=== PATIENT | male | born 1950 | race Caucasian/White ===

== ENCOUNTER → 2017-10-22 11:00 | Outpatient (CLI) | payer MEDICARE, SELFPAY | PROVIDERS: PCP Emergency Medicine; Visit Provider Internal Medicine Cardiovascular Disease | DX: I48.0 Paroxysmal atrial fibrillation (principal); I25.10 Atherosclerotic heart disease of native coronary artery without angina pectoris; E78.5 Hyperlipidemia, unspecified | CPT/HCPCS: 99213 ==

== ENCOUNTER 2017-11-09 02:14 | Outpatient (CLI) | payer MEDICARE, SELFPAY ==
--- NOTE | 2017-11-12 08:24 | HOLTER_ITS ---
HOLTER MONITOR DATE OF ANALYSIS/DICTATION November 11, 2017 DATE OF RECORDING November 09, 2017 REFERRING PHYSICIAN Carlos Enrique Hobbs M.D. INDICATIONS Palpitations. FINDINGS 1. Sinus rhythm, heart rate spectrum 35-122 beats per minute, average 58 beats per minute. 2. Rare PAC, 177/2 days, 0.1%, no SVT, no AF. 3. Frequent PVC, mostly single PVCs, 4520/2 days, 2.7%, 11 couplets, no triplets, no ventricular tachycardia. 4. No significant pauses. 5. Symptoms: flutter x20 minutes with sinus rhythm at 85 beats per minute, flutter x5 hours with sinus rhythm 56 beats per minute, flutter x2 hours with sinus bradycardia 45 beats per minute and single PVC, flutter x3.5 hours with sinus rhythm 60 beats per minute, flutter x1.5 hours with sinus bradycardia 43 beats per minute. Terra Cabrera M.D. JUANITO/ondina T - 11/12/2017
== END 2017-11-09 02:34 ==
PROVIDERS: PCP Emergency Medicine; Visit Provider Internal Medicine Cardiovascular Disease
DX: R00.2 Palpitations (principal); I49.1 Atrial premature depolarization; I49.3 Ventricular premature depolarization
CPT/HCPCS: 93225

== ENCOUNTER 2017-11-11 11:13 | Outpatient (CLI) | payer MEDICARE, SELFPAY | END 2017-11-11 11:33 | PROVIDERS: PCP Emergency Medicine; Visit Provider Internal Medicine Cardiovascular Disease | DX: R00.2 Palpitations (principal); I49.1 Atrial premature depolarization; I49.3 Ventricular premature depolarization | CPT/HCPCS: 93227; 93226 ==

== ENCOUNTER 2017-12-16 17:33 | Emergency (ER) | payer MEDICARE, SELFPAY ==
[2017-12-16 17:38] VITALS: BP 169/98; PULSE 60; RESP 18; TEMP 36.6; O2SAT 92
[2017-12-16] MEDS: Bupivacaine 0.5% Pres-Free 30 ML VIAL IJ (18:20)
--- NOTE | 2017-12-16 18:23 | ED.GENADUL_ITS ---
Discharge Plan Disposition Patient Disposition: HOME Discharge Details Chief Complaint: Laceration Clinical Impression: Laceration of thumb, left Primary Care Provider: Adam Felix ED Provider: Howard Rodriguez Home Meds and New Rx's Prescriptions: New cephalexin [Keflex] 500 mg capsule 500 mg PO TID Qty: 9 RF: 0 Continue multivitamin [One Daily] 1 EACH tablet 1 ea PO DAILY RF: 0 ascorbic acid (vitamin C) [Vitamin C] 500 MG tablet 500 mg PO DAILY RF: 0 aspirin 81 MG tablet,chewable 81 mg PO DAILY RF: 0 pravastatin 40 MG tablet 40 mg PO DAILY Qty: 90 RF: 3 ranitidine HCl [Zantac Maximum Strength] 150 MG tablet 150 mg PO BID Qty: 180 RF: 8 clotrimazole [Lotrimin AF] 24 GM cream 24 gm Topical PRN Qty: 1 RF: 3 clonazepam [Klonopin] 1 MG tablet 1 mg PO HS Qty: 90 RF: 0 Discharge Instructions Instructions: Laceration (ED) Additional Instructions: Keep dressing clean, dry and intact for the next 2 days. You can remove your dressing on the third day and examine wound for any signs of infection ( increasing redness, warmth, discharge ). Apply Neosporin and reapply sterile dressing. Change dressing daily thereafter. Return to the emergency department in 8 days for suture removal. Return sooner for any worsening or new concerning symptoms. Medical Decision Making 18:20 --66-year-old male here with laceration to his dorsal left 1st digit. Neuro intact distally. Digital block performed for pain. xray to assess for fracture. Tetanus utd. 20:20 -- Wound irrigated and explored. Wound does extend deep down to extensor tendon. Tendons appear intact and with full strength on extension at IP. Primary closure performed. #6 Prolene?5-0 sutures placed. Sterile dressing applied. Patient was advised to follow-up in 8 days for suture removal. I explained that he should return sooner if he notices any weakness in his digit or for any other new or concerning symptoms. Will prescribe 3 days of prophylactic keflex. HPI General Mode of arrival: ambulatory . Date/Time Provider Initiated Documentation: 12/16/17 18:04 . Limitations to Documentation: no limitations . Information obtained by: patient . HPI Narrative: 62-year-old male presents with laceration to his left thumb just prior to arrival. Patient notes he was pulling his boat cord back and it slipped and mechanism cut his thumb. Laceration is deep. Laceration was bleeding. Bleeding improved with pressure and elevation. No associated numbness or weakness. Related Data Home Medications Medication Instructions Recorded Confirmed ascorbic acid (vitamin C) [Vitamin 500 mg PO DAILY 06/07/12 12/16/17 C] multivitamin [One Daily] 1 ea PO DAILY 06/07/12 12/16/17 aspirin 81 mg PO DAILY tab-cap 03/13/16 12/16/17 pravastatin 40 mg PO DAILY #90 tab-cap 03/02/17 12/16/17 ranitidine HCl [Zantac Maximum 150 mg PO BID #180 tab-cap 04/12/17 12/16/17 Strength] clotrimazole [Lotrimin AF] 24 gm TOPICAL PRN #1 script 05/05/17 12/16/17 clonazepam [Klonopin] 1 mg PO HS #90 tab 10/12/17 12/16/17 cephalexin [Keflex] 500 mg PO TID #9 cap 12/16/17 Previous Rx's Medication Instructions Recorded pravastatin 40 mg PO DAILY #90 tab-cap 03/02/17 ranitidine HCl [Zantac Maximum 150 mg PO BID #180 tab-cap 04/12/17 Strength] clotrimazole [Lotrimin AF] 24 gm TOPICAL PRN #1 script 05/05/17 clonazepam [Klonopin] 1 mg PO HS #90 tab 10/12/17 cephalexin [Keflex] 500 mg PO TID #9 cap 12/16/17 Allergies Allergy/AdvReac Type Severity Reaction Status Date / Time atenolol AdvReac Unknown hypotension Unverified 12/16/17 17:42 General Stated Complaint: Laceration RYAN: 4 Review of Systems Integumentary/Breasts Reports as per HPI Neurologic Denies paresthesias PFSH Family History Mother Dementia Father Neoplasm Sister Diabetes Brother Rheumatoid arthritis Sister No problems noted. Sister No problems noted. Maternal Aunt Dementia Medical History Actinic keratosis Adenomatous colon polyp Anxiety and depression Colitis Constipation GERD (gastroesophageal reflux disease) Gastritis History of melanoma Hyperlipidemia Kidney stones Low back pain Paroxysmal atrial fibrillation Prostatitis Right hydrocele Rosacea Social History Smoking/Tobacco Use Status: Former Tobacco Use Surgical History Angioplasty Colonoscopy - IV Sedation Colonoscopy - MAC (06/21/17) EGD - IV Sedation Repair, Tendon or Muscle cardiac ablation Exam Extrem Left upper extremity: hand (1.5cm dorsal left thumb with laceration over distal phalanx, curved, extending deep to extensor tendon; extensor tendon intact with full strength) Details: neurosensory exam normal and tendon exam normal Course Vital Signs Temperature 36.6 C 12/16/17 17:38 Pulse 60 12/16/17 17:38 Respiratory Rate 18 12/16/17 17:38 Blood Pressure 169/98 H 12/16/17 17:38 Pulse Oximetry 92 L 12/16/17 17:38 Temperature 36.6 C 12/16/17 17:38 Temperature Source Skin 12/16/17 17:38 Pulse 60 12/16/17 17:38 Respiratory Rate 18 12/16/17 17:38 Respiratory Effort 12/16/17 17:39 Blood Pressure 169/98 H 12/16/17 17:38 Blood Pressure Position Sitting 12/16/17 17:38 Pulse Oximetry 92 L 12/16/17 17:38 Oxygen Delivery Method Room Air 12/16/17 17:38 Oxygen Flow Rate 0 12/16/17 17:38 Pain Level 3 12/16/17 17:41 Procedures Laceration Laceration 1: Site: upper extremity Side (If applicable): left Size (cm): 1.5 Description: irregular Depth: simple, single layer Skin layer closed with: vicryl Size (cm): 5-0 Number of sutures: 6 Technique: simple, interrupted Nerve Block Nerve Block 1: Time out performed: Yes Local Anesthetic: Bupivicaine 0.5% Amount of anesthesia used (mL): 4 Side: left Nerve Blocks: digital (dorsal thumb) Procedure Successful: Yes Patient Tolerated Procedure: well Complications: none
--- NOTE | 2017-12-16 18:44 | DI.RAD_ITS ---
SYMPTOM/DIAGNOSIS: LACERATION, BLUNT TRAUMA LEFT THUMB: Three views were obtained. There is reportedly a dorsal laceration at the level of the IP joint. The bones appear intact except for some degenerative changes. There are three or four small flecks of high density material seen on the dorsal aspect of the thumb at the level of the IP joint. These could represent tiny chip fractures or foreign material. Please correlate clinically.
--- NOTE | 2017-12-16 19:10 | DI.VRAD_ITS ---
EXAM: XR Left Finger(s), 2 or More Views EXAM DATE/TIME: 12/16/2017 6:06 PM CLINICAL HISTORY: 66 years old, male; Injury or trauma; Injury history: Hunting, bow wrapped around left thumb. ; Initial encounter; Blunt trauma (contusions or hematomas and laceration; Finger; Injury date: 12/16; Injury details: Left thumb pain and laceration, no previous FX to left thumb, no surgery. TECHNIQUE: XR Left finger minimum 2 views. COMPARISON: No relevant prior studies available. FINDINGS: Bones/joints: Normal. Soft tissues: Small coarse calcifications dorsal to the first interphalangeal joint with overlying soft tissue swelling. IMPRESSION: 1. No acute bony pathology. 2. Small coarse calcifications dorsal to the first interphalangeal joint with overlying soft tissue swelling most suggestive of acute on chronic soft tissue trauma. Dictated and Authenticated by: Aniya Floyd MD. Ordering:BLAISE MARTÍNEZ MD
[2017-12-16 23:59] VITALS: BP 169/98; PULSE 60; RESP 18; TEMP 36.6; O2SAT 92
== END 2017-12-16 20:46 | disposition home or self-care (01) ==
PROVIDERS: Emergency Provider Student in an Organized Health Care Education/Training Program; PCP Emergency Medicine
DX: S61.012A Laceration without foreign body of left thumb without damage to nail, initial encounter (principal); W26.8XXA Contact with other sharp object(s), not elsewhere classified, initial encounter
CPT/HCPCS: 12001; 73140

== ENCOUNTER 2017-12-24 09:03 | Emergency (ER) | payer MEDICARE, SELFPAY ==
[2017-12-24 09:09] VITALS: BP 158/82; PULSE 60; TEMP 36.3; O2SAT 98
--- NOTE | 2017-12-24 09:28 | ED.GENADUL_ITS ---
Discharge Plan Disposition Patient Disposition: HOME Condition: Good Discharge Details Chief Complaint: SutureRem Clinical Impression: Encounter for removal of sutures Primary Care Provider: Adam Felix ED Provider: Alfreda Cordoba Home Meds and New Rx's Prescriptions: Continue multivitamin [One Daily] 1 EACH tablet 1 ea PO DAILY RF: 0 ascorbic acid (vitamin C) [Vitamin C] 500 MG tablet 500 mg PO DAILY RF: 0 aspirin 81 MG tablet,chewable 81 mg PO DAILY RF: 0 pravastatin 40 MG tablet 40 mg PO DAILY Qty: 90 RF: 3 ranitidine HCl [Zantac Maximum Strength] 150 MG tablet 150 mg PO BID Qty: 180 RF: 8 clotrimazole [Lotrimin AF] 24 GM cream 24 gm Topical PRN Qty: 1 RF: 3 clonazepam [Klonopin] 1 MG tablet 1 mg PO HS Qty: 90 RF: 0 cephalexin [Keflex] 500 mg capsule 500 mg PO TID Qty: 9 RF: 0 Discharge Instructions Instructions: Stitches Removal (ED) Additional Instructions: Keep wound clean, dry, covered. Continue to monitor for signs of infection including redness, warmth, drainage, increased pain. If these arise please seek care urgently once again. Follow up with primary care as needed. Referrals: Adam Felix DO [Primary Care Provider] - Medical Decision Making Patient presents today with chief complaint suture removal. Wound appears to be healing well. Is been 8 days since this is his replacement dorsal aspect of his left thumb. No other sensation. Limited range of motion over the interphalangeal joint but this seems to be from hesitancy and stiffness. He denies any altered sensation. #6 sutures were easily removed by myself. A clean, sterile dressing was then placed over this. We discussed the signs symptoms of infection when to seek care urgently once again. Discussed continued wound care. all his questions and concerns were addressed and he is in agreement with this plan HPI General Mode of arrival: ambulatory . Date/Time Provider Initiated Documentation: 12/24/17 09:05 . Limitations to Documentation: no limitations . Information obtained by: patient . History of Present Illness 66 year old M presents to the emergency department with the chief complaint of suture removal left thumb, described as mild (denies any pain at this time), and is localized to the left and upper extremity. Patient started experiencing this day(s) (8) No exacerbating factors reported . Patient notes no other symptoms.; denies cough, fever/chills and rash. Related Data Home Medications Medication Instructions Recorded Confirmed ascorbic acid (vitamin C) [Vitamin 500 mg PO DAILY 06/07/12 12/16/17 C] multivitamin [One Daily] 1 ea PO DAILY 06/07/12 12/16/17 aspirin 81 mg PO DAILY tab-cap 03/13/16 12/16/17 pravastatin 40 mg PO DAILY #90 tab-cap 03/02/17 12/16/17 ranitidine HCl [Zantac Maximum 150 mg PO BID #180 tab-cap 04/12/17 12/16/17 Strength] clotrimazole [Lotrimin AF] 24 gm TOPICAL PRN #1 script 05/05/17 12/16/17 clonazepam [Klonopin] 1 mg PO HS #90 tab 10/12/17 12/16/17 cephalexin [Keflex] 500 mg PO TID #9 cap 12/16/17 Previous Rx's Medication Instructions Recorded pravastatin 40 mg PO DAILY #90 tab-cap 03/02/17 ranitidine HCl [Zantac Maximum 150 mg PO BID #180 tab-cap 04/12/17 Strength] clotrimazole [Lotrimin AF] 24 gm TOPICAL PRN #1 script 05/05/17 clonazepam [Klonopin] 1 mg PO HS #90 tab 10/12/17 cephalexin [Keflex] 500 mg PO TID #9 cap 12/16/17 Allergies Allergy/AdvReac Type Severity Reaction Status Date / Time atenolol AdvReac Unknown hypotension Unverified 12/16/17 17:42 General Stated Complaint: SutureRem RYAN: 5 Review of Systems Constitutional Reports as per HPI, Denies chills, Denies fever(s) and Denies weakness Musculoskeletal Reports as per HPI, Denies numbness and Denies tingling Integumentary/Breasts Reports as per HPI Neurologic Reports as per HPI, Denies numbness, Denies radicular pain, Denies tingling, Denies paresthesias and Denies weakness PFSH Family History Mother Dementia Father Neoplasm Sister Diabetes Brother Rheumatoid arthritis Sister No problems noted. Sister No problems noted. Maternal Aunt Dementia Medical History Actinic keratosis Adenomatous colon polyp Anxiety and depression Colitis Constipation GERD (gastroesophageal reflux disease) Gastritis History of melanoma Hyperlipidemia Kidney stones Low back pain Paroxysmal atrial fibrillation Prostatitis Right hydrocele Rosacea Social History Smoking/Tobacco Use Status: Former Tobacco Use Surgical History Angioplasty Colonoscopy - IV Sedation Colonoscopy - MAC (06/21/17) EGD - IV Sedation Repair, Tendon or Muscle cardiac ablation Exam Const General: cooperative, healthy appearing, comfortable, no acute distress and well developed Nutritional Appearance: average body habitus and well nourished Orientation: alert and awake Resp Effort & Inspection: normal respiratory effort, able to speak in complete sentences and no respiratory distress Cardio Rate: regular rate Rhythm: regular rhythm Skin Trauma: laceration (Patient is a well-healing laceration on the dorsal aspect of the left thumb. No surrounding erythema, warmth, drainage. Appears to be healing well and ready for suture removal #6 sutures remain in) Neuro General: alert and awake Cognition: normal cognition Speech: speech normal Gait: normal gait Sensory Exam: no sensory deficits noted Extrem General: abnormal to inspection (Well-healing laceration as above. Patient does have normal range of motion over the interphalangeal joint. He has multiple old scars over the dorsal aspect of the thumb.) Psych Appearance: grossly normal and well kempt Mental Status: mental status grossly normal Speech and Movement: speech and movement normal Mood: congruent mood Course Respiratory Effort 12/24/17 09:06
== END 2017-12-24 09:30 | disposition home or self-care (01) ==
PROVIDERS: Emergency Provider Physician Assistant; PCP Emergency Medicine
DX: S61.012D Laceration without foreign body of left thumb without damage to nail, subsequent encounter (principal); W26.8XXD Contact with other sharp object(s), not elsewhere classified, subsequent encounter; Z48.02 Encounter for removal of sutures

== ENCOUNTER 2018-04-15 03:07 | Outpatient (CLI) | payer MEDICARE, SELFPAY ==
[2018-04-15 13:16] LABS: Cholesterol 180 mg/dL (50-200); HDL Cholesterol 56 mg/dL (40-60); LDL CHOLESTEROL 107 mg/dL (<100); Triglyceride 116 mg/dL (30-150)
[2018-04-18 09:31] LABS: PSA, Screening 2.6 ng/ml (0-4.5)
== END 2018-04-15 03:27 ==
PROVIDERS: PCP Emergency Medicine; Visit Provider Emergency Medicine
DX: E78.5 Hyperlipidemia, unspecified (principal); Z12.5 Encounter for screening for malignant neoplasm of prostate
CPT/HCPCS: 36415; 80061; 83721; 84153

== ENCOUNTER 2018-05-23 10:12 | Day surgery (SDC) | payer MEDICARE, SELFPAY ==
--- NOTE | 2018-05-22 17:08 | W.PIPPEYE ---
History of Present Illness Chief Complaint: Progressive decreased vision, left eye Narrative: The patient is a 67-year-old male who presented with complaints of progressive decreased vision in both eyes at both distance and near. He has significant difficulty with reading and driving. He has a lot of symptoms of glare. On examination he was noted to have moderate bilateral nuclear and posterior subcapsular cataract with visual acuity of 20/30 OD, 2040 OS. He was significantly symptomatically he desired cataract surgery and attempt to improve and maximize his vision. NOTE: The Chief Complaint, HPI, Past Medical History, Past Surgical History, Family History, Social History, Medications, and complete Ophthalmic Exam with detailed Assessment and Plan have already been documented in the patient's outpatient ophthalmic record and are not covered again in detail here. PFSH Family History Mother Dementia Father Stomach cancer Sister Diabetes Brother Rheumatoid arthritis Sister No problems noted. Sister No problems noted. Maternal Aunt Dementia Brother No problems noted. Social History Smoking/Tobacco Use Status: Former Tobacco Use Second Hand Exposure: Yes Alcohol Intake: former Drug use: Never Substance use type: does not use Caregiver/Support person: No Household members: family Housing: house Pets and animals: No Sexually active: No Do you think of yourself as: straight/heterosexual Current gender identity: male What is your relationship status?: never How often do you talk on the phone with friends or family?: three or more times per week How often do you get together with friends or relatives?: three or more times per week How often do you attend jehovah's witness or rastafari services?: decline to answer Do you belong to any clubs or organized social groups?: no Panel score (0-1 are the most socially isolated patients): 1 What type of physical activity do you participate in: walking Duration: 30-45 minutes/day Frequency: 1-2 times per week Any/Worship: None Do you feel safe in your relationship?: Yes Meds Home Medications Medication Instructions Recorded Confirmed Type ascorbic acid (vitamin C) [Vitamin 500 mg PO DAILY 06/07/12 05/18/18 History C] multivitamin [One Daily] 1 ea PO DAILY 06/07/12 05/18/18 History aspirin 81 mg PO DAILY tab-cap 03/13/16 05/18/18 History clotrimazole [Lotrimin AF] 24 gm TOPICAL PRN #1 script 05/05/17 05/18/18 Rx pravastatin 40 mg tablet 40 mg PO DAILY #90 tab-cap 03/02/18 05/18/18 Rx ranitidine 150 mg tablet 150 mg PO BID #180 tab-cap 04/13/18 05/18/18 Rx clonazepam [Klonopin] 0.5 mg PO HS 05/18/18 05/18/18 History Allergies Allergy/AdvReac Type Severity Reaction Status Date / Time atenolol AdvReac Unknown hypotension Verified 05/18/18 09:12 Exam OCULAR EXAM:: Most recent ocular examination is significant for best corrected vision of 20/30 in each eye. Intraocular pressure is 12 OD, 10 OS. Extraocular motility is normal. Pupils equal, round, and reactive without afferent pupillary defect slit-lamp examination is significant for pupils dilating to 6.5 mm OU. 2+ nuclear with 1+ posterior subcapsular cataract OU. Dilated funduscopic examination reveals disc cupping of 0.6 OD 0.5 OS with normal vessels. There is a mild epiretinal membrane in both maculas. There are macular pigmentary changes evident in both eyes. Peripheral retina and vitreous is normal OU BRIGHTNESS ACUITY TESTING (BAT):: Brightness acuity testing of the left eye off is 20/40. Low is 20/40. Medium is 20/30. High is 20/50. Assessment and Plan (1) Posterior subcapsular age-related cataract of left eye: Current visit: No Status: Acute Assessment: Visually significant cataract, left eye. Plan: Cataract extraction with intraocular lens implantation, left eye (2) Nuclear sclerotic cataract of left eye: Current visit: No Status: Acute Assessment: Visually significant cataract, left eye. Plan: Cataract extraction with intraocular lens implantation, left eye Note: NOTE:: The details of the planned surgery, including the risks, indications,limitations,expectations,outcome and possible complications were explained to the patient. The patient understands the complications including, but not limited to: infection, hemorrhage, posterior dislocation of the lens or nuclear fragments which may require the intervention of a vitreoretinal surgeon, possible loss of the eye, or from anesthetic complications. The patient has been made aware of the option of not having surgery, that vision following surgery may not be equal to that prior to surgery, and that the planned surgery may not achieve the intended results. Following this discussion, which the patient appeared to understand, the patient wishes to proceed with cataract surgery with lens implantation of the affected eye to improve and maximize vision.
--- NOTE | 2018-05-22 19:54 | W.PM.DSUDISC ---
Discharge Plan Disposition Patient Disposition: HOME Condition: Stable Discharge Details Attending Provider: Jayjay Zambrano Primary Care Provider: Adam Felix Home Meds and New Rx's Prescriptions: No Action multivitamin [One Daily] 1 EACH tablet 1 ea PO DAILY RF: 0 ascorbic acid (vitamin C) [Vitamin C] 500 MG tablet 500 mg PO DAILY RF: 0 aspirin 81 MG tablet,chewable 81 mg PO DAILY RF: 0 clotrimazole [Lotrimin AF] 24 GM cream 24 gm Topical PRN Qty: 1 RF: 3 pravastatin 40 mg tablet 40 mg PO DAILY Qty: 90 RF: 3 ranitidine HCl [Zantac Maximum Strength] 150 mg tablet 150 mg PO BID Qty: 180 RF: 8 clonazepam [Klonopin] 1 mg tablet 0.5 mg PO HS RF: 0 Discharge Instructions Stand Alone Forms: Post-op Topical Cataract, Maureen Hernandezey (DSU) Discharge Orders Discharge Orders: Discharge Order (Routine); Ordered 05/23/18 Ordered By: Jayjay Zambrano DS: Diagnosis Discharge Diagnosis (1) Posterior subcapsular age-related cataract of left eye: Status: Resolved (2) Nuclear sclerotic cataract of left eye: Status: Resolved (3) Status post cataract extraction and insertion of intraocular lens of left eye: Status: Chronic
--- NOTE | 2018-05-22 19:56 | W.PM.OP ---
Date of service: 05/23/18 Time of Service: 12:51 Operative Note PRE-OP DIAGNOSIS: Cataract, left eye POST-OP DIAGNOSIS: same PROCEDURE: Cataract extraction using phacoemulsification with intraocular lens implant, left eye SURGEON: Jayjay Zambrano ANESTHESIA: MAC and local (sub-tenon's anesthetic infiltration) PATHOLOGY: none sent COMPLICATIONS: None Patient was transported to: same day Patient's condition: stable Implants: Mahad and Mahad Vision / [employer] Tecnis ZCB00 Indications: Progressive decreased vision due to cataract, left eye Procedure Description: CATARACT SURGERY OPERATIVE REPORT PREOPERATIVE DIAGNOSIS: Nuclear/posterior subcapsular cataract, left eye POSTOPERATIVE DIAGNOSIS: Same OPERATION: Cataract extraction using phacoemulsification with posterior chamber intraocular lens implant, left eye. IOL: IOL Websphere Process Server Developer/Model: J&J Vision / OLIVA Tecnis ZCB00 IOL Power: + 17.0 diopters IOL Serial Number: [id number] Optic Diameter: 6.0mm Haptic/Overall Diameter: 13.0mm PHACO INFO: TaoBioCatchon Vision System with OZil and Active Fluidics Cumulative Dispersed Energy (CDE): 10.68 seconds SURGEON: Jayjay Zambrano MD, EDWIN ANESTHESIA: Monitored Anesthesia Care (MAC), with local sub-tenon's anesthetic infiltration COMPLICATIONS: None SPECIMENS: None INDICATIONS FOR PROCEDURE: The patient is a 67-year-old gentleman with history of diminished visual acuity in both eyes secondary to the development of bilateral nuclear and posterior subcapsular cataract. He was significantly symptomatic that he desired cataract surgery and attempt to improve and maximize his vision. PROCEDURE: The correct surgical eye was identified and marked as the left eye and the pupil was dilated in the preoperative area using mydriatics and cycloplegics. The dilated pupil size was 7.0 mm. Oral sedation was administered in the form of an Imprimis MKO Melt (midazolam 3mg/ketamine 25mg/ondansetron 2mg). The patient was brought to the operating room where cardiopulmonary monitoring was instituted and surgical time-out was performed, confirming the correct operative eye and IOL power. Topical anesthesia was administered and ophthalmic povidone-iodine 5% was instilled into the conjunctival fornices. Lidocaine gel was applied to the cornea and the aixa-ocular area was prepped with Betadine 10% solution and draped in the usual sterile fashion for intraocular surgery, including an aperture drape. A Tegaderm transparent film dressing was cut in half and used to cover the lashes and lid margins. Care was taken to sequester the lashes and lid margins under the Tegaderm dressing. A lid speculum was placed between the lids of the operative eye and the Arabella-Denny operating microscope was maneuvered into position. Ranjan scissors were then used to make a conjunctival buttonhole approximately 6mm posterior to the limbus in the inferonasal quadrant. Blunt dissection was carried out to expose bare sclera, and a blunt-tipped sub-tenon?s anesthesia cannula was introduced and passed posteriorly along the globe where non-preserved plain lidocaine was injected into posterior sub-Tenon?s space. A sideport knife was used to make a paracentesis port superior/superiortemporal, and the anterior chamber was filled with Healon GV. A 2.4mm keratome knife was used to create a half-thickness groove at the limbus and then to construct a three-plane near-clear corneal tunnel extending 2.0mm into clear cornea in the temporal position. . A flap was raised on the anterior capsule and capsulorhexis forceps were used to complete a continuous curvilinear capsulorhexis of 5.5 mm. Balanced salt solution was then used to perform cortical cleaving hydrodissection and nuclear hydrodelineation until the lens could be freely rotated within the capsular bag. The lens nucleus was then disassembled and removed within the capsular bag and iris plane using phacoemulsification. Residual cortical material was removed using the 45-degree angled silicone I/A tip with 0.3mm port. The posterior capsule was carefully polished to remove as much residual lens epithelial cells as safely possible. The capsular bag was then inflated and the anterior chamber deepened with viscoelastic. The lens implant described above was inserted into the capsular bag using the OLIVA [place] Injector. A Kuglen hook was used to dial the IOL into position. Residual viscoelastic was then removed first from posterior to the IOL, then from the anterior chamber using the I/A handpiece. The lens implant was noted to center nicely within the capsular bag. The incisions were stromally hydrated, and the anterior chamber was reformed using BSS. Then 0.4cc of moxifloxacin 1.5mg/ml were injected into the capsular bag and anterior chamber. The incisions were checked with a Weck spear and found to be secure. Several drops of ophthalmic povidone-iodine 5% were then applied to the eye followed by two drops of Imprimis combination moxifloxacin/dexamethasone solution. The drapes were removed and a clear plastic protective eye shield was placed over the eye. The patient was then returned to Same Day Surgery in stable condition.
[2018-05-23 10:51] VITALS: BP 149/81; PULSE 55; RESP 16; TEMP 35.5; O2SAT 98
[2018-05-23] MEDS: Tropicam./Phenyleph. (1/2.5%) 5 ML BTL OS ×3 (10:59→11:09)
[2018-05-23] MEDS: Tetracaine 0.5% 4 ML BTL OS ×4 (10:59→12:16)
[2018-05-23] MEDS: Povidone-Iodine Ophth 30 ML BTL (12:16)
[2018-05-23] MEDS: Lidocaine 2% Jelly 6 ML SYR (12:16)
[2018-05-23] MEDS: Lidocaine 1% Pres-Free 5 ML VIAL (12:24)
[2018-05-23] MEDS: Balanced Salt Soln.-PLUS 500 ML BAG (12:25)
[2018-05-23 13:27] VITALS: BP 154/86; PULSE 56; RESP 14; TEMP 35.2; O2SAT 97
== END 2018-05-23 13:28 | disposition home or self-care (01) ==
PROVIDERS: PCP Emergency Medicine; Visit Provider Ophthalmology
PROC: (CPT 66984; principal; 2018-05-23 15:00)
DX: H25.812 Combined forms of age-related cataract, left eye (principal); K21.9 Gastro-esophageal reflux disease without esophagitis
CPT/HCPCS: 66984; V2632

== ENCOUNTER 2018-06-06 06:54 | Day surgery (SDC) | payer MEDICARE, SELFPAY ==
--- NOTE | 2018-06-05 09:40 | W.PIPPEYE ---
History of Present Illness Chief Complaint: Progressive decreased vision, right eye Narrative: The patient is a 59-year-old male with history of progressive decreased vision in both eyes at both distance and near. He noted particularly difficulty reading and driving due to glare. On examination he was noted to have bilateral nuclear and posterior subcapsular cataracts. He was significantly symptomatic that he desired cataract surgery which was performed OS on 05/23/2018. Postoperatively, he has regained uncorrected vision of 20/20 in the left eye. He now presents for cataract surgery in the right eye. NOTE: The Chief Complaint, HPI, Past Medical History, Past Surgical History, Family History, Social History, Medications, and complete Ophthalmic Exam with detailed Assessment and Plan have already been documented in the patient's outpatient ophthalmic record and are not covered again in detail here. 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) Hydrocele (Chronic) History of tobacco use (Chronic) History of kidney stones (Chronic 12/02/15) Dysphagia, pharyngoesophageal (Chronic 09/03/16) Constipation (Chronic) Anticoagulated on warfarin (Chronic) Acute prostatitis (Chronic) Actinic keratosis (Chronic) Actinic keratosis Adenomatous colon polyp Anxiety and depression Colitis Constipation GERD (gastroesophageal reflux disease) Gastritis History of melanoma Hyperlipidemia Kidney stones Low back pain Paroxysmal atrial fibrillation Prostatitis Right hydrocele Rosacea Surgical History Status post cataract extraction and insertion of intraocular lens of left eye (Chronic 05/23/18) Angioplasty Colonoscopy - IV Sedation Colonoscopy - MAC (06/21/17) EGD - IV Sedation Repair, Tendon or Muscle cardiac ablation Family History Mother Dementia Father Stomach cancer Sister Diabetes Brother Rheumatoid arthritis Sister No problems noted. Sister No problems noted. Maternal Aunt Dementia Brother No problems noted. Social History Smoking/Tobacco Use Status: Former Tobacco Use Second Hand Exposure: Yes Alcohol Intake: former Drug use: Never Substance use type: does not use Caregiver/Support person: No Household members: family Housing: house Pets and animals: No Sexually active: No Do you think of yourself as: straight/heterosexual Current gender identity: male What is your relationship status?: never How often do you talk on the phone with friends or family?: three or more times per week How often do you get together with friends or relatives?: three or more times per week How often do you attend anglican or pentecostalism services?: decline to answer Do you belong to any clubs or organized social groups?: no Panel score (0-1 are the most socially isolated patients): 1 What type of physical activity do you participate in: walking Duration: 30-45 minutes/day Frequency: 1-2 times per week Any/Bahai: None Do you feel safe in your relationship?: Yes Meds Home Medications Medication Instructions Recorded Confirmed Type ascorbic acid (vitamin C) [Vitamin 500 mg PO DAILY 06/07/12 05/23/18 History C] multivitamin [One Daily] 1 ea PO DAILY 06/07/12 05/23/18 History aspirin 81 mg PO DAILY tab-cap 03/13/16 05/23/18 History clotrimazole [Lotrimin AF] 24 gm TOPICAL PRN #1 script 05/05/17 05/23/18 Rx pravastatin 40 mg tablet 40 mg PO DAILY #90 tab-cap 03/02/18 05/23/18 Rx ranitidine 150 mg tablet 150 mg PO BID #180 tab-cap 04/13/18 05/23/18 Rx clonazepam [Klonopin] 0.5 mg PO HS 05/18/18 05/23/18 History Allergies Allergy/AdvReac Type Severity Reaction Status Date / Time atenolol AdvReac Unknown hypotension Verified 05/18/18 09:12 Exam OCULAR EXAM:: Most recent ocular examination is significant for corrected visual acuity of 20/30 OD, uncorrected vision of 20/20 OS. Intraocular pressure is 12 OD, 10 OS. Extraocular motility is normal. Pupils equal, round, and reactive without afferent pupillary defect slit-lamp examination is significant for pupils dilating to 6.5 mm OU. 2+ nuclear with 1+ posterior subcapsular cataract OD. Well-positioned PCIOL OS with clear posterior capsule. Dilated funduscopic examination shows disc cupping of 0.6 OD 0.5 OS with normal vessels. Mild retinal pigmentary changes are present in both maculas with epiretinal membrane. Peripheral retina and vitreous is normal in both eyes. BRIGHTNESS ACUITY TESTING (BAT):: Brightness acuity testing of the right eye off is 20/30. Low and medium is 20/40. High is 20/50. Assessment and Plan (1) Posterior subcapsular age-related cataract, right eye: Current visit: No Status: Acute Assessment: Visually significant cataract, right eye. Plan: Cataract extraction with intraocular lens implantation, right eye (2) Nuclear sclerotic cataract of right eye: Current visit: No Status: Acute Assessment: Visually significant cataract, right eye. Plan: Cataract extraction with intraocular lens implantation, right eye Note: NOTE:: The details of the planned surgery, including the risks, indications,limitations,expectations,outcome and possible complications were explained to the patient. The patient understands the complications including, but not limited to: infection, hemorrhage, posterior dislocation of the lens or nuclear fragments which may require the intervention of a vitreoretinal surgeon, possible loss of the eye, or from anesthetic complications. The patient has been made aware of the option of not having surgery, that vision following surgery may not be equal to that prior to surgery, and that the planned surgery may not achieve the intended results. Following this discussion, which the patient appeared to understand, the patient wishes to proceed with cataract surgery with lens implantation of the affected eye to improve and maximize vision.
--- NOTE | 2018-06-05 09:44 | POEE_ITS ---
History of Present Illness Chief Complaint: Progressive decreased vision, right eye Narrative: The patient is a 59-year-old male with history of progressive decreased vision in both eyes at both distance and near. He noted particularly difficulty reading and driving due to glare. On examination he was noted to h ave bilateral nuclear and posterior subcapsular cataracts. He was significantly symptomatic that he desired cataract surgery which was performed OS on 05/23/2018. Postoperatively, he has regained uncorrected vision of 20/20 in the left eye. He now presents for cataract surgery in the right eye. NOTE: The Chief Complaint, HPI, Past Medical History, Past Surgical History, Family History, Social History, Medications, and complete Ophthalmic Exam with detailed Assessment and Plan have already been documented in the patient's outpatient ophthalmic record and are not covered again in detail here. 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) Hydrocele (Chronic) History of tobacco use (Chronic) History of kidney stones (Chronic 12/02/15) Dysphagia, pharyngoesophageal (Chronic 09/03/16) Constipation (Chronic) Anticoagulated on warfarin (Chronic) Acute prostatitis (Chronic) Actinic keratosis (Chronic) Actinic keratosis Adenomatous colon polyp Anxiety and depression Colitis Constipation GERD (gastroesophageal reflux disease) Gastritis History of melanoma Hyperlipidemia Kidney stones Low back pain Paroxysmal atrial fibrillation Prostatitis Right hydrocele Rosacea Surgical History Status post cataract extraction and insertion of intraocular lens of left eye (Chronic 05/23/18) Angioplasty Colonoscopy - IV Sedation Colonoscopy - MAC (06/21/17) EGD - IV Sedation Repair, Tendon or Muscle cardiac ablation Family History Mother Dementia Father Stomach cancer Sister Diabetes Brother Rheumatoid arthritis Sister No problems noted. Sister No problems noted. Maternal Aunt Dementia Brother No problems noted. Social History Smoking/Tobacco Use Status: Former Tobacco Use Second Hand Exposure: Yes Alcohol Intake: former Drug use: Never Substance use type: does not use Caregiver/Support person: No Household members: family Housing: house Pets and animals: No Sexually active: No Do you think of yourself as: straight/heterosexual Current gender identity: male What is your relationship status?: never How often do you talk on the phone with friends or family?: three or more times per week How often do you get together with friends or relatives?: three or more times per week How often do you attend judaism or caodaism services?: decline to answer Do you belong to any clubs or organized social groups?: no Panel score (0-1 are the most socially isolated patients): 1 What type of physical activity do you participate in: walking Duration: 30-45 minutes/day Frequency: 1-2 times per week Any/Church: None Do you feel safe in your relationship?: Yes Meds Home Medications Medication Instructions Recorded Confirmed Type ascorbic acid (vitamin C) [Vitamin 500 mg PO DAILY 06/07/12 05/23/18 History C] multivitamin [One Daily] 1 ea PO DAILY 06/07/12 05/23/18 History aspirin 81 mg PO DAILY tab-cap 03/13/16 05/23/18 History clotrimazole [Lotrimin AF] 24 gm TOPICAL PRN #1 script 05/05/17 05/23/18 Rx pravastatin 40 mg tablet 40 mg PO DAILY #90 tab-cap 03/02/18 05/23/18 Rx ranitidine 150 mg tablet 150 mg PO BID #180 tab-cap 04/13/18 05/23/18 Rx clonazepam [Klonopin] 0.5 mg PO HS 05/18/18 05/23/18 History Allergies Allergy/AdvReac Type Severity Reaction Status Date / Time atenolol AdvReac Unknown hypotension Verified 05/18/18 09:12 Exam OCULAR EXAM:: Most recent ocular examination is significant for corrected visual acuity of 20/30 OD, uncorrected vision of 20/20 OS. Intraocular pressure is 12 OD, 10 OS. Extraocular motility is normal. Pupils equal, round, and reactive without afferent pupillary defect slit-lamp examination is significant for pupils dilating to 6.5 mm OU. 2+ nuclear with 1+ posterior subcapsular cataract OD. Well-positioned PCIOL OS with clear posterior capsule. Dilated funduscopic examination shows disc cupping of 0.6 OD 0.5 OS with normal vessels. Mild retinal pigmentary changes are present in both maculas with epiretinal membrane. Peripheral retina and vitreous is normal in both eyes. BRIGHTNESS ACUITY TESTING (BAT):: Brightness acuity testing of the right eye off is 20/30. Low and medium is 20/40. High is 20/50. Assessment and Plan (1) Posterior subcapsular age-related cataract, right eye: Current visit: No Status: Acute Assessment: Visually significant cataract, right eye. Plan: Cataract extraction with intraocular lens implantation, right eye (2) Nuclear sclerotic cataract of right eye: Current visit: No Status: Acute Assessment: Visually significant cataract, right eye. Plan: Cataract extraction with intraocular lens implantation, right eye Note: NOTE:: The details of the planned surgery, including the risks, indications,limitations,expectations,outcome and possible complications were explained to the patient. The patient understands the complications including, but not limited to: infection, hemorrhage, posterior dislocation of the lens or nuclear fragments which may require the intervention of a vitreoretinal surgeon, possible loss of the eye, or from anesthetic complications. The patient has been made aware of the option of not having surgery, that vision following surgery may not be equal to that prior to surgery, and that the planned surgery may not achieve the intended results. Following this discussion, which the patient appeared to understand, the patient wishes to proceed with cataract surgery with lens implantation of the affected eye to improve and maximize vision.
[2018-06-06 07:21] VITALS: BP 162/86; PULSE 56; RESP 19; TEMP 35.8; O2SAT 100
[2018-06-06] MEDS: Tetracaine 0.5% 4 ML BTL OD ×4 (07:32→08:22)
[2018-06-06] MEDS: Tropicam./Phenyleph. (1/2.5%) 5 ML BTL OD ×3 (07:32→07:42)
--- NOTE | 2018-06-06 08:14 | W.PM.DSUDISC ---
Discharge Plan Disposition Patient Disposition: HOME Condition: Stable Discharge Details Attending Provider: Jayjay Zambrano Primary Care Provider: Adam Felix Home Meds and New Rx's Prescriptions: No Action multivitamin [One Daily] 1 EACH tablet 1 ea PO DAILY RF: 0 ascorbic acid (vitamin C) [Vitamin C] 500 MG tablet 500 mg PO DAILY RF: 0 aspirin 81 MG tablet,chewable 81 mg PO DAILY RF: 0 clotrimazole [Lotrimin AF] 24 GM cream 24 gm Topical PRN Qty: 1 RF: 3 pravastatin 40 mg tablet 40 mg PO DAILY Qty: 90 RF: 3 ranitidine HCl [Zantac Maximum Strength] 150 mg tablet 150 mg PO BID Qty: 180 RF: 8 clonazepam [Klonopin] 1 mg tablet 0.5 mg PO HS RF: 0 Discharge Instructions Stand Alone Forms: Post-op Topical Cataract, Maureen Hernandezey (DSU) Discharge Orders Discharge Orders: Discharge Order (Routine); Ordered 06/06/18 Ordered By: Jayjay Zambrano DS: Diagnosis Discharge Diagnosis (1) Posterior subcapsular age-related cataract, right eye: Status: Resolved (2) Nuclear sclerotic cataract of right eye: Status: Resolved (3) Status post cataract extraction and insertion of intraocular lens of right eye: Status: Chronic
--- NOTE | 2018-06-06 08:15 | ROE_ITS ---
Date of service: 06/06/18 Time of Service: 08:49 Operative Note PRE-OP DIAGNOSIS: Cataract, right eye PROCEDURE: Cataract extraction using phacoemulsification with intraocular lens implant, right eye SURGEON: Jayjay Zambrano ANESTHESIA: MAC and local (sub-tenon's anesthetic infiltration) ESTIMATED BLOOD LOSS: 0 PATHOLOGY: none sent COMPLICATIONS: None Patient was transported to: same day Patient's condition: stable Implants: Mahad and Mahad Vision / [employer] Tecnis ZCB00 intraocular lens Indications: Progressive decreased vision due to cataract, right eye Procedure Description: CATARACT SURGERY OPERATIVE REPORT PREOPERATIVE DIAGNOSIS: Nuclear/posterior subcapsular cataract, right eye POSTOPERATIVE DIAGNOSIS: Same OPERATION: Cataract extraction using phacoemulsification with posterior chamber intraocular lens implant, right eye. IOL: IOL Farm Operations Manager/Model: J&J Vision / OLIVA Tecnis ZCB00 IOL Power: + 18.0 diopters IOL Serial Number: [id number] Optic Diameter: 6.0mm Haptic/Overall Diameter: 13.0mm PHACO INFO: Tao Quadrant [employer] Vision System with OZil and Active Fluidics Cumulative Dispersed Energy (CDE): 9.37 seconds SURGEON: Jayjay Zambrano MD, EDWNI ANESTHESIA: Monitored Anesthesia Care (MAC), with local sub-tenon's anesthetic infiltration COMPLICATIONS: None SPECIMENS: None INDICATIONS FOR PROCEDURE: The patient is a 67-year-old gentleman with history of progressive decreased vision in both eyes secondary to the development of bilateral nuclear and posterior subcapsular cataracts. He was significantly symptomatic that he desired cataract surgery which was performed OS on 05/23/2018. He is doing well postoperatively in his left eye with uncorrected vision of 20/20. He now p resents for cataract surgery in the right eye. PROCEDURE: The correct surgical eye was identified and marked as the right eye and the pupil was dilated in the preoperative area using mydriatics and cycloplegics. The dilated pupil size was 7.0 mm. Oral sedation was administered in the form of an Imprimis MKO Melt (midazolam 3mg/ketamine 25mg/ondansetron 2mg). The patient was brought to the operating room where cardiopulmonary monitoring was instituted and surgical time-out was performed, confirming the correct operative eye and IOL power. Topical anesthesia was administered and ophthalmic povidone-iodine 5% was instilled into the conjunctival fornices. Lidocaine gel was applied to the cornea and the aixa-ocular area was prepped with Betadine 10% solution and drape d in the usual sterile fashion for intraocular surgery, including an aperture drape. A Tegaderm transparent film dressing was cut in half and used to cover the lashes and lid margins. Care was taken to sequester the lashes and lid margins under the Tegaderm dressing. A lid speculum was placed between the lids of the operative eye and the Arabella-Denny operating microscope was maneuvered into position. Ranjan scissors were then used to make a conjunctival buttonhole approximately 6mm posterior to the limbus in the inferonasal quadrant. Blunt dissection was carried out to expose bare sclera, and a blunt-tipped sub-tenon?s anesthesia cannula was introduced and passed posteriorly along the globe where non- preserved plain lidocaine was injected into posterior sub-Tenon?s space. A sideport knife was used to make a paracentesis port inferiortemporally, and the anterior chamber was filled with Healon GV. A 2.4mm keratome knife was used to create a half-thickness groove at the limbus and then to construct a three-plane near-clear corneal tunnel extending 2.0mm into clear cornea in the superiortemporal position. . A flap was raised on the anterior capsule and capsulorhexis forceps were used to complete a continuous curvilinear capsulorhexis of 5.5 mm. Balanced salt solution was then used to perform cortical cleaving hydrodissection and nuclear hydrodelineation until the lens could be freely rotated within the capsular bag. The lens nucleus was then disassembled and removed within the capsular bag and iris plane using phacoemulsification. Residual cortical material was removed using the I/A handpiece. The posterior capsule was carefully polished to remove as much residual lens epithelial cells as safely possible. The capsular bag was then inflated and the anterior chamber deepened with viscoelastic. The lens implant described above was inserted into the capsular bag using the OLIVA [place] Injector. A Kuglen hook was used to dial the IOL into position. Residual viscoelastic was then removed first from posterior to the IOL, then from the anterior chamber using the I/A handpiece. The lens implant was noted to center nicely within the capsular bag. The incisions were stromally hydrated, and the anterior chamber was reformed using BSS. Then 0.4cc of moxifloxacin 1.5mg/ml were injected into the capsular bag and anterior chamber. The incisions were checked with a Weck spear and found to be secure. Several drops of ophthalmic povidone-iodine 5% were then applied to the eye followed by two drops of Imprimis combination gatifloxacin/dexamethasone solution. The drapes were removed and a clear plastic protective eye shield was placed over the eye. The patient was then returned to Same Day Surgery in stable condition.
[2018-06-06] MEDS: Lidocaine 2% Jelly 6 ML SYR (08:22)
[2018-06-06] MEDS: Lidocaine 1% Pres-Free 5 ML VIAL (08:27)
[2018-06-06] MEDS: Povidone-Iodine Ophth 30 ML BTL (08:27)
[2018-06-06] MEDS: Balanced Salt Soln.-PLUS 500 ML BAG (08:27)
[2018-06-06 09:20] VITALS: BP 163/80; PULSE 55; RESP 16; TEMP 35.9; O2SAT 98
== END 2018-06-06 09:30 | disposition home or self-care (01) ==
PROVIDERS: PCP Emergency Medicine; Visit Provider Ophthalmology
PROC: (CPT 66984; principal; 2018-06-06 08:30)
DX: H25.811 Combined forms of age-related cataract, right eye (principal); Z98.42 Cataract extraction status, left eye; Z96.1 Presence of intraocular lens; K21.9 Gastro-esophageal reflux disease without esophagitis
CPT/HCPCS: 66984; V2632

== ENCOUNTER 2018-10-17 15:24 | Observation (INO) | payer MEDICARE, SELFPAY ==
[2018-10-17] VITALS (26 sets, daily range): BP systolic 128–170; BP diastolic 67–86; PULSE 47–64; RESP 11–25; TEMP 35.6–37.7; O2SAT 94–97
--- NOTE | 2018-10-17 15:38 | DI.RAD_ITS ---
SYMPTOM/DIAGNOSIS: CP/SOB PA AND LATERAL CHEST: 10/17 The heart is not enlarged. The lungs appear generally clear with minimal change to scarring. No pleural effusion seen. CONCLUSION: No evidence of acute process.
--- NOTE | 2018-10-17 15:47 | ED.GENADUL_ITS ---
Discharge Plan Discharge Details Chief Complaint: Dizzy/Sync Primary Care Provider: Adam Felix ED Provider: Hernán Estevez Home Meds and New Rx's Prescriptions: No Action multivitamin [One Daily] 1 EACH tablet 1 ea PO DAILY RF: 0 ascorbic acid (vitamin C) [Vitamin C] 500 MG tablet 500 mg PO DAILY RF: 0 aspirin 81 MG tablet,chewable 81 mg PO DAILY RF: 0 clotrimazole [Lotrimin AF (clotrimazole)] 24 GM cream 24 gm Topical PRN Qty: 1 RF: 3 pravastatin 40 mg tablet 40 mg PO DAILY Qty: 90 RF: 3 ranitidine HCl [Zantac Maximum Strength] 150 mg tablet 150 mg PO BID Qty: 180 RF: 8 clonazepam [Klonopin] 1 mg tablet 0.5 mg PO HS RF: 0 Medical Decision Making 67-year-old male whose past medical history includes atrial fibrillation for the status post ablation, hyperlipidemia, abnormal stress test in July 2016. He presents the ER stating that 2 weeks ago he had a hours of fluttering and palpitations in his chest that persisted through the night and then resolve on their own. He states since that time is had generalized fatigue and some mild increased shortness of breath with exertion. No syncope. He had not had chest pain until last night while at rest he developed a 3 out of 10 anterior chest tightness that persisted through most of the night and then has resolved today. Denies recent illness. No travel. States his been taking his medications but is no longer anticoagulated, only taking aspirin as an antiplatelet. He arrives to the ER slightly hypertensive at 154/74 with an EKG that shows a sinus rhythm with a rate of 55, there is slight upsloping ST segment depressions in the inferior and anterior leads. His stress test from July [address] segment depressions with partially reversible changes to the basal and inferior blackwood on perfusion images. IV placed, labs obtained, patient referred for x-ray. Diagnostic studies are reassuring. He has no ongoing active chest pain. Given his recent symptoms, history of abnormal stress test 2 years ago without follow- up cardiac catheterization, I do feel he is best served by admission overnight for serial cardiac enzymes and then subsequent referral for outpatient versus inpatient cardiac catheterization. Lab Data Lab results reviewed: Yes I reviewed the patient's lab results. Laboratory Results - last 24 hr 10/17/18 10/17/18 10/17/18 15:40 15:40 15:40 WBC 7.46 RBC 5.68 Hgb 17.7 H Hct 52.5 H MCV 92.4 MCH 31.2 MCHC 33.7 RDW 14.6 H Plt Count 202 MPV 10.6 Immature Gran % 0.1 Neutrophils % 65.3 Lymphocytes % 22.5 Monocytes % 9.9 Eosinophils % 1.7 Basophils % 0.5 Absolute Neutrophils 4.86 Absolute Lymphocytes 1.68 Absolute Monocytes 0.74 H Absolute Eosinophils 0.13 Absolute Basophils 0.04 PT 9.5 INR 1.0 APTT 23.2 Sodium 140 Potassium 4.0 Chloride 104 Carbon Dioxide 28.4 Anion Gap 7.6 BUN 16 Creatinine 1.25 Estimated GFR/1.73 m2 57.44 Glucose 111 H Calcium 10.2 H Magnesium 2.2 Total Bilirubin 0.6 AST 18 ALT 34 Alkaline Phosphatase 65 Troponin I < 0.05 NT-Pro-B Natriuret Pep 16 Total Protein 7.7 Albumin 4.0 TSH 10/17/18 15:40 WBC RBC Hgb Hct MCV MCH MCHC RDW Plt Count MPV Immature Gran % Neutrophils % Lymphocytes % Monocytes % Eosinophils % Basophils % Absolute Neutrophils Absolute Lymphocytes Absolute Monocytes Absolute Eosinophils Absolute Basophils PT INR APTT Sodium Potassium Chloride Carbon Dioxide Anion Gap BUN Creatinine Estimated GFR/1.73 m2 Glucose Calcium Magnesium Total Bilirubin AST ALT Alkaline Phosphatase Troponin I NT-Pro-B Natriuret Pep Total Protein Albumin TSH 2.39 HPI General Mode of arrival: ambulatory . Date/Time Provider Initiated Documentation: 10/17/18 15:25 . Limitations to Documentation: no limitations . Information obtained by: patient . History of Present Illness 67 year old M presents to the emergency department with the chief complaint of Chest tightness last night, described as mild, with intensity rated at 3. Quality is described as dull, and is localized to the chest. Patient reports no radiation. Patient started experiencing this hour(s) and it has been constant and now resolved. No relieving factors improve symptom(s), Patient notes malaise, shortness of breath and weakness. Patient did receive the following treatments prior to arrival, none Related Data Home Medications Medication Instructions Recorded Confirmed ascorbic acid (vitamin C) [Vitamin 500 mg PO DAILY 06/07/12 10/17/18 C] multivitamin [One Daily] 1 ea PO DAILY 06/07/12 10/17/18 aspirin 81 mg PO DAILY tab-cap 03/13/16 10/17/18 clotrimazole [Lotrimin AF 24 gm TOPICAL PRN #1 script 05/05/17 10/17/18 (clotrimazole)] pravastatin 40 mg tablet 40 mg PO DAILY #90 tab-cap 03/02/18 10/17/18 ranitidine HCl 150 mg tablet 150 mg PO BID #180 tab-cap 04/13/18 10/17/18 clonazepam [Klonopin] 0.5 mg PO HS 05/18/18 10/17/18 Previous Rx's Medication Instructions Recorded clotrimazole [Lotrimin AF 24 gm TOPICAL PRN #1 script 05/05/17 (clotrimazole)] pravastatin 40 mg tablet 40 mg PO DAILY #90 tab-cap 03/02/18 ranitidine HCl 150 mg tablet 150 mg PO BID #180 tab-cap 04/13/18 Allergies Allergy/AdvReac Type Severity Reaction Status Date / Time atenolol AdvReac Unknown hypotension Verified 10/17/18 15:33 General Stated Complaint: Dizzy/Sync RYAN: 2 Review of Systems Review of Systems States recent fluttering in his chest for hours 2 weeks ago, fatigued since that time, chest tightness last night at rest. 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) Hyperlipidemia Hyperlipidemia (Chronic) Kidney stones Low back pain Low back pain (Chronic) Malignant melanoma of skin of face (Chronic) Paroxysmal atrial fibrillation Paroxysmal atrial fibrillation (Chronic 07/16/15) Peptic reflux disease (Chronic) Prostatitis Right hydrocele Rosacea Rosacea (Chronic) Tubular adenoma (Chronic) Surgical History Angioplasty cardiac ablation Colonoscopy - IV Sedation Colonoscopy - MAC (06/21/17) EGD - IV Sedation Repair, Tendon or Muscle Status post cataract extraction and insertion of intraocular lens of left eye (Chronic 05/23/18) Status post cataract extraction and insertion of intraocular lens of right eye (Chronic 06/06/18) Family History Mother Dementia Father Stomach cancer Sister Diabetes Brother Rheumatoid arthritis Sister No problems noted. Sister No problems noted. Maternal Aunt Dementia Brother No problems noted. Social History Smoking/Tobacco Use Status: Former Tobacco Use Quit Date: 03/01/77 Tobacco: How many years used: 6 Second Hand Exposure: Yes Alcohol Intake: former Drug use: Never Substance use type: does not use Caregiver/Support person: No Household members: family Housing: house Pets and animals: No Sexually active: No Do you think of yourself as: straight/heterosexual Current gender identity: male What is your relationship status?: never How often do you talk on the phone with friends or family?: three or more times per week How often do you get together with friends or relatives?: three or more times per week How often do you attend denominational or mandaen services?: decline to answer Do you belong to any clubs or organized social groups?: no Panel score (0-1 are the most socially isolated patients): 1 What type of physical activity do you participate in: walking Duration: 30-45 minutes/day Frequency: 1-2 times per week Any/Protestant: None Do you feel safe at home: Yes Do you feel safe in your relationship?: Yes Exam Narrative Exam Narrative: GEN: awake, alert, oriented 3. Pleasant, well groomed, interactive. HEAD: Normocephalic, atraumatic ENT: Mucous membranes moist, oropharynx unremarkable, External ear exam unremarkable EYES: PERRL, EOMI NECK: Full ROM, no CHINMAY, no menigismus CHEST/RESP: Nontender, clear to auscultation bilateral, no wheeze/rhonchi/rales CARDIOVASCULAR: borderline bradycardia, regular, no murmur, rub miles. 2+ Rad pulse bilateral ABDOMEN: Soft, nontender, no mass. +Bowel sounds EXT: Full ROM, no edema, no rash Neuro: Grossly normal neurologic exam, conversant, interactive. Psych: Speech fluent, thoughts congruent, affect normal Course Vital Signs Temperature 36.7 C 10/17/18 15:29 Pulse 54 L 10/17/18 15:29 Respiratory Rate 18 10/17/18 15:29 Blood Pressure 154/74 H 10/17/18 15:29 Pulse Oximetry 94 L 10/17/18 15:29 Temperature 36.7 C 10/17/18 15:29 Temperature Source Tympanic 10/17/18 15:29 Pulse 54 L 10/17/18 15:29 Respiratory Rate 18 10/17/18 15:29 Blood Pressure 154/74 H 10/17/18 15:29 Blood Pressure Position Sitting 10/17/18 15:29 Pulse Oximetry 94 L 10/17/18 15:29 Oxygen Delivery Method Room Air 10/17/18 15:29 Oxygen Flow Rate 0 10/17/18 15:29 Pain Level 2 10/17/18 15:29
[2018-10-17 15:55] LABS: Abs Immature Grans 0.01 k/cumm (0.0-0.09); Absolute Basophil Count 0.04 k/cumm (0.0-0.2); Absolute Eosinophil Count 0.13 k/cumm (0.0-0.7); Absolute Lymphocyte Count 1.68 k/cumm (1.2-3.4); Absolute Monocyte Count 0.74 k/cumm (0.11-0.7); Absolute Neutrophil Count 4.86 k/cumm (1.2-6.7); Basophils % 0.5; Eosinophils % 1.7; HCT 52.5 % (40.0-50.0); HGB 17.7 g/dL (13.5-17.5); Immature Grans % 0.1; Lymphocytes % 22.5; Mean Corp. HGB Concentration 33.7 g/dL (32.0-36.0); Mean Corpuscular Hemoglobin 31.2 pg (27.0-33.0); Mean Corpuscular Volume 92.4 fL (80-95); Mean Platelet Volume 10.6 fL (8.0-11.0); Monocytes % 9.9; Neutrophils % 65.3; Platelet Count 202 x1000/uL (130-400); RBC 5.68 m/cumm (4.50-6.00); RBC Distribution Width 14.6 % (11.8-14.1); White Blood Cell Count 7.46 k/cumm (4.4-10.8)
[2018-10-17] MEDS: Aspirin 325 MG TAB PO (15:57)
[2018-10-17 16:08] LABS: PTT Activated 23.2 sec (21.0-31.4); Prothrombin Time 9.5 sec (9.3-11.0)
[2018-10-17 16:16] LABS: ALT 34 U/L (12-78); AST 18 U/L (15-37); Alkaline Phosphatase 65 U/L (46-116); Anion Gap 7.6 mmol/L (3-11); BUN 16 mg/dL (7-18); Bilirubin, Total 0.6 mg/dL (0.2-1.0); CO2 28.4 mmol/L (21.0-32.0); CREATININE 1.25 mg/dL (0.70-1.30); Calcium 10.2 mg/dL (8.5-10.1); Chloride 104 mmol/L (98-107); Estimated GFR 57.44 (mL/min/1.73m2); Glucose 111 mg/dL (70-100); Magnesium 2.2 mg/dL (1.8-2.4); NT-proBNP 16 pg/mL; Sodium 140 mmol/L (136-145); Total Protein 7.7 g/dL (6.4-8.2)
[2018-10-17 16:17] LABS: TSH 2.39 uIU/mL (0.36-3.74)
[2018-10-17 16:18] LABS: Troponin I < 0.05 ng/mL (0.00-0.06)
--- NOTE | 2018-10-17 16:46 | DI.VRAD_ITS ---
EXAM: XR Chest, 2 Views EXAM DATE/TIME: 10/17/2018 3:39 PM CLINICAL HISTORY: 67 years old, male; Shortness of breath; Chest pain; Type not specified; Patient HX: Cp, SOB TECHNIQUE: Imaging protocol: XR of the chest, 2 views. COMPARISON: CR CHEST 2 VIEWS PA,LAT 11/25/2015 3:34 PM FINDINGS: Lungs: Unremarkable. No consolidation. Pleural space: Unremarkable. No pleural effusion. No pneumothorax. Heart/Mediastinum: Unremarkable. No cardiomegaly. Bones/joints: Chronic osseous changes. IMPRESSION: No acute cardiopulmonary findings. Dictated and Authenticated by: Tung Nogueira MD. Ordering:JORDAN Jim MD
--- NOTE | 2018-10-17 18:54 | NUR.NOTE ---
Nursing Note: Pt wheeled up from ED in stretcher by iTffany Ibanez RN. Pt in stable condition. Vitals stable. Call light by pt. Answered questions.
--- NOTE | 2018-10-17 20:02 | HPE_ITS ---
Date of service: 10/17/18 Time of Service: 20:02 Assessment and Plan (1) Palpitations: Current visit: Yes Status: Acute monitor overnight, if no arrhythmias and negative troponins then dc home w/ holter (if he will allow it to be done); also could consider 30 day event recorder as his last holter did not [employer] any afib/aflutter. refer to follow up w/ Dr. Carbajal (2) Atypical chest pain: Current visit: Yes Status: Acute check serial troponin levels and if negative then arrange outpatient stress MPI (3) Paroxysmal atrial fibrillation: Current visit: No Status: Chronic as above. I would not anticoagulate now unless we can show that he is in sustained afib or he is having frequent episodes of PAF. I would keep on ASA for his CAD and get stress MPI and echo as listed above and have him follow up w/ his hydraulic riveter. History of Present Illness Chief Complaint: chest pain and palpitations Narrative: 67-year-old male with a history of paroxysmal atrial flutter and atrial fibrillation. n patient has previously been a patient of Dr. Jim and underwent cardioversion performed at [facility] in 2009. It also s ounds like he may have had some other at ablation procedure performed for atrial flutter and this was done by Dr.Joachim Cabrera at [facility]. Patient is followed by his primary care provider Dr. Felix as well as by his hydraulic riveter Dr. Carbajal. Patient is scheduled to follow-up with Dr. Carbajal on for symptoms of recurrent palpitations and concern for recurrent aflutter. Patient now presents to the emergency department with symptoms of chest pain that began yesterday evening around 7:30 PM. Patient was up [place] his [place] in [place] and had just finished dinner. He had not been performing any heavy physical activities and he had gotten ready to go to bed when he developed chest pressure over his anterior chest and some aching in his left arm and tingling. He thought that this was indigestion. He was able to eventually go to sleep. But when he awoke around 6 a.m. today he had an unusual sensation in his chest, not a pain per se but just an uneasy feeling. He has noticed intermittent jabbing pains today in his left side and some LUQ abdominal discomfort along w/ some shortness of breath. 2 weeks ago he had a spell that felt like his atrial flutter in which he had palpitations that lasted all day long. He called his cardiologists office and the earliest he could get in was . He was told to go to the ER if it recurred. Work up in the ER included EKG, CXR, routine labs (CBC, CMP, coags, BNP and troponin, TSH). His troponin has been normal at <0.05 x 2 sets, TSH was normal at 2.39. CBC demonstrated polycythemia at Hb 17 GM but otherwise normal. CMP was unremarkable. CXR showed no acute findings. EKG demonstrated sinus bradycardia at [address] depression in a coved fashion at 0.5 mm and some J point depression in the precordial leads. Patient has known CAD (per [facility] notes from Dr. Bozena Avila, EPS hydraulic riveter, cath demonstrated non-hemodynamically obstructive diffuse disease of LAD, CX and RCA w/ EF of 60%), however the patient seems to think that he had PTCA w/out stent done in one of his vessels. He is not currently on anticoagulation. His last holter was from 11/11/2017 demonstrating SR @ 35-122 bpm w/ avg 58 bpm with rare PAC, no SVT nor any AFIB. Frequent PVC mostly isolated singles bu t occasional couplets but no VT and no significant pauses. During his reported spells of flutter he remained in SR to SB. The patient has recently seen his PCP, Dr. Felix but has refused to have another holter because he does not want to have to pay for it and he is upset that he was never called with his results last October. The patient is being admitted overnight for observation of his rhythm, serial troponins and echocardiogram in the a.m. (last echo was 09/28/2017 and de monstrated normal systolic LV function w/ LVEF of 60-65%, but with diastolic dysfunction and mild to moderate MR and mild to moderate TR, mod. dilated RV w/ normal RV systolic function. He should also have a stress test, although since we have no hydraulic riveter tomorrow this will not get done while inpatient but can be done as outpatient if his troponins all come back normal. If his troponins rise then he will be transferred to either [facility] or [facility]. Review of Systems Review of Systems All systems reviewed & are unremarkable except as noted in HPI and below [facility] Medical History Actinic keratosis Actinic keratosis (Chronic) Acute prostatitis (Chronic) Adenomatous colon polyp Anticoagulated on warfarin (Chronic) Anxiety and depression Chronic right hip pain (Chronic 07/04/13) Chronic right hip pain (Chronic 07/04/13) Colitis Constipation Constipation (Chronic) Dysphagia, pharyngoesophageal (Chronic 09/03/16) Gastritis GERD (gastroesophageal reflux disease) History of kidney stones (Chronic 12/02/15) History of melanoma History of tobacco use (Chronic) Hydrocele (Chronic) 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) Hyperlipidemia Hyperlipidemia (Chronic) Kidney stones Low back pain Low back pain (Chronic) Malignant melanoma of skin of face (Chronic) Paroxysmal atrial fibrillation Paroxysmal atrial fibrillation (Chronic 07/16/15) Peptic reflux disease (Chronic) Prostatitis Right hydrocele Rosacea Rosacea (Chronic) Tubular adenoma (Chronic) Surgical History Angioplasty cardiac ablation Colonoscopy - IV Sedation Colonoscopy - MAC (06/21/17) EGD - IV Sedation Repair, Tendon or Muscle Status post cataract extraction and insertion of intraocular lens of left eye (Chronic 05/23/18) Status post cataract extraction and insertion of intraocular lens of right eye (Chronic 06/06/18) Family History Mother Dementia Father Stomach cancer Sister Diabetes Brother Rheumatoid arthritis Sister No problems noted. Sister No problems noted. Maternal Aunt Dementia Brother No problems noted. Social History Smoking/Tobacco Use Status: Former Tobacco Use Quit Date: 03/01/77 Tobacco: How many years used: 6 Second Hand Exposure: Yes Alcohol Intake: former Drug use: Never Substance use type: does not use Caregiver/Support person: No Household members: family Housing: house Pets and animals: No Sexually active: No Do you think of yourself as: straight/heterosexual Current gender identity: male What is your relationship status?: never How often do you talk on the phone with friends or family?: three or more times per week How often do you get together with friends or relatives?: three or more times per week How often do you attend baptist or scientology services?: decline to answer Do you belong to any clubs or organized social groups?: no Panel score (0-1 are the most socially isolated patients): 1 What type of physical activity do you participate in: walking Duration: 30-45 minutes/day Frequency: 1-2 times per week Any/Gnosticist: None Do you feel safe at home: Yes Do you feel safe in your relationship?: Yes Meds Home Medications Medication Instructions Recorded Confirmed Type ascorbic acid (vitamin C) [Vitamin 500 mg PO DAILY 06/07/12 10/17/18 History C] multivitamin [One Daily] 1 ea PO DAILY 06/07/12 10/17/18 History aspirin 81 mg PO DAILY tab-cap 03/13/16 10/17/18 History clotrimazole [Lotrimin AF 24 gm TOPICAL PRN #1 script 05/05/17 10/17/18 Rx (clotrimazole)] pravastatin 40 mg tablet 40 mg PO DAILY #90 tab-cap 03/02/18 10/17/18 Rx ranitidine HCl 150 mg tablet 150 mg PO BID #180 tab-cap 04/13/18 10/17/18 Rx clonazepam [Klonopin] 0.5 mg PO HS 05/18/18 10/17/18 History Allergies Allergy/AdvReac Type Severity Reaction Status Date / Time atenolol AdvReac Unknown hypotension Verified 10/17/18 15:33 Exam Const General: cooperative, healthy appearing, comfortable and no acute distress Nutritional Appearance: average body habitus Orientation: alert, awake and oriented x3 [facility] Head: normal to inspection, no palpable skull fracture, normocephalic and atraumatic Ears: hearing grossly normal bilaterally and EAC abnormal excessive cerumen Mouth: oral mucosae normal, lip normal, tongue normal, oropharynx normal and moist mucous membranes Teeth and gingiva: dentures Throat: posterior oropharynx normal and uvula midline Eyes General: appearance normal, both eyes and all related structures Visual Isabel: normal visual isabel by confrontation Alignment and Position: alignment normal Periorbital: periorbital findings normal Eyelids: eyelids normal Conjunctivae: conjunctivae normal Sclera: sclerae normal Cornea: corneas normal Pupils: PERRL and normal by confrontation EOM: EOM intact bilaterally Direct ophthalmoscopy: normal light reflex Resp Effort & Inspection: normal respiratory effort Auscultation: clear to auscultation bilaterally Cardio Jugular venous pressure: no JVD Palpation: normal PMI Rate: regular rate Rhythm: regular rhythm Heart Sounds: S1 normal, S2 normal, normal, physiologic split S2, no gallops, no murmurs and no rubs Pulses: normal peripheral pulses GI Inspection: normal to inspection Palpation: soft, no hepatosplenomegaly and nontender Percussion: normal to percussion Back/Spine/Pelvis Back: no CVA tenderness Cervical Spine: normal cervical lordosis Thoracic/Lumbar Spine: thoracic and lumbar spine normal to inspection Skin General skin exam: no rashes or lesions noted, elasticity normal and turgor normal Neuro General: alert, awake, oriented x3, moves all extremities and no focal motor deficits Cranial Nerves: CN's II-XI intact bilaterally Cognition: normal cognition Speech: speech normal Motor: muscle tone normal throughout, strength 5/5 throughout and no movement abnormalities noted Sensory Exam: no sensory deficits noted Extrem General: normal to inspection, full ROM, normal capillary refill, no joint enlargement, no clubbing, cyanosis or edema, no pedal edema and no calf tenderness Psych Appearance: grossly normal Mental Status: mental status grossly normal Speech and Movement: speech and movement normal Mood: anxious mood Affect: normal affect Attitude: cooperative Thought Process: normal Thought Content: normal Insight: insight good Judgment: judgment good Results Imaging Chest x-ray: report reviewed (No acute cardiopulmonary findings.) Labs : 10/17/18 15:40 10/17/18 15:40 Laboratory Results - last 24 hr 10/17/18 10/17/18 10/17/18 15:40 15:40 15:40 WBC 7.46 RBC 5.68 Hgb 17.7 H Hct 52.5 H MCV 92.4 MCH 31.2 MCHC 33.7 RDW 14.6 H Plt Count 202 MPV 10.6 Immature Gran % 0.1 Neutrophils % 65.3 Lymphocytes % 22.5 Monocytes % 9.9 Eosinophils % 1.7 Basophils % 0.5 Absolute Neutrophils 4.86 Absolute Lymphocytes 1.68 Absolute Monocytes 0.74 H Absolute Eosinophils 0.13 Absolute Basophils 0.04 PT 9.5 INR 1.0 APTT 23.2 Sodium 140 Potassium 4.0 Chloride 104 Carbon Dioxide 28.4 Anion Gap 7.6 BUN 16 Creatinine 1.25 Estimated GFR/1.73 m2 57.44 Glucose 111 H Calcium 10.2 H Magnesium 2.2 Total Bilirubin 0.6 AST 18 ALT 34 Alkaline Phosphatase 65 Troponin I < 0.05 NT-Pro-B Natriuret Pep 16 Total Protein 7.7 Albumin 4.0 TSH 10/17/18 15:40 WBC RBC Hgb Hct MCV MCH MCHC RDW Plt Count MPV Immature Gran % Neutrophils % Lymphocytes % Monocytes % Eosinophils % Basophils % Absolute Neutrophils Absolute Lymphocytes Absolute Monocytes Absolute Eosinophils Absolute Basophils PT INR APTT Sodium Potassium Chloride Carbon Dioxide Anion Gap BUN Creatinine Estimated GFR/1.73 m2 Glucose Calcium Magnesium Total Bilirubin AST ALT Alkaline Phosphatase Troponin I NT-Pro-B Natriuret Pep Total Protein Albumin TSH 2.39 Last Vital Signs Temp 36.4 C L 10/17/18 19:28 Pulse 51 L 10/17/18 19:28 Resp 16 10/17/18 19:28 BP 139/77 10/17/18 19:28 Pulse Ox 97 10/17/18 19:28
[2018-10-17 20:53] LABS: Troponin I < 0.05 ng/mL (0.00-0.06)
[2018-10-17] MEDS: Pravastatin 40 MG TAB PO (21:42)
[2018-10-17] MEDS: clonazePAM 0.5 MG TAB PO (21:42)
[2018-10-17] MEDS: Enoxaparin 40 MG/0.4 ML SYR SC (21:43)
[2018-10-18] VITALS (9 sets, daily range): BP systolic 121–165; BP diastolic 65–79; PULSE 42–65; RESP 17–19; TEMP 35.6–36.3; O2SAT 95–99
[2018-10-18 01:12] LABS: Troponin I < 0.05 ng/mL (0.00-0.06)
[2018-10-18] MEDS: Ascorbic Acid 500 MG TAB PO (07:37)
[2018-10-18] MEDS: Aspirin 81 MG CHEW PO (07:37)
[2018-10-18 07:46] LABS: Calculated LDL 94 mg/dL; Cholesterol 168 mg/dL (50-200); HDL Cholesterol 49 mg/dL (40-60); Triglyceride 127 mg/dL (30-150)
[2018-10-18 07:51] LABS: Hemoglobin A1C 5.4 % (4.5-6.2)
--- NOTE | 2018-10-18 08:42 | INITIAL_ITS ---
Care Management Initial Assess REASON FOR HOSPITALIZATION:: Chest Pain PAST MEDICAL HISTORY/PAST SURGICAL HISTORY:: Actinic keratosis, acute prostatitis, adenomatous colon polyp, anticoaguated on warfarin, anxeity and depression, chronic right hip pain, colitis, constipation, dysphagia, gastritis, GERD, kidney stones, melanoma, tobacco use, hydrocele, hypercalciuria, hyperlipidemia, low back pain, malignant melanoma of skin of face, paroxysmal afib, peptic reflux disease, prostatitis, right hydrocele, rosacea, tubular adenoma, angioplasty, cardiac ablation, colonoscopy, bilat cataract extractions PREVIOUS FUNCTIONAL STATUS/SOCIAL/FAMILY SUPPORTS:: Jermaine resides with his brother, is retired and never . CURRENT FUNCTIONAL STATUS:: Jermaine requested local newspaper which was provided by [employer]. He continues to complain of ongoing chest pain and pressure. Pending ECHO and MPI stress test scheduled for tomorrow. ISAAC continues to follow. Has patient been provided with information about the portal?: Yes Did the patient sign up for the portal?: No CODE STATUS:: Full Code INSURANCE COVERAGE / FINANCIAL ISSUES:: Medicare CURRENT HOME/COMMUNITY SERVICES/EQUIPMENT:: Reports [facility] RN current service. PRIMARY CARE PHYSICIAN:: Adam Felix DO. POTENTIAL DISCHARGE NEEDS:: Review of community based supports, follow up appointments. PATIENT/FAMILY EDUCATION NEEDS:: Review of discharge instructions, discuss Ask Me [employer]. ANTICIPATED BARRIERS TO DISCHARGE:: Jermaine consistently shares concerns around cost for health care and has a history of refusing interventions due to cost. TRANSPORTATION:: Via private vehicle with family. PLAN:: Jermaine will have an ECHO and MPI stress test, and will likely discharge home with an outpatient follow up plan including a possible holter monit [id number]-dependent on results per provider.
[2018-10-18] MEDS: Pantoprazole 40 MG VIAL IVP (10:50)
[2018-10-18] MEDS: Normal Saline Flush 10 ML SYR IVP (10:51)
[2018-10-18 10:53] LABS: Troponin I < 0.05 ng/mL (0.00-0.06)
[2018-10-18] MEDS: Acetaminophen 325 MG TAB PO (11:31)
--- NOTE | 2018-10-18 14:00 | MERGE_ITS ---
*[facility]* *[facility]* [address] [place] [address] Date of study: 10/18/2018 Transthoracic Echocardiography M-mode, complete 2D, complete spectral Doppler, and color Doppler *STUDY CONCLUSIONS* Summary: 1. Left ventricle: The cavity size was normal. Wall thickness was normal. Systolic function was normal. The estimated ejection fraction was 55-60%. Wall motion was normal; there were no regional wall motion abnormalities. 2. Left atrium: The atrium was mildly dilated. 3. Right ventricle: The cavity size was mildly dilated. Wall thickness was normal. Systolic function was normal. 4. Pulmonary arteries: Pulmonary systolic pressure was increased, in the range of 35mm Hg to 40mm Hg. *PATIENT PRESENTATION* Height: 188cm (74in ) S/D Pressure: 154 / 79 Weight: 103kg (226.5lb ) BSA: 2.34m^2 Test start time: 02:00 PM. Test stop time: 03:00 PM. PERFORMING Unknown PERFORMING [facility] CONSULTING Dionicio Calles ORDERING Dionicio Calles REFERRING Dionicio Calles MANAGER CARDIOLOGY RT Taylor (R)(RHIANNON), JOSETTE *PROCEDURE DATA* Procedure information: The patient was identified by two identifiers. This study was interpreted by [facility]. Pertinent images and digital data are archived for permanent storage and are available for subsequent review. Comparison was made to the study of 09/28/2017. Study status: Routine. Transthoracic echocardiography. M-mode, complete 2D, complete spectral Doppler, and color Doppler. A Transthoracic Echocardiogram was performed. Scanning was performed from the parasternal, apical, subcostal, and suprasternal notch acoustic windows. Images were obtained using an [id number] cardiac ultrasound machine. Image quality was adequate. Study completion: The patient tolerated the procedure well. History: PMH: Chest pain, dyspnea. Hx of PAF, valvular heart disease. *CARDIAC ANATOMY* Left ventricle: The cavity size was normal. Wall thickness was normal. Systolic function was normal. The estimated ejection fraction was 55-60%. Wall motion was normal; there were no regional wall motion abnormalities. Some parameters suggest diastolic dysfunction. Aortic valve: Trileaflet; normal thickness leaflets. Mobility was not restricted. Doppler: Transvalvular velocity was within the normal range. There was no stenosis. There was no significant regurgitation. VTI ratio of LVOT to aortic valve: 0.62. Valve area (VTI): 2.2cm^2. Indexed valve area (VTI): 0.9cm^2/m^2. Peak velocity ratio of LVOT to aortic valve: 0.63. Valve area (Vmax): 2.2cm^2. Indexed valve area (Vmax): 0.9cm^2/m^2. Mean velocity ratio of LVOT to aortic valve: 0.69. Valve area (Vmean): 2.4cm^2. Indexed valve area (Vmean): 1cm^2/m^2. Mean gradient (S): 4.1mm Hg. Peak gradient (S): 7.7mm Hg. Aorta: Aortic root: The aortic root was at upper normal limits. Ascending aorta: The ascending aorta was mildly dilated. Mitral valve: Mildly thickened leaflets. Doppler: There was trivial regurgitation. Valve area by pressure half-time: 2.8cm^2. Indexed valve area by pressure half-time: 1.2cm^2/m^2. Left atrium: The atrium was mildly dilated. Right ventricle: The cavity size was mildly dilated. Wall thickness was normal. Systolic function was normal. Pulmonic valve: Structurally normal valve. Doppler: Peak gradient (S): 3.3mm Hg. Tricuspid valve: Structurally normal valve. Doppler: Transvalvular velocity was within the normal range. There was no evidence for stenosis. There was no significant regurgitation. Pulmonary artery: Pulmonary systolic pressure was increased, in the range of 35mm Hg to 40mm Hg. Right atrium: The atrium was normal in size. Systemic veins: Inferior vena cava: Well visualized. The vessel was patent and normal in size. The respirophasic diameter changes were in the normal range (greater than or equal to 50%). Baseline ECG: Bradycardia. Measurements Left ventricle Value 09/28/2017 Reference LV ID, ED, PLAX 5.1 cm 3.5 - 6.0 LV ID, ES, PLAX 3.3 cm 2.1 - 4.0 LV PW thickness, ED, PLAX 0.9 cm LV end-diastolic volume, 87 ml 1-p A2C LV ejection fraction, 1-p 66 % A2C LV end-diastolic volume, 80 ml 1-p A4C LV ejection fraction, 1-p 63 % A4C LV e', lateral 0.054 m/sec LV E/e', lateral 10 LV e', medial 0.055 m/sec LV E/e', medial 9 LV e', average 0.054 m/sec LV E/e', average 9 Ventricular septum Value 09/28/2017 Reference IVS thickness, ED, PLAX 1.0 cm LVOT Value 09/28/2017 Reference LVOT ID, A-P 2.1 cm LVOT area 3.5 cm^2 LVOT peak velocity, S 0.87 m/sec LVOT mean velocity, S 0.66 m/sec LVOT VTI, S 19.3 cm LVOT peak gradient, S 3.1 mm Hg LVOT mean gradient, S 1.9 mm Hg Stroke volume (SV), LVOT 68 ml DP Stroke index (SV/bsa), 29 ml/m^2 LVOT DP Aortic valve Value 09/28/2017 Reference Aortic valve peak 1.4 m/sec velocity, S Aortic valve mean 1 m/sec velocity, S Aortic valve VTI, S 31.0 cm Aortic mean gradient, S 4.1 mm Hg Aortic peak gradient, S 7.7 mm Hg VTI ratio, LVOT/AV 0.62 Aortic valve area, VTI 2.2 cm^2 Velocity ratio, peak, 0.63 LVOT/AV Aortic valve area, peak 2.2 cm^2 velocity Velocity ratio, mean, 0.69 LVOT/AV Aortic valve area, mean 2.4 cm^2 velocity Aortic valve area/bsa, 1 cm^2/m^2 mean velocity Aorta Value 09/28/2017 Reference Aortic root ID, ED 3.7 cm Ascending aorta ID, A-P, S 3.7 cm Left atrium Value 09/28/2017 Reference LA ID, A-P, ES 3.9 cm LA ID/bsa, A-P 1.7 cm/m^2 <=2.2 LA volume/bsa, ES, 1-p A4C 40 ml/m^2 37 LA volume, ES, 2-p 77 ml LA volume/bsa, ES, 2-p 33 ml/m^2 LA/aortic root ratio 1.05 Mitral valve Value 09/28/2017 Reference Mitral E-wave peak 0.51 m/sec velocity Mitral A-wave peak 0.72 m/sec velocity Mitral deceleration time (H) 268 ms 150 - 230 Mitral pressure half-time 78 ms Mitral E/A ratio, peak 0.71 Mitral valve area, PHT, DP 2.8 cm^2 Tricuspid valve Value 09/28/2017 Reference Tricuspid regurg peak 2.8 m/sec velocity Tricuspid peak RV-RA 32.2 mm Hg gradient Right atrium Value 09/28/2017 Reference RA area, ES, A4C (H) 20 cm^2 8.3 - 19.5 Pulmonic valve Value 09/28/2017 Reference Pulmonic peak gradient, S 3.3 mm Hg Legend: (L) and (H) eufemia values outside specified reference range. I have personally reviewed the images and have reviewed and edited the reported findings. Electronically signed by Mayito Lemus 10/18/2018 15:23
--- NOTE | 2018-10-18 14:57 | W.PM.PROGNOT ---
Date of Service Date of service: 10/18/18 Time of Service: 14:57 Assessment and Plan (1) Atypical chest pain: Current visit: Yes Status: Acute He continues to have substernal chest tightness/pressure. His troponins were negative. His vital signs remained stable. He does have a history of an abnormal stress test and a cardiac catheterization which showed nonobstructive coronary artery disease. Echo pending. MPI scheduled for tomorrow. Continue aspirin 81 mg daily and statin. (2) Palpitations: Current visit: Yes Status: Acute Telemetry has shown sinus bradycardia with heart rates in the 50s, no atrial fibrillation/flutter. 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 (3) Paroxysmal atrial fibrillation: Current visit: No Status: Chronic Status post ablation. Telemetry shows sinus bradycardia with heart rates in 50s, no atrial fibrillation/flutter. (4) Peptic reflux disease: Current visit: No Status: Chronic Continue Zantac, IV Protonix. (5) DVT prophylaxis: Current visit: Yes Status: Acute Subcutaneous Lovenox. (6) Discharge planning issues: Current visit: Yes Status: Acute He is a full code. Disposition to be determined after echocardiogram and MPI. This case was discussed with Dr. Jimenez who is in agreement. Subjective Interval history since last seen: Kendrick continues to have constant, substernal chest discomfort that he describes as tightness and pressure. He also reports an occasional jabbing pain in his left chest. He denies any left arm or jaw pain. He was lightheaded yesterday, he denies feeling dizzy or lightheaded today. He endorses brief periods of feeling short of breath, denies current shortness of breath, coughing or wheezing. He reports a slight headache. He is eating and drinking and tolerating his diet, he denies nausea, vomiting or diarrhea. He has been monitored on telemetry, telemetry shows sinus bradycardia with heart rates in the 50s. Exam Narrative Exam Narrative: General: Well-appearing 67-year-old man, lying in bed with head of bed elevated. Pleasant and conversant, in no acute distress. Answers questions appropriately, speech is clear and articulate. HEENT: Normocephalic, atraumatic, pupils equal and round, extraocular movements intact, mucous membranes moist. Neck: Supple, no JVD. Cardiovascular: Heart has regular rate and rhythm, no murmur appreciated. Respiratory: Respirations appear even and unlabored, no cough noted. Lung sounds clear to auscultation bilaterally. GI: Normoactive bowel sounds throughout, abdomen soft, nontender on palpation, nondistended, no masses appreciated. Extremities: Well-perfused, no clubbing, cyanosis or edema. Pedal pulses palpable bilaterally. Neurological: Exam is nonfocal. Objective Objective Clinical Data: Abnormal lab results 10/17/18 10/17/18 Range/Units 15:40 15:40 Hgb 17.7 H (13.5-17.5) g/dL Hct 52.5 H (40.0-50.0) % RDW 14.6 H (11.8-14.1) % Absolute Monocytes 0.74 H (0.11-0.7) k/cumm Glucose 111 H (70-100) mg/dL Calcium 10.2 H (8.5-10.1) mg/dL Vital Signs Temperature 35.9 C L 10/18/18 11:26 Temperature Source Tympanic 10/18/18 11:26 Pulse 50 L 10/18/18 11:26 Pulse Rhythm Regular 10/18/18 07:43 Pulse 50 L 10/17/18 17:40 Respiratory Rate 18 10/18/18 11:26 Respiratory Effort Non-Labored 10/18/18 07:43 Respiratory Depth Normal 10/18/18 07:43 Respiratory Pattern Normal 10/18/18 07:43 Blood Pressure 165/65 H 10/18/18 11:26 Blood Pressure Mean 93 10/17/18 17:47 Blood Pressure Position Sitting 10/17/18 15:29 Pulse Oximetry 99 10/18/18 11:26 Oxygen Delivery Method Room Air 10/18/18 11:26 Oxygen Flow Rate 0 10/18/18 11:26 Pain Level 1 10/18/18 11:31 Intake & Output 10/17/18 10/18/18 10/18/18 23:59 11:59 23:59 Intake Total 490 / 490 640 / 1000 360 / 1000 Output Total 300 / 300 700 / 700 Balance 190 / 190 -60 / 300 360 / 300 Weight 103.419 kg 102.9 kg Intake: Oral 490 / 490 640 / 1000 360 / 1000 Output: Urine 300 / 300 700 / 700 Other: Urine Color Yellow Yellow Urine Appearance Clear Clear Voiding Methods Toilet Toilet Laboratory Results WBC 7.46 k/cumm (4.4-10.8) 10/17/18 15:40 RBC 5.68 m/cumm (4.50-6.00) 10/17/18 15:40 Hgb 17.7 g/dL (13.5-17.5) H 10/17/18 15:40 Hct 52.5 % (40.0-50.0) H 10/17/18 15:40 MCV 92.4 fL (80-95) 10/17/18 15:40 MCH 31.2 pg (27.0-33.0) 10/17/18 15:40 MCHC 33.7 g/dL (32.0-36.0) 10/17/18 15:40 RDW 14.6 % (11.8-14.1) H 10/17/18 15:40 Plt Count 202 x1000/uL (130-400) 10/17/18 15:40 MPV 10.6 fL (8.0-11.0) 10/17/18 15:40 Immature Gran % 0.1 10/17/18 15:40 65.3 10/17/18 15:40 22.5 10/17/18 15:40 9.9 10/17/18 15:40 1.7 10/17/18 15:40 0.5 10/17/18 15:40 Absolute Neutrophils 4.86 k/cumm (1.2-6.7) 10/17/18 15:40 Absolute Lymphocytes 1.68 k/cumm (1.2-3.4) 10/17/18 15:40 Absolute Monocytes 0.74 k/cumm (0.11-0.7) H 10/17/18 15:40 Absolute Eosinophils 0.13 k/cumm (0.0-0.7) 10/17/18 15:40 Absolute Basophils 0.04 k/cumm (0.0-0.2) 10/17/18 15:40 PT 9.5 sec (9.3-11.0) 10/17/18 15:40 INR 1.0 (0.9-1.1) 10/17/18 15:40 APTT 23.2 sec (21.0-31.4) 10/17/18 15:40 Sodium 140 mmol/L (136-145) 10/17/18 15:40 Potassium 4.0 mmol/L (3.5-5.1) 10/17/18 15:40 Chloride 104 mmol/L (98-107) 10/17/18 15:40 Carbon Dioxide 28.4 mmol/L (21.0-32.0) 10/17/18 15:40 7.6 mmol/L (3-11) 10/17/18 15:40 BUN 16 mg/dL (7-18) 10/17/18 15:40 1.25 mg/dL (0.70-1.30) 10/17/18 15:40 57.44 (mL/min/1.73m2) 10/17/18 15:40 Glucose 111 mg/dL (70-100) H 10/17/18 15:40 5.4 % (4.5-6.2) 10/18/18 06:55 Calcium 10.2 mg/dL (8.5-10.1) H 10/17/18 15:40 Magnesium 2.2 mg/dL (1.8-2.4) 10/17/18 15:40 0.6 mg/dL (0.2-1.0) 10/17/18 15:40 AST 18 U/L (15-37) 10/17/18 15:40 ALT 34 U/L (12-78) 10/17/18 15:40 65 U/L (46-116) 10/17/18 15:40 < 0.05 ng/mL (0.00-0.06) 10/18/18 10:27 NT-Pro-B Natriuret Pep 16 pg/mL (-299) 10/17/18 15:40 7.7 g/dL (6.4-8.2) 10/17/18 15:40 4.0 g/dL (3.4-5.0) 10/17/18 15:40 Triglycerides 127 mg/dL (30-150) 10/18/18 06:55 168 mg/dL (50-200) 10/18/18 06:55 LDL Cholesterol, Calc 94 mg/dL 10/18/18 06:55 49 mg/dL (40-60) 10/18/18 06:55 TSH 2.39 uIU/mL (0.36-3.74) 10/17/18 15:40
--- NOTE | 2018-10-18 15:01 | PHARADMIT ---
Admission Pharmacy Clinical Review Code Status Full Code Current Weight 102.9 kg Renally Cleared and Narrow Therapeutic Index Meds CrC ~71.9 using adj BW, med ok QTc Value / Action Taken QTc 403 BP Control, Fever BP 165/65, HR 50, afebrile Electrolytes reviewed all wnl DVT Prophylaxis Lovenox 40mg Opiate Usage / Scheduled Bowel Regimen Ordered None, yes Plt/SCr for Heparin / Enoxaparin INR for Warfarin H/H stable, WBC/Bands Plt 202, H/H 52.5/17.7 Antibiotic appropriateness Cultures and Sensitivities Surgical ABX d/c within 24 hr DM control / Insulin Dosing Heart Failure (Check EF%) (ALYSHA's, B-Block, Diuretics) 60-65% in August of 2017 IV to PO Switch Home Meds Reviewed Yes - meds ok Home Meds Not Ordered Multivitamin Comments Needs stress done, Troponin <0.05
[2018-10-18] MEDS: Pravastatin 40 MG TAB PO (21:39)
[2018-10-18] MEDS: Enoxaparin 40 MG/0.4 ML SYR SC (21:39)
[2018-10-18] MEDS: clonazePAM 0.5 MG TAB PO (21:39)
[2018-10-19 03:17] VITALS: BP 122/72; PULSE 51; RESP 17; TEMP 36.5; O2SAT 99
[2018-10-19 07:01] LABS: HCT 50.8 % (40.0-50.0); HGB 16.9 g/dL (13.5-17.5); Mean Corp. HGB Concentration 33.3 g/dL (32.0-36.0); Mean Corpuscular Hemoglobin 30.6 pg (27.0-33.0); Mean Corpuscular Volume 91.9 fL (80-95); Mean Platelet Volume 10.7 fL (8.0-11.0); Platelet Count 173 x1000/uL (130-400); RBC 5.53 m/cumm (4.50-6.00); RBC Distribution Width 14.4 % (11.8-14.1); White Blood Cell Count 6.44 k/cumm (4.4-10.8)
[2018-10-19 07:18] LABS: Anion Gap 8.5 mmol/L (3-11); BUN 20 mg/dL (7-18); CO2 25.5 mmol/L (21.0-32.0); CREATININE 1.21 mg/dL (0.70-1.30); Calcium 9.6 mg/dL (8.5-10.1); Chloride 106 mmol/L (98-107); Estimated GFR 59.64 (mL/min/1.73m2); Glucose 92 mg/dL (70-100); Potassium 3.9 mmol/L (3.5-5.1); Sodium 140 mmol/L (136-145)
[2018-10-19 07:47] VITALS: BP 161/84; PULSE 48; RESP 16; TEMP 35.7; O2SAT 97
[2018-10-19] MEDS: Ascorbic Acid 500 MG TAB PO (08:00)
[2018-10-19] MEDS: Aspirin 81 MG CHEW PO (08:00)
[2018-10-19 08:02] VITALS: PULSE 58
--- NOTE | 2018-10-19 08:12 | PDOC.CMPRO ---
Care Management Progress Note S/O: Jermaine is sitting up in his chair when CM meets with him, he shares no concerns at this time and reports that he anticipates returning home after his tests are complete. CM will continue to follow. A: 67 year old male admitted to [facility] 10/17/18 for Chest Pain P: Jermaine will have an ECHO and MPI stress test, and will likely discharge home with an outpatient follow up plan including a possible holter [id number]-dependent on results per provider.
--- NOTE | 2018-10-19 08:45 | MERGEMPI_ITS ---
*[facility]* *[facility]* [address] [place] [address] Myocardial Perfusion Imaging - SPECT Regadenoson Date of study: 10/19/2018 *PATIENT PRESENTATION* Height: 188cm (74in) Blood Pressure: Weight: 102.7kg (226lb) BSA: 2.34m^2 Referring physician: Mayito Lemus Ordering physician: Dionicio Calles Impressions: - Normal myocardial perfusion and contraction after pharmacological stress. - Low risk of cardiac events. Summary: 1. Myocardial perfusion imaging: No myocardial perfusion defects noted. 2. Stress ECG conclusions: The stress ECG is negative. Indication: R07.9. History: REASON FOR TESTING: PT PRESENTED TO THE ER FOR CHEST PAIN, SHORTNESS OF BREATH, AND DIZZINESS. HAD A SIMILAR EPISODE 2 WEEKS EARLIER, BUT LESS SYMPTOMATIC. PMH: PALPITATIONS, CORONARY ANGIOPLASTY, CATARACTS, GERD, ATRIAL FIBRILLATION, MELANOMA, HYPERLIPIDEMIA ,HYPERCALCURIA, HYDROCELE, DYSPHAGIA, ANXIETY AND DEPRESSION. FAMILY HX: FATHER- [place] IN 50'S. MOTHER - [place] IN 50'S, CVA. BROTHER- HYPERLIPIDEMIA SMOKING: QUIT 1 PPD FOR SEVERAL YEARS. EXCERCISE: WLKING, GARDENING IN THE SUMMER, NONE IN THE WINTER. Risk factors: Family history of coronary artery disease. Dyslipidemia. Cholesterol: 168mg/dl. HDL: 49mg/dl. LDL: 94mg/dl. Triglycerides: 127mg/dl. ALLERGIES: ATENOLOL. HOME MEDICATIONS: RANITADINE HCL 150 MG BID, PRAVASTATIN 40 MG DAILY, MULTIVITAMIN 1 DAILY, CLOTIMAZOLE TOPICAL PRN, CLONAZEPAM 0.5 MG HS, ASPIRIN 81 MG DAILY.ASCORBID ACID 500 MG DAILY. SEE INPATIENT MED LIST. Imaging Technique: Protocol: Regadenoson. Acquisition: Gated SPECT; 1 day - rest/stress. The patient was imaged in the supine position. Attenuation correction used. Isotope administration: - Rest. Tc[99m]-sestamibi. Dose: 10.6mCi. Injection time: 08:40 AM. Injection to stress time: 00:45. - Stress. Tc[99m]-sestamibi. Dose: 34mCi. Injection time: 10:25 AM. 1-2 min before end of exercise Baseline ECG: LAST EKG 10/18/18- SINUS BRADYCARDIA, HR 50. TODAY'S EKG=SINUS BRADYCARDIA, HR 49. Sinus bradycardia. Stress protocol: +--------+--+ + + !Stage !HR!BP (mmHg) !Comments ! +--------+--+ + + !Baseline!49!154/86 (109)! ! +--------+--+ + + !1 min !55!158/76 (103)!Inject Regadenoson.! +--------+--+ + + !3 min !81!150/70 (97) ! ! +--------+--+ + + !6 min !73!158/74 (102)! ! +--------+--+ + + * Stress results: The rate-pressure product for the peak heart rate and blood pressure was 00698lt Hg/min. Stress ECG: LEXISCAN TESTING ENDED IN 5 MINS, 59 SECS THE MEDICATION EFFECT NO LONGER PRESENT. MAX HR WAS 87, WITH A SLIGHTLY HYPERTENSIVE BLOOD PRESSURE RESPONSE. ECTOPY: NONE NOTED. ANGINA: NO CHEST PAIN OR PRESSURE REPORTED. DID C/O DIZZINESS AT 2 MINS OF TESTING. ISCHEMIA: NO ISCHEMIC CHANGES NOTED. The stress ECG is negative. Myocardial perfusion: Imaging information: gated. The image quality was good. Left ventricular size is normal. No myocardial perfusion defects noted. Ventricular Function (Wall Motion): The calculated left ventricular ejection fraction after stress: 55%. Study data: Mayito Lemus MD supervised and was readily available during the procedure. This study was interpreted by [facility]. Study status: Routine. Consent: The risks, benefits, and alternatives to the procedure were explained to the patient and informed consent was obtained. Procedure: Initial setup. A baseline ECG was recorded. Surface ECG leads and manual cuff blood pressure measurements were monitored. Heart sounds: Normal. Lung sounds: Normal. Regadenoson stress test. Stress testing was performed, with regadenoson by intravenous bolus, for a total dose of 0.4mgover 10.00sec, followed by a 5ml saline flush. The infusion was terminated due to per protocol. Study completion: All catheters inserted during the procedure were removed. The patient tolerated the procedure well and was discharged from the lab. Discharge: The patient left the laboratory in stable condition. Birthdate: Patient birthdate: 1950. Sex: Gender: male. Study date: Study date: 10/19/2018. Study time: 00:01 AM. Signature Documentation: - The imaging portion of this study was interpreted by Nuclear Geomorphologist Mayito Lemus MD. - The Stress ECG portion of this study was interpreted by Mayito Lemus MD. Electronically signed by Mayito Lemus 10/19/2018 13:05
[2018-10-19] MEDS: Potassium Chloride 10 MEQ TABCR PO (11:08)
[2018-10-19] MEDS: Pantoprazole 40 MG VIAL IVP (11:09)
[2018-10-19] MEDS: Normal Saline Flush 10 ML SYR IVP (11:10)
[2018-10-19 12:17] VITALS: BP 150/71; PULSE 55; RESP 16; TEMP 36.1; O2SAT 100
--- NOTE | 2018-10-19 13:27 | CHAPLAIN ---
Jermaine was resting in bed when I visited. He said he is usually hiking, gardening, hunting or otherwise active, so resting in bed is difficult for him. He explained that he is waiting for test results and to learn if he'll need outpatient cardiac follow up care, or to be transferred ot [facility] or [facility]. Jermaine seemed to enjoying talking about his camp in [place], and another on in [place]. He has hunted with his dad and brother since he was very young, and Kendrick said he remains as passionate about hunting and outdoor adventures now as he was when he was younger. He thoroughly enjoys being at either camp and spending time in the [place]. It sounds like his brother is someone he can rely on and Kendrick mentioned his brother would be going with him to [facility] or [facility].
[2018-10-19] MEDS: Acetaminophen 325 MG TAB PO (14:24)
--- NOTE | 2018-10-19 15:14 | DSE_ITS ---
Date of service: 10/19/18 Time of Service: 15:14 DS: Diagnosis Discharge Diagnosis (1) Atypical chest pain: Status: Acute (2) Palpitations: Status: Acute (3) Paroxysmal atrial fibrillation: Status: Chronic (4) Peptic reflux disease: Status: Chronic Discharge Plan Disposition Patient Disposition: HOME Condition: Stable Discharge Details Chief Complaint: Dizzy/Sync Clinical Impression: Chest pain Reason For Visit: CHEST PAIN Admit Date/Time: 10/17/18 17:47 Admit Provider: Marco Calles Attending Provider: Marco Calles Primary Care Provider: Adam Felix ED Provider: Hernán Estevez Hospital Course Hospital Course: Jermaine Fraire is a 67 year old man with a past medical history of paroxysmal atrial flutter and atrial fibrillation, s/p cardiac ablation in 2009, hyperlipidemia, and CAD with previous cardiac catheterization which showed nonobstructive disease. He presented to the [facility] emergency department on 10/17/2018 with reports of substernal chest discomfort with intermittent jabbing pains to the left side of his chest. Work-up in the emergency department included an EKG, chest x-ray, and routine labs. His troponin was noted to be less than 0.05, his TSH was normal, his CBC showed mildly elevated hemoglobin, no leukocytosis. He had a chest x-ray that showed no acute findings. His EKG demonstrated sinus bradycardia with inferior ST depression in a coved fashion at 0.5 mm and some J point depression in the precordial leads. He was admitted to the [facility] floor for further observation, echocardiogram and stress test. He was monitored on telemetry noted to be in sinus bradycardia with heart rates primarily in the 50s. He had an echocardiogram yesterday which showed LVEF of 55 to 60%, no regional wall motion abnormalities, mildly dilated left atrium, mildly dilated right ventricle, pulmonary systolic pressure was increased in the range of 35 to 40 mmHg. He went on to have a cardiac stress test which was normal, low risk of cardiac events. He reports that he has had stable nephric and stress and anxiety lately and is concerned that this may be contributing to his symptoms of chest heaviness. He was offered a surveillance system monitor to further assess for paroxysmal atrial fibrillation/flutter, however, he politely declined. He would like to discuss extended cardiac monitoring with cardiology at his follow-up appointment. Of note, his lipid panel revealed triglycerides of 127, total cholesterol 168, LDL 94, HDL 49. His hemoglobin A1c was 5.4 and his BUN and creatinine were within normal limits. He is scheduled to follow up with Dr. Hobbs on 11/17/2018. He will follow-up with his primary care provider in 1 week, on 10/26/2018. He is advised to return to the emergency department if he has chest pain or pressure. He is discharged with a nitroglycerin prescription. Home Meds and New Rx's Prescriptions: New nitroglycerin [Nitrostat] 0.4 mg Tablet, Sublingual 0.4 mg sublingual Q5 MIN PRN X3 PRNQty: 6 RF: 0 omeprazole 20 mg capsule,delayed release(DR/EC) 20 mg PO DAILY Qty: 30 RF: 0 Continued multivitamin [One Daily] 1 EACH tablet 1 ea PO DAILY RF: 0 ascorbic acid (vitamin C) [Vitamin C] 500 MG tablet 500 mg PO DAILY RF: 0 aspirin 81 MG tablet,chewable 81 mg PO DAILY RF: 0 clotrimazole [Lotrimin AF (clotrimazole)] 24 GM cream 24 gm Topical PRN Qty: 1 RF: 3 pravastatin 40 mg tablet 40 mg PO DAILY Qty: 90 RF: 3 ranitidine HCl [Zantac Maximum Strength] 150 mg tablet 150 mg PO BID Qty: 180 RF: 8 clonazepam [Klonopin] 1 mg tablet 0.5 mg PO HS RF: 0 Discharge Instructions Instructions: Chest Pain (DC) Additional Instructions: Follow-up with cardiology as scheduled. Follow-up with your primary care provider as scheduled. Take nitroglycerin as needed for chest pain/pressure, diaphoresis, shortness of breath, left arm pain, left jaw pain as discussed. You had a normal stress test. Take care! Referrals: Adam Felix DO [Primary Care Provider] - 10/26/18 2:00 pm Carlos Enrique Hobbs MD [ CONSULTING PHYSICIAN] - 11/17/18 11:30 am Activity:: Activity as Tolerated Equipment/Supplies:: No Equipment Needed Diet:: heart healthy diet Discharge Orders Discharge Orders: Discharge Order (Routine); Ordered 10/19/18 Ordered By: Kamala Rios Exam Narrative Exam Narrative: General: Well-appearing 67-year-old man, sitting up in bed. Pleasant and conversant, in no acute distress. Answers questions appropriately, speech is clear and articulate. HEENT: Normocephalic, atraumatic, pupils equal and round, extraocular movements intact, mucous membranes moist. Neck: Supple, no JVD. Cardiovascular: Heart has regular rate and rhythm, no murmur appreciated. Respiratory: Respirations appear even and unlabored, no cough noted. Lung sounds clear to auscultation bilaterally. GI: Normoactive bowel sounds throughout, abdomen soft, nontender on palpation, nondistended, no masses appreciated. Extremities: Well-perfused, no clubbing, cyanosis or edema. Pedal pulses palpable bilaterally. Neurological: Exam is nonfocal. DS: Data Vitals/I&O Vitals and I&O: Vital Signs Temperature 36.1 C L 10/19/18 12:17 Temperature Source Tympanic 10/19/18 12:17 Pulse 55 L 10/19/18 12:17 Pulse Rhythm Regular 10/19/18 14:32 Pulse 50 L 10/17/18 17:40 Respiratory Rate 16 10/19/18 12:17 Respiratory Effort Non-Labored 10/19/18 14:32 Respiratory Depth Normal 10/19/18 14:32 Respiratory Pattern Normal 10/19/18 14:32 Blood Pressure 150/71 H 10/19/18 12:17 Blood Pressure Mean 93 10/17/18 17:47 Blood Pressure Position Sitting 10/17/18 15:29 Pulse Oximetry 100 10/19/18 12:17 Oxygen Delivery Method Room Air 10/19/18 12:17 Oxygen Flow Rate 0 10/19/18 12:17 Pain Level 1 10/19/18 14:24 Intake & Output 10/18/18 10/19/18 10/19/18 23:59 11:59 23:59 Intake Total 660 / 1300 460 / 700 240 / 700 Output Total 1150 / 1850 955 / 955 Balance -490 / -550 -495 / -255 240 / -255 Weight 103 kg Intake: IV Oral 660 / 1300 450 / 690 240 / 690 Output: Urine 1150 / 1850 955 / 955 Other: Urine Color Yellow Light Dipti Urine Appearance Clear Clear Clear Urine Odor Normal Voiding Methods Toilet Urinal Completed studies during hospitalization [Text1]: PA AND LATERAL CHEST: 10/17 The heart is not enlarged. The lungs appear generally clear with minimal change to scarring. No pleural effusion seen. CONCLUSION: No evidence of acute process. Date of study: 10/18/2018 Transthoracic Echocardiography M-mode, complete 2D, complete spectral Doppler, and color Doppler *STUDY CONCLUSIONS* Summary: 1. Left ventricle: The cavity size was normal. Wall thickness was normal. Systolic function was normal. The estimated ejection fraction was 55-60%. Wall motion was normal; there were no regional wall motion abnormalities. 2. Left atrium: The atrium was mildly dilated. 3. Right ventricle: The cavity size was mildly dilated. Wall thickness was normal. Systolic function was normal. 4. Pulmonary arteries: Pulmonary systolic pressure was increased, in the range of 35mm Hg to 40mm Hg. Date of study: 10/19/2018 *PATIENT PRESENTATION* Height: 188cm (74in) Blood Pressure: Weight: 102.7kg (226lb) BSA: 2.34m^2 Referring physician: Mayito Lemus Ordering physician: Dionicio Calles Impressions: - Normal myocardial perfusion and contraction after pharmacological stress. - Low risk of cardiac events. Summary: 1. Myocardial perfusion imaging: No myocardial perfusion defects noted. 2. Stress ECG conclusions: The stress ECG is negative. Labs on day of discharge: Labs from last 24 hours 10/19/18 10/19/18 06:25 06:25 WBC 6.44 RBC 5.53 Hgb 16.9 Hct 50.8 H MCV 91.9 MCH 30.6 MCHC 33.3 RDW 14.4 H Plt Count 173 MPV 10.7 Sodium 140 Potassium 3.9 Chloride 106 Carbon Dioxide 25.5 Anion Gap 8.5 BUN 20 H Creatinine 1.21 Estimated GFR/1.73 m2 59.64 Glucose 92 Calcium 9.6 PFSH Medical History Actinic keratosis Actinic keratosis (Chronic) Acute prostatitis (Resolved) Acute prostatitis (Resolved) Adenomatous colon polyp Anticoagulated on warfarin (Resolved) Anxiety and depression Chronic right hip pain (Chronic 07/04/13) Chronic right hip pain (Chronic 07/04/13) Colitis Constipation Constipation (Chronic) Dysphagia, pharyngoesophageal (Chronic 09/03/16) Gastritis Gastritis (Inactive 01/29/04) GERD (gastroesophageal reflux disease) History of kidney stones (Chronic 12/02/15) History of melanoma History of tobacco use (Chronic) Hydrocele (Chronic) 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) Hyperlipidemia Hyperlipidemia (Chronic) Kidney stones Low back pain Low back pain (Chronic) Malignant melanoma of skin of face (Chronic) Paroxysmal atrial fibrillation Paroxysmal atrial fibrillation (Chronic 07/16/15) Peptic reflux disease (Chronic) Prostatitis Right hydrocele Rosacea Rosacea (Chronic) Tubular adenoma (Resolved) Surgical History Angioplasty cardiac ablation Colonoscopy - IV Sedation Colonoscopy - MAC (06/21/17) EGD - IV Sedation Repair, Tendon or Muscle Status post cataract extraction and insertion of intraocular lens of left eye (Chronic 05/23/18) Status post cataract extraction and insertion of intraocular lens of right eye (Chronic 06/06/18) Family History Mother Dementia Father Stomach cancer Sister Diabetes Brother Rheumatoid arthritis Sister No problems noted. Sister No problems noted. Maternal Aunt Dementia Brother No problems noted. Social History Smoking/Tobacco Use Status: Former Tobacco Use Quit Date: 03/01/77 Tobacco: How many years used: 6 Second Hand Exposure: Yes Alcohol Intake: former Drug use: Never Substance use type: does not use Caregiver/Support person: No Household members: family Housing: house Pets and animals: No Sexually active: No Do you think of yourself as: straight/heterosexual Current gender identity: male What is your relationship status?: never How often do you talk on the phone with friends or family?: three or more times per week How often do you get together with friends or relatives?: three or more times per week How often do you attend evangelical or spiritism services?: decline to answer Do you belong to any clubs or organized social groups?: no Panel score (0-1 are the most socially isolated patients): 1 What type of physical activity do you participate in: walking Duration: 30-45 minutes/day Frequency: 1-2 times per week Any/Anglican: None Do you feel safe at home: Yes Do you feel safe in your relationship?: Yes
[2018-10-19 15:29] VITALS: BP 135/65; PULSE 49; RESP 18; TEMP 36.7; O2SAT 99
[2018-10-19 16:00] VITALS: PULSE 51
== END 2018-10-19 16:15 | disposition home or self-care (01) ==
LOC: ER 18:16 → MS 18:38
PROVIDERS: Nurse Practitioner; Admitting Provider Internal Medicine; Emergency Provider Emergency Medicine; PCP Emergency Medicine; Visit Provider Internal Medicine
DX: R07.89 Other chest pain (principal); R00.2 Palpitations; I48.0 Paroxysmal atrial fibrillation; I48.92 Unspecified atrial flutter; K21.9 Gastro-esophageal reflux disease without esophagitis; Z79.01 Long term (current) use of anticoagulants; E78.5 Hyperlipidemia, unspecified
CPT/HCPCS: 36415; 78452; 80048; 80053; 80061; 83721; 85027; 93005; 93016; 93018; 93306; 99223; 99225; 99239; 99285; J1650; 71046; 83036; 83735; 83880; 84443; 84484; 85025; 85610; 85730; 93010; 93017; 99217; 99220; 99284; G0378; J2785

== ENCOUNTER 2018-11-17 09:39 | Outpatient (CLI) | payer MEDICARE, SELFPAY | END 2018-11-17 09:59 | PROVIDERS: PCP Emergency Medicine; Visit Provider Internal Medicine Cardiovascular Disease | DX: I48.0 Paroxysmal atrial fibrillation (principal); Z79.82 Long term (current) use of aspirin | CPT/HCPCS: 99214; 93005; 93010 ==

== ENCOUNTER 2019-03-10 07:00 | Outpatient (CLI) | payer MEDICARE, SELFPAY ==
[2019-03-10 11:41] LABS: Abs Immature Grans 0.01 k/cumm (0.0-0.09); Absolute Basophil Count 0.03 k/cumm (0.0-0.2); Absolute Eosinophil Count 0.13 k/cumm (0.0-0.7); Absolute Lymphocyte Count 1.29 k/cumm (1.2-3.4); Absolute Monocyte Count 0.58 k/cumm (0.11-0.7); Absolute Neutrophil Count 3.65 k/cumm (1.2-6.7); Basophils % 0.5; Eosinophils % 2.3; HGB 17.2 g/dL (13.5-17.5); Immature Grans % 0.2 %; Lymphocytes % 22.7; Mean Corp. HGB Concentration 32.5 g/dL (32.0-36.0); Mean Corpuscular Hemoglobin 30.1 pg (27.0-33.0); Mean Corpuscular Volume 92.7 fL (80-95); Monocytes % 10.2; Neutrophils % 64.1; Platelet Count 198 x1000/uL (130-400); RBC 5.72 m/cumm (4.50-6.00); RBC Distribution Width 14.4 % (11.8-14.1); White Blood Cell Count 5.69 k/cumm (4.4-10.8)
[2019-03-10 12:13] LABS: ALT 41 U/L (16-63); AST 27 U/L (15-37); Alkaline Phosphatase 76 U/L (46-116); Amylase 88 U/L (25-115); Anion Gap 8.6 mmol/L (3-11); BUN 17 mg/dL (7-18); Bilirubin, Total 0.8 mg/dL (0.2-1.0); CO2 29.4 mmol/L (21.0-32.0); CREATININE 1.12 mg/dL (0.70-1.30); Chloride 107 mmol/L (98-107); Glucose 122 mg/dL (74-106); Lipase 149 U/L (73-393); Potassium 4.4 mmol/L (3.5-5.1); Sodium 145 mmol/L (136-145); Total Protein 7.1 g/dL (6.4-8.2)
[2019-03-10 12:17] LABS: Calcium 10.5 mg/dL (8.5-10.1)
== END 2019-03-10 07:20 ==
PROVIDERS: PCP Emergency Medicine; Visit Provider Emergency Medicine
DX: R10.9 Unspecified abdominal pain (principal); M25.551 Pain in right hip; G89.29 Other chronic pain
CPT/HCPCS: 36415; 80053; 83690; 82150; 85025

== ENCOUNTER 2019-03-13 01:39 | Outpatient (CLI) | payer MEDICARE, SELFPAY ==
--- NOTE | 2019-03-13 06:58 | DI.US_ITS ---
EXAM: US ABDOMEN CLINICAL HISTORY: epigastric abd pain, R10.9, R10.13 TECHNIQUE: Ultrasound abdomen performed using standard protocol. COMPARISON: ABDOMEN PELVIS ULTRASOUND from 06/16/2017 ABD/PELVIS WO W CONTRAST from 06/29/2017 ABD/PELVIS WO W CONTRAST from 06/29/2017 FINDINGS: LIVER: Diffuse increased echogenicity consistent with hepatic steatosis. No hepatic mass is seen. N o hepatomegaly. There is hepatopetal flow through the portal vein. GALLBLADDER: No evidence of cholelithiasis. No evidence of wall thickening. No pericholecystic fluid identified. KIDNEYS: Kidneys are symmetric in size. Echogenic foci seen in the lower poles of the right kidney co nsistent with nonobstructing stones. These can be seen on the CT scan of the abdomen and pelvis from 10/18/2018. There are stable bilateral renal cysts. No evidence of hydronephrosis. BILIARY SYSTEM: Common bile duct measures 5.9 mm. No intrahepatic biliary ductal dilation. KING'S SIGN: Negative. PANCREAS: Normal where visualized. SPLEEN: Not enlarged. ABDOMINAL AORTA AND IVC: Visualized portions normal caliber. ASCITES: None seen. IMPRESSION: 1. Hepatic steatosis. 2. Bilateral renal cysts. 3. Right nephrolithiasis. No hydronephrosis.
== END 2019-03-13 01:59 ==
PROVIDERS: PCP Emergency Medicine; Visit Provider Emergency Medicine
DX: R10.13 Epigastric pain (principal); K76.0 Fatty (change of) liver, not elsewhere classified; N20.0 Calculus of kidney; N28.1 Cyst of kidney, acquired
CPT/HCPCS: 76700

== ENCOUNTER 2019-03-20 10:29 | Outpatient (CLI) | payer MEDICARE, SELFPAY ==
[2019-03-20 12:39] LABS: Calcium 9.6 mg/dL (8.5-10.1)
[2019-03-21 12:06] LABS: Parathyroid Hormone,Intact 87 pg/mL (19-88)
== END 2019-03-20 10:49 ==
PROVIDERS: PCP Emergency Medicine; Visit Provider Emergency Medicine
DX: Z87.442 Personal history of urinary calculi (principal); R10.31 Right lower quadrant pain; M25.551 Pain in right hip; G89.29 Other chronic pain
CPT/HCPCS: 36415; 82310; 83970

== ENCOUNTER 2019-04-04 02:35 | Outpatient (CLI) | payer MEDICARE, SELFPAY ==
--- NOTE | 2019-04-04 13:00 | NS.NUTBLAN_ITS ---
Description: 69 year old male with diagnosis of fatty liver per PCP. PMH: HTN, GERD. 6'2 233 lbs, BMI 30. Diet recall indicates diet l with high intakes of carbohydrates, low amount of fruits/vegetables. Jermaine reports he walks 1 mile per day and has lost a total of 6 lbs in last 2 weeks. Educated Jermaine on benefits of Mediterranean diet on reversing fatty liver and importance of weight loss in overall goal. Goal weight of 199 established, 10% weight loss. Jermaine was receptive to education and was provided written educational material on fatty liver and received diet plan. Plan: 1. walk 2 miles 5-6 times per week, 2. follow Mediterranean diet principles, 3. reduce simple carbohydrates, 4. increase fruits and vegetables. No follow up planned. provided contact information if follow up needed.
== END 2019-04-04 02:55 ==
PROVIDERS: PCP Emergency Medicine; Visit Provider Emergency Medicine
DX: K76.0 Fatty (change of) liver, not elsewhere classified (principal); Z71.3 Dietary counseling and surveillance
CPT/HCPCS: 97802

== ENCOUNTER → 2019-09-06 10:31 | Outpatient (BNVA) | payer MEDICARE, SELFPAY | PROVIDERS: PCP Emergency Medicine; Referring Provider Emergency Medicine; Visit Provider Internal Medicine Cardiovascular Disease | DX: I48.0 Paroxysmal atrial fibrillation (principal) | CPT/HCPCS: 99213 ==

== ENCOUNTER 2019-09-28 11:11 | Emergency (ER) | payer MEDICARE, SELFPAY ==
[2019-09-28 11:18] VITALS: BP 148/85; PULSE 64; RESP 15; TEMP 36.7; O2SAT 96
--- NOTE | 2019-09-28 11:45 | DI.CT_ITS ---
EXAM: CT HEAD WO CLINICAL HISTORY: transient R arm numbness, L headache. TECHNIQUE: Imaging Protocol: Axial computed tomography images with coronal and sagittal reformatted images were created and reviewed COMPARISON: No exams were available for comparison FINDINGS: Ventricles and Extra axial spaces: Normal in size and morphology for the patient's age. Hemorrhage: None. Cerebral parenchyma: Normal. Midline shift: None. Brainstem/Cerebellum: Normal. Calvarium: Normal. Visualized Paranasal sinuses/Mastoids: Clear. Soft Tissues: Unremarkable. IMPRESSION: No acute intracranial process. RADIATION DOSE DELIVERED: 724.53mGy.cm Total DLP DATA REPOSITORY: All CT scans at this facility are submitted to the National Radiology Data Registry (NRDR) Dose Index Registry (DIR) with the [employer] (ACR). RADIATION OPTIMIZATION: All CT scans at this facility use at least one of these dose optimization te chniques: automated exposure control; mA and/or kV adjustment per patient size (includes targeted exa ms where dose is matched to clinical indication); or iterative reconstruction.
--- NOTE | 2019-09-28 11:45 | RT.EKG_ITS ---
APPROVED REPORT Exam: Resting ECG Patient Location: E HR:49 bpm ECG Measurements Heart Rate 49 AXIS AK 147 P 46 QRSd 110 QRS 4 QT 441 T 42 QTc 399 <Conclusion> Sinus bradycardia..49 Probable left atrial enlargement, no stemi
--- NOTE | 2019-09-28 11:50 | W.ED.GENAD ---
Discharge Plan Disposition Patient Disposition: HOME Condition: Improving Discharge Details Chief Complaint: Nk/Back Pain Clinical Impression: Abnormal sensation of upper extremity Primary Care Provider: Adam Felix ED Provider: Hernán Estevez Home Meds and New Rx's Prescriptions: Continued amlodipine 5 mg tablet 5 mg PO DAILY Qty: 90 RF: 3 multivitamin [One Daily] 1 EACH tablet 1 ea PO DAILY RF: 0 ascorbic acid (vitamin C) [Vitamin C] 500 MG tablet 500 mg PO DAILY RF: 0 aspirin 81 MG tablet,chewable 81 mg PO DAILY RF: 0 clotrimazole [Lotrimin AF (clotrimazole)] 24 GM cream 24 gm Topical PRN Qty: 1 RF: 3 pravastatin 40 mg tablet 40 mg PO DAILY Qty: 90 RF: 3 clonazepam [Klonopin] 1 mg tablet 0.5 mg PO HS Qty: 90 RF: 0 omeprazole 20 mg capsule,delayed release(DR/EC) 40 mg PO DAILY Qty: 180 RF: 3 fluticasone propionate [Flonase Allergy Relief] 50 mcg/actuation spray,suspension 1 spray ARIELLA BID Qty: 18.2 RF: 3 nitroglycerin [Nitrostat] 0.4 mg Tablet, Sublingual 0.4 mg sublingual Q5 MIN PRN X3 PRNQty: 6 RF: 0 Discharge Instructions Additional Instructions: Please check daily blood pressures as we discussed and record them. Follow-up with Dr. Felix in clinic as planned. Return if you develop clumsiness, weakness, persistent numbness of the upper extremity that does not change with position. Continue your regular medications as prescribed. Stand Alone Forms: Physical Therapy Referral Referrals: Adam Felix, [Primary Care Provider] - Medical Decision Making 68-year-old male presents from home with a number of complaints. First is that he felt minutes of right arm numbness while sitting in an easy chair that resolved with position and then recurred with repeated seated position. Not have any pale, blue, tingling of the arm. He says he dario and shook it out. He has no persistent numbness. There was no motor weakness or clumsiness. Second: He has had dull, achy low back pain for 6 weeks that is been constant and unchanged. He is not had any loss of bowel or bladder function, he is not had any weakness or numbness of the legs. Denies fall or injury. He states he has been working in [employer] and in his garden frequently. Thirdly, he complains of transient electricity like pulses of left sided head pain that lasts seconds and only occurred this morning and recurred on their own. He will note he recently started amlodipine 5 mg daily and has now a plan to stop through the weekend and then resume at half dose due to some lightheadedness. He has no significant complaints at the time of arrival. Blood pressure 148/85, pulse 64, respirations 15, temperature 36.7. Broad differential gnosis considered. Patient underwent screening laboratories, CT scan of the head, screening chest x-ray, L-spine x-ray. The lumbar spine has degenerative changes but no acute findings. Chest x-ray with no acute pulmonary findings. CT head without acute intracranial findings. Patient's labs reveal a CBC white count 6, hematocrit 51, platelets 204. He does have chronically high hematocrits. Chemistries unremarkable. Total bilirubin and LFTs are within normal limits as is troponin. I feel that the patient has had some mild lumbar go from overuse. We will treat this conservatively at home and I will prescribe him physical therapy. He may have had his first episode of tic douloureux this morning which I discussed with him but will not start carbamazepine. Finally, and he had the transient right upper extremity numbness without weakness or clumsiness. Unclear etiology at this time. He has normal sensation, motor function, vascular exam. I discussed with him close surveillance of this in the home setting. Given the number of issues today, he will check daily blood pressures and follow-up in primary care clinic for recheck (already scheduled for mid September). ECG Data Attestation: I personally reviewed and interpreted this ECG (s) as follows: HPI General Mode of arrival: ambulatory. Date/Time Provider Initiated Documentation: 09/28/19 11:12. Limitations to Documentation: no limitations. Information obtained by: patient. History of Present Illness 68 year old M presents to the emergency department with the chief complaint of Numerous complaints: Right arm transient numbness, left-sided headache, LBP, described as moderate, and is localized to the right and lower extremity. Patient reports no radiation. Patient started experiencing this minute(s) and it has been now resolved. No relieving factors improve symptom(s), No exacerbating factors reported . Patient notes other (Chronic low back pain for months, had seconds of left-sided sharp electric-like headache this morning); denies fever/chills. Patient did receive the following treatments prior to arrival, other (Acetaminophen) Related Data Home Medications Medication Instructions Recorded Confirmed ascorbic acid (vitamin C) [Vitamin 500 mg PO DAILY 06/07/12 09/28/19 C] multivitamin [One Daily] 1 ea PO DAILY 06/07/12 09/28/19 aspirin 81 mg PO DAILY tab-cap 03/13/16 09/28/19 clotrimazole [Lotrimin AF 24 gm TOPICAL PRN #1 script 05/05/17 09/28/19 (clotrimazole)] nitroglycerin [Nitrostat] 0.4 mg SUBLINGUAL Q5 MIN PRN X3 10/19/18 09/28/19 PRN #6 tab pravastatin 40 mg tablet 40 mg PO DAILY #90 tab-cap 02/21/19 09/28/19 clonazepam 1 mg tablet 0.5 mg PO HS #90 tab 04/24/19 09/28/19 omeprazole 20 mg capsule,delayed 40 mg PO DAILY #180 cap 09/19/19 09/28/19 release amlodipine 5 mg tablet 5 mg PO DAILY #90 tab 09/22/19 09/28/19 fluticasone propionate 50 1 spray ARIELLA BID #18.2 ml 09/22/19 09/28/19 mcg/actuation nasal spray,suspension Previous Rx's Medication Instructions Recorded clotrimazole [Lotrimin AF 24 gm TOPICAL PRN #1 script 05/05/17 (clotrimazole)] nitroglycerin [Nitrostat] 0.4 mg SUBLINGUAL Q5 MIN PRN X3 10/19/18 PRN #6 tab pravastatin 40 mg tablet 40 mg PO DAILY #90 tab-cap 02/21/19 clonazepam 1 mg tablet 0.5 mg PO HS #90 tab 04/24/19 omeprazole 20 mg capsule,delayed 40 mg PO DAILY #180 cap 09/19/19 release amlodipine 5 mg tablet 5 mg PO DAILY #90 tab 09/22/19 fluticasone propionate 50 1 spray ARIELLA BID #18.2 ml 09/22/19 mcg/actuation nasal spray,suspension Allergies Allergy/AdvReac Type Severity Reaction Status Date / Time atenolol AdvReac Unknown hypotension Verified 09/28/19 11:23 General Stated Complaint: Nk/Back Pain RYAN: 3 Review of Systems Narrative: 6 systems reviewed and otherwise negative [facility] [place] Medical History Actinic keratosis Actinic keratosis (Chronic) Acute prostatitis (Resolved) Acute prostatitis (Resolved) Adenomatous colon polyp 2012 Anticoagulated on warfarin (Resolved) A-flutter; INR goal 2-3 neg stress echo 04/15 holter 03/15 showing NO AF ablation but recurred stopped 02/13 Chadvasc2= 1 Anxiety and depression Chest pain (Acute) Chronic right hip pain (Chronic 07/04/13) Chronic right hip pain (Chronic 07/04/13) Colitis mild-scope 2003 Constipation Constipation (Chronic) Dysphagia, pharyngoesophageal (Chronic 09/03/16) Fatty liver (Acute) Gastritis Gastritis (Inactive 01/29/04) GERD (gastroesophageal reflux disease) History of kidney stones (Chronic 12/02/15) History of melanoma History of tobacco use (Chronic) Hydrocele (Chronic) 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 WANG 06/21/17 DR. SULTANA Surgical History Angioplasty cardiac ablation unsuccessful 2011 Colonoscopy - IV Sedation 01/20/13 Colonoscopy - MAC (06/21/17) EGD - IV Sedation 1999, 2004 Repair, Tendon or Muscle left elbow Status post cataract extraction and insertion of intraocular lens of left eye (Chronic 05/23/18) Status post cataract extraction and insertion of intraocular lens of right eye (Chronic 06/06/18) Social History Smoking/Tobacco Use Status: Former Tobacco Use Quit Date: 03/01/77 Tobacco: How many years used: 6 Second Hand Exposure: Yes Alcohol Intake: former Drug use: Never Substance use type: does not use Caregiver/Support person: No Household members: family Housing: house Pets and animals: No Sexually active: No Do you think of yourself as: straight/heterosexual Current gender identity: male What is your relationship status?: never How often do you talk on the phone with friends or family?: three or more times per week How often do you get together with friends or relatives?: three or more times per week How often do you attend bahai or sabianist services?: decline to answer Do you belong to any clubs or organized social groups?: no Panel score (0-1 are the most socially isolated patients): 1 What type of physical activity do you participate in: walking Duration: 30-45 minutes/day Frequency: 1-2 times per week Ayn/Baptism: None Do you feel safe at home: Yes Do you feel safe in your relationship?: Yes Exam Narrative Exam Narrative: GEN: awake, alert, oriented 3. Pleasant, well groomed, interactive. HEAD: Normocephalic, atraumatic ENT: Mucous membranes moist, oropharynx unremarkable, External ear exam unremarkable EYES: PERRL, EOMI NECK: Full ROM, no CHINMAY, no menigismus CHEST/RESP: Nontender, clear to auscultation bilateral, no wheeze/rhonchi/rales. Back: No midline tenderness, step-off or deformity. CARDIOVASCULAR: RRR, no murmur, rub miles. 2+ Rad pulse bilateral ABDOMEN: Soft, nontender, no mass. +Bowel sounds EXT: Full ROM, no edema, no rash. 2+ radial pulse, 2+ brachial pulse bilaterally, motor 5 out of 5, sensation intact throughout. Neuro: Grossly normal neurologic exam, conversant, interactive. Psych: Speech fluent, thoughts congruent, affect normal Course Vital Signs Vital signs: Vital Signs Temperature 36.7 C 09/28/19 11:18 Pulse 64 09/28/19 11:18 Respiratory Rate 15 09/28/19 11:18 Blood Pressure 148/85 H 09/28/19 11:18 Pulse Oximetry 96 09/28/19 11:18 Temperature 36.7 C 09/28/19 11:18 Temperature Source Temporal Artery Scan 09/28/19 11:18 Pulse 64 09/28/19 11:18 Respiratory Rate 15 09/28/19 11:18 Respiratory Effort Non-Labored 09/28/19 11:22 Blood Pressure 148/85 H 09/28/19 11:18 Blood Pressure Position Sitting 09/28/19 11:18 Pulse Oximetry 96 09/28/19 11:18 Oxygen Delivery Method Room Air 09/28/19 11:18 Oxygen Flow Rate 0 09/28/19 11:18 Pain Level 4 09/28/19 11:25
[2019-09-28 12:16] LABS: Abs Immature Grans 0.02 10^3/uL (0.0-0.06); Absolute Basophil Count 0.04 10^3/uL (0.0-0.2); Absolute Eosinophil Count 0.07 10^3/uL (0.0-0.7); Absolute Lymphocyte Count 1.23 10^3/uL (1.2-3.4); Absolute Monocyte Count 0.56 10^3/uL (0.1-0.8); Absolute Neutrophil Count 4.83 10^3/uL (1.2-6.7); Basophils % 0.6; HCT 51.7 % (40.0-50.0); HGB 17.6 g/dL (13.5-17.5); Immature Grans % 0.3; Lymphocytes % 18.2; MCH 30.6 pg (27.0-33.0); MCV 89.8 fL (80-95); MPV 10.8 fL (8.0-11.0); Monocytes % 8.3; Neutrophils % 71.6; Platelet Count 204 10^3/uL (130-400); RBC 5.76 10^6/uL (4.36-5.78); RDW 13.8 % (11.8-14.1); RDW-SD 45.1 fL; WBC 6.75 10^3/uL (4.4-10.8)
[2019-09-28 12:27] LABS: ALT 33 U/L (16-63); AST 21 U/L (15-37); Albumin 3.9 g/dL (3.4-5.0); Alkaline Phosphatase 78 U/L (46-116); Anion Gap 8.6 mmol/L (3-11); BUN 15 mg/dL (7-18); Bilirubin, Total 0.6 mg/dL (0.2-1.0); CO2 26.4 mmol/L (21.0-32.0); CREATININE 1.06 mg/dL (0.70-1.30); Calcium 10.3 mg/dL (8.5-10.1); Chloride 104 mmol/L (98-107); Glucose 141 mg/dL (74-106); Sodium 139 mmol/L (136-145); Total Protein 7.3 g/dL (6.4-8.2)
[2019-09-28 12:44] LABS: Troponin I < 0.05 ng/mL (<0.06)
--- NOTE | 2019-09-28 13:26 | DI.RAD_ITS ---
EXAM: XR CHEST 2V PA LATERAL CLINICAL HISTORY: Transient right arm weakness TECHNIQUE: 2D digital imaging was performed. COMPARISON: No exams were available for comparison FINDINGS: MEDIASTINUM: Normal. HEART: Normal. PULMONARY VASCULATURE: Normal. LUNGS: Clear. PLEURAL SPACE: No pleural effusion or pneumothorax. BONE:Upper thoracic scoliosis. IMPRESSION: No acute pulmonary findings. DATA REPOSITORY: RADIATION DOSE DELIVERED:
--- NOTE | 2019-09-28 13:28 | DI.RAD_ITS ---
EXAM: XR LUMBAR SPINE AP, LAT CLINICAL HISTORY: low back pain. TECHNIQUE: 2D digital imaging was performed. COMPARISON: No exams were available for comparison FINDINGS: BONES: No fracture or destructive lesion. Vertebral bodies are unremarkable. Facet degenerative mauricio es are seen at L5-S1. DISKS: Intervertebral disc spaces are maintained. ALIGNMENT: Lumbar spinal alignment is within normal limits. SOFT TISSUE: Unremarkable bowel gas pattern. IMPRESSION: Mild degenerative changes. DATA REPOSITORY: RADIATION DOSE DELIVERED:
--- NOTE | 2019-09-28 14:11 | NUR.NOTE ---
Nursing Note:FAXED REFERRAL TO [facility] FOR FOLLOW UP WITH PCP . 1411 09/28/2019 KW
[2019-09-28 14:30] VITALS: BP 158/60; PULSE 69; RESP 15; TEMP 36.7; O2SAT 96
[2019-09-28 14:35] VITALS: BP 158/60; PULSE 69; RESP 15; TEMP 36.7; O2SAT 96
== END 2019-09-28 14:37 | disposition home or self-care (01) ==
PROVIDERS: Emergency Provider Emergency Medicine; PCP Emergency Medicine
DX: R20.8 Other disturbances of skin sensation (principal); M54.5 Low back pain; X50.3XXA Overexertion from repetitive movements, initial encounter; R51 Headache; I10 Essential (primary) hypertension
CPT/HCPCS: 36415; 80053; 93005; 99285; 70450; 71046; 72100; 84484; 85025; 93010; 99284

== ENCOUNTER 2020-03-09 20:38 | Emergency (ER) | payer MEDICARE, SELFPAY ==
[2020-03-09] VITALS (27 sets, daily range): BP systolic 134–169; BP diastolic 61–73; PULSE 50–64; RESP 14–21; TEMP 36.4; O2SAT 94–99
--- NOTE | 2020-03-09 20:30 | RT.EKG_ITS ---
APPROVED REPORT Exam: Resting ECG Patient Location: E HR:50 bpm ECG Measurements Heart Rate 50 AXIS WV 169 P 49 QRSd 112 QRS -5 QT 451 T 21 QTc 411 Conclusion Sinus bradycardia...rate< 60 Probable left atrial enlargement...P >50mS, <-0.10mV V1 Normal [place] No Acute ST Changes No STEMI
--- NOTE | 2020-03-09 20:59 | W.ED.GENAD ---
Discharge Plan Disposition Patient Disposition: HOME Condition: Good Discharge Details Clinical Impression: Acute thoracic back pain, Chest pain Primary Care Provider: Adam Felix ED Provider: Raimundo Akers [place] Meds and New Rx's Prescriptions: Continued trazodone 50 mg tablet 25 mg PO DAILY Qty: 30 RF: 2 clonazepam [Klonopin] 1 mg tablet 0.5 mg PO HS Qty: 30 RF: 0 multivitamin [One Daily] 1 EACH tablet 1 ea PO DAILY RF: 0 ascorbic acid (vitamin C) [Vitamin C] 500 MG tablet 500 mg PO DAILY RF: 0 aspirin 81 MG tablet,chewable 81 mg PO DAILY RF: 0 clotrimazole [Lotrimin AF (clotrimazole)] 24 GM cream 24 gm Topical PRN Qty: 1 RF: 3 omeprazole 20 mg capsule,delayed release(DR/EC) 40 mg PO DAILY Qty: 180 RF: 3 fluticasone propionate [Flonase Allergy Relief] 50 mcg/actuation spray,suspension 1 spray ARIELLA BID Qty: 18.2 RF: 3 pravastatin 40 mg tablet 40 mg PO DAILY Qty: 90 RF: 3 nitroglycerin [Nitrostat] 0.4 mg Tablet, Sublingual 0.4 mg sublingual Q5 MIN PRN X3 PRNQty: 6 RF: 0 bismuth subsalicylate [Pepto-Bismol] 262 mg/15 mL Suspension RF: 0 Discharge Instructions Instructions: Chest Pain (ED) Additional Instructions: Your evaluation tonight revealed normal laboratory studies, unremarkable EKG, negative cardiac enzymes and no acute pathology on CT scan. May be that discomfort was related to reflux and esophageal spasm. Follow-up with primary care next week. Return to ED for new or worsening pain, vomiting, fever, shortness of breath. Referrals: Adam Felix, [Primary Care Provider] - Medical Decision Making Patient presenting to ED after developing abdominal discomfort which converted to crescendo back and chest pain which has now subsequently resided. Currently looks well. Has history of atrial fibrillation. Normal stress test little over a year and a half ago. Walks couple miles a day without problems. Doubt cardiac. Consider dissection. IV established, laboratory studies obtained, CT chest abdomen ordered. EKG reviewed and unremarkable. 22:35 - Laboratory studies are fine. First troponin negative. CTA of chest abdomen without dissection. No PE. No acute pathology. We will plan repeat EKG and troponin at 3 hours and discharge if unchanged. 01:00 -repeat EKG is unchanged. Repeat troponin stays negative. Patient asymptomatic he is. Will discharge home to have him follow-up with primary care next week. Return to ED if any recurrent/persistent chest pain, shortness of breath, vomiting, abdominal pain. Medical Records Medical records reviewed: Yes I reviewed the patient's medical records. Lab Data Lab results reviewed: Yes I reviewed the patient's lab results. ECG Data Attestation: I personally reviewed and interpreted this ECG (s) as follows: Interpretation: see EKG HPI General Mode of arrival: ambulatory. Date/Time Provider Initiated Documentation: 03/09/20 20:52. Limitations to Documentation: no limitations. Information obtained by: patient, RN notes reviewed and old records reviewed. HPI Narrative: Patient drove himself to ED for evaluation of chest and back pain. Patient reports having supper tonight. Developed some discomfort in the upper abdomen for which she took Pepto-Bismol. Subsequently developed severe back pain that came up to into the chest. At one point the pain between his shoulder blades was a 9/10. Shortly before getting here pain seemed to subside substantially. At this point only has residual right side discomfort. He denies any shortness of breath, nausea or vomiting. He denies fever or cough. He has no leg pain or leg swelling. He ambulates a couple of miles a day for exercise. Stress testing about a year and a half ago was negative. Currently comfortable and in no distress. Related Data Home Medications Medication Instructions Recorded Confirmed ascorbic acid (vitamin C) [Vitamin 500 mg PO DAILY 06/07/12 03/09/20 C] multivitamin [One Daily] 1 ea PO DAILY 06/07/12 03/09/20 aspirin 81 mg PO DAILY tab-cap 03/13/16 03/09/20 clotrimazole [Lotrimin AF 24 gm TOPICAL PRN #1 script 05/05/17 03/09/20 (clotrimazole)] nitroglycerin [Nitrostat] 0.4 mg SUBLINGUAL Q5 MIN PRN X3 10/19/18 03/09/20 PRN #6 tab omeprazole 20 mg capsule,delayed 40 mg PO DAILY #180 cap 09/19/19 03/09/20 release fluticasone propionate 50 1 spray ARIELLA BID #18.2 ml 09/22/19 03/09/20 mcg/actuation nasal spray,suspension clonazepam 1 mg tablet 0.5 mg PO HS #30 tab 11/28/19 03/09/20 pravastatin 40 mg tablet 40 mg PO DAILY #90 tab-cap 02/26/20 03/09/20 trazodone 50 mg tablet 25 mg PO DAILY #30 tab 02/28/20 03/09/20 bismuth subsalicylate mg 03/09/20 [Pepto-Bismol] Previous Rx's Medication Instructions Recorded clotrimazole [Lotrimin AF 24 gm TOPICAL PRN #1 script 05/05/17 (clotrimazole)] nitroglycerin [Nitrostat] 0.4 mg SUBLINGUAL Q5 MIN PRN X3 10/19/18 PRN #6 tab omeprazole 20 mg capsule,delayed 40 mg PO DAILY #180 cap 09/19/19 release fluticasone propionate 50 1 spray ARIELLA BID #18.2 ml 09/22/19 mcg/actuation nasal spray,suspension clonazepam 1 mg tablet 0.5 mg PO HS #30 tab 11/28/19 pravastatin 40 mg tablet 40 mg PO DAILY #90 tab-cap 02/26/20 trazodone 50 mg tablet 25 mg PO DAILY #30 tab 02/28/20 Allergies Allergy/AdvReac Type Severity Reaction Status Date / Time atenolol AdvReac Unknown hypotension Verified 03/09/20 20:52 General Stated Complaint: Chest Pain RYAN: 2 Review of Systems Narrative: As documented in HPI otherwise negative as below. Const: no fever, chills, weakness Resp: no cough, SOB, pleuritic pain CV: no diaphoresis, edema, syncope GI: no nausea, vomiting, diarrhea Neuro: no headache, numbness, focal weakness, confusion [facility] Medical History (Updated 03/10/20 @ 01:11 by Raimundo Akers MD) Actinic keratosis Anxiety and depression Chronic insomnia Chronic right hip pain (07/04/13) Colitis mild-scope 2003 Constipation Dysphagia, pharyngoesophageal (09/03/16) Fatty liver Gastritis (01/29/04) GERD (gastroesophageal reflux disease) History of tobacco use Hypercalciuria (12/02/15) Hyperlipidemia Hypertension Kidney stones 1986, 2002 Low back pain Malignant melanoma of skin of face Paroxysmal atrial fibrillation (07/16/15) Prostatitis Right hydrocele Rosacea Tubular adenoma 01/20/13 DR. WANG 06/21/17 DR. SULTANA Surgical History Angioplasty cardiac ablation unsuccessful 2011 Colonoscopy - IV Sedation 01/20/13 Colonoscopy - MAC (06/21/17) EGD - IV Sedation 1999, 2004 Repair, Tendon or Muscle left elbow Status post cataract extraction and insertion of intraocular lens of left eye (05/23/18) Status post cataract extraction and insertion of intraocular lens of right eye (06/06/18) Family History Mother , 95 Dementia Father , 65 Stomach cancer Sister Diabetes Brother Rheumatoid arthritis Sister No problems noted. Sister No problems noted. Maternal Aunt Dementia Brother No problems noted. Social History Smoking/Tobacco Use Status: Former Tobacco Use Quit Date: 03/01/77 Tobacco: How many years used: 6 Second Hand Exposure: Yes Smoking risk assessment performed?: Yes Alcohol Intake: former Drug use: Never Substance use type: does not use Caregiver/Support person: No Household members: family Housing: house Pets and animals: No Sexually active: No Do you think of yourself as: straight/heterosexual Current gender identity: male What is your relationship status?: never How often do you talk on the phone with friends or family?: three or more times per week How often do you get together with friends or relatives?: three or more times per week How often do you attend sabianist or denominational services?: decline to answer Do you belong to any clubs or organized social groups?: no Panel score (0-1 are the most socially isolated patients): 1 What type of physical activity do you participate in: walking Duration: 30-45 minutes/day Frequency: 1-2 times per week Any/Hoahaoism: None Do you feel safe at home: Yes Do you feel safe in your relationship?: Yes Exam Narrative Exam Narrative: Const: WDWN elderly male in NAD. HEENT: NC/AT. Normal facial exam. Eyes: Normal conjunctiva and sclera. Neck: Supple. Trachea midline. Lungs: Normal respiratory effort. Lungs are clear. Cor: RRR without murmur/gallop. Good radial pulses. GI: Soft. NT/ND. No guarding or rebound. Neuro: A+O x 3. Normal speech, mentation, gait. Cranial nerves II - XII grossly intact. No gross motor or sensory deficit. Ext: No C/C/E. No calf tenderness. Skin: Warm and dry without rash. Course Vital Signs Vital signs: Vital Signs Temperature 97.5 F L 03/09/20 20:45 Pulse 56 L 03/09/20 20:45 Respiratory Rate 16 03/09/20 20:45 Blood Pressure 156/72 H 03/09/20 20:45 Pulse Oximetry 99 03/09/20 20:45 Temperature 97.5 F L 03/09/20 20:45 Temperature Source Temporal Artery Scan 03/09/20 20:45 Pulse 56 L 03/09/20 20:45 Respiratory Rate 16 03/09/20 20:45 Respiratory Effort 03/09/20 20:52 Blood Pressure 156/72 H 03/09/20 20:45 Blood Pressure Position Supine 03/09/20 20:45 Pulse Oximetry 99 03/09/20 20:45 Oxygen Delivery Method Room Air 03/09/20 20:45 Oxygen Flow Rate 0 03/09/20 20:45 Pain Level 4 03/09/20 20:45
--- NOTE | 2020-03-09 21:00 | DI.CT_ITS ---
EXAM: CT THORAX ABDOMEN CTA CLINICAL HISTORY: back/chest pain. TECHNIQUE: Imaging Protocol: Axial computed tomography images with coronal and sagittal reformatted images were created and reviewed CONTRAST MATERIAL: Intravenous: Omnipaque 350 Contrast volume:structured data in ml Oral: yes / no COMPARISON: CT ABD/PELVIS WO W CONTRAST from 06/29/2017 FINDINGS: CHEST: Thyroid: Normal Tracheobronchial tree: Patent where visualized. Mediastinum and Alyssa: No dominant adenopathy or fluid collection. Pulmonary parenchyma: No consolidation or dominant measurable mass. No architectural distortion. Pleura: No effusion or pneumothorax. Lymph nodes: Within normal limits. Aorta: Thoracic portion non-dilated. No evidence of dissection. Heart: Coronary artery calcifications. Pulmonary arteries: No evidence of emboli. Bones: Degenerative changes and scoliosis. No compression fracture. ABDOMEN: Liver: Normal density. No measurable mass. Gallbladder and biliary tract: No radiodense calculus or dilation. Pancreas: Atrophic. Normal density, no abnormal calcifications or inflammatory process. Spleen: Normal. Kidneys: Normal size, contour and axis. No radiodense stones or obstructive uropathy. No masses seen. Bilateral cysts. Adrenal glands: No masses seen. Aorta: Abdominal portion non-dilated. Mild atherosclerotic changes. No evidence branch vessel occlus ion or significant stenosis. No evidence of dissection. Lymph nodes: Within normal limits. IMPRESSION: No evidence of pulmonary emboli, aortic dissection or other acute abnormality. RADIATION DOSE DELIVERED: 797.91mGy.cm Total DLP DATA REPOSITORY: All CT scans at this facility are submitted to the National Radiology Data Registry (NRDR) Dose Index Registry (DIR) with the [employer] (ACR). RADIATION OPTIMIZATION: All CT scans at this facility use at least one of these dose optimization te chniques: automated exposure control; mA and/or kV adjustment per patient size (includes targeted exa ms where dose is matched to clinical indication); or iterative reconstruction.
[2020-03-09 21:23] LABS: Abs Immature Grans 0.01 10^3/uL (0.0-0.06); Absolute Basophil Count 0.05 10^3/uL (0.0-0.2); Absolute Eosinophil Count 0.22 10^3/uL (0.0-0.7); Absolute Lymphocyte Count 1.64 10^3/uL (1.2-3.4); Absolute Monocyte Count 0.67 10^3/uL (0.1-0.8); Absolute Neutrophil Count 4.86 10^3/uL (1.2-6.7); Basophils % 0.7; HCT 51.7 % (40.0-50.0); HGB 17.3 g/dL (13.5-17.5); Immature Grans % 0.1; MCH 30.7 pg (27.0-33.0); MCHC 33.5 % (32.0-36.0); MCV 91.7 fL (80-95); MPV 10.3 fL (8.0-11.0); Neutrophils % 65.2; Nucleated RBC 0 %; Platelet Count 180 10^3/uL (130-400); RBC 5.64 10^6/uL (4.36-5.78); RDW 13.2 % (11.8-14.1); RDW-SD 44.8 fL; WBC 7.45 10^3/uL (4.4-10.8)
[2020-03-09 21:35] LABS: ALT 39 U/L (16-63); AST 29 U/L (15-37); Albumin 3.7 g/dL (3.4-5.0); Alkaline Phosphatase 78 U/L (46-116); Anion Gap 6.2 mmol/L (3-11); BUN 14 mg/dL (7-18); Bilirubin, Total 0.7 mg/dL (0.2-1.0); CO2 28.8 mmol/L (21.0-32.0); CREATININE 1.21 mg/dL (0.70-1.30); Calcium 9.6 mg/dL (8.5-10.1); Chloride 105 mmol/L (98-107); Estimated GFR 59.29 (mL/min/1.73m2); Glucose 94 mg/dL (74-106); Sodium 140 mmol/L (136-145); Total Protein 7.1 g/dL (6.4-8.2); Troponin I < 0.05 ng/mL (<0.06)
[2020-03-09] MEDS: Omnipaque 350 MG/ML 100 ML BTL IJ (21:55)
--- NOTE | 2020-03-09 22:25 | DI.VRAD_ITS ---
PROCEDURE INFORMATION: Exam: CT Angiography Chest With Contrast Exam date and time: 03/09/2020 9:12 PM Age: 69 years old Clinical indication: Other: Pain TECHNIQUE: Imaging protocol: Computed tomographic angiography of the chest with intravenous contrast. 3D rendering (Not supervised by radiologist): MIP and/or 3D reconstructed images were created by the technologist. Contrast material: OMNIPQAQUE 350; Contrast volume: 100 ml; Contrast route: INTRAVENOUS (IV); COMPARISON: CR XR CHEST 2V PA LATERAL 09/28/2019 1:24 PM FINDINGS: Pulmonary arteries: Normal. No pulmonary emboli. Aorta: Unremarkable. No aortic aneurysm. No aortic dissection. Lungs: Unremarkable. No consolidation. No masses. Pleural space: Unremarkable. No pneumothorax. No pleural effusion. Heart: Unremarkable. No cardiomegaly. No pericardial effusion. Lymph nodes: Unremarkable. No enlarged lymph nodes. Bones/joints: Unremarkable. No acute fracture. Soft tissues: Unremarkable. IMPRESSION: No acute findings. PROCEDURE INFORMATION: Exam: CT Angiography Abdomen With Contrast Exam date and time: 03/09/2020 9:12 PM Age: 69 years old Clinical indication: Other: Pain TECHNIQUE: Imaging protocol: Computed tomographic angiography images of the abdomen with intravenous contrast material. 3D rendering (Not supervised by radiologist): MIP and/or 3D reconstructed images were created by the technologist. Contrast material: OMNIPQAQUE 350; Contrast volume: 100 ml; Contrast route: INTRAVENOUS (IV); COMPARISON: CR XR CHEST 2V PA LATERAL 09/28/2019 1:24 PM FINDINGS: Aorta: No aortic aneurysm. No aortic dissection. Celiac trunk and mesenteric arteries: No occlusion or significant stenosis. Renal arteries: No occlusion or significant stenosis. Liver: Hepatic steatosis. Gallbladder and bile ducts: Normal. No calcified stones. No ductal dilation. Pancreas: Normal. No ductal dilation. Spleen: Normal. No splenomegaly. Adrenals: Normal. No mass. Kidneys and ureters: Simple renal cysts up to 6 cm. No hydronephrosis. Stomach and bowel: Unremarkable. No obstruction. No mucosal thickening. Lymph nodes: Unremarkable. No enlarged lymph nodes. Intraperitoneal space: Unremarkable. No free air. No significant fluid collection. Bones/joints: Unremarkable. No acute fracture. No dislocation. Soft tissues: Unremarkable. IMPRESSION: No acute finding. Dictated and Authenticated by: Margarito Kate MD. Ordering:MARNIE Eubanks MD
[2020-03-09] MEDS: Normal Saline 1,000 ML 125 ML IV (22:27)
--- NOTE | 2020-03-09 23:30 | RT.EKG_ITS ---
APPROVED REPORT Exam: Resting ECG Patient Location: E HR:50 bpm ECG Measurements Heart Rate 50 AXIS MA 149 P 49 QRSd 122 QRS 4 QT 461 T 8 QTc 422 Conclusion Sinus bradycardia...rate< 60 Nonspecific intraventricular conduction delay...QRSd >115mS, not LBBB/RBBB Minimal ST depression, diffuse leads...ST <-0.03mV, ant/lat/inf There are no significant changes compared to prior EKG performed on 03/09/2020 at 20:47.
[2020-03-10] VITALS (51 sets, daily range): BP systolic 130–147; BP diastolic 65–79; PULSE 47–57; RESP 9–21; TEMP 36.5; O2SAT 95–97
[2020-03-10 01:03] LABS: Troponin I < 0.05 ng/mL (<0.06)
== END 2020-03-10 02:00 | disposition home or self-care (01) ==
PROVIDERS: Emergency Provider Emergency Medicine; PCP Emergency Medicine
DX: M54.6 Pain in thoracic spine (principal); R07.9 Chest pain, unspecified; I10 Essential (primary) hypertension
CPT/HCPCS: 36415; 71275; 74175; 80053; 93005; 96360; 96361; 99285; 83735; 84484; 85025; 93010; 99284; J3490

== ENCOUNTER 2020-03-11 16:45 | Emergency (ER) | payer MEDICARE, SELFPAY ==
[2020-03-11] VITALS (37 sets, daily range): BP systolic 141–170; BP diastolic 64–78; PULSE 51–65; RESP 12–23; TEMP 36.7; O2SAT 96–99
--- NOTE | 2020-03-11 16:45 | RT.EKG_ITS ---
APPROVED REPORT Exam: Resting ECG Patient Location: E HR:53 bpm ECG Measurements Heart Rate 53 AXIS CO 154 P 54 QRSd 112 QRS 12 QT 432 T 14 QTc 407 Conclusion Sinus bradycardia...rate< 60 Probable left atrial enlargement...P >50mS, <-0.10mV V1 I have reviewed and interpreted ECG and agree with software generated interpretation.
[2020-03-11 17:12] LABS: Abs Immature Grans 0.02 10^3/uL (0.0-0.06); Absolute Basophil Count 0.08 10^3/uL (0.0-0.2); Absolute Eosinophil Count 0.13 10^3/uL (0.0-0.7); Absolute Lymphocyte Count 1.35 10^3/uL (1.2-3.4); Absolute Monocyte Count 0.59 10^3/uL (0.1-0.8); Absolute Neutrophil Count 4.91 10^3/uL (1.2-6.7); Basophils % 1.1; Eosinophils % 1.8; HCT 51.8 % (40.0-50.0); HGB 17.1 g/dL (13.5-17.5); Immature Grans % 0.3; Lymphocytes % 19.1; MCH 30.5 pg (27.0-33.0); MCV 92.5 fL (80-95); MPV 10.5 fL (8.0-11.0); Monocytes % 8.3; Neutrophils % 69.4; Nucleated RBC 0 %; Platelet Count 173 10^3/uL (130-400); RDW 13.2 % (11.8-14.1); RDW-SD 45.1 fL; WBC 7.08 10^3/uL (4.4-10.8)
[2020-03-11] MEDS: Normal Saline Flush 10 ML SYR IVP (17:12)
[2020-03-11 17:28] LABS: ALT 41 U/L (16-63); AST 32 U/L (15-37); Albumin 3.8 g/dL (3.4-5.0); Alkaline Phosphatase 86 U/L (46-116); Anion Gap 3.7 mmol/L (3-11); BUN 18 mg/dL (7-18); Bilirubin, Total 0.7 mg/dL (0.2-1.0); CO2 30.3 mmol/L (21.0-32.0); CREATININE 1.32 mg/dL (0.70-1.30); Calcium 9.8 mg/dL (8.5-10.1); Chloride 104 mmol/L (98-107); Estimated GFR 53.62 (mL/min/1.73m2); Glucose 106 mg/dL (74-106); Lipase 113 U/L (73-393); Magnesium 2.1 mg/dL (1.8-2.4); Potassium 3.9 mmol/L (3.5-5.1); Sodium 138 mmol/L (136-145); Total Protein 7.4 g/dL (6.4-8.2)
[2020-03-11 17:29] LABS: PTT Activated 24.3 sec (21.0-27.5); Prothrombin Time 10.4 sec (9.3-11.0); Troponin I < 0.05 ng/mL (<0.06)
--- NOTE | 2020-03-11 18:00 | DI.CT_ITS ---
EXAM: CT CHEST PE ABD PELVIS W CLINICAL HISTORY: chest pain, upper abd pain, r/o PE, pneumonia. TECHNIQUE: Imaging Protocol: Axial CT angiography was performed with multi-slice acquisition and mu lti-planar and/or 3D reconstructions. CONTRAST MATERIAL: Intravenous: Omnipaque 350 Contrast volume:100 cc COMPARISON: CT CT THORAX ABDOMEN CTA from 03/09/2020 FINDINGS: Chest: Pulmonary Arteries: No evidence of filling defect to suggest pulmonary emboli. Tracheobronchial tree: Patent where visualized. Mediastinum and Alyssa: No dominant adenopathy or fluid collection. Pulmonary parenchyma: No consolidation or dominant measurable mass. Minimal dependent atelectasis Pleura: No effusion or pneumothorax. Heart: The heart is mildly dilated. Coronary artery calcifications are seen. Aorta: Thoracic aorta non-dilated. No dissection Bones: Degenerative changes and scoliosis. Abdomen and pelvis: Liver, spleen, adrenals and pancreas are unremarkable. There are bilateral renal cysts and nonobstructing stones. There is no hydronephrosis or suspicious mass. Prostate is enlarg ed. There are fatty containing inguinal hernias. No bowel dilatation or inflammatory changes are se en. The aorta is normal in diameter and shows mild atherosclerotic change. IMPRESSION: No evidence of pulmonary embolism or pneumonia.. No acute abnormality in the abdomen or pelvis. RADIATION DOSE DELIVERED: 1,515.18mGy.cm Total DLP DATA REPOSITORY: All CT scans at this facility are submitted to the National Radiology Data Registry (NRDR) Dose Index Registry (DIR) with the [employer] (A[employer]). RADIATION OPTIMIZATION: All CT scans at this facility use at least one of these dose optimization te chniques: automated exposure control; mA and/or kV adjustment per patient size (includes targeted exa ms where dose is matched to clinical indication); or iterative reconstruction.
--- NOTE | 2020-03-11 18:18 | W.ED.GENAD ---
Discharge Plan Disposition Patient Disposition: HOME Condition: Improving Discharge Details Clinical Impression: Atypical chest pain, Abdominal pain Primary Care Provider: Adam Felix ED Provider: Makayla Wade Home Meds and New Rx's Prescriptions: New sucralfate [Carafate] 1 gram tablet 1 gm PO QACHS Qty: 14 RF: 0 Continued trazodone 50 mg tablet 25 mg PO DAILY Qty: 30 RF: 2 clonazepam [Klonopin] 1 mg tablet 0.5 mg PO HS Qty: 30 RF: 0 multivitamin [One Daily] 1 EACH tablet 1 ea PO DAILY RF: 0 ascorbic acid (vitamin C) [Vitamin C] 500 MG tablet 500 mg PO DAILY RF: 0 aspirin 81 MG tablet,chewable 81 mg PO DAILY RF: 0 clotrimazole [Lotrimin AF (clotrimazole)] 24 GM cream 24 gm Topical PRN Qty: 1 RF: 3 pravastatin 40 mg tablet 40 mg PO DAILY Qty: 90 RF: 3 bismuth subsalicylate [Pepto-Bismol] 262 mg/15 mL Suspension 262 mg PO DAILY PRNRF: 0 omeprazole 20 mg capsule,delayed release(DR/EC) 40 mg PO BID RF: 0 Discharge Instructions Instructions: Chest Pain (ED), Abdominal Pain (ED) Additional Instructions: Your lab work and CT scan imaging today did not show any concerning findings at this time. Call the general surgery office tomorrow to schedule a follow-up appointment for reevaluation for consideration for upper endoscopy and/or gallbladder ultrasound. Continue to take your Prilosec as directed. Take the Carafate as directed. Return immediately to the emergency department if you develop any worsening or new concerning symptoms. Referrals: Tracie Love DO [OSTEOPATHIC DOCTOR] - Discharge Data Discharge Date/Time-TO BE ENTERED AT DEPARTURE: 03/11/20 21:05 Discharge Physician: Makayla Wade Medical Decision Making 69-year-old male with a history of anxiety, depression, GERD, hypertension, hyperlipidemia, paroxysmal atrial fibrillation presents for lower chest and upper abdominal pain that occurred 30 minutes after eating today. Patient was seen here 2 days ago for the same complaint but episode today not as bad. EKG on arrival notes a rate of 53, sinus with no acute ST-T wave ischemic findings. He appears anxious but otherwise in no acute distress. His chest is nontender. He has right upper quadrant and epigastric tenderness. Patient had 2 negative troponins and EKGs and CTA chest and abdomen 2 days ago which was negative and it was thought at that time that his etiology was likely noncardiac and was discharged home for possible esophageal spasm versus peptic ulcer. As patient's symptoms occurred after eating and he was just ruled out for cardiac etiology 2 days ago, doubt new cardiac etiology, but considering his age and history will obtain labs and CT imaging. Will give Pepcid IV, GI cocktail and fluids and reassess. Labs and imaging reviewed and unremarkable. Repeat troponin and EKG unchanged. Patient reassessed and he admitted to improvement of his symptoms and he feels good to go home. Patient is nervous about return of pain after eating. Will start on Carafate. Patient placed on surgery list for follow-up. He is advised to call surgery tomorrow to schedule follow-up appointment. Usual and customary return precautions given prior to discharge. Medical Records Medical records reviewed: Yes I reviewed the patient's medical records. Imaging Data Radiologic Study: Radiologist's impression: CT Angiography Chest With Contrast Exam date and time: 03/11/2020 6:15 PM Age: 69 years old Clinical indication: Abdominal pain; Patient HX: Chest pain, upper abd pain, R/O pe, pneumonia TECHNIQUE: Imaging protocol: Computed tomographic angiography of the chest with intravenous contrast. 3D rendering (Not supervised by radiologist): MIP and/or 3D reconstructed images were created by the technologist. COMPARISON: CT THORAX ABDOMEN CTA 03/09/2020 10:02 PM FINDINGS: Pulmonary arteries: No pulmonary emboli. Aorta: No aortic aneurysm. No aortic dissection. Lungs: No consolidation. No masses. Dependent atelectasis is seen at the lung bases. Pleural space: Unremarkable. No pneumothorax. No pleural effusion. Heart: Unremarkable. No cardiomegaly. No pericardial effusion. Lymph nodes: Unremarkable. No enlarged lymph nodes. Bones/joints: Unremarkable. No acute fracture. Soft tissues: Unremarkable. IMPRESSION: No acute findings. CT Abdomen And Pelvis With Contrast Exam date and time: 03/11/2020 6:15 PM Age: 69 years old Clinical indication: Abdominal pain; Patient HX: Chest pain, upper abd pain, R/O pe, pneumonia TECHNIQUE: Imaging protocol: Computed tomography of the abdomen and pelvis with intravenous contrast. COMPARISON: CT THORAX ABDOMEN CTA 03/09/2020 10:02 PM FINDINGS: Liver: Normal. No mass. Gallbladder and bile ducts: The gallbladder is slightly distended, however no evidence of significant inflammation. No calcified stones. No ductal dilation. Pancreas: Normal. No ductal dilation. Spleen: Normal. No splenomegaly. Adrenal glands: Normal. No mass. Kidneys and ureters: Multiple bilateral simple appearing renal cysts are noted. Nonobstructing calculi are noted measuring up to 5 mm on the right and 6 mm on the left. No hydronephrosis. Stomach and bowel: Unremarkable. No obstruction. No mucosal thickening. Appendix: No evidence of appendicitis. Intraperitoneal space: No free air. No significant fluid collection. Vasculature: No abdominal aortic aneurysm. Lymph nodes: No enlarged lymph nodes. Urinary bladder: Unremarkable as visualized. Reproductive: There is enlargement of the prostate gland measuring up to 6.5 cm in transverse dimension. Bones/joints: No acute fracture. Soft tissues: There are small bilateral fat-containing inguinal hernias. IMPRESSION: No acute findings. Lab Data Lab results reviewed: Yes I reviewed the patient's lab results. Labs: Laboratory Tests Range/Units 03/11/20 03/11/20 03/11/20 17:05 17:05 17:05 WBC (4.4-10.8) 10^3/uL 7.08 RBC (4.36-5.78) 10^6/uL 5.60 Hgb (13.5-17.5) g/dL 17.1 Hct (40.0-50.0) % 51.8 H MCV (80-95) fL 92.5 MCH (27.0-33.0) pg 30.5 MCHC (32.0-36.0) % 33.0 RDW (11.8-14.1) % 13.2 Plt Count (130-400) 10^3/uL 173 MPV (8.0-11.0) fL 10.5 Immature Gran % 0.3 Neutrophils % 69.4 Lymphocytes % 19.1 Monocytes % 8.3 Eosinophils % 1.8 Basophils % 1.1 Nucleated RBC % % 0 Absolute Neutrophils (1.2-6.7) 10^3/uL 4.91 Absolute Lymphocytes (1.2-3.4) 10^3/uL 1.35 Absolute Monocytes (0.1-0.8) 10^3/uL 0.59 Absolute Eosinophils (0.0-0.7) 10^3/uL 0.13 Absolute Basophils (0.0-0.2) 10^3/uL 0.08 PT (9.3-11.0) sec 10.4 INR (0.9-1.1) 1.0 APTT (21.0-27.5) sec 24.3 Sodium (136-145) mmol/L 138 Potassium (3.5-5.1) mmol/L 3.9 Chloride (98-107) mmol/L 104 Carbon Dioxide (21.0-32.0) mmol/L 30.3 Anion Gap (3-11) mmol/L 3.7 BUN (7-18) mg/dL 18 Creatinine (0.70-1.30) mg/dL 1.32 H Estimated GFR/1.73 m2 (mL/min/1.73m2) 53.62 Glucose (74-106) mg/dL 106 Calcium (8.5-10.1) mg/dL 9.8 Magnesium (1.8-2.4) mg/dL 2.1 Total Bilirubin (0.2-1.0) mg/dL 0.7 AST (15-37) U/L 32 ALT (16-63) U/L 41 Alkaline Phosphatase (46-116) U/L 86 Troponin I (<0.06) ng/mL < 0.05 Total Protein (6.4-8.2) g/dL 7.4 Albumin (3.4-5.0) g/dL 3.8 Lipase (73-393) U/L 113 Range/Units 03/11/20 20:20 WBC (4.4-10.8) 10^3/uL RBC (4.36-5.78) 10^6/uL Hgb (13.5-17.5) g/dL Hct (40.0-50.0) % MCV (80-95) fL MCH (27.0-33.0) pg MCHC (32.0-36.0) % RDW (11.8-14.1) % Plt Count (130-400) 10^3/uL MPV (8.0-11.0) fL Immature Gran % Neutrophils % Lymphocytes % Monocytes % Eosinophils % Basophils % Nucleated RBC % % Absolute Neutrophils (1.2-6.7) 10^3/uL Absolute Lymphocytes (1.2-3.4) 10^3/uL Absolute Monocytes (0.1-0.8) 10^3/uL Absolute Eosinophils (0.0-0.7) 10^3/uL Absolute Basophils (0.0-0.2) 10^3/uL PT (9.3-11.0) sec INR (0.9-1.1) APTT (21.0-27.5) sec Sodium (136-145) mmol/L Potassium (3.5-5.1) mmol/L Chloride (98-107) mmol/L Carbon Dioxide (21.0-32.0) mmol/L Anion Gap (3-11) mmol/L BUN (7-18) mg/dL Creatinine (0.70-1.30) mg/dL Estimated GFR/1.73 m2 (mL/min/1.73m2) Glucose (74-106) mg/dL Calcium (8.5-10.1) mg/dL Magnesium (1.8-2.4) mg/dL Total Bilirubin (0.2-1.0) mg/dL AST (15-37) U/L ALT (16-63) U/L Alkaline Phosphatase (46-116) U/L Troponin I (<0.06) ng/mL < 0.05 Total Protein (6.4-8.2) g/dL Albumin (3.4-5.0) g/dL Lipase (73-393) U/L ECG Data Attestation: I personally reviewed and interpreted this ECG (s) as follows: Interpretation: #1 -Rate of 53, sinus, no acute ST elevation or depression. MD 154. QRS 112. QTc 407. #2 -Rate of 53, sinus no acute ST elevation or depression. MD 165. QRS 120. QTc 432. HPI General Mode of arrival: ambulatory. Date/Time Provider Initiated Documentation: 03/11/20 17:02. Limitations to Documentation: no limitations. Information obtained by: patient. HPI Narrative: Pt is a 69-year-old male with a history of anxiety, depression, GERD, hypertension, hyperlipidemia, paroxysmal atrial fibrillation presents for aching lower chest and upper abdominal pain that occurred 30 minutes after eating today. He states the pain does radiate from his lower chest into his upper chest. Patient states he ate toast and peanut butter and then developed pain in his upper abdomen and under both sides of his ribs. He states he took Rolaids and Pepto-Bismol without relief. He states the pain is similar but not as intense to what he experienced when he was seen here 2 days ago for the same complaint. Patient had a full work-up at that time including labs and CTA chest abdomen pelvis which was negative for any acute findings and he was diagnosed with likely esophageal spasm or ulcer and advised to follow-up outpatient. Patient denies fever, cough, shortness of breath, vomiting, diarrhea, dizziness. Related Data Home Medications Medication Instructions Recorded Confirmed ascorbic acid (vitamin C) [Vitamin 500 mg PO DAILY 06/07/12 03/14/20 C] multivitamin [One Daily] 1 ea PO DAILY 06/07/12 03/14/20 aspirin 81 mg PO DAILY tab-cap 03/13/16 03/14/20 clotrimazole [Lotrimin AF 24 gm TOPICAL PRN #1 script 05/05/17 03/14/20 (clotrimazole)] clonazepam 1 mg tablet 0.5 mg PO HS #30 tab 11/28/19 03/14/20 pravastatin 40 mg tablet 40 mg PO DAILY #90 tab-cap 02/26/20 03/14/20 trazodone 50 mg tablet 25 mg PO DAILY #30 tab 02/28/20 03/14/20 bismuth subsalicylate 262 mg PO DAILY PRN 03/09/20 03/14/20 [Pepto-Bismol] omeprazole 40 mg PO BID 03/11/20 03/14/20 sucralfate [Carafate] 1 gm PO QACHS #14 tab 03/11/20 03/14/20 Previous Rx's Medication Instructions Recorded clotrimazole [Lotrimin AF 24 gm TOPICAL PRN #1 script 05/05/17 (clotrimazole)] clonazepam 1 mg tablet 0.5 mg PO HS #30 tab 11/28/19 pravastatin 40 mg tablet 40 mg PO DAILY #90 tab-cap 02/26/20 trazodone 50 mg tablet 25 mg PO DAILY #30 tab 02/28/20 sucralfate [Carafate] 1 gm PO QACHS #14 tab 03/11/20 Allergies Allergy/AdvReac Type Severity Reaction Status Date / Time atenolol AdvReac Unknown hypotension Verified 03/14/20 14:18 General Stated Complaint: Abd Prob RYAN: 3 Review of Systems All systems reviewed & are unremarkable except as noted in HPI and below Constitutional Constitutional: Reports as per HPI, Denies chills and Denies fever(s) Eyes Eyes: Denies blurry vision ENT Ears, Nose, Mouth, and Throat: Denies dizziness, Denies sore throat and Denies throat swelling Cardiovascular Cardiovascular: Reports chest pain and Denies dyspnea Respiratory Respiratory: Denies cough and Denies dyspnea Gastrointestinal Gastrointestinal: Reports abdominal pain, Denies diarrhea, Reports nausea and Denies vomiting Genitourinary Genitourinary: Denies hematuria and Denies dysuria Musculoskeletal Musculoskeletal: Denies back pain and Denies numbness Integumentary/Breasts Skin/Breast: Denies lesions and Denies rash Neurologic Neurologic: Denies dizziness, Denies localized weakness and Denies numbness Allergic/Immunologic Allergic/Immunologic: Denies throat swelling [facility] Medical History Actinic keratosis Anxiety and depression Atrial flutter Pt. 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 WANG 06/21/17 DR. SULTANA Surgical History Angioplasty cardiac ablation unsuccessful 2011 Colonoscopy - IV Sedation 01/20/13 Colonoscopy - MAC (06/21/17) EGD - IV Sedation 1999, 2004 Repair, Tendon or Muscle left elbow Status post cataract extraction and insertion of intraocular lens of left eye (05/23/18) Status post cataract extraction and insertion of intraocular lens of right eye (06/06/18) Family History Mother , 95 Dementia Father , 65 Stomach cancer Sister Diabetes Brother Rheumatoid arthritis Sister No problems noted. Sister No problems noted. Maternal Aunt Dementia Brother No problems noted. Social History Smoking/Tobacco Use Status: Former Tobacco Use Quit Date: 03/01/77 Tobacco: How many years used: 6 Second Hand Exposure: Yes Smoking risk assessment performed?: Yes Alcohol Intake: former Drug use: Never Substance use type: does not use Caregiver/Support person: No Household members: family Housing: house Pets and animals: No Sexually active: No Do you think of yourself as: straight/heterosexual Current gender identity: male What is your relationship status?: never How often do you talk on the phone with friends or family?: three or more times per week How often do you get together with friends or relatives?: three or more times per week How often do you attend moravian or druze services?: decline to answer Do you belong to any clubs or organized social groups?: no Panel score (0-1 are the most socially isolated patients): 1 What type of physical activity do you participate in: walking Duration: 30-45 minutes/day Frequency: 1-2 times per week Any/Gnosticist: None Do you feel safe at home: Yes Do you feel safe in your relationship?: Yes Exam Const General: cooperative and no acute distress Nutritional Appearance: obese centrally obese Orientation: alert, awake and oriented x3 HENMT Head: normal to inspection Face and sinus: normal facial exam Eyes General: appearance normal, both eyes and all related structures EOM: EOM intact bilaterally Neck Neck: normal visual inspection and No submandibular swelling Lymphatic: no lymphadenopathy noted Chest Chest: normal inspection of the chest and no tenderness Resp Effort & Inspection: normal respiratory effort and able to speak in complete sentences Auscultation: clear to auscultation bilaterally Cardio Rate: regular rate Rhythm: regular rhythm GI Inspection: normal to inspection and obesity Palpation: soft, not firm, not rigid and tender in the epigastrum, in the LUQ and in the RUQ Auscultation: normal bowel sounds Skin General skin exam: no rashes or lesions noted Neuro General: patient alert, patient awake and patient oriented x3 Cognition: normal cognition Speech: speech normal Motor: muscle tone normal throughout Sensory Exam: no sensory deficits noted Extrem General: normal to inspection, full ROM, capillary refill normal, no calf tenderness bilaterally and no edema Psych Appearance: grossly normal Mental Status: mental status grossly normal Speech and Movement: speech and movement normal Affect: normal affect Course Vital Signs Vital signs: Vital Signs Temperature 98.1 F 03/11/20 16:51 Pulse 55 L 03/11/20 16:51 Respiratory Rate 20 03/11/20 16:51 Blood Pressure 165/73 H 03/11/20 16:51 Pulse Oximetry 98 03/11/20 16:51 Temperature 98.1 F 03/11/20 16:51 Temperature Source Skin 03/11/20 16:51 Pulse 55 L 03/11/20 16:51 Respiratory Rate 20 03/11/20 16:51 Respiratory Effort Non-Labored 03/11/20 16:56 Blood Pressure 165/73 H 03/11/20 16:51 Blood Pressure Position Sitting 03/11/20 16:51 Pulse Oximetry 98 03/11/20 16:51 Oxygen Delivery Method Room Air 03/11/20 16:51 Oxygen Flow Rate 0 03/11/20 16:51 Pain Level 6 03/11/20 16:51 Lab/Test Results Lab/Test Results: Laboratory Tests Range/Units 03/11/20 03/11/20 03/11/20 17:05 17:05 17:05 WBC (4.4-10.8) 10^3/uL 7.08 RBC (4.36-5.78) 10^6/uL 5.60 Hgb (13.5-17.5) g/dL 17.1 Hct (40.0-50.0) % 51.8 H MCV (80-95) fL 92.5 MCH (27.0-33.0) pg 30.5 MCHC (32.0-36.0) % 33.0 RDW (11.8-14.1) % 13.2 Plt Count (130-400) 10^3/uL 173 MPV (8.0-11.0) fL 10.5 Immature Gran % 0.3 Neutrophils % 69.4 Lymphocytes % 19.1 Monocytes % 8.3 Eosinophils % 1.8 Basophils % 1.1 Nucleated RBC % % 0 Absolute Neutrophils (1.2-6.7) 10^3/uL 4.91 Absolute Lymphocytes (1.2-3.4) 10^3/uL 1.35 Absolute Monocytes (0.1-0.8) 10^3/uL 0.59 Absolute Eosinophils (0.0-0.7) 10^3/uL 0.13 Absolute Basophils (0.0-0.2) 10^3/uL 0.08 PT (9.3-11.0) sec 10.4 INR (0.9-1.1) 1.0 APTT (21.0-27.5) sec 24.3 Sodium (136-145) mmol/L 138 Potassium (3.5-5.1) mmol/L 3.9 Chloride (98-107) mmol/L 104 Carbon Dioxide (21.0-32.0) mmol/L 30.3 Anion Gap (3-11) mmol/L 3.7 BUN (7-18) mg/dL 18 Creatinine (0.70-1.30) mg/dL 1.32 H Estimated GFR/1.73 m2 (mL/min/1.73m2) 53.62 Glucose (74-106) mg/dL 106 Calcium (8.5-10.1) mg/dL 9.8 Magnesium (1.8-2.4) mg/dL 2.1 Total Bilirubin (0.2-1.0) mg/dL 0.7 AST (15-37) U/L 32 ALT (16-63) U/L 41 Alkaline Phosphatase (46-116) U/L 86 Troponin I (<0.06) ng/mL < 0.05 Total Protein (6.4-8.2) g/dL 7.4 Albumin (3.4-5.0) g/dL 3.8 Lipase (73-393) U/L 113
[2020-03-11] MEDS: Normal Saline 250 ML 500 ML IV (18:21)
[2020-03-11] MEDS: FAMOTIDINE 20 MG/50 ML BAG 200 MG IVPB (18:21)
--- NOTE | 2020-03-11 18:30 | RT.EKG_ITS ---
APPROVED REPORT Exam: Resting ECG Patient Location: E HR:53 bpm ECG Measurements Heart Rate 53 AXIS IA 165 P 55 QRSd 120 QRS 5 QT 461 T -11 QTc 432 Conclusion Sinus bradycardia...rate< 60 Left atrial enlargement...P, P'>60mS, <-0.15mV V1 Nonspecific intraventricular conduction delay...QRSd >115mS, not LBBB/RBBB I have reviewed and interpreted ECG and agree with software generated interpretation.
[2020-03-11] MEDS: Omnipaque 350 MG/ML 100 ML BTL IJ (18:47)
[2020-03-11] MEDS: Normal Saline - Diluent 50 ML VIAL IV (18:47)
--- NOTE | 2020-03-11 20:05 | DI.VRAD_ITS ---
PROCEDURE INFORMATION: Exam: CT Angiography Chest With Contrast Exam date and time: 03/11/2020 6:15 PM Age: 69 years old Clinical indication: Abdominal pain; Patient HX: Chest pain, upper abd pain, R/O pe, pneumonia TECHNIQUE: Imaging protocol: Computed tomographic angiography of the chest with intravenous contrast. 3D rendering (Not supervised by radiologist): MIP and/or 3D reconstructed images were created by the technologist. COMPARISON: CT THORAX ABDOMEN CTA 03/09/2020 10:02 PM FINDINGS: Pulmonary arteries: No pulmonary emboli. Aorta: No aortic aneurysm. No aortic dissection. Lungs: No consolidation. No masses. Dependent atelectasis is seen at the lung bases. Pleural space: Unremarkable. No pneumothorax. No pleural effusion. Heart: Unremarkable. No cardiomegaly. No pericardial effusion. Lymph nodes: Unremarkable. No enlarged lymph nodes. Bones/joints: Unremarkable. No acute fracture. Soft tissues: Unremarkable. IMPRESSION: No acute findings. PROCEDURE INFORMATION: Exam: CT Abdomen And Pelvis With Contrast Exam date and time: 03/11/2020 6:15 PM Age: 69 years old Clinical indication: Abdominal pain; Patient HX: Chest pain, upper abd pain, R/O pe, pneumonia TECHNIQUE: Imaging protocol: Computed tomography of the abdomen and pelvis with intravenous contrast. COMPARISON: CT THORAX ABDOMEN CTA 03/09/2020 10:02 PM FINDINGS: Liver: Normal. No mass. Gallbladder and bile ducts: The gallbladder is slightly distended, however no evidence of significant inflammation. No calcified stones. No ductal dilation. Pancreas: Normal. No ductal dilation. Spleen: Normal. No splenomegaly. Adrenal glands: Normal. No mass. Kidneys and ureters: Multiple bilateral simple appearing renal cysts are noted. Nonobstructing calculi are noted measuring up to 5 mm on the right and 6 mm on the left. No hydronephrosis. Stomach and bowel: Unremarkable. No obstruction. No mucosal thickening. Appendix: No evidence of appendicitis. Intraperitoneal space: No free air. No significant fluid collection. Vasculature: No abdominal aortic aneurysm. Lymph nodes: No enlarged lymph nodes. Urinary bladder: Unremarkable as visualized. Reproductive: There is enlargement of the prostate gland measuring up to 6.5 cm in transverse dimension. Bones/joints: No acute fracture. Soft tissues: There are small bilateral fat-containing inguinal hernias. IMPRESSION: No acute findings. Dictated and Authenticated by: Fatuma Shah MD. Ordering:MILI Benavides MD
[2020-03-11 20:45] LABS: Troponin I < 0.05 ng/mL (<0.06)
[2020-03-11] MEDS: Sucralfate 1 GM TAB PO (20:55)
--- NOTE | 2020-03-12 04:37 | NUR.NOTE ---
Nursing Note: referral faxed to surgery for rule out ulcer @ [phone] 03/12/2020 libl
== END 2020-03-11 21:05 | disposition home or self-care (01) ==
PROVIDERS: Emergency Provider Physician Assistant; PCP Emergency Medicine
DX: R07.89 Other chest pain (principal); R10.10 Upper abdominal pain, unspecified; I10 Essential (primary) hypertension
CPT/HCPCS: 36415; 71275; 74177; 80053; 83690; 93005; 96361; 96365; 99285; 83735; 84484; 85025; 85610; 85730; 93010; J3490

== ENCOUNTER 2020-03-14 10:41 | Outpatient (CLI) | payer MEDICARE, SELFPAY ==
[2020-03-15 15:26] LABS: COVID-19 RT-PCR Result NEGATIVE (Negative)
== END 2020-03-14 11:01 ==
PROVIDERS: Surgery; PCP Emergency Medicine; Visit Provider Physical Therapy Assistant
DX: Z11.52 Encounter for screening for COVID-19 (principal); Z01.818 Encounter for other preprocedural examination; R10.9 Unspecified abdominal pain; R07.89 Other chest pain; I10 Essential (primary) hypertension; Z86.010 Personal history of colon polyps
CPT/HCPCS: 99214; U0003

== ENCOUNTER 2020-03-15 12:50 | Day surgery (SDC) | payer MEDICARE, SELFPAY ==
[2020-03-15 13:07] VITALS: BP 136/77; PULSE 53; RESP 16; TEMP 36.1; O2SAT 95
[2020-03-15] MEDS: Lactated Ringers 1,000 ML 80 ML IV (13:35)
[2020-03-15 14:43] LABS: Source Nasopharynx
--- NOTE | 2020-03-15 14:48 | W.PM.PROGNOT ---
Date of Service Date of service: 03/15/20 Time of Service: 14:49 Assessment and Plan Assessment and plan (1) Atypical chest pain: Status: Acute Assessment and plan: Patient here today for EGD. His Covid test from is still pending at this time. Informed consent is obtained explaining risks and benefits of the procedure including not limited to: Bleeding, infection, perforation, aspiration, complications of the anesthesia, other unforetold complications. (2) Fever: Status: Acute Assessment and plan: X1 on Wednesday self reported by the patient. He had no fevers while he is in the ER. He no fevers while he is in the clinic. He has no fevers today. Decision today was made to proceed with rapid Covid test prior to the EGD. Subjective Subjective Interval history since last seen: Pt seen and examined today. Notes reviewed from ED and clnic. and labs and xrays. Patient has since 2017. He was originally seen in the ER in 2018 complaining of heartburn and indigestion across his chest. He underwent a cardiac evaluation which was negative at that time and started on 20 mg of Prilosec twice daily. Last he had his usual dinner and then had pudding. And shortly after that he started developing diffuse abdominal pain. He took some Pepto-Bismol and that did not help. Pain was in the upper abdomen on both sides. It radiated around to the back both sides. Went into the emergency room. CT done 03/10. labs and CT were essentially neg. He went home for 12 hrs and ate only bread/milk/pudding. And he was fine. Had bread w/ butter and started developing pain again. This pain was not as bad but lasted longer. he went back to ED. Xiaoe did CT/labd/EKG adn all neg. They him on carafate. HE thinks he feels better but he has not eaten in past 24 hrs. He was having pain on night. Wednesday-he said he was having fever and chills. He had a temp of 100 that he has self reported. He has no fever and chills when he was in the ER 10.11. Today his temp is 97.6. He has not traveled outside of the [facility] 14 days. He did have contact with his father in the past 14 days. To the best of his knowledge his brother has no symptoms. When he is he says he always wears a mask. He has mostly been self isolating and rarely goes out. He is not been contacting anyone else has Covid. He has not had cough. He has not noted. He has had no fasting vomiting. He has had no congestion. He said no cough. He has had no loss of sense of taste or smell. He has had no diarrhea. He said he had no black tarry stools. He said no bright red blood per rectum. His symptoms are mostly just abdominal pain and inability to eat. He takes baby aspirin a day for his A. fib. He is on no other blood thinners. His labs are stable. His Covid test is still pending CT: 03/11 Patient Name: ABIGAIL MADRID #: [id number]: ER Ordering Provider: : [facility] ER Primary Care Provider: Adam Felixate of Exam: 03/11/20Sex: M FINDINGS: Pulmonary arteries: No pulmonary emboli. Aorta: No aortic aneurysm. No aortic dissection. Lungs: No consolidation. No masses. Dependent atelectasis is seen at the lung bases. Pleural space: Unremarkable. No pneumothorax. No pleural effusion. Heart: Unremarkable. No cardiomegaly. No pericardial effusion. Lymph nodes: Unremarkable. No enlarged lymph nodes. Bones/joints: Unremarkable. No acute fracture. Soft tissues: Unremarkable. IMPRESSION: No acute findings. PROCEDURE INFORMATION: Exam: CT Abdomen And Pelvis With Contrast Exam date and time: 03/11/2020 6:15 PM Age: 69 years old Clinical indication: Abdominal pain; Patient HX: Chest pain, upper abd pain, R/O pe, pneumonia TECHNIQUE: Imaging protocol: Computed tomography of the abdomen and pelvis with intravenous contrast. COMPARISON: CT THORAX ABDOMEN CTA 03/09/2020 10:02 PM FINDINGS: Liver: Normal. No mass. Gallbladder and bile ducts: The gallbladder is slightly distended, however no evidence of significant inflammation. No calcified stones. No ductal dilation. Pancreas: Normal. No ductal dilation. Spleen: Normal. No splenomegaly. Adrenal glands: Normal. No mass. Kidneys and ureters: Multiple bilateral simple appearing renal cysts are noted. Nonobstructing calculi are noted measuring up to 5 mm on the right and 6 mm on the left. No hydronephrosis. Stomach and bowel: Unremarkable. No obstruction. No mucosal thickening. Appendix: No evidence of appendicitis. Intraperitoneal space: No free air. No significant fluid collection. Vasculature: No abdominal aortic aneurysm. Lymph nodes: No enlarged lymph nodes. Urinary bladder: Unremarkable as visualized. Reproductive: There is enlargement of the prostate gland measuring up to 6.5 cm in transverse dimension. Bones/joints: No acute fracture. Soft tissues: There are small bilateral fat-containing inguinal hernias. IMPRESSION: No acute findings. Dictated and Authenticated by: Fatuma Shah MD. CT 03/10: FINDINGS: Aorta: No aortic aneurysm. No aortic dissection. Celiac trunk and mesenteric arteries: No occlusion or significant stenosis. Renal arteries: No occlusion or significant stenosis. Liver: Hepatic steatosis. Gallbladder and bile ducts: Normal. No calcified stones. No ductal dilation. Pancreas: Normal. No ductal dilation. Spleen: Normal. No splenomegaly. Adrenals: Normal. No mass. Kidneys and ureters: Simple renal cysts up to 6 cm. No hydronephrosis. Stomach and bowel: Unremarkable. No obstruction. No mucosal thickening. Lymph nodes: Unremarkable. No enlarged lymph nodes. Intraperitoneal space: Unremarkable. No free air. No significant fluid collection. Bones/joints: Unremarkable. No acute fracture. No dislocation. Soft tissues: Unremarkable. IMPRESSION: No acute finding. Objective Last Vital Signs Temp 36.1 C L 03/15/20 13:07 Pulse 53 L 03/15/20 13:07 Resp 16 03/15/20 13:07 BP 136/77 03/15/20 13:07 Pulse Ox 95 03/15/20 13:07
[2020-03-15 15:24] LABS: COVID-19 PCR Negative (Negative); Influenza A PCR Negative (Negative); Influenza B PCR Negative (Negative); RSV PCR Negative (Negative)
--- NOTE | 2020-03-15 15:38 | W.PM.DSUDISC ---
Discharge Plan Disposition Patient Disposition: HOME Condition: Good Discharge Details Reason For Visit: stomach scope Attending Provider: Tracie Love Primary Care Provider: Adam Felix Home Meds and New Rx's Prescriptions: New pantoprazole [Protonix] 40 mg tablet,delayed release (DR/EC) 40 mg PO BID Qty: 60 RF: 12 Continued trazodone 50 mg tablet 25 mg PO DAILY Qty: 30 RF: 2 clonazepam [Klonopin] 1 mg tablet 0.5 mg PO HS Qty: 30 RF: 0 multivitamin [One Daily] 1 EACH tablet 1 ea PO DAILY RF: 0 ascorbic acid (vitamin C) [Vitamin C] 500 MG tablet 500 mg PO DAILY RF: 0 aspirin 81 MG tablet,chewable 81 mg PO DAILY RF: 0 clotrimazole [Lotrimin AF (clotrimazole)] 24 GM cream 24 gm Topical PRN Qty: 1 RF: 3 pravastatin 40 mg tablet 40 mg PO DAILY Qty: 90 RF: 3 bismuth subsalicylate [Pepto-Bismol] 262 mg/15 mL Suspension 262 mg PO DAILY PRNRF: 0 sucralfate [Carafate] 1 gram tablet 1 gm PO QACHS Qty: 14 RF: 0 Discontinued omeprazole 20 mg capsule,delayed release(DR/EC) 40 mg PO BID RF: 0 Discharge Instructions Additional Instructions: Findings:gastritis -Follow up: Dr. Love on -US of gallbladder next week. On 03/21 at 3:15. Hosp will call on Wednesday to schedule the US. -Stop omeprazole. Start Protonix BID. Cont. Carafate AC/HS -hold ASA for two weeks -No: Nsiads's (ibuprofen/mobic/naproxen)/alcohol/tobacco/caffeine. -Avoid soda/tea -Continue with lifestyle modifications: no alcohol, tobacco products, Aspirin or NSAID's (ibuprofen, Motrin, Naprosyn, aleve, etc), soda pop/any carbonated beverages, caffeine (including tea & chocolate), and acidic foods, (tomatoes, citrus, onions, peppermints) spicy foods. Do not lie down for 30 minutes after eating, and do not eat 2 hours prior to bedtime. Avoid wearing tight fitting clothing/ belts -Avoid: all dairy/pork products/avocado/nuts & nut butters/fried or fast foods for 2 weeks Please call if you develop: fevers >101.5 Nausea or Vomiting Abdominal pain that is not transient DAY SURGERY UNIT POST COLONOSCOPY INSTRUCTIONS 1. Because there will be medication in your system for the next 24 hours, you may feel a little sleepy. Your coordination will be affected. Therefore: a. Do not drive or operate dangerous equipment for 24 hours. b. Do not drink alcohol beverages for 24 hours (not even beer). c. Plan to go home and rest for the day. 2. Generally there are no restrictions on your activity after a day or so has gone by, but you may feel a bit fatigued for a few days. 3 After you arrive home you may have a light meal and return to a normal diet as you can tolerate it without feeling sick to your stomach. 4. After surgery, you may feel pain or discomfort. This should be only transient, but if it persists please contact your doctor. 5. If there are any questions regarding the findings of your procedure, please feel free to contact your doctor. 6. If you are unable to contact your doctor with a problem, contact the hospital at [phone]. 7. Continue all your regular medications unless directed otherwise. I understand the above instructions and have no questions. Signature of Patient or Responsible Adult Escort Date/Time Name of Responsible Adult Escort Signature of Nurse Date/Time Activity:: No strenuous activity or lifting over 20 pounds x 24 hours. Diet:: Small light meals x20 Discharge Orders Discharge Orders: Discharge Order (Routine); Ordered 03/15/20 Ordered By: Tracie Love DS: Diagnosis Discharge Diagnosis (1) Fatty food intolerance: Status: Acute (2) Abdominal pain in male: Status: Acute (3) Gastritis: Status: Acute
--- NOTE | 2020-03-15 15:41 | W.PM.ENDDOP ---
Date of service: 03/15/20 Time of Service: 15:41 Endoscopy Report DATE OF PROCEDURE: 03/15/20 PRE-OP DIAGNOSIS: abdominal pain/hx of GERD POST-OP DIAGNOSIS: other (moderate gastritis ) SURGEON: Tracie Love ANESTHESIA: GETA PATHOLOGY: other COMPLICATIONS: None DISPOSITION: same day PROCEDURE DESCRIPTION: After informed consent was obtained the patient was take to the procedure room and placed in a supine position. Monitors were applied and a time out was done. The patients name, date of , procedure type, allergies to medications and metal in their body was reviewed. A bite block was placed and the patient was sedated. Once sedated and comfortable the gastroscope was advanced through the oropharynx which was grossly normal into the esophagus. The proximal and mid-esophagus were nl. In the distal esophagus there was nl noted. There are no esophageal erosions varices diverticula or stricture apparent.. The Z-line is regular. There is no hiatal hernia. The scope was advanced into the stomach and through the pylorus into the 3rd portion of the duodenum. The duodenum was noted to be normal. Biopsies were done . All specimen are retrieved and no bleeding was noted. The scope was retracted back into the stomach and biopsies were done to rule out H. pylori. There were no ulcers. There is some moderate erythema around the antrum striped fashion consistent with gastritis. There is some mild changes from portal gastropathy that appear to be as well. Biopsies are taken of the antrum and the greater curve. The scope was retroflexed. The cardia and fundus were noted to be normal. There is no hiatal hernia noted. The scope was retracted back into the esophagus and biopsies were done of the GE junction to rule out Long's. The Z line was regular. The GE junction was at with 36cm. The scope was removed and the patient was woken up and taken back to [facility] in stable condition. Follow up:
--- NOTE | 2020-03-15 15:57 | STOM_PTH ---
PATIENT: Jermaine Fraire LOC: [facility] U#:[id number] AGE/SX: 69/M ROOM: RE03/15/[address]: Tracie Love : 1950 BED: DIS: 03/15/2020 SPEC #: [id number] RECD: 03/15/20 16:42 STATUS: LUCIANO RE #: [id number] JACOB: 03/15/20 15:[address]: Tracie Love DEPT: Surgical Specimen RECD BY: Pamela Crews ENTERED: 03/15/20 16:43 SP TYPE: STOMACH OTHR DR: Adam Felix DO Tissues: 1 - BIOPSY BOWEL 2 - STOMACH BIOPSY 3 - STOMACH BIOPSY 4 - ESOPHAGUS BIOPSY 5 - ESOPHAGUS BIOPSY Procedures: GROSS AND MICRO LEVEL 4 Comments: [id number]
[2020-03-15] MEDS: Pantoprazole 40 MG VIAL IVP (16:28)
[2020-03-15] MEDS: Normal Saline Flush 10 ML SYR IV (16:28)
[2020-03-15 16:36] VITALS: BP 128/88; PULSE 56; RESP 16; TEMP 36.8; O2SAT 98
== END 2020-03-15 16:50 | disposition home or self-care (01) ==
PROVIDERS: Nurse Anesthetist, Certified Registered; PCP Emergency Medicine; Visit Provider Surgery
PROC: 0DJ68ZZ Inspection of Stomach, Via Natural or Artificial Opening Endoscopic (ICD-10-PCS; CPT 43235; principal; 2020-03-15 13:15)
DX: R10.13 Epigastric pain (principal); R07.89 Other chest pain; K21.9 Gastro-esophageal reflux disease without esophagitis; K29.70 Gastritis, unspecified, without bleeding; K31.89 Other diseases of stomach and duodenum
CPT/HCPCS: 43239; 45380; 88305; 99232; J2001; J2704

== ENCOUNTER → 2020-03-21 15:07 | Outpatient (BNVA) | payer MEDICARE, SELFPAY | PROVIDERS: PCP Emergency Medicine; Referring Provider Emergency Medicine; Visit Provider Surgery | DX: Z48.815 Encounter for surgical aftercare following surgery on the digestive system (principal); R10.9 Unspecified abdominal pain; K90.49 Malabsorption due to intolerance, not elsewhere classified | CPT/HCPCS: 99212; 99213 ==

== ENCOUNTER 2020-03-25 02:33 | Outpatient (CLI) | payer MEDICARE, SELFPAY ==
--- NOTE | 2020-03-25 07:00 | DI.US_ITS ---
EXAM: US ABDOMEN CLINICAL HISTORY: ABD PAIN, FATTY FOOD INTOLERANCE, R10.9,K90.49 TECHNIQUE: Ultrasound of complete upper abdomen performed using standard protocol. COMPARISON: US US ABDOMEN from 03/13/[address] CHEST PE ABD PELVIS W from 03/11/2020 FINDINGS: There is no ascites evident. LIVER: There are no hepatic lesions evident nor obvious dilatation of intrahepatic ducts. GALLBLADDER/BILIARY: Gallbladder is abnormal. There is a combination of mobile sludge in the gallbla dder as well as relatively avascular mass measuring 1.7 x 1.2 x 1.2 centimetres which appears intimat ramez associated with the sludge. May represent a mass or very atypical gallstone. Gallbladder wall t hickness is upper normal-minimally prominent. The common hepatic duct isnot dilated, measuring 5-6mm at the level of kirill hepatis. PANCREAS: There is no evidence of pancreatic mass nor dilatation of the pancreatic duct. SPLEEN: Mild splenomegaly (13.5 cm length). No intrasplenic lesions KIDNEYS:There is cysts in both kidneys. The largest is located inferiorly in the left kidney and [place] sures 5 x 4.5 cm there are no solid renal masses.. There are echogenic nonobstructive calculi in bot h kidneys noted. ABDOMINAL AORTA: There is no evidence of abdominal aortic aneurysm. IVC: Normal diameter where visualized. IMPRESSION: 1. Gallbladder is abnormal with intraluminal findings seen on this ultrasound which are not evident on the recent CT scan. These intraluminal findings consist of mobile sludge as well as masses or aty pical noncalcified gallstones. Cannot exclude gallbladder neoplasm. Gallbladder wall slightly thick ened. There is no dilatation of intrahepatic ducts nor of the CBD. Surgical consultation recommende d. 2. Mild splenomegaly 3. Renal cysts. No solid renal masses. Bilateral nonobstructive calculi in both kidneys. 4. there is no ascites. DATA REPOSITORY:
== END 2020-03-25 02:53 ==
PROVIDERS: PCP Emergency Medicine; Visit Provider Surgery
DX: R16.1 Splenomegaly, not elsewhere classified (principal); N28.1 Cyst of kidney, acquired; N20.0 Calculus of kidney; K90.49 Malabsorption due to intolerance, not elsewhere classified
CPT/HCPCS: 76700

== ENCOUNTER → 2020-03-28 11:36 | Outpatient (BNVA) | payer MEDICARE, SELFPAY | PROVIDERS: PCP Emergency Medicine; Referring Provider Emergency Medicine; Visit Provider Surgery | DX: R69 Illness, unspecified (principal) ==

== ENCOUNTER 2020-03-28 22:30 | Outpatient (CLI) | payer MEDICARE, SELFPAY ==
--- NOTE | 2020-03-28 13:04 | DI.US_ITS ---
Is not dilated, EXAM: US ABDOMEN LIMITED CLINICAL HISTORY: gallstones TECHNIQUE: Ultrasound abdomen performed using standard protocol. COMPARISON: Recent ultrasound 03/25/[address] scan 03/11/2020 FINDINGS: Present study was limited to the gallbladder and common hepatic duct. GALLBLADDER/BILIARY: The contents of the gallbladder lumen appear to be a combination of sludge and m ultiple similar-appearing nonshadowing gallstones exhibiting average size 9 millimeters. Gallbladder wall is slightly thickened. There is no true pericholecystic fluid. Common hepatic duct is not dil ated. IMPRESSION: 1. Multiple noncalcified gallstones. Intraluminal sludge. Mild gallbladder wall thickening. 2. No dilatation of the common hepatic duct. DATA REPOSITORY:
== END 2020-03-28 22:50 ==
PROVIDERS: PCP Emergency Medicine; Visit Provider Surgery
DX: K80.80 Other cholelithiasis without obstruction (principal); K80.20 Calculus of gallbladder without cholecystitis without obstruction
CPT/HCPCS: 99213; 99214; 76705

== ENCOUNTER 2020-04-04 14:20 | Emergency (ER) | payer MEDICARE, SELFPAY ==
[2020-04-04 14:26] VITALS: BP 174/71; PULSE 47; TEMP 36.6; O2SAT 99
--- NOTE | 2020-04-04 14:45 | RT.EKG_ITS ---
APPROVED REPORT Exam: Resting ECG Patient Location: E HR:50 bpm ECG Measurements Heart Rate 50 AXIS AZ 183 P 49 QRSd 117 QRS 13 QT 456 T 7 QTc 418 Conclusion Sinus bradycardia. Nonspecific intraventricular conduction delay.
--- NOTE | 2020-04-04 14:54 | ED.GENADUL_ITS ---
Discharge Plan Disposition Patient Disposition: HOME Condition: Stable Discharge Details Clinical Impression: Abdominal pain, Elevated LFTs, Elevated bilirubin Primary Care Provider: Adam Felix ED Provider: Hernán Estevez Home Meds and New Rx's Prescriptions: Continued trazodone 50 mg tablet 25 mg PO DAILY Qty: 30 RF: 2 clonazepam [Klonopin] 1 mg tablet 0.5 mg PO HS Qty: 30 RF: 0 multivitamin [One Daily] 1 EACH tablet 1 ea PO DAILY RF: 0 clotrimazole [Lotrimin AF (clotrimazole)] 24 GM cream 24 gm Topical PRN Qty: 1 RF: 3 pravastatin 40 mg tablet 40 mg PO DAILY Qty: 90 RF: 3 bismuth subsalicylate [Pepto-Bismol] 262 mg/15 mL Suspension 262 mg PO DAILY PRNRF: 0 pantoprazole [Protonix] 40 mg tablet,delayed release (DR/EC) 40 mg PO BID Qty: 60 RF: 12 Discharge Instructions Instructions: Abdominal Pain (ED) Additional Instructions: Please follow-up for repeat laboratories as an outpatient tomorrow at 11:20 AM. The surgical clinic will see you following your lab draw for repeat evaluation. Return to the ER if develop a fever, increasing pain, or any other acute concerns. Discharge Data Discharge Date/Time-TO BE ENTERED AT DEPARTURE: 04/04/20 16:35 Medical Decision Making <KRZYSZTOF Martínez - Last Filed: 04/04/20 16:11> 69-year-old gentleman with known gallstones scheduled for cholecystectomy on Wednesday presents for increased pain in the same area. Certainly could be biliary colic versus acute cholecystitis, cholangitis, choledocholithiasis, gastritis, atypical chest pain, etc. We will give full dose aspirin, obtain cardiac work-up, laboratory values including lipase and reassess. Will give 125 IV normal saline per hour. Laboratory values reveal a normal white count. INR of 1.1 electrolytes unremarkable. Creatinine 1.3 with a GFR 54.57. Glucose 121. Total bili 4.1 AST 176 ALT 267 alk phosphatase 269. Lipase 865. Troponin less than 0.05. Upon reevaluation he reports that after lying down his pain is completely gone. He certainly may have passed a stone but given his elevated LFTs I would like to have surgery consult. Case was discussed with Dr. Camara who was going to review the case and discuss with his surgeon Dr. Love. Awaiting his guidance. Medical Records Medical records reviewed: Yes I reviewed the patient's medical records. Imaging Data Radiologic Study: Attestation: I personally reviewed and interpreted this imaging study as follows: Imaging: X-Ray Radiologist's impression: Chest x-ray negative per radiology Lab Data Lab results reviewed: Yes I reviewed the patient's lab results. Lab results narrative: Laboratory Tests Range/Units 04/04/20 04/04/20 04/04/20 14:50 14:50 14:50 WBC (4.4-10.8) 10^3/uL RBC (4.36-5.78) 10^6/uL Hgb (13.5-17.5) g/dL Hct (40.0-50.0) % MCV (80-95) fL MCH (27.0-33.0) pg MCHC (32.0-36.0) % RDW (11.8-14.1) % Plt Count (130-400) 10^3/uL MPV (8.0-11.0) fL Immature Gran % Neutrophils % Lymphocytes % Monocytes % Eosinophils % Basophils % Nucleated RBC % % Absolute Neutrophils (1.2-6.7) 10^3/uL Absolute Lymphocytes (1.2-3.4) 10^3/uL Absolute Monocytes (0.1-0.8) 10^3/uL Absolute Eosinophils (0.0-0.7) 10^3/uL Absolute Basophils (0.0-0.2) 10^3/uL PT (9.3-11.0) sec 11.5 H INR (0.9-1.1) 1.1 Sodium (136-145) mmol/L 138 Potassium (3.5-5.1) mmol/L 3.8 Chloride (98-107) mmol/L 102 Carbon Dioxide (21.0-32.0) mmol/L 28.6 Anion Gap (3-11) mmol/L 7.4 BUN (7-18) mg/dL 11 Creatinine (0.70-1.30) mg/dL 1.3 Estimated GFR/1.73 m2 (mL/min/1.73m2) 54.57 Glucose (74-106) mg/dL 121 H Calcium (8.5-10.1) mg/dL 10.1 Total Bilirubin (0.2-1.0) mg/dL 4.1 H AST (15-37) U/L 176 H ALT (16-63) U/L 267 H Alkaline Phosphatase (46-116) U/L 269 H Troponin I (<0.06) ng/mL Total Protein (6.4-8.2) g/dL 7.4 Albumin (3.4-5.0) g/dL 3.7 Lipase (73-393) U/L 865 H Range/Units 04/04/20 04/04/20 14:50 14:50 WBC (4.4-10.8) 10^3/uL 6.01 RBC (4.36-5.78) 10^6/uL 5.55 Hgb (13.5-17.5) g/dL 16.7 Hct (40.0-50.0) % 50.5 H MCV (80-95) fL 91.0 MCH (27.0-33.0) pg 30.1 MCHC (32.0-36.0) % 33.1 RDW (11.8-14.1) % 13.2 Plt Count (130-400) 10^3/uL 157 MPV (8.0-11.0) fL 10.9 Immature Gran % 0.2 Neutrophils % 76.1 Lymphocytes % 10.1 Monocytes % 9.2 Eosinophils % 3.7 Basophils % 0.7 Nucleated RBC % % 0 Absolute Neutrophils (1.2-6.7) 10^3/uL 4.58 Absolute Lymphocytes (1.2-3.4) 10^3/uL 0.61 L Absolute Monocytes (0.1-0.8) 10^3/uL 0.55 Absolute Eosinophils (0.0-0.7) 10^3/uL 0.22 Absolute Basophils (0.0-0.2) 10^3/uL 0.04 PT (9.3-11.0) sec INR (0.9-1.1) Sodium (136-145) mmol/L Potassium (3.5-5.1) mmol/L Chloride (98-107) mmol/L Carbon Dioxide (21.0-32.0) mmol/L Anion Gap (3-11) mmol/L BUN (7-18) mg/dL Creatinine (0.70-1.30) mg/dL Estimated GFR/1.73 m2 (mL/min/1.73m2) Glucose (74-106) mg/dL Calcium (8.5-10.1) mg/dL Total Bilirubin (0.2-1.0) mg/dL AST (15-37) U/L ALT (16-63) U/L Alkaline Phosphatase (46-116) U/L Troponin I (<0.06) ng/mL < 0.05 Total Protein (6.4-8.2) g/dL Albumin (3.4-5.0) g/dL Lipase (73-393) U/L ECG Data Attestation: I personally reviewed and interpreted this ECG (s) as follows: Interpretation: Please see official report by Dr. Estevez. Sinus bradycardia, ventricular rate of 50. No STEMI. <Archana Leal - Last Filed: 04/04/20 19:05> Patient seen by Dr. Hernán Estevez on signout. Not signed out to me. HPI <KRZYSZTOF Martínez - Last Filed: 04/04/20 16:11> General Mode of arrival: ambulatory . Date/Time Provider Initiated Documentation: 04/04/20 14:21 . Limitations to Documentation: no limitations . Information obtained by: patient . HPI Narrative: This is a 69-year-old gentleman with recent diagnosis of gallstones, past medical history that includes gastritis, hypertension, atrial flutter, not anticoagulated, presenting for increased epigastric and right upper quadrant pain under his rib cage that began around 10 AM. This is associate with nausea but no vomiting. He is scheduled to see surgery on Wednesday to have his gallbladder removed, Dr. Love. He was seen in the ER on the , ultrasound revealed potential stone versus neoplasm. Subsequent outpatient follow-up and ultrasound revealed gallstones with mild wall thickening and sludge in his gallbladder. Given his increased pain today he contacted his surgical team who recommended coming to the ER for reevaluation. Patient denies recent illness or trauma. He admits to nausea but denies vomiting. He denies back pain, change in bowel or bladder function. Related Data Home Medications Medication Instructions Recorded Confirmed multivitamin [One Daily] 1 ea PO DAILY 06/07/12 04/04/20 clotrimazole [Lotrimin AF 24 gm TOPICAL PRN #1 script 05/05/17 04/04/20 (clotrimazole)] clonazepam 1 mg tablet 0.5 mg PO HS #30 tab 11/28/19 04/04/20 pravastatin 40 mg tablet 40 mg PO DAILY #90 tab-cap 02/26/20 04/04/20 trazodone 50 mg tablet 25 mg PO DAILY #30 tab 02/28/20 04/04/20 bismuth subsalicylate 262 mg PO DAILY PRN 03/09/20 04/04/20 [Pepto-Bismol] pantoprazole [Protonix] 40 mg PO BID #60 tab 03/15/20 04/04/20 Previous Rx's Medication Instructions Recorded clotrimazole [Lotrimin AF 24 gm TOPICAL PRN #1 script 05/05/17 (clotrimazole)] clonazepam 1 mg tablet 0.5 mg PO HS #30 tab 11/28/19 pravastatin 40 mg tablet 40 mg PO DAILY #90 tab-cap 02/26/20 trazodone 50 mg tablet 25 mg PO DAILY #30 tab 02/28/20 pantoprazole [Protonix] 40 mg PO BID #60 tab 03/15/20 Allergies Allergy/AdvReac Type Severity Reaction Status Date / Time atenolol AdvReac Unknown hypotension Verified 04/04/20 14:30 General Stated Complaint: Abd Prob RYAN: 3 Review of Systems <KRZYSZTOF Martínez - Last Filed: 04/04/20 16:11> Constitutional Constitutional: Denies fatigue and Denies fever(s) Cardiovascular Cardiovascular: Reports chest pain (Right lower) and Denies dyspnea Respiratory Respiratory: Denies cough and Denies dyspnea Gastrointestinal Gastrointestinal: Reports abdominal pain, Denies constipation, Denies diarrhea, Reports nausea and Denies vomiting Genitourinary Genitourinary: Denies dysuria Musculoskeletal Musculoskeletal: Denies back pain Integumentary/Breasts Skin/Breast: Denies rash Endocrine Endocrine: Denies fatigue PFSH <KRZYSZTOF Martínez - Last Filed: 04/04/20 16:11> Medical History Abdominal pain Actinic keratosis Anxiety and depression Atrial flutter Pt. 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 WANG 06/21/17 DR. SULTANA Surgical History Angioplasty cardiac ablation unsuccessful 2011 Colonoscopy - IV Sedation 01/20/13 Colonoscopy - MAC (06/21/17) EGD - IV Sedation 1999, 2004 Repair, Tendon or Muscle left elbow Status post cataract extraction and insertion of intraocular lens of left eye (05/23/18) Status post cataract extraction and insertion of intraocular lens of right eye (06/06/18) Family History Mother , 95 Dementia Father , 65 Stomach cancer Sister Diabetes Brother Rheumatoid arthritis Sister No problems noted. Sister No problems noted. Maternal Aunt Dementia Brother No problems noted. Social History Smoking/Tobacco Use Status: Former Tobacco Use Quit Date: 03/01/77 Tobacco: How many years used: 6 Second Hand Exposure: Yes Smoking risk assessment performed?: Yes Alcohol Intake: former Drug use: Never Substance use type: does not use Caregiver/Support person: No Household members: family Housing: house Pets and animals: No Sexually active: No Do you think of yourself as: straight/heterosexual Current gender identity: male What is your relationship status?: never How often do you talk on the phone with friends or family?: three or more times per week How often do you get together with friends or relatives?: three or more times per week How often do you attend yazidi or episcopal services?: decline to answer Do you belong to any clubs or organized social groups?: no Panel score (0-1 are the most socially isolated patients): 1 What type of physical activity do you participate in: walking Duration: 30-45 minutes/day Frequency: 1-2 times per week Any/Yarsanism: None Do you feel safe at home: Yes Do you feel safe in your relationship?: Yes Exam <KRZYSZTOF Martínez - Last Filed: 04/04/20 16:11> Const General: cooperative, healthy appearing, no acute distress and other (Uncomfortable) Orientation: alert and awake [facility] Head: normal to inspection, normocephalic and atraumatic Eyes General: appearance normal, both eyes and all related structures Conjunctivae: conjunctivae normal Sclera: sclerae normal Neck Neck: normal visual inspection, full ROM, trachea midline and supple Resp Effort & Inspection: normal respiratory effort and able to speak in complete sentences Auscultation: clear to auscultation bilaterally Cardio Rate: bradycardic (56) Rhythm: regular rhythm GI Inspection: normal to inspection Palpation: soft, not firm, guarding (Mild right upper quadrant), no pulsatile masses and tender (Right upper quadrant and epigastric region) with no rebound tenderness Auscultation: normal bowel sounds Back/Spine/Pelvis Back: No back tenderness Skin General skin exam: no rashes or lesions noted Neuro General: patient alert, patient awake, moves all extremities and no focal motor deficits Cognition: normal cognition Speech: speech normal Gait: normal gait Sensory Exam: no sensory deficits noted Extrem General: normal to inspection, full ROM and capillary refill normal Psych Appearance: grossly normal Mental Status: mental status grossly normal Course <KRZYSZTOF Martínez - Last Filed: 04/04/20 16:11> Vital Signs Vital signs: Vital Signs Temperature 36.6 C 04/04/20 14:26 Pulse 47 L 04/04/20 14:26 Blood Pressure 174/71 H 04/04/20 14:26 Pulse Oximetry 99 04/04/20 14:26 Temperature 36.6 C 04/04/20 14:26 Temperature Source Temporal Artery Scan 04/04/20 14:26 Pulse 47 L 04/04/20 14:26 Respiratory Effort Non-Labored 04/04/20 14:42 Blood Pressure 174/71 H 04/04/20 14:26 Blood Pressure Position Sitting 04/04/20 14:26 Pulse Oximetry 99 04/04/20 14:26 Oxygen Delivery Method Room Air 04/04/20 14:26 Oxygen Flow Rate 0 04/04/20 14:26 Pain Level 7 04/04/20 14:33 Sign Out <KRZYSZTOF Martínez - Last Filed: 04/04/20 16:11> Sign Out Data: Sign Out Comment: Known gallstones, set up for cholecystectomy on Wednesday with Dr. Love. Increased pain that has resolved completely. Elevated LFTs, awaiting surgical consultation. Last updated by Marco Griffin PA at 04/04/20 16:12
[2020-04-04 14:57] LABS: Abs Immature Grans 0.01 10^3/uL (0.0-0.06); Absolute Basophil Count 0.04 10^3/uL (0.0-0.2); Absolute Eosinophil Count 0.22 10^3/uL (0.0-0.7); Absolute Lymphocyte Count 0.61 10^3/uL (1.2-3.4); Absolute Monocyte Count 0.55 10^3/uL (0.1-0.8); Absolute Neutrophil Count 4.58 10^3/uL (1.2-6.7); Basophils % 0.7; Eosinophils % 3.7; HCT 50.5 % (40.0-50.0); HGB 16.7 g/dL (13.5-17.5); Immature Grans % 0.2; Lymphocytes % 10.1; MCH 30.1 pg (27.0-33.0); MCHC 33.1 % (32.0-36.0); MPV 10.9 fL (8.0-11.0); Monocytes % 9.2; Neutrophils % 76.1; Nucleated RBC 0 %; Platelet Count 157 10^3/uL (130-400); RBC 5.55 10^6/uL (4.36-5.78); RDW 13.2 % (11.8-14.1); RDW-SD 44.5 fL; WBC 6.01 10^3/uL (4.4-10.8)
--- NOTE | 2020-04-04 15:00 | DI.RAD_ITS ---
EXAM: XR CHEST 2V PA LATERAL CLINICAL HISTORY: R sided chest pain TECHNIQUE: 2D digital imaging was performed. COMPARISON: CR XR CHEST 2V PA LATERAL from 09/28/2019 FINDINGS: MEDIASTINUM: Normal. HEART: Normal. PULMONARY VASCULATURE: Normal. LUNGS: Clear. PLEURAL SPACE: No pleural effusion or pneumothorax. BONE:Within normal limits for the patient's age. OTHER FINDINGS:Normal. IMPRESSION: No acute pulmonary findings. DATA REPOSITORY: RADIATION DOSE DELIVERED:
[2020-04-04] MEDS: Ondansetron 4 MG/2 ML VIAL IVP (15:09)
[2020-04-04] MEDS: Aspirin 325 MG TAB PO (15:09)
[2020-04-04 15:10] LABS: ALT 267 U/L (16-63); AST 176 U/L (15-37); Albumin 3.7 g/dL (3.4-5.0); Alkaline Phosphatase 269 U/L (46-116); Anion Gap 7.4 mmol/L (3-11); BUN 11 mg/dL (7-18); Bilirubin, Total 4.1 mg/dL (0.2-1.0); CO2 28.6 mmol/L (21.0-32.0); CREATININE 1.3 mg/dL (0.70-1.30); Calcium 10.1 mg/dL (8.5-10.1); Chloride 102 mmol/L (98-107); Estimated GFR 54.57 (mL/min/1.73m2); Glucose 121 mg/dL (74-106); Potassium 3.8 mmol/L (3.5-5.1); Sodium 138 mmol/L (136-145); Total Protein 7.4 g/dL (6.4-8.2)
[2020-04-04] MEDS: Normal Saline 1,000 ML 125 ML IV (15:10)
[2020-04-04 15:17] LABS: INR 1.1 (0.9-1.1); Prothrombin Time 11.5 sec (9.3-11.0)
[2020-04-04 15:28] LABS: Troponin I < 0.05 ng/mL (<0.06)
[2020-04-04 15:37] LABS: Lipase 865 U/L (73-393)
[2020-04-04 15:53] VITALS: BP 123/62; PULSE 52; RESP 18; O2SAT 99
[2020-04-05 00:33] LABS: COVID-19 RT-PCR UVMMC Result Negative (Negative)
--- NOTE | 2020-04-06 09:00 | NUR.NOTE ---
Nursing Note: 0904--Negative Covid test give to Mr. Fraire. Verbalizes understanding.
== END 2020-04-04 16:35 | disposition home or self-care (01) ==
PROVIDERS: Physician Assistant; Emergency Provider Emergency Medicine; PCP Emergency Medicine
DX: R74.8 Abnormal levels of other serum enzymes (principal); R74.01 Elevation of levels of liver transaminase levels; R79.89 Other specified abnormal findings of blood chemistry; R10.11 Right upper quadrant pain; Z03.818 Encounter for observation for suspected exposure to other biological agents ruled out
CPT/HCPCS: 36415; 80053; 83690; 93005; 96361; 96374; 99285; U0003; U0005; 71046; 84484; 85025; 85610; 93010; 99284; J2405

== ENCOUNTER 2020-04-05 01:31 | Outpatient (CLI) | payer MEDICARE, SELFPAY ==
[2020-04-05 11:37] LABS: Abs Immature Grans 0.01 10^3/uL (0.0-0.06); Absolute Basophil Count 0.03 10^3/uL (0.0-0.2); Absolute Eosinophil Count 0.27 10^3/uL (0.0-0.7); Absolute Lymphocyte Count 0.64 10^3/uL (1.2-3.4); Absolute Monocyte Count 0.86 10^3/uL (0.1-0.8); Absolute Neutrophil Count 5.73 10^3/uL (1.2-6.7); Basophils % 0.4; Eosinophils % 3.6; HCT 50.9 % (40.0-50.0); HGB 16.9 g/dL (13.5-17.5); Immature Grans % 0.1; Lymphocytes % 8.5; MCH 30.4 pg (27.0-33.0); MCHC 33.2 % (32.0-36.0); MCV 91.5 fL (80-95); MPV 11.3 fL (8.0-11.0); Monocytes % 11.4; Nucleated RBC 0 %; Platelet Count 169 10^3/uL (130-400); RBC 5.56 10^6/uL (4.36-5.78); RDW 13.3 % (11.8-14.1); RDW-SD 45.1 fL; WBC 7.54 10^3/uL (4.4-10.8)
[2020-04-05 11:41] LABS: ALT 350 U/L (16-63); AST 236 U/L (15-37); Albumin 3.5 g/dL (3.4-5.0); Alkaline Phosphatase 342 U/L (46-116); Anion Gap 7.5 mmol/L (3-11); BUN 10 mg/dL (7-18); Bilirubin, Total 6.6 mg/dL (0.2-1.0); C-Reactive Protein 5.64 mg/dL (0.0-0.3); CO2 29.5 mmol/L (21.0-32.0); CREATININE 1.4 mg/dL (0.70-1.30); Calcium 10.1 mg/dL (8.5-10.1); Chloride 103 mmol/L (98-107); Glucose 87 mg/dL (74-106); Lipase 128 U/L (73-393); Potassium 3.8 mmol/L (3.5-5.1); Sodium 140 mmol/L (136-145); Total Protein 7.5 g/dL (6.4-8.2)
[2020-04-05 13:14] LABS: GGT 512 U/L (15-85)
== END 2020-04-05 01:32 | disposition home or self-care (01) ==
PROVIDERS: Surgery; PCP Emergency Medicine; Visit Provider Surgery
DX: K76.0 Fatty (change of) liver, not elsewhere classified (principal); E78.5 Hyperlipidemia, unspecified; R79.89 Other specified abnormal findings of blood chemistry; R17 Unspecified jaundice; K80.20 Calculus of gallbladder without cholecystitis without obstruction; R10.9 Unspecified abdominal pain; E80.6 Other disorders of bilirubin metabolism
CPT/HCPCS: 36415; 80053; 80076; 83690; 82977; 85025; 86140

== ENCOUNTER 2020-04-05 02:07 | Outpatient (CLI) | payer MEDICARE, SELFPAY | END 2020-04-05 02:08 | disposition home or self-care (01) | PROVIDERS: PCP Emergency Medicine; Visit Provider Surgery | DX: K80.70 Calculus of gallbladder and bile duct without cholecystitis without obstruction (principal) ==

== ENCOUNTER 2020-04-05 14:02 | Inpatient (IN) | payer MEDICARE, SELFPAY ==
--- NOTE | 2020-04-05 | DI.US_ITS ---
EXAM: US ABDOMEN CLINICAL HISTORY: gallstones now jaundiced, please check cbd size TECHNIQUE: Ultrasound abdomen performed using standard protocol. COMPARISON: CT CT THORAX ABDOMEN CTA from 03/09/[address] THORAX ABDOMEN CTA from 03/09/[address] CHEST PE ABD PELVIS W from 03/11/2020 US US ABDOMEN LIMITED from 03/28/2020 FINDINGS: ABDOMINAL AORTA AND IVC: Visualized portions normal caliber. PANCREAS: Normal where visualized. LIVER: Fatty infiltration of the liver. Hepatopedal flow in the Portal Vein. There is focal fatty sp aring in the region of the gallbladder fossa. GALLBLADDER: There are gallstones and sludge present. No evidence of wall thickening. No pericholecy stic fluid identified. BILIARY SYSTEM: Common bile duct measures 0.9 cm.. There has been interval increase in the common bi le duct size. This compares to 0.3 on the prior examination. Choledocholithiasis cannot be excluded . KING'S SIGN: Negative. KIDNEYS: Kidneys are symmetric in size. No evidence of renal calculi. No evidence of hydronephrosis. Bilateral renal cysts. No follow-up is recommended. SPLEEN: Not enlarged. ASCITES: None seen. IMPRESSION: 1. Interval development of extrahepatic biliary ductal dilatation. Choledocholithiasis should be con sidered. MRCP should be considered for further evaluation. 2. Cholelithiasis and gallbladder sludge. DATA REPOSITORY:
--- NOTE | 2020-04-05 13:54 | HPE_ITS ---
Date of service: 04/05/20 Time of Service: 13:55 Assessment and Plan Assessment and plan (1) Cholelithiasis with choledocholithiasis: Status: Acute Assessment and plan: I have contacted the gastroenterology department at [facility]. I recommended admission IV hydration and observation. If he is still symptomatic in a.m. he will need to be transported for an ERCP and transported back History of Present Illness History of Present Illness Chief Complaint: Choledocholithiasis Narrative: 69-year-old gentleman who presents with epigastric pain. He states that over the past 3 days he has had episodes of epigastric pain located in his epigastrium with no radiation. He states that he also noticed his urine has become dark during that time. He presented to the emergency room yesterday with this and was found to have an elevated bilirubin of 4.1. He also had an elevated lipase of 865. He stated that while in the emergency room his pain completely disappeared. He was discharged and given office visit this morning. He states his pain is returned this morning and associate with nausea. He stated that he had a temp last night of 100.2. Review of Systems All systems reviewed & are unremarkable except as noted in HPI and below Eyes Comments: Mildly icteric [facility] Medical History Abdominal pain Actinic keratosis Anxiety and depression Atrial flutter Pt. 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 WANG 06/21/17 DR. SULTANA Surgical History Angioplasty cardiac ablation unsuccessful 2011 Colonoscopy - IV Sedation 01/20/13 Colonoscopy - MAC (06/21/17) EGD - IV Sedation 1999, 2004 Repair, Tendon or Muscle left elbow Status post cataract extraction and insertion of intraocular lens of left eye (05/23/18) Status post cataract extraction and insertion of intraocular lens of right eye (06/06/18) Family History Mother , 95 Dementia Father , 65 Stomach cancer Sister Diabetes Brother Rheumatoid arthritis Sister No problems noted. Sister No problems noted. Maternal Aunt Dementia Brother No problems noted. Social History Smoking/Tobacco Use Status: Former Tobacco Use Quit Date: 03/01/77 Tobacco: How many years used: 6 Second Hand Exposure: Yes Smoking risk assessment performed?: Yes Alcohol Intake: former Drug use: Never Substance use type: does not use Caregiver/Support person: No Household members: family Housing: house Pets and animals: No Sexually active: No Do you think of yourself as: straight/heterosexual Current gender identity: male What is your relationship status?: never How often do you talk on the phone with friends or family?: three or more times per week How often do you get together with friends or relatives?: three or more times per week How often do you attend gnosticist or adventism services?: decline to answer Do you belong to any clubs or organized social groups?: no Panel score (0-1 are the most socially isolated patients): 1 What type of physical activity do you participate in: walking Duration: 30-45 minutes/day Frequency: 1-2 times per week Any/Anabaptism: None Do you feel safe at home: Yes Do you feel safe in your relationship?: Yes Meds Home Medications and Allergies Home Medications Medication Instructions Recorded Confirmed Type multivitamin [One Daily] 1 ea PO DAILY 06/07/12 04/04/20 History clotrimazole [Lotrimin AF 24 gm TOPICAL PRN #1 script 05/05/17 04/04/20 Rx (clotrimazole)] clonazepam 1 mg tablet 0.5 mg PO HS #30 tab 11/28/19 04/04/20 Rx pravastatin 40 mg tablet 40 mg PO DAILY #90 tab-cap 02/26/20 04/04/20 Rx trazodone 50 mg tablet 25 mg PO DAILY #30 tab 02/28/20 04/04/20 Rx bismuth subsalicylate 262 mg PO DAILY PRN 03/09/20 04/04/20 History [Pepto-Bismol] pantoprazole [Protonix] 40 mg PO BID #60 tab 03/15/20 04/04/20 Rx Allergies Allergy/AdvReac Type Severity Reaction Status Date / Time atenolol AdvReac Unknown hypotension Verified 04/04/20 14:30 Exam Const General: cooperative, anxious and ill appearing [facility] Head: normal to inspection Eyes Other: Scleral icterus Neck Neck: normal visual inspection Chest Chest: normal inspection of the chest Resp Effort & Inspection: normal respiratory effort and able to speak in complete sentences Auscultation: clear to auscultation bilaterally Cardio Rate: regular rate Heart Sounds: S1 normal and S2 normal GI Other: Epigastric tenderness with guarding no tenderness in the right upper quadrant. COVID-19 Screening Have you, or household traveled for leisure in last 14 days?: No
[2020-04-05 14:14] VITALS: BP 143/75; PULSE 46; RESP 20; TEMP 36.6; O2SAT 97
[2020-04-05 14:18] VITALS: BP 143/75; PULSE 46; RESP 20; TEMP 36.6; O2SAT 97
[2020-04-05] MEDS: Normal Saline Flush 10 ML SYR IVP ×3 (15:00→20:20)
[2020-04-05] MEDS: HYDROmorphone 2 MG/ML VIAL 1 MG IVP ×2 (15:00→20:20)
--- NOTE | 2020-04-05 15:00 | RT.EKG_ITS ---
APPROVED REPORT Exam: Resting ECG Patient Location: I HR:48 bpm ECG Measurements Heart Rate 48 AXIS DC 174 P 52 QRSd 114 QRS 11 QT 471 T 7 QTc 423 Conclusion Bradycardia with irregular rate...V-rate 43- 56, mean < 60 Probable left atrial enlargement...P >50mS, <-0.10mV V1
[2020-04-05] MEDS: Ondansetron 4 MG/2 ML VIAL IVP (15:01)
--- NOTE | 2020-04-05 16:18 | RESPIRATORY ---
RT paged to do an ekg that was not stat and went up to patient's room at 3:30. Patient not in room and was taken down to ultrasound, patient's nurse said she would page once he was back in his room. RT checked for patient at 4:20, patient still not in room and will check back in an hour or wait for [place] nurse to page.
[2020-04-05] MEDS: Normal Saline 1,000 ML 125 ML IV (16:39)
[2020-04-05] MEDS: Pantoprazole 40 MG VIAL IVP (16:39)
[2020-04-05] MEDS: PIPERACILLIN/TAZO 3.375 GM in Normal Saline 50 ML IVPB ×2 (17:56→23:27)
[2020-04-05 19:18] VITALS: BP 158/73; PULSE 51; RESP 19; TEMP 36.9; O2SAT 98
[2020-04-05 19:39] VITALS: PULSE 52
[2020-04-05 23:23] VITALS: PULSE 52
[2020-04-06] VITALS (11 sets, daily range): BP systolic 123–171; BP diastolic 62–75; PULSE 45–80; RESP 16–20; TEMP 36.2–36.9; O2SAT 96–98
--- NOTE | 2020-04-06 | DI.CT_ITS ---
EXAM: CT ABDOMEN WO CLINICAL HISTORY: elevated lipase check pancreatitis. TECHNIQUE: Imaging Protocol: Axial computed tomography images with coronal and sagittal reformatted images were created and reviewed. COMPARISON: CT CT CHEST PE ABD PELVIS W from 03/11/[address] CHEST PE ABD PELVIS W from 03/11/2020 FINDINGS: ABDOMEN: Lung Bases: Scarring or atelectasis is seen in the lung bases. Liver: Normal density. No measurable mass. Gallbladder and biliary tract: There is cholelithiasis. The common duct measures up to 1.1 cm. Pancreas: Normal density, no abnormal calcifications or inflammatory process. Pancreatic atrophy. Spleen: Normal. Splenic granuloma. Kidneys: Normal size, contour and axis.Bilateral nephrolithiasis. There is a 4 mm stone in the right renal pelvis without evidence of hydronephrosis. Stable bilateral renal cysts. Adrenal glands: No mass is seen. Lymph nodes: Within normal limits. Abdominal Aorta: Abdominal portion non-dilated. Mild atherosclerosis. Bowel: Unremarkable. Peritoneal cavity: No ascites or pneumoperitoneum. Bones: Degenerative changes. IMPRESSION: 1. No CT findings to suggest acute pancreatitis. 2. Cholelithiasis and extrahepatic biliary ductal dilatation up to 1.1 cm.MRCP is recommended. RADIATION DOSE DELIVERED: 544.72mGy.cm Total DLP 544.72mGy.cm Total DLP DATA REPOSITORY: All CT scans at this facility are submitted to the National Radiology Data Registry (NRDR) Dose Index Registry (DIR) with the [employer] (ACR). RADIATION OPTIMIZATION: All CT scans at this facility use at least one of these dose optimization te chniques: automated exposure control; mA and/or kV adjustment per patient size (includes targeted exa ms where dose is matched to clinical indication); or iterative reconstruction.
[2020-04-06] MEDS: Normal Saline Flush 10 ML SYR IVP ×3 (01:00→16:17)
[2020-04-06] MEDS: HYDROmorphone 2 MG/ML VIAL 1 MG IVP ×3 (01:00→16:16)
[2020-04-06] MEDS: Normal Saline 1,000 ML 125 ML IV (01:17)
[2020-04-06] MEDS: PIPERACILLIN/TAZO 3.375 GM in Normal Saline 50 ML IVPB ×4 (05:41→23:31)
[2020-04-06 06:46] LABS: Abs Immature Grans 0.04 10^3/uL (0.0-0.06); Absolute Basophil Count 0.04 10^3/uL (0.0-0.2); Absolute Eosinophil Count 0.14 10^3/uL (0.0-0.7); Absolute Lymphocyte Count 0.52 10^3/uL (1.2-3.4); Absolute Monocyte Count 0.86 10^3/uL (0.1-0.8); Absolute Neutrophil Count 7.18 10^3/uL (1.2-6.7); Basophils % 0.5; Eosinophils % 1.6; HCT 45.6 % (40.0-50.0); HGB 15.3 g/dL (13.5-17.5); Immature Grans % 0.5; Lymphocytes % 5.9; MCH 30.4 pg (27.0-33.0); MCHC 33.6 % (32.0-36.0); MCV 90.5 fL (80-95); MPV 11.5 fL (8.0-11.0); Monocytes % 9.8; Neutrophils % 81.7; Nucleated RBC 0 %; Platelet Count 142 10^3/uL (130-400); RBC 5.04 10^6/uL (4.36-5.78); RDW 13.7 % (11.8-14.1); RDW-SD 45.4 fL; WBC 8.78 10^3/uL (4.4-10.8)
[2020-04-06 07:12] LABS: ALT 268 U/L (16-63); AST 142 U/L (15-37); Albumin 2.9 g/dL (3.4-5.0); Alkaline Phosphatase 293 U/L (46-116); BUN 11 mg/dL (7-18); Bilirubin, Total 6.7 mg/dL (0.2-1.0); CREATININE 1.3 mg/dL (0.70-1.30); Calcium 9.9 mg/dL (8.5-10.1); Chloride 106 mmol/L (98-107); Estimated GFR 54.57 (mL/min/1.73m2); Glucose 99 mg/dL (74-106); Sodium 141 mmol/L (136-145); Total Protein 6.4 g/dL (6.4-8.2)
[2020-04-06 07:35] LABS: Lipase 2849 U/L (73-393)
--- NOTE | 2020-04-06 08:53 | W.PM.PROGNOT ---
Date of Service Date of service: 04/06/20 Time of Service: 08:53 Assessment and Plan Assessment and plan (1) Cholelithiasis with choledocholithiasis: Status: Acute Assessment and plan: chemically no better with lipase elevation today, Clinically pain is less and exam is better. Discussed with both GI at [facility] and they rec ct to check status of pancreas and will do ERCP on wednesday unless he spikes a fever before then in which case they will accept him as a transfer pt Subjective Subjective Patient reports: pain is less Exam GI Other: Afebrile, abd is much softer this am. Lipase is up again and bili is unchanged Objective Last Vital Signs Temp 97.5 F L 04/06/20 08:26 Pulse 50 L 04/06/20 08:26 Resp 16 04/06/20 08:26 BP 131/62 04/06/20 08:26 Pulse Ox 97 04/06/20 08:26 Laboratory Results - last 24 hr 04/06/20 04/06/20 06:33 06:33 WBC 8.78 RBC 5.04 Hgb 15.3 Hct 45.6 MCV 90.5 MCH 30.4 MCHC 33.6 RDW 13.7 Plt Count 142 MPV 11.5 H Immature Gran % 0.5 Neutrophils % 81.7 Lymphocytes % 5.9 Monocytes % 9.8 Eosinophils % 1.6 Basophils % 0.5 Nucleated RBC % 0 Absolute Neutrophils 7.18 H Absolute Lymphocytes 0.52 L Absolute Monocytes 0.86 H Absolute Eosinophils 0.14 Absolute Basophils 0.04 Sodium 141 Potassium 4.0 Chloride 106 Carbon Dioxide 27.0 Anion Gap 8.0 BUN 11 Creatinine 1.3 Estimated GFR/1.73 m2 54.57 Glucose 99 Calcium 9.9 Total Bilirubin 6.7 H AST 142 H ALT 268 H Alkaline Phosphatase 293 H Total Protein 6.4 Albumin 2.9 L Lipase 2849 H
[2020-04-06] MEDS: Normal Saline 1,000 ML 84 ML IV ×2 (10:06→22:38)
--- NOTE | 2020-04-06 10:08 | DI.VRAD_ITS ---
PROCEDURE INFORMATION: Exam: CT Abdomen Without Contrast Exam date and time: 04/06/2020 8:53 AM Age: 69 years old Clinical indication: Other: Pancreatitis TECHNIQUE: Imaging protocol: Computed tomography images of the abdomen without contrast. COMPARISON: US ABDOMEN 04/05/2020 3:16 PM FINDINGS: Liver: Normal. No mass. Gallbladder and bile ducts: Cholelithiasis. Common bile duct measures 11 mm. No radiopaque distal calculus identified. No definite intrahepatic ductal dilatation. Pancreas: Atrophic changes in the pancreas. No significant peripancreatic inflammatory changes to suggest acute pancreatitis. No peripancreatic drainable collection. Correlation with clinical lab values necessary. Spleen: Normal. No splenomegaly. Adrenals: Normal. No mass. Kidneys and ureters: Nonobstructing renal calculi bilaterally. Cortical renal cyst in the inferior pole left kidney measures 5.6 x 4.8 cm, simple in appearance. Stomach and bowel: Visualized stomach and bowel are unremarkable. No obstruction. No mucosal thickening. Intraperitoneal space: Unremarkable. No free air. No significant fluid collection. Lymph nodes: Unremarkable. No enlarged lymph nodes. Vasculature: Unremarkable. No abdominal aortic aneurysm. Bones/joints: Unremarkable. No acute fracture. No dislocation. Soft tissues: Unremarkable. IMPRESSION: 1. Cholelithiasis. 2. Common bile duct measures 11 mm. No radiopaque distal calculus identified. No definite intrahepatic ductal dilatation. Additional workup with MRCP recommended. 3. Atrophic changes in the pancreas. No significant peripancreatic inflammatory changes to suggest acute pancreatitis. No peripancreatic drainable collection. Correlation with clinical lab values necessary. Dictated and Authenticated by: Belinda Tobin MD. Ordering:TRISH Schwab MD
--- NOTE | 2020-04-06 10:19 | INITIAL_ITS ---
- If Service Date Differs Date of service: 04/06/20 Time of Service: 10:19 Care Management Initial Assess REASON FOR HOSPITALIZATION:: Cholelithiasis and Choledocholithiasis. PAST MEDICAL HISTORY/PAST SURGICAL HISTORY:: Medical History: Abdominal pain, Actinic keratosis, Anxiety and depression, Atrial flutter - Pt. states it comes and goes, I've had it worked up, and the chest discomfort I was told was indigestion, Chronic insomnia, Chronic right hip pain (07/04/13), Colitis - mild-scope 2003,. Constipation, Dysphagia, pharyngoesophageal (09/03/16), Fatty liver. 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 Kidney stones - 1986, 2002, Low back pain, Malignant melanoma of skin of face, Paroxysmal atrial fibrillation (07/16/15), Prostatitis, Right hydrocele,. Rosacea, and Tubular adenoma - 01/20/13 DR. WANG/06/21/17 DR. SULTANA. Surgical History: Angioplasty, cardiac ablation - unsuccessful 2011,. Colonoscopy - IV Sedation - 01/20/13, Colonoscopy - MAC (06/21/17),. EGD - IV Sedation - 1999, 2004, Repair, Tendon or Muscle - left elbow,. Status post cataract extraction and insertion of intraocular lens of left eye (05/23/18), and Status post cataract extraction and insertion of intraocular lens of right eye (06/06/18). PREVIOUS FUNCTIONAL STATUS/SOCIAL/FAMILY SUPPORTS:: Jermaine lives alone in a senior housing apartment in [place]. 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 He names his two sisters, Melita and Denice, and his brother, Quinton, as supports. Jermaine drives and is independent with his ADLs at baseline. CURRENT FUNCTIONAL STATUS:: Jermaine is laying in bed watching television when CM comes to meet with him. He is pleasant and talkative. He shares he was in excruciating pain yesterday and has been unable to eat since Wednesday morning. He reports feeling much better today due to the pain medication. He is in good spirits and is looking forward to discharging home. He reports he is scheduled for gall bladder removal surgery on 04/09/20, in addition to getting his first Covid vaccine next week, and is in hope of not missing those appointments. CM will continue to follow. ADVANCE DIRECTIVES:: On file but does not name Health Care Agent. Has patient been provided with info about the portal/API?: Yes Did the patient sign up for the portal?: No CODE STATUS:: Full Code INSURANCE COVERAGE / FINANCIAL ISSUES:: Medicare. CURRENT HOME/COMMUNITY SERVICES/EQUIPMENT:: None. PRIMARY CARE PHYSICIAN:: Adam Felix MD POTENTIAL DISCHARGE NEEDS:: Follow up appointments with PCP and surgeon. PATIENT/FAMILY EDUCATION NEEDS:: Discharge instructions, limitations, follow up plan of care including Ask Me Three and self management. ANTICIPATED BARRIERS TO DISCHARGE:: None. TRANSPORTATION:: Via private vehicle with family. PLAN:: Jermaine will be going to [facility] down and back on Wednesday for a ERCP procedure. Anticipate he will discharge home with no new services when medically cleared by provider. He will follow up with his PCP, surgeon, and discharge plan of care as directed. His brother, Quinton, will transport him home via private vehicle when ready. CM will continue to follow.
[2020-04-06] MEDS: Pantoprazole 40 MG VIAL IVP (16:17)
[2020-04-07] VITALS (7 sets, daily range): BP systolic 132–159; BP diastolic 73–77; PULSE 49–67; RESP 14–20; TEMP 36.4–36.9; O2SAT 97–99
[2020-04-07] MEDS: PIPERACILLIN/TAZO 3.375 GM in Normal Saline 50 ML IVPB ×4 (05:31→23:42)
[2020-04-07 06:35] LABS: Abs Immature Grans 0.01 10^3/uL (0.0-0.06); Absolute Basophil Count 0.05 10^3/uL (0.0-0.2); Absolute Eosinophil Count 0.26 10^3/uL (0.0-0.7); Absolute Lymphocyte Count 0.56 10^3/uL (1.2-3.4); Absolute Neutrophil Count 5.02 10^3/uL (1.2-6.7); Basophils % 0.8; HCT 42.8 % (40.0-50.0); HGB 14.4 g/dL (13.5-17.5); Immature Grans % 0.2; Lymphocytes % 8.6; MCH 30.3 pg (27.0-33.0); MCHC 33.6 % (32.0-36.0); MCV 90.1 fL (80-95); MPV 11.1 fL (8.0-11.0); Monocytes % 9.2; Neutrophils % 77.2; Nucleated RBC 0 %; Platelet Count 128 10^3/uL (130-400); RBC 4.75 10^6/uL (4.36-5.78); RDW 13.4 % (11.8-14.1); RDW-SD 44.5 fL
[2020-04-07 06:59] LABS: ALT 187 U/L (16-63); AST 85 U/L (15-37); Albumin 2.5 g/dL (3.4-5.0); Alkaline Phosphatase 283 U/L (46-116); Anion Gap 10.1 mmol/L (3-11); BUN 10 mg/dL (7-18); Bilirubin, Total 5.9 mg/dL (0.2-1.0); CO2 23.9 mmol/L (21.0-32.0); CREATININE 1.1 mg/dL (0.70-1.30); Calcium 9.5 mg/dL (8.5-10.1); Chloride 106 mmol/L (98-107); Glucose 82 mg/dL (74-106); Potassium 3.3 mmol/L (3.5-5.1); Sodium 140 mmol/L (136-145); Total Protein 5.9 g/dL (6.4-8.2)
[2020-04-07] MEDS: HYDROmorphone 2 MG/ML VIAL 1 MG IVP ×2 (07:44→16:48)
[2020-04-07] MEDS: Ondansetron 4 MG/2 ML VIAL IVP (07:47)
[2020-04-07] MEDS: POTASSIUM CHLORIDE/D5-0.45NACL 1,000 ML 80 MEQ IV ×2 (09:00→21:29)
--- NOTE | 2020-04-07 10:28 | PGE_ITS ---
Date of Service Date of service: 04/07/20 Time of Service: 10:28 Assessment and Plan Assessment and plan (1) Cholelithiasis with choledocholithiasis: Status: Acute Assessment and plan: Will contact gastroenterology either [facility] or [place] regarding an ERCP tomorrow Subjective Subjective Patient reports: pain is less Exam GI Other: Abdomen bowel sounds are present there is mild epigastric tenderness to deep palpation. LFTs show his bilirubin is 5.9 today alk phos is 283. CT scan done yesterday shows no active pancreatitis but his common bile duct was measured at 1 cm. Objective Last Vital Signs Temp 97.9 F 04/07/20 07:38 Pulse 58 L 04/07/20 07:38 Resp 18 04/07/20 07:38 BP 136/77 04/07/20 07:38 Pulse Ox 97 04/07/20 07:38 Laboratory Results - last 24 hr 04/07/20 04/07/20 06:21 06:21 WBC 6.50 RBC 4.75 Hgb 14.4 Hct 42.8 MCV 90.1 MCH 30.3 MCHC 33.6 RDW 13.4 Plt Count 128 L MPV 11.1 H Immature Gran % 0.2 Neutrophils % 77.2 Lymphocytes % 8.6 Monocytes % 9.2 Eosinophils % 4.0 Basophils % 0.8 Nucleated RBC % 0 Absolute Neutrophils 5.02 Absolute Lymphocytes 0.56 L Absolute Monocytes 0.60 Absolute Eosinophils 0.26 Absolute Basophils 0.05 Sodium 140 Potassium 3.3 L Chloride 106 Carbon Dioxide 23.9 Anion Gap 10.1 BUN 10 Creatinine 1.1 Estimated GFR/1.73 m2 >= 60.00 Glucose 82 Calcium 9.5 Total Bilirubin 5.9 H AST 85 H ALT 187 H Alkaline Phosphatase 283 H Total Protein 5.9 L Albumin 2.5 L
--- NOTE | 2020-04-07 10:51 | PDOC.CMPRO ---
- If Service Date Differs Date of service: 04/07/20 Time of Service: 10:51 Care Management Progress Note S/O: Jermaine is sitting up in bed watching television when CM comes to meet with him today. He reports he did not sleep well last night. He attributes this to sleeping several hours during the day due to being given pain medication that causes drowsiness. He talks about going to either [facility] or [facility] tomorrow for an ERCP procedure and is looking forward to the procedure being done and returning to [facility]. He is scheduled for a gallbladder removal surgery on Wednesday and has an appointment to obtain his first Covid vaccine on Wednesday at the [facility] where [facility]. CM will continue to follow. A: Jermaine is a 69 year old male admitted to [facility] on 04/05/2020 for cholelithiasis and choledocholithiasis. P: Anticipate Jermaine will be discharged home with no new services when medically cleared by provider. He will follow up with his PCP, surgeon, and discharge plan of care as directed. He will either be transported home by his brother, Quinton, via private vehicle when ready or, if well enough, will drive himself home as his car is in the [facility] [place] [address] across from the hospital. CM will continue to support patient and discharge planning needs.
[2020-04-07] MEDS: Pantoprazole 40 MG VIAL IVP (16:19)
[2020-04-07] MEDS: Normal Saline Flush 10 ML SYR IVP (16:19)
[2020-04-07] MEDS: Acetaminophen 325 MG TAB 650 MG PO (22:05)
[2020-04-08] MEDS: PIPERACILLIN/TAZO 3.375 GM in Normal Saline 50 ML IVPB ×4 (05:12→23:47)
[2020-04-08 05:17] VITALS: BP 155/71; PULSE 49; RESP 15; TEMP 36.6; O2SAT 97
[2020-04-08 07:18] LABS: Abs Immature Grans 0.01 10^3/uL (0.0-0.06); Absolute Basophil Count 0.04 10^3/uL (0.0-0.2); Absolute Eosinophil Count 0.22 10^3/uL (0.0-0.7); Absolute Lymphocyte Count 0.66 10^3/uL (1.2-3.4); Basophils % 0.8; Eosinophils % 4.2; HCT 42.8 % (40.0-50.0); HGB 14.3 g/dL (13.5-17.5); Immature Grans % 0.2; Lymphocytes % 12.6; MCH 30.4 pg (27.0-33.0); MCHC 33.4 % (32.0-36.0); MCV 90.9 fL (80-95); MPV 11.1 fL (8.0-11.0); Monocytes % 11.5; Neutrophils % 70.7; Nucleated RBC 0 %; Platelet Count 126 10^3/uL (130-400); RBC 4.71 10^6/uL (4.36-5.78); RDW 13.5 % (11.8-14.1); RDW-SD 45.3 fL; WBC 5.23 10^3/uL (4.4-10.8)
--- NOTE | 2020-04-08 07:18 | PGE_ITS ---
Date of Service Date of service: 04/08/20 Time of Service: 07:18 Assessment and Plan Assessment and plan (1) Cholelithiasis with choledocholithiasis: Status: Acute Assessment and plan: Pain is well controlled Plan is for ERCP today at [facility] Continue NPO status until following his procedure. Will discuss with Dr. Love timeline for his scheduled Cholecystectomy. Subjective Subjective Interval history since last seen: Patient reports his pain is currently well controlled. He expresses he is eager to have his procedure completed this morning. Exam Const General: cooperative, healthy appearing and comfortable Orientation: alert and oriented x3 Resp Effort & Inspection: normal respiratory effort, no audible wheezes and no cough GI Inspection: normal to inspection Palpation: soft, no guarding and nontender Objective Last Vital Signs Temp 36.6 C 04/08/20 05:17 Pulse 49 L 04/08/20 05:17 Resp 15 04/08/20 05:17 BP 155/71 H 04/08/20 05:17 Pulse Ox 97 04/08/20 05:17
[2020-04-08 07:21] VITALS: BP 165/83; PULSE 58; RESP 16; TEMP 36.5; O2SAT 99
[2020-04-08 07:30] LABS: ALT 160 U/L (16-63); AST 64 U/L (15-37); Albumin 2.6 g/dL (3.4-5.0); Alkaline Phosphatase 275 U/L (46-116); Anion Gap 7.1 mmol/L (3-11); BUN 7 mg/dL (7-18); Bilirubin, Total 3.8 mg/dL (0.2-1.0); CO2 28.9 mmol/L (21.0-32.0); CREATININE 1.2 mg/dL (0.70-1.30); Calcium 9.8 mg/dL (8.5-10.1); Chloride 106 mmol/L (98-107); Estimated GFR 59.86 (mL/min/1.73m2); Glucose 113 mg/dL (74-106); Potassium 3.9 mmol/L (3.5-5.1); Sodium 142 mmol/L (136-145); Total Protein 6.1 g/dL (6.4-8.2)
--- NOTE | 2020-04-08 10:08 | PDOC.CMPRO ---
- If Service Date Differs Date of service: 04/08/20 Time of Service: 10:08 Care Management Progress Note S/O: Jermaine was sitting in a chair by the window enjoying the sunshine when CM met with him. He was pleasant and agreeable to conversation.Jermaine stated that he was scheduled to leave for [facility] at 11:30 am for an ERCP (he was unsure of the name of the test but understood the procedure). He also indicated that he is scheduled to have his gallbladder removed tomorrow at [facility]. Jermaine talked a bit about his housing in [place] and the fact that because it is senior housing he will be able to get the Covid vaccine through the facility. He is scheduled to receivwe his vaccine on Wednesday and he admitted to being very pleased about this. Jermaine left for [facility] at the scheduled time and has not returned as of 1599. A: Jermaine is a 69 year old male admitted to [facility] on 04/05/2020 for cholelithiasis and choledocholithiasis. P: Anticipate Jermaine will be discharged home with no new services when medically cleared by provider. He will follow up with his PCP, surgeon, and discharge plan of care as directed. He will either be transported home by his brother, Quinton, via private vehicle when ready or, if well enough, will drive himself home as his car is in the [employer] across from the hospital. CM will continue to support patient and discharge planning needs.
[2020-04-08] MEDS: POTASSIUM CHLORIDE/D5-0.45NACL 1,000 ML 80 MEQ IV (10:52)
[2020-04-08 10:55] VITALS: BP 166/72; PULSE 60; RESP 16; TEMP 37; O2SAT 99
--- NOTE | 2020-04-08 14:46 | W.NUTRFU ---
Date of service: 04/08/20 Time of Service: 14:46 Nutritional Follow up NOTE: 69 year old male admitted with cholelithiasis pending surgery. Currently NPO. PO intake over weekend adequate to meet nutrient needs. BMI wnl for age. Not a nutritional risk at this time. Will continue to follow. Time Spent in Nutritional Counseling and Treatment: 0
--- NOTE | 2020-04-08 15:25 | PHA.REVIEW ---
Pharmacy Admission Review - Admission Clinical Review (Last Reviewed 04/05/20 @ 13:57 by Zaheer Yang MD) Cholelithiasis with choledocholithiasis (Acute) atenolol Adverse Reaction (Unknown, Verified 04/04/20 14:30) hypotension Height 6 ft 2 in Weight 91.626 kg - Renal Dosing Renal Dosing: BUN 7 mg/dL (7-18) 04/08/20 07:00 Creatinine 1.2 mg/dL (0.70-1.30) 04/08/20 07:00 Medications needing adjustments: Reviewed (Crcl~66 mL/min current meds okay.) - Anticoagulation Anticoagulation: Hgb 14.3 g/dL (13.5-17.5) 04/08/20 07:00 Hct 42.8 % (40.0-50.0) 04/08/20 07:00 Plt Count 126 10^3/uL (130-400) L 04/08/20 07:00 Creatinine 1.2 mg/dL (0.70-1.30) 04/08/20 07:00 DVT Prohphylaxis: Reviewed (ERCP today, progress note mentions cholecystectomy) - Opiate Usage Evaluate Pain Scale/Pains Meds: Intervened Scheduled Bowel Reg ordered if on Opiates?: No (will mention to provider) - Relevant Labs Sodium 142 mmol/L (136-145) 04/08/20 07:00 Potassium 3.9 mmol/L (3.5-5.1) 04/08/20 07:00 Chloride 106 mmol/L (98-107) 04/08/20 07:00 Electrolytes, C-Reactive P, ESR: Reviewed - DM Control DM Control: Glucose 113 mg/dL (74-106) H 04/08/20 07:00 Insulin Dosing: N/A - Heart Failure/NM EF%, ALYSHA's, B-Blockers, Diuretics: N/A - BP Control BP Control: Blood Pressure 166/72 Blood Pressure 165/83 Blood Pressure 155/71 If elevated: Reviewed (pt has hypertension per medical history but isn't taking anything for it at home, per clinic note he tried amlodipine last year but stopped it due to headaches.) - Qtc Review If Elevated: N/A (QTc 423 on admission) - IV to PO Switch IV Medications: Reviewed - Home Meds Home Med List reviewed: Reviewed Relevent Home Meds Not ordered & why?: bismuth subsalicytate (PRN), clonazepam, clotrimazole (PRN), multivitamin, pravastatin, trazodone - Current meds Current Medication Order Review: Reviewed - Comments Comments/Follow Ups: Watch BP, labs, SCr, and for med changes (IV to PO, home meds, DVT prophylaxis following procedures, renal dose adjustments) Antibiotic Activity - Pharmacy Antibiotic Review Pharmacy Antibiotic Activity: Reviewed, no change (zosyn (day 4 starts this evening))
[2020-04-08] MEDS: Pantoprazole 40 MG VIAL IVP (17:49)
[2020-04-08] MEDS: Normal Saline Flush 10 ML SYR IVP (17:49)
[2020-04-08 18:01] VITALS: BP 171/77; PULSE 50; RESP 18; TEMP 36.2; O2SAT 99
--- NOTE | 2020-04-08 20:57 | NUR.NOTE ---
Nursing Note: pt very upset to have not seen dr after procedure. medications normally taken at night reordered. Physician Dr Camara ordered meds and stated pt will likely dc tomorrow.
[2020-04-08] MEDS: Acetaminophen 325 MG TAB 650 MG PO (21:50)
[2020-04-08] MEDS: clonazePAM 0.5 MG TAB PO (21:51)
[2020-04-08] MEDS: traZODone 50 MG TAB 25 MG PO (21:51)
[2020-04-08 22:57] VITALS: BP 135/71; PULSE 49; RESP 16; TEMP 37.1; O2SAT 99
[2020-04-08 23:54] VITALS: BP 118/58; PULSE 47; RESP 14; TEMP 36.3; O2SAT 97
[2020-04-09] MEDS: PIPERACILLIN/TAZO 3.375 GM in Normal Saline 50 ML IVPB ×2 (06:07→12:13)
[2020-04-09] MEDS: POTASSIUM CHLORIDE/D5-0.45NACL 1,000 ML 80 MEQ IV (06:07)
[2020-04-09 07:19] LABS: Abs Immature Grans 0.01 10^3/uL (0.0-0.06); Absolute Basophil Count 0.05 10^3/uL (0.0-0.2); Absolute Eosinophil Count 0.17 10^3/uL (0.0-0.7); Absolute Lymphocyte Count 0.96 10^3/uL (1.2-3.4); Absolute Neutrophil Count 3.46 10^3/uL (1.2-6.7); Eosinophils % 3.3; HCT 42.7 % (40.0-50.0); HGB 14.3 g/dL (13.5-17.5); Immature Grans % 0.2; Lymphocytes % 18.6; MCH 30.3 pg (27.0-33.0); MCHC 33.5 % (32.0-36.0); MCV 90.5 fL (80-95); MPV 11.3 fL (8.0-11.0); Monocytes % 9.7; Neutrophils % 67.2; Nucleated RBC 0 %; Platelet Count 149 10^3/uL (130-400); RBC 4.72 10^6/uL (4.36-5.78); RDW 13.4 % (11.8-14.1); RDW-SD 45.1 fL; WBC 5.15 10^3/uL (4.4-10.8)
--- NOTE | 2020-04-09 07:33 | W.PM.PROGNOT ---
Documented by User: [email or web address] Soto 04/09/20 08:51 Date of Service Date of service: 04/09/20 Time of Service: 07:33 Assessment and Plan Assessment and plan (1) Cholelithiasis with choledocholithiasis: Status: Acute Assessment and plan: [place] performed [place] [facility] they removed a gallstone and some sludge. Patient is feeling well today and is eager to be d/c. If tolerating regular diet today, without any abdominal pain will d/c home. He will need to follow up with Dr. Love in the General Surgery clinic in 2 weeks. His cholecystectomy will be post-poned for a few weeks to allow for a reduction in his inflammation. Subjective Subjective Interval history since last seen: patient reports he is feeling well today. He expresses some frustration in not fully understanding how things went during his ERCP procedure. He states that he only saw the Physician shortly after coming out of sedation and he is unable to recall what was said. Exam Const General: cooperative, healthy appearing and comfortable Orientation: alert and oriented x3 Resp Effort & Inspection: normal respiratory effort, no audible wheezes and no cough GI Inspection: normal to inspection Palpation: soft, no guarding and nontender Objective Last Vital Signs Temp 36.3 C L 04/08/20 23:54 Pulse 47 L 04/08/20 23:54 Resp 14 04/08/20 23:54 BP 118/58 L 04/08/20 23:54 Pulse Ox 97 04/08/20 23:54 Laboratory Results - last 24 hr 04/08/20 04/09/20 07:00 06:48 WBC 5.15 RBC 4.72 Hgb 14.3 Hct 42.7 MCV 90.5 MCH 30.3 MCHC 33.5 RDW 13.4 Plt Count 149 MPV 11.3 H Immature Gran % 0.2 Neutrophils % 67.2 Lymphocytes % 18.6 Monocytes % 9.7 Eosinophils % 3.3 Basophils % 1.0 Nucleated RBC % 0 Absolute Neutrophils 3.46 Absolute Lymphocytes 0.96 L Absolute Monocytes 0.50 Absolute Eosinophils 0.17 Absolute Basophils 0.05 Sodium 142 Potassium 3.9 Chloride 106 Carbon Dioxide 28.9 Anion Gap 7.1 BUN 7 Creatinine 1.2 Estimated GFR/1.73 m2 59.86 Glucose 113 H Calcium 9.8 Total Bilirubin 3.8 H AST 64 H ALT 160 H Alkaline Phosphatase 275 H Total Protein 6.1 L Albumin 2.6 L Documented by User: Tracie Love DO 04/10/20 20:28 Assessment and Plan Assessment and plan (1) Cholelithiasis with choledocholithiasis: Status: Acute Assessment and plan: Patient seen and examined. Agree with above. I did review all his labs today including his CBC, comp, lipase. I did review what transpired during his ERCP. They did do a sphincterotomy and swept multiple stones. They did not place a stent. We discussed the likelihood all stone recurrence between now and when he has his gallbladder out. We discussed with both signs and symptoms to be. He did have a lot of jaundice and itching on . We discussed the importance of following a low-fat diet in the interim. We discussed the importance of waiting and giving the pancreas some time to cool down prior to surgery. Patient is doing well. He is pain-free. He is tolerating a low-fat diet. He would like to go home. I will see him in clinic on for follow-up and repeat lab work. Please see discharge summary for discharge details. 30 minutes is spent with the patient today doing his discharge. (2) Gallstones: Status: Acute
[2020-04-09 07:36] LABS: ALT 132 U/L (16-63); AST 51 U/L (15-37); Albumin 2.5 g/dL (3.4-5.0); Alkaline Phosphatase 248 U/L (46-116); Anion Gap 6.7 mmol/L (3-11); BUN 6 mg/dL (7-18); Bilirubin, Total 2.8 mg/dL (0.2-1.0); CO2 28.3 mmol/L (21.0-32.0); CREATININE 1.1 mg/dL (0.70-1.30); Calcium 9.8 mg/dL (8.5-10.1); Chloride 108 mmol/L (98-107); Glucose 99 mg/dL (74-106); Lipase 381 U/L (73-393); Potassium 3.6 mmol/L (3.5-5.1); Sodium 143 mmol/L (136-145)
[2020-04-09 07:44] VITALS: BP 142/65; PULSE 43; RESP 18; TEMP 36.9; O2SAT 99
--- NOTE | 2020-04-09 15:19 | W.PM.DS.N ---
Date of service: 04/09/20 Time of Service: 15:19 DS: Diagnosis Discharge Diagnosis (1) Cholelithiasis with choledocholithiasis: Status: Acute (2) Gallstones: Status: Acute Discharge Plan Disposition Patient Disposition: HOME Condition: Improving Discharge Details Reason For Visit: CHOLELITHIASIS AND CHOLEDOCHOLITHIASIS Admit Date/Time: 04/05/20 14:02 Admit Provider: Zaheer Yang Attending Provider: Zaheer Yang Primary Care Provider: Adam Felix Home Meds and New Rx's Prescriptions: Continued trazodone 50 mg tablet 25 mg PO DAILY Qty: 30 RF: 2 clonazepam [Klonopin] 1 mg tablet 0.5 mg PO HS Qty: 30 RF: 0 multivitamin [One Daily] 1 EACH tablet 1 ea PO DAILY RF: 0 clotrimazole [Lotrimin AF (clotrimazole)] 24 GM cream 24 gm Topical PRN Qty: 1 RF: 3 pravastatin 40 mg tablet 40 mg PO DAILY Qty: 90 RF: 3 bismuth subsalicylate [Pepto-Bismol] 262 mg/15 mL Suspension 262 mg PO DAILY PRNRF: 0 pantoprazole [Protonix] 40 mg tablet,delayed release (DR/EC) 40 mg PO BID Qty: 60 RF: 12 Discharge Instructions Additional Instructions: -Follow-up with Dr. Love 04/11 at 3:30om. Hospital lab appt at 2:50 -low fat diet. No pork/pork products, nuts or nut butters, avocadoes. no/low fat dairy or avoid dairy. -no straining to move bowels -pain meds are very constipating: if you do not move your bowels daily take a dose of OTC milk of magnesia You may find that your appetite is smaller. Eat 3-6 small meals throughout the day. It is important to drink lots of water after surgery, 6-10 glasses a day. -We do want you up walking, at least 5-6 times per day. This is very important to prevent pneumonia and blood clots. You can climb stairs, take them slowly. -No lifting over 10 pounds or strenuous activity. -it is ok to drive. -You may find that you are very tired- this is normal. -please do not smoke for a minimum of 72 hours after surgery. -If you start having abdominal pain, nausea/vomiting/notice eyes turn yeallow- return to the ER. Stand Alone Forms: Nursing Discharge Form Activity:: see above Equipment/Supplies:: No Equipment Needed Diet:: low fat Discharge Orders Discharge Orders: Discharge Order (Routine); Ordered 04/09/20 Ordered By: Tracie Love DS: Summary Time Spent with Patient providing and/or coordinating discharge services: Less than 30 minutes Status at Discharge Functional status at discharge: independent ambulation Overall status at discharge: patient is progressing back to baseline Mental Status: mental status grossly normal Speech and Movement: speech and movement normal Mood: congruent mood Affect: normal affect Exam Psych Mental Status: mental status grossly normal Speech and Movement: speech and movement normal Mood: congruent mood Affect: normal affect DS: Data Vitals/I&O Vitals and I&O: Vital Signs Temperature 36.9 C 04/09/20 07:44 Temperature Source Tympanic 04/09/20 07:44 Pulse 43 L 04/09/20 07:44 Pulse Rhythm Regular 04/09/20 09:58 Respiratory Rate 18 04/09/20 07:44 Respiratory Effort 04/09/20 09:58 Respiratory Depth Normal 04/09/20 09:58 Respiratory Pattern Normal 04/09/20 09:58 Blood Pressure 142/65 H 04/09/20 07:44 Pulse Oximetry 99 04/09/20 07:44 Oxygen Delivery Method Room Air 04/09/20 07:44 Oxygen Flow Rate 0 04/09/20 07:44 Pain Level 2 04/09/20 07:44 Comment 04/06/20 14:31 Intake & Output 04/08/20 04/09/20 04/09/20 23:59 11:59 23:59 Intake Total 1050 / 2200 1050 / 1340 290 / 1340 Output Total 675 / 675 Balance 1050 / 1850 375 / 665 290 / 665 Intake: IV 1050 / 2200 50 / 100 50 / 100 Oral 1000 / 1240 240 / 1240 Output: Urine 675 / 675 Other: Urine Color Yellow Urine Appearance Clear Clear Urine Odor Strong Comment Up to toilet to void. Unable to assess volume and quality. Voiding Methods Toilet Data Completed and Pending Labs on day of discharge: Labs from last 24 hours 04/09/20 04/09/20 06:48 06:48 WBC 5.15 RBC 4.72 Hgb 14.3 Hct 42.7 MCV 90.5 MCH 30.3 MCHC 33.5 RDW 13.4 Plt Count 149 MPV 11.3 H Immature Gran % 0.2 Neutrophils % 67.2 Lymphocytes % 18.6 Monocytes % 9.7 Eosinophils % 3.3 Basophils % 1.0 Nucleated RBC % 0 Absolute Neutrophils 3.46 Absolute Lymphocytes 0.96 L Absolute Monocytes 0.50 Absolute Eosinophils 0.17 Absolute Basophils 0.05 Sodium 143 Potassium 3.6 Chloride 108 H Carbon Dioxide 28.3 Anion Gap 6.7 BUN 6 L Creatinine 1.1 Estimated GFR/1.73 m2 >= 60.00 Glucose 99 Calcium 9.8 Total Bilirubin 2.8 H AST 51 H ALT 132 H Alkaline Phosphatase 248 H Total Protein 6.0 L Albumin 2.5 L Lipase 381 [facility] Medical History Abdominal pain Actinic keratosis Anxiety and depression Atrial flutter Pt. 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 WANG 06/21/17 DR. SULTANA Surgical History Angioplasty cardiac ablation unsuccessful 2011 Colonoscopy - IV Sedation 01/20/13 Colonoscopy - MAC (06/21/17) EGD - IV Sedation 1999, 2004 Repair, Tendon or Muscle left elbow Status post cataract extraction and insertion of intraocular lens of left eye (05/23/18) Status post cataract extraction and insertion of intraocular lens of right eye (06/06/18) Family History Mother , 95 Dementia Father , 65 Stomach cancer Sister Diabetes Brother Rheumatoid arthritis Sister No problems noted. Sister No problems noted. Maternal Aunt Dementia Brother No problems noted. Social History Smoking/Tobacco Use Status: Former Tobacco Use Quit Date: 03/01/77 Tobacco: How many years used: 6 Second Hand Exposure: Yes Smoking risk assessment performed?: Yes Alcohol Intake: former Drug use: Never Substance use type: does not use Caregiver/Support person: No Household members: family Housing: house Pets and animals: No Sexually active: No Do you think of yourself as: straight/heterosexual Current gender identity: male What is your relationship status?: never How often do you talk on the phone with friends or family?: three or more times per week How often do you get together with friends or relatives?: three or more times per week How often do you attend worship or mu-ism services?: decline to answer Do you belong to any clubs or organized social groups?: no Panel score (0-1 are the most socially isolated patients): 1 What type of physical activity do you participate in: walking Duration: 30-45 minutes/day Frequency: 1-2 times per week Any/Adventism: None Do you feel safe at home: Yes Do you feel safe in your relationship?: Yes
[2020-04-09] MEDS: Milk of Magnesia 30 ML CUP PO (15:33)
[2020-04-09 16:35] VITALS: BP 134/74; PULSE 53; RESP 20; TEMP 36.2; O2SAT 96
--- NOTE | 2020-04-09 16:51 | CMDISCH_ITS ---
- If Service Date Differs Date of service: 04/09/20 Time of Service: 16:51 LACE Index Scoring Tool - Questions: Length of Stay (in days): 4 - 6 Acuity (Admit via E.D.?): No E.D. Visits: 4 - Answers: Total Score: 8 Risk of Readmission: Low Risk Care Management Discharge Reason for Hospitalization: Cholelithiasis and Choledocholithiasis. Discharge Plan: Jermaine will be discharged home with no new services. He will follow up with his PCP, surgeon, and discharge plan of care as directed. He will drive himself home as his car is in the [employer] [facility] across from the hospital. Patient/Family Education Needs: Discharge plan, limitations, follow up, Ask Me Three
== END 2020-04-09 16:43 | disposition home or self-care (01) | DRG 445 ==
PROVIDERS: Admitting Provider Surgery; PCP Emergency Medicine; Visit Provider Surgery
DX: K80.70 Calculus of gallbladder and bile duct without cholecystitis without obstruction (principal); I48.92 Unspecified atrial flutter; I48.0 Paroxysmal atrial fibrillation; F51.04 Psychophysiologic insomnia; K59.00 Constipation, unspecified; K76.0 Fatty (change of) liver, not elsewhere classified; K21.9 Gastro-esophageal reflux disease without esophagitis; E78.5 Hyperlipidemia, unspecified; I10 Essential (primary) hypertension; M54.5 Low back pain; F41.8 Other specified anxiety disorders; Z87.891 Personal history of nicotine dependence; Z87.442 Personal history of urinary calculi
CPT/HCPCS: 36415; 43262; 74150; 80053; 83690; 99221; 99231; 99232; 99238; 76700; 85025; 93005; 93010; A0425; A0428; A0429; J2405; J2543

== ENCOUNTER 2020-04-11 02:52 | Outpatient (CLI) | payer MEDICARE, SELFPAY ==
[2020-04-11 15:37] LABS: ALT 121 U/L (16-63); AST 49 U/L (15-37); Albumin 3.2 g/dL (3.4-5.0); Alkaline Phosphatase 243 U/L (46-116); Anion Gap 8.7 mmol/L (3-11); BUN 8 mg/dL (7-18); Bilirubin, Total 1.7 mg/dL (0.2-1.0); CO2 27.3 mmol/L (21.0-32.0); CREATININE 1.2 mg/dL (0.70-1.30); Calcium 10.1 mg/dL (8.5-10.1); Chloride 104 mmol/L (98-107); Estimated GFR 59.86 (mL/min/1.73m2); Glucose 118 mg/dL (74-106); Lipase 544 U/L (73-393); Potassium 3.6 mmol/L (3.5-5.1); Sodium 140 mmol/L (136-145); Total Protein 6.8 g/dL (6.4-8.2)
== END 2020-04-11 02:53 | disposition home or self-care (01) ==
LOC: LBO 02:52
PROVIDERS: PCP Emergency Medicine; Visit Provider Surgery
DX: K80.70 Calculus of gallbladder and bile duct without cholecystitis without obstruction (principal); K85.10 Biliary acute pancreatitis without necrosis or infection; K21.9 Gastro-esophageal reflux disease without esophagitis; Z48.815 Encounter for surgical aftercare following surgery on the digestive system; K80.20 Calculus of gallbladder without cholecystitis without obstruction
CPT/HCPCS: 36415; 80053; 83690; 99213; 99215

== ENCOUNTER 2020-04-30 08:17 | Day surgery (SDC) | payer MEDICARE, SELFPAY ==
[2020-04-30] VITALS (7 sets, daily range): BP systolic 111–162; BP diastolic 41–89; PULSE 39–50; RESP 16–24; TEMP 36–36.6; O2SAT 95–100
[2020-04-30] MEDS: Acetaminophen 500 MG TAB 1000 MG PO (08:53)
[2020-04-30] MEDS: Gabapentin 300 MG CAP PO (08:53)
[2020-04-30] MEDS: Lactated Ringers 1,000 ML 80 ML IV (09:05)
[2020-04-30] MEDS: ceFAZolin 2 GM/50 ML BAG IVPB (09:45)
--- NOTE | 2020-04-30 10:50 | GB_PTH ---
PATIENT: Jermaine Fraire LOC: [facility] U#:[id number] AGE/SX: 69/M ROOM: RE04/30/[address]: Tracie Love : 1950 BED: DIS: 04/30/2020 SPEC #: [id number] RECD: 04/30/20 12:58 STATUS: LUCIANO REQ #: [id number] JACOB: 04/30/20 10:[address]: Tracie Love DEPT: Surgical Specimen RECD BY: Pamela Crews ENTERED: 04/30/20 12:59 SP TYPE: GB OTHR DR: Adam Felix DO Tissues: 1 - GALLBLADDER Procedures: GROSS AND MICRO LEVEL 3 Comments: [id number]
[2020-04-30] MEDS: Bupivacaine 0.25% Pres-Free 30 ML VIAL (10:53)
--- NOTE | 2020-04-30 11:17 | W.PM.OP ---
Date of service: 04/30/20 Time of Service: 11:17 Operative Note Operative Note DATE OF PROCEDURE: 04/30/20 PRE-OP DIAGNOSIS: chronic ashley w/ stones / CBF stones. s/p ERCP POST-OP DIAGNOSIS: same PROCEDURE: lap ashley SURGEON: Matt Sutherland SEED PACKER: Epi Romano ANESTHESIA TYPE: Local By Surgeon, General LMA/ETT and Primary Nerve Block Refer to Anesthesia Record ESTIMATED BLOOD LOSS: 50 PATHOLOGY: other COMPLICATIONS: None Patient was transported to: same day Procedure Description: INDICATIONS: The pt is seen at the request of there PCP regarding acute on chronic cholecystitis, cholelithiasis. He has had 2 severe episodes of Lary lithiasis that put him into the ER. He also had to be hospitalized with a common bile duct stone and have an ERCP placed. He has been doing well for the last 2 weeks and has had minimal pain. His labs are normal. Today for laparoscopic cholecystectomy. Informed consent was obtained, explaining risks and benefits of the procedure including but not limited to bleeding, infection, pneumonia, blood clots, possible damage to bowel, bladder, blood vessels, bile ducts, possible open procedure, complications of general anesthesia and other unforetold complications. PROCEDURE: The patient agrees and is brought to the operative room suite and placed in supine position. Anesthesia was administered per the Department of Anesthesia. The patient did receive IV antibiotics. NG tube and Floyd catheter are placed. The patient was prepped and draped in the usual sterile fashion using DuraPrep scrub solution. Pause for the cause was done. 20 mL of 1% buffered lidocaine was used for local anesthetization. A stab incision was made in the umbilicus and the Verres inserted. Drop test was positive and insufflation was begun. When 15 mm of pressure was noted on the monitor, the Veress was removed and #5 port inserted. The camera was inserted through the port and shows no damage to underlying structures. A 10 mm port was then placed in the epigastric position under direct visualization following creation of local field blocks as well as two 5 mm ports in the right upper quadrant. The gallbladder fundus was grasped and retracted towards the right shoulder. Infundibulum was grasped and retracted laterally. There are some omental adhesions up to the gallbladder. These were taken down with a combination of blunt dissection and electrocautery. The hepat-duodenal ligament is entered. The cystic duct and artery are dissected out and the most inferior portion of the gallbladder plate is removed from the liver and the critical view of safety was obtained after clearing away all fatty material. Endo Clips were placed across the duct and artery and these structures are divided. The remainder of the gallbladder was excised from the liver bed. The gallbladder was placed in a bag and brought out. Examination of the gallbladder shows indeed the cystic duct and artery to have been divided. The remainder of the abdomen was copiously irrigated with a liter of saline. All saline is removed. There is no bleeding or bile leakage from the liver bed or the clips sites. An EndoClose needle was used to close the 10 mm port site with an 0 Vicryl. All ports and instruments are removed. SPonge and needle counts are correct. Pneumoperitoneum is evacuated and the port sites are monitored to make sure there is no bleeding at the time of desufflation. Port sites are irrigated and the skin is closed with 4-0 Monocryl in a running subcuticular fashion. Skin glue sterile dressings are applied. The patient tolerated the procedure well without complications, transferred to the recovery room in stable condition. MATT SUTHERLAND DO
--- NOTE | 2020-04-30 11:21 | PDOC.DSDIS_ITS ---
Discharge Plan Disposition Condition: Good Discharge Details Reason For Visit: gallbladder removal Attending Provider: Tracie Love Primary Care Provider: dAam Felix Home Meds and New Rx's Prescriptions: New tramadol [Ultram] 50 mg tablet 50 mg PO Q6H PRNQty: 10 RF: 0 ibuprofen 600 mg tablet 600 mg PO Q6H PRNQty: 90 RF: 3 ondansetron HCl [Zofran] 4 mg tablet 4 mg PO Q6H PRN (Reason: nausea and vomiting) Qty: 5 RF: 0 Continued trazodone 50 mg tablet 25 mg PO DAILY Qty: 30 RF: 2 magnesium hydroxide [Milk of Magnesia] 400 mg/5 mL suspension 5 ml PO DAILY PRNRF: 0 clonazepam [Klonopin] 1 mg tablet 0.5 mg PO HS Qty: 30 RF: 0 multivitamin [One Daily] 1 EACH tablet 1 ea PO DAILY RF: 0 clotrimazole [Lotrimin AF (clotrimazole)] 24 GM cream 24 gm Topical PRN Qty: 1 RF: 3 pravastatin 40 mg tablet 40 mg PO DAILY Qty: 90 RF: 3 bismuth subsalicylate [Pepto-Bismol] 262 mg/15 mL Suspension 262 mg PO DAILY PRNRF: 0 pantoprazole [Protonix] 40 mg tablet,delayed release (DR/EC) 40 mg PO BID Qty: 60 RF: 12 aspirin 81 mg tablet,delayed release (DR/EC) 81 mg PO DAILY RF: 0 Discharge Instructions Additional Instructions: Care after Gallbladder Surgery -You should walk frequently, gradually, increasing the distance. You may climb stairs, just go slowly. -You can take Advil 600mg 4 times a day with food for the first week for pain; you may take your prescription medication as prescribed-in addition to the Advil. Discontinue Advil if it hurts your stomach. Do not take Advil if you are intolerant to aspirin products or have stomach problems. ? Use an ice bag for the first 72 hours. This helps to decrease swelling, which causes pain. It is normal to be more sore/painful and swollen towards the end of the day and first thing in the morning. ? Gallbladder surgery can make you very nauseated; use Zofran for nausea, for the first 24 hours. The nausea generally stops after 24 hours. ? Use milk of magnesia or prune juice to prevent constipation (this is a particular side effect of pain medication). Do not allow yourself to become constipated. ? Avoid fatty or greasy foods; introduce these slowly, with care, after about 1 month. Follow the low-fat diet sheet that will be given to you at the office or hospital. ? Start out eating very small, bland amounts of food. Do not take pain pills on an empty stomach. - You can remove the Band-Aids and take a shower 24 hours after surgery. There will be some narrow white strips of tape across your incisions (under the Band-Aids). DO NOT REMOVE THESE. It is all right if they get wet. They will be removed in the doctor?s office. ? Do not go swimming or sit in a hot tube for two weeks. ? There are no stitches to remove. ? Do not drive your car x72hrs and then only if you have no pain and can move freely. Do not drive if you are taking pain narcotic pain medications. ? You may resume sexual activity whenever pain and soreness subside, usually in 2 weeks. ? Do no lift anything over 5 lbs. for the first 10 days. Minimize strenuous activity for the next two weeks. ? You may return to work in one week, or when you feel able, provided you do not have to do any heavy lifting or prolonged standing. ? You should return to Dr. Love?s office for a post-op appointment about one week after surgery. Please call the Surgical Clinic at: [phone] to schedule an appointment. My Medications for pain and nausea are: ibuprofen and ultram and zofran When to Call the Office: ? If the incision becomes red or swollen, or there is more than a little jaimie warren from it. ? If you develop a temperature higher than 100.5 F. ? If your eyes turn yellow ? Vomiting and can?t keep fluids down Activity:: se above Remove Dressings/Wound Care:: 24 hours Shower/Bathe:: 24 hours Activity:: see above Equipment/Supplies:: No Equipment Needed Diet:: low fat x 2 weeks
[2020-04-30] MEDS: traMADol 50 MG TAB PO (13:03)
== END 2020-04-30 14:03 ==
PROVIDERS: PCP Emergency Medicine; Visit Provider Surgery
PROC: 0FT44ZZ Resection of Gallbladder, Percutaneous Endoscopic Approach (ICD-10-PCS; CPT 47562; principal; 2020-04-30 09:45)
DX: K80.10 Calculus of gallbladder with chronic cholecystitis without obstruction (principal); I10 Essential (primary) hypertension; E78.5 Hyperlipidemia, unspecified; I48.0 Paroxysmal atrial fibrillation
CPT/HCPCS: 47562; 88304; J0690; J1100; J2001; J2405; J2704

== ENCOUNTER → 2020-05-09 15:11 | Outpatient (BNVA) | payer MEDICARE, SELFPAY | PROVIDERS: PCP Emergency Medicine; Referring Provider Emergency Medicine; Visit Provider Surgery | DX: Z48.815 Encounter for surgical aftercare following surgery on the digestive system (principal); Z90.49 Acquired absence of other specified parts of digestive tract ==

== ENCOUNTER 2020-05-13 13:09 | Inpatient (IN) | payer MEDICARE, SELFPAY ==
[2020-05-13] VITALS (42 sets, daily range): BP systolic 130–162; BP diastolic 59–81; PULSE 41–68; RESP 10–23; TEMP 35.5–36.9; O2SAT 97–99
--- NOTE | 2020-05-13 13:15 | DI.CT_ITS ---
EXAM: CT ABDOMEN PELVIS W CLINICAL HISTORY: abdominal pain, recent cholecystectomy. TECHNIQUE: Imaging Protocol: Axial computed tomography images with coronal and sagittal reformatted images were created and reviewed CONTRAST MATERIAL: Intravenous: Omnipaque 100cc Oral: None COMPARISON: CT CT ABDOMEN WO from 04/06/2020 FINDINGS: VISUALIZED LUNG BASES: There are mild increased markings in the lingular segment of the left lung. T here is a 4 millimeter pleural-based nodule in the posterior basal segment of the right lower lobe. There are no pleural effusions. ABDOMEN: There is no ascites. LIVER/biliary:: There are surgical clips in the gallbladder fossa. Small amount of fluid is noted in this area. There is also subtle area of hypodensity in the right hepatic lobe evident on this contr ast infused study (series 4/images 30-36). The CBD is not dilated. Some air is seen with in intrahe patic ducts. PANCREAS: No evidence of pancreatic mass nor dilatation of the pancreatic duct. SPLEEN: Spleen size is upper normal. Splenic granulomas noted. The splenic and portal veins are pat ent. ADRENALS: There are no significant adrenal masses. KIDNEYS: There are calculi in both kidneys, nonobstructive. There is no hydronephrosis nor hydrouret er. There are renal cysts bilaterally. The largest is in the inferior pole of the left kidney and m easures 5.7 x 4.6 cm. Smaller cyst higher up the left kidney measures 2 centimetres and a cyst in th e lateral cortex of the right kidney measures 1.5 centimetres. There are no solid renal masses evide nt. ABDOMINAL AORTA: Abdominal aorta is not enlarged. LYMPH NODES:There is no retroperitineal nor paraaortic adenopathy. ABDOMINAL WALL/GI: There is a left-sided fat containing inguinal hernia. No bowel obstruction. No b owel obstruction. PELVIS: GI: No evidence of appendicitis.No evidence of sigmoid diverticulitis. LYMPH NODES: There is no intrapelvic nor inguinal adenopathy. REPRODUCTIVE: Prostate gland is significantly enlarged and indents the bladder base. Bladder is not significantly distended URINARY BLADDER: No calculi nor obvious masses evident OSSEOUS: No significant osseous lesions. IMPRESSION: 1. Compared to the prior noninfused CT scan of April 06, 2020 there has been interval cholecystecto my. However, there is the gallbladder fossa which may be an early abscess, despite absence of gas bu bbles therein. This collection measures approximately 4.5 x 1.5 cm. In addition, there is a subtle area of adjacent hypodensity in the right hepatic lobe which is possibly significant with respect to infectious etiology.. There is also some air within intrahepatic ducts evident. 2. Bilateral nephrolithiasis, nonobstructive. In addition, there are bilateral renal cysts, the larg est being in the inferior pole of the left kidney measuring 5.7 cm. There are no solid renal masses. 3. There is a left inguinal hernia which contains fat. No bowel loops therein. No bowel obstruction . 4. Prostate gland is significantly enlarged. Urinary bladder is not distended Discussed by phone with ER provider. RADIATION DOSE DELIVERED: 1,167.21mGy.cm Total DLP DATA REPOSITORY: All CT scans at this facility are submitted to the National Radiology Data Registry (NRDR) Dose Index Registry (DIR) with the [employer] (ACR). RADIATION OPTIMIZATION: All CT scans at this facility use at least one of these dose optimization te chniques: automated exposure control; mA and/or kV adjustment per patient size (includes targeted exa ms where dose is matched to clinical indication); or iterative reconstruction.
--- NOTE | 2020-05-13 13:15 | RT.EKG_ITS ---
APPROVED REPORT Exam: Resting ECG Patient Location: E HR:54 bpm ECG Measurements Heart Rate 54 AXIS NV 145 P 69 QRSd 113 QRS 7 QT 457 T 3 QTc 425 Conclusion Sinus bradycardia...rate< 60 Atrial premature complex...SV complex w/ short R-R interval no STEMI, non-diagnostic EKG I have reviewed and interpreted ECG and agree with software generated interpretation.
[2020-05-13 13:33] LABS: Lactate 1.3 mmol/L (0.6-1.4)
[2020-05-13 13:39] LABS: Abs Immature Grans 0.02 10^3/uL (0.0-0.06); Absolute Basophil Count 0.05 10^3/uL (0.0-0.2); Absolute Eosinophil Count 0.24 10^3/uL (0.0-0.7); Absolute Monocyte Count 0.44 10^3/uL (0.1-0.8); Absolute Neutrophil Count 3.78 10^3/uL (1.2-6.7); Basophils % 0.9; Eosinophils % 4.3; HCT 45.6 % (40.0-50.0); HGB 14.7 g/dL (13.5-17.5); Immature Grans % 0.4; Lymphocytes % 19.5; MCH 29.7 pg (27.0-33.0); MCHC 32.2 % (32.0-36.0); MCV 92.1 fL (80-95); MPV 10.3 fL (8.0-11.0); Monocytes % 7.8; Neutrophils % 67.1; Nucleated RBC 0 %; Platelet Count 190 10^3/uL (130-400); RBC 4.95 10^6/uL (4.36-5.78); RDW-SD 47.7 fL; WBC 5.63 10^3/uL (4.4-10.8)
--- NOTE | 2020-05-13 13:44 | W.ED.GENAD ---
Discharge Plan Discharge Details Chief Complaint: Abd Prob Admit Date/Time: 05/13/20 17:35 Admit Provider: Tracie Love Attending Provider: Tracie Love Primary Care Provider: Adam Felix ED Provider: Pamela Molina Discharge Data Discharge Date/Time-TO BE ENTERED AT DEPARTURE: 05/13/20 18:13 Medical Decision Making <KRZYSZTOF Espinoza - Last Filed: 05/15/20 16:18> Discussed with Dr. Millie Pinto, surgery and she would like patient to be transferred to [facility] given possible abscess on CT scan postoperatively, I did contact [facility] however they do not currently have capacity to take the patient Dr. Gil, surgery will admit the patient to her service and patient will be transferred at earliest ability He remains hemodynamically stable Blood cultures and Zosyn were initiated Patient agreeable to admission at this time CT results were discussed with Dr. Husain, radiology Lactate negative, I have a suspicion for pulmonary embolism, no tachypnea, chest pain, hypoxia, or shortness of breath No evidence of complication. Differential Diagnosis Differential Diagnosis: Postop abscess, postoperative pain, constipation, pulmonary embolism Medical Records Medical records reviewed: Yes I reviewed the patient's medical records. Lab Data Lab results reviewed: Yes I reviewed the patient's lab results. <KRZYSZTOF Martínez - Last Filed: 05/13/20 18:13> This patient was going to be signed out to me by my colleague KRZYSZTOF Molina; however, patient disposition made prior to any official handoff. I has no participation in the patient's care here in the ER. HPI <KRZYSZTOF Espinoza - Last Filed: 05/15/20 16:18> This 69 year-old male with history of coronary angioplasty, palpitations, atypical chest pain, pleurodynia, gastritis, gallstones, and hypertension presents with right upper quadrant pain persistent intermittently since surgery. Patient is status post lap ashley which was performed on [address] Merlos, surgery. Patient states he has had temp all below 100.4 since the event occurred. He denies any nausea or vomiting. He denies chest pain or shortness of breath. He denies any chills. He denies any urinary symptoms. Denies known exacerbating or alleviating factors. General Date/Time Provider Initiated Documentation: 05/13/20 13:15. Related Data Home Medications Medication Instructions Recorded Confirmed multivitamin [One Daily] 1 ea PO DAILY 06/07/12 05/13/20 clotrimazole [Lotrimin AF 24 gm TOPICAL PRN #1 script 05/05/17 05/13/20 (clotrimazole)] pravastatin 40 mg tablet 40 mg PO DAILY #90 tab-cap 02/26/20 05/13/20 trazodone 50 mg tablet 25 mg PO DAILY #30 tab 02/28/20 05/13/20 pantoprazole [Protonix] 40 mg PO BID #60 tab 03/15/20 05/13/20 magnesium hydroxide 400 mg/5 mL 5 ml PO DAILY PRN 04/11/20 05/13/20 oral suspension aspirin 81 mg PO DAILY 04/29/20 05/13/20 ibuprofen 600 mg PO Q6H PRN #90 tab 04/30/20 05/13/20 clonazepam 1 mg tablet 0.5 mg PO HS #30 tab 05/01/20 05/13/20 Previous Rx's Medication Instructions Recorded clotrimazole [Lotrimin AF 24 gm TOPICAL PRN #1 script 05/05/17 (clotrimazole)] pravastatin 40 mg tablet 40 mg PO DAILY #90 tab-cap 02/26/20 trazodone 50 mg tablet 25 mg PO DAILY #30 tab 02/28/20 pantoprazole [Protonix] 40 mg PO BID #60 tab 03/15/20 ibuprofen 600 mg PO Q6H PRN #90 tab 04/30/20 clonazepam 1 mg tablet 0.5 mg PO HS #30 tab 05/01/20 Allergies Allergy/AdvReac Type Severity Reaction Status Date / Time atenolol AdvReac Unknown hypotension Verified 05/09/20 15:15 General Stated Complaint: Abd Prob RYAN: 3 <KRZYSZTOF Martínez - Last Filed: 05/13/20 18:13> This 69 year-old male with history of coronary angioplasty, palpitations, atypical chest pain, pleurodynia, gastritis, gallstones, and hypertension presents with right upper quadrant pain persistent intermittently since surgery. Patient is status post lap ashley which was performed on [address] Merlos, surgery. Patient states he has had temp all below 100.4 since the event occurred. He denies any nausea or vomiting. He denies chest pain or shortness of breath. He denies any chills. He denies any urinary symptoms. Denies known exacerbating or alleviating factors. Review of Systems <KRZYSZTOF Espinoza - Last Filed: 05/15/20 16:18> Narrative: Review of systems negative x7 aside from where indicated in HPI PFSH <KRZYSZTOF Espinoza - Last Filed: 05/15/20 16:18> Medical History Abdominal pain Actinic keratosis Anxiety and depression Atrial flutter Pt. 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 WANG 06/21/17 DR. SULTANA Surgical History Angioplasty cardiac ablation unsuccessful 2011 Colonoscopy - IV Sedation 01/20/13 Colonoscopy - MAC (06/21/17) EGD - IV Sedation 1999, 2004 History of cholecystectomy Repair, Tendon or Muscle left elbow Status post cataract extraction and insertion of intraocular lens of left eye (05/23/18) Status post cataract extraction and insertion of intraocular lens of right eye (06/06/18) Family History Mother , 95 Dementia Father , 65 Stomach cancer Sister Diabetes Brother Rheumatoid arthritis Sister No problems noted. Sister No problems noted. Maternal Aunt Dementia Brother No problems noted. Social History Smoking/Tobacco Use Status: Former Tobacco Use Quit Date: 03/01/77 Tobacco: How many years used: 6 Second Hand Exposure: Yes Smoking risk assessment performed?: Yes Alcohol Intake: former Drug use: Never Substance use type: does not use Caregiver/Support person: No Household members: family Housing: house Pets and animals: No Sexually active: No Do you think of yourself as: straight/heterosexual Current gender identity: male What is your relationship status?: never How often do you talk on the phone with friends or family?: three or more times per week How often do you get together with friends or relatives?: three or more times per week How often do you attend faith or buddhist services?: decline to answer Do you belong to any clubs or organized social groups?: no Panel score (0-1 are the most socially isolated patients): 1 What type of physical activity do you participate in: walking Duration: 30-45 minutes/day Frequency: 1-2 times per week Any/Cheondoism: None Do you feel safe at home: Yes Do you feel safe in your relationship?: Yes Exam <KRZYSZTOF Espinoza - Last Filed: 05/15/20 16:18> Const General: cooperative and no acute distress HENMT Other: Moist mucous membranes Chest Chest: normal inspection of the chest Resp Effort & Inspection: normal respiratory effort Auscultation: clear to auscultation bilaterally Cardio Rate: regular rate Rhythm: regular rhythm GI Inspection: normal to inspection Auscultation: normal bowel sounds Other: Well-healing and approximated laparoscopic sites, no erythema, bowel sounds intact Skin General skin exam: no rashes or lesions noted Neuro General: patient alert and patient oriented x3 Extrem Other: No tenderness or swelling Course <KRZYSZTOF Espinoza - Last Filed: 05/15/20 16:18> Vital Signs Vital signs: Vital Signs Temperature 36.5 C 05/13/20 13:17 Pulse 58 L 05/13/20 13:17 Respiratory Rate 19 05/13/20 13:17 Blood Pressure 149/67 H 05/13/20 13:17 Pulse Oximetry 98 05/13/20 13:17 Temperature 36.5 C 05/13/20 13:17 Temperature Source Temporal Artery Scan 05/13/20 13:17 Pulse 49 L 05/13/20 13:32 Pulse 50 L 05/13/20 13:33 Respiratory Rate 21 05/13/20 13:33 Respiratory Effort Non-Labored 05/13/20 13:21 Blood Pressure 132/63 05/13/20 13:32 Blood Pressure Mean 80 05/13/20 13:32 Blood Pressure Position Supine 05/13/20 13:17 Pulse Oximetry 98 05/13/20 13:33 Oxygen Delivery Method Room Air 05/13/20 13:17 Oxygen Flow Rate 0 05/13/20 13:17 Pain Level 3 05/13/20 13:17 Lab/Test Results Lab/Test Results: Laboratory Tests Range/Units 05/13/20 13:25 VBG Lactate (0.6-1.4) mmol/L 1.3
[2020-05-13 13:51] LABS: ALT 29 U/L (16-63); AST 17 U/L (15-37); Alkaline Phosphatase 107 U/L (46-116); Anion Gap 6.4 mmol/L (3-11); BUN 10 mg/dL (7-18); Bilirubin, Total 0.6 mg/dL (0.2-1.0); CO2 28.6 mmol/L (21.0-32.0); CREATININE 1.1 mg/dL (0.70-1.30); Calcium 9.9 mg/dL (8.5-10.1); Chloride 107 mmol/L (98-107); Glucose 79 mg/dL (74-106); Lipase 103 U/L (73-393); Magnesium 1.9 mg/dL (1.8-2.4); Potassium 3.5 mmol/L (3.5-5.1); Sodium 142 mmol/L (136-145); Total Protein 6.9 g/dL (6.4-8.2); Troponin I < 0.05 ng/mL (<0.06)
[2020-05-13] MEDS: Omnipaque 350 MG/ML 100 ML BTL IJ (15:22)
--- NOTE | 2020-05-13 16:30 | RT.EKG_ITS ---
APPROVED REPORT Exam: Resting ECG Patient Location: E HR:51 bpm ECG Measurements Heart Rate 51 AXIS LA 167 P 43 QRSd 111 QRS 4 QT 471 T 3 QTc 433 Conclusion Sinus bradycardia...rate< 60 Physician: No stemi. I have reviewed and interpreted ECG and agree with software generated interpretation. Otherwise normal ECG
[2020-05-13 17:09] LABS: Troponin I < 0.05 ng/mL (<0.06)
--- NOTE | 2020-05-13 17:55 | HPE_ITS ---
Date of service: 05/13/20 Time of Service: 17:55 Assessment and Plan Assessment and plan (1) Gallbladder abscess: Status: Acute Assessment and plan: Patient started complaining of increasing pain and fe rudi and chills. He was sent to the ED today. ER does show for centimeter abscess in the gallbladder fossa. There is no one from IR at [facility] that can review his films and or schedule percutaneous CT-guided drain. I will contact [facility] in the morning hopefully we can get this scheduled for Wednesday but most likely will have to be Wednesday. We will start him on antibiotics. And continue supportive care. We will keep him n.p.o. and off of blood thinners for possible procedure tomorrow History of Present Illness Consults Consult date: 05/13/20 Narrative: Mr. Fraire is a pleasant 69-year-old male who is well-known to me. He had a lap ashley 04/30. He did rec eive antibiotics prior to the case. It was uncomplicated surgery and he went home the same day. He had to 2 episodes of significant cholelithiasis in March. He actually passed a gallstone in April and had to have a ERCP with a sphincterotomy. He has does not have a stent in place. Postop he was doing well I saw him in clinic on 05/09 and he however was having no pain no fever no diarrhea no other complications. On Wednesday 05/10 he started having some increased pain and fevers he took a some ibuprofen and felt good until Wednesday night when he started having significant right upper quadrant pain and fevers up to 100.5. He was sent to the ER where he had a CT which did show: Compared to the prior noninfused CT scan of April 06, 2020 there has been interval cholecystectomy. However, there is the gallbladder fossa which may be an early abscess, despite absence of gas bubbles therein. This collection measures approximately 4.5 x 1.5 cm. In addition, there is a subtle area of adjacent hypodensity in the right hepatic lobe which is possibly significant with respect to infectious etiology.. There is also some air within intrahepatic ducts evident. I did call the transfer specialist at [facility]. The interventional radiology team has gone home for the day and is not available. I will need to talk to somebody in the a.m. From the IR department. Patient will be admitted to the hospital and started on Zosyn and kept n.p.o. n.p.o. after midnight for possible CT-guided percutaneous drain placement tomorrow as down and back procedure to [facility] and [facility]. Continue supportive care He is currently not septic Patient is actually concerned because they had noticed some bradycardia while he was in the ED. We will keep him on telemetry. Possible echo as outpatient Review of Systems All systems reviewed & are unremarkable except as noted in HPI and below [facility] Medical History Abdominal pain Actinic keratosis Anxiety and depression Atrial flutter Pt. 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 WANG 06/21/17 DR. SULTANA Surgical History Angioplasty cardiac ablation unsuccessful 2011 Colonoscopy - IV Sedation 01/20/13 Colonoscopy - MAC (06/21/17) EGD - IV Sedation 1999, 2004 History of cholecystectomy Repair, Tendon or Muscle left elbow Status post cataract extraction and insertion of intraocular lens of left eye (05/23/18) Status post cataract extraction and insertion of intraocular lens of right eye (06/06/18) Family History Mother , 95 Dementia Father , 65 Stomach cancer Sister Diabetes Brother Rheumatoid arthritis Sister No problems noted. Sister No problems noted. Maternal Aunt Dementia Brother No problems noted. Social History Smoking/Tobacco Use Status: Former Tobacco Use Quit Date: 03/01/77 Tobacco: How many years used: 6 Second Hand Exposure: Yes Smoking risk assessment performed?: Yes Alcohol Intake: former Drug use: Never Substance use type: does not use Caregiver/Support person: No Household members: family Housing: house Pets and animals: No Sexually active: No Do you think of yourself as: straight/heterosexual Current gender identity: male What is your relationship status?: never How often do you talk on the phone with friends or family?: three or more times per week How often do you get together with friends or relatives?: three or more times per week How often do you attend druze or evangelical services?: decline to answer Do you belong to any clubs or organized social groups?: no Panel score (0-1 are the most socially isolated patients): 1 What type of physical activity do you participate in: walking Duration: 30-45 minutes/day Frequency: 1-2 times per week Any/Christianity: None Do you feel safe at home: Yes Do you feel safe in your relationship?: Yes Meds Home Medications and Allergies Allergies Allergy/AdvReac Type Severity Reaction Status Date / Time atenolol AdvReac Unknown hypotension Verified 05/09/20 15:15 Home Medications Medication Instructions Recorded Confirmed Type multivitamin [One Daily] 1 ea PO DAILY 06/07/12 05/13/20 History clotrimazole [Lotrimin AF 24 gm TOPICAL PRN #1 script 05/05/17 05/13/20 Rx (clotrimazole)] pravastatin 40 mg tablet 40 mg PO DAILY #90 tab-cap 02/26/20 05/13/20 Rx trazodone 50 mg tablet 25 mg PO DAILY #30 tab 02/28/20 05/13/20 Rx pantoprazole [Protonix] 40 mg PO BID #60 tab 03/15/20 05/13/20 Rx magnesium hydroxide 400 mg/5 mL 5 ml PO DAILY PRN 04/11/20 05/13/20 History oral suspension aspirin 81 mg PO DAILY 04/29/20 05/13/20 History ibuprofen 600 mg PO Q6H PRN #90 tab 04/30/20 05/13/20 Rx clonazepam 1 mg tablet 0.5 mg PO HS #30 tab 05/01/20 05/13/20 Rx Exam Const General: cooperative, healthy appearing, comfortable, no acute distress and well groomed Nutritional Appearance: well nourished Orientation: alert, awake and oriented x3 Resp Effort & Inspection: normal respiratory effort and able to speak in complete sentences Auscultation: clear to auscultation bilaterally Cardio Rate: regular rate Rhythm: regular rhythm GI Inspection: normal to inspection, non-distended and incision (Healing nicely and show no infection) Palpation: soft, no hernias and tender in the RUQ Extrem General: no pedal edema Results Labs Result diagrams: 05/13/20 13:25 05/13/20 13:25 Labs: Laboratory Results - last 24 hr 05/13/20 05/13/20 05/13/20 13:25 13:25 13:25 WBC 5.63 RBC 4.95 Hgb 14.7 Hct 45.6 MCV 92.1 MCH 29.7 MCHC 32.2 RDW 14.0 Plt Count 190 MPV 10.3 Immature Gran % 0.4 Neutrophils % 67.1 Lymphocytes % 19.5 Monocytes % 7.8 Eosinophils % 4.3 Basophils % 0.9 Nucleated RBC % 0 Absolute Neutrophils 3.78 Absolute Lymphocytes 1.10 L Absolute Monocytes 0.44 Absolute Eosinophils 0.24 Absolute Basophils 0.05 VBG Lactate 1.3 Sodium 142 Potassium 3.5 Chloride 107 Carbon Dioxide 28.6 Anion Gap 6.4 BUN 10 Creatinine 1.1 Estimated GFR/1.73 m2 >= 60.00 Glucose 79 Calcium 9.9 Magnesium 1.9 Total Bilirubin 0.6 AST 17 ALT 29 Alkaline Phosphatase 107 Troponin I < 0.05 Total Protein 6.9 Albumin 3.0 L Lipase 103 05/13/20 16:36 WBC RBC Hgb Hct MCV MCH MCHC RDW Plt Count MPV Immature Gran % Neutrophils % Lymphocytes % Monocytes % Eosinophils % Basophils % Nucleated RBC % Absolute Neutrophils Absolute Lymphocytes Absolute Monocytes Absolute Eosinophils Absolute Basophils VBG Lactate Sodium Potassium Chloride Carbon Dioxide Anion Gap BUN Creatinine Estimated GFR/1.73 m2 Glucose Calcium Magnesium Total Bilirubin AST ALT Alkaline Phosphatase Troponin I < 0.05 Total Protein Albumin Lipase Last Vital Signs Temp 36.5 C 05/13/20 13:17 Pulse 44 L 05/13/20 15:01 Resp 16 05/13/20 15:01 BP 146/61 H 05/13/20 15:01 Pulse Ox 98 05/13/20 15:01 COVID-19 Screening Have you, or household traveled for leisure in last 14 days?: No Had IN PERSON contact w/suspected or confirmed C-19 person: No
[2020-05-13 18:06] LABS: Source Nasal/Nares
[2020-05-13] MEDS: PIPERACILLIN/TAZO 4.5 GM in Normal Saline 100 ML IVPB (18:10)
[2020-05-13 19:03] LABS: COVID-19 PCR Negative (Negative)
[2020-05-13] MEDS: Pantoprazole 40 MG TABCR PO (20:28)
[2020-05-13] MEDS: Normal Saline Flush 10 ML SYR IVP (20:28)
[2020-05-13] MEDS: Lactated Ringers 1,000 ML 125 ML IV (20:28)
[2020-05-13] MEDS: clonazePAM 1 MG TAB 0.5 MG PO (21:26)
[2020-05-14] VITALS (9 sets, daily range): BP systolic 120–147; BP diastolic 58–70; PULSE 45–71; RESP 17–20; TEMP 36.2–37.1; O2SAT 95–98
[2020-05-14] MEDS: Normal Saline 500 ML 30 ML IV (01:46)
[2020-05-14] MEDS: PIPERACILLIN/TAZO 4.5 GM in Normal Saline 100 ML IVPB ×3 (01:46→18:28)
[2020-05-14] MEDS: Lactated Ringers 1,000 ML 125 ML IV ×2 (04:13→12:30)
[2020-05-14 07:31] LABS: C-Reactive Protein 1.38 mg/dL (0.0-0.3)
[2020-05-14] MEDS: Pantoprazole 40 MG VIAL IVP (08:15)
[2020-05-14] MEDS: Normal Saline Flush 10 ML SYR IVP (08:16)
--- NOTE | 2020-05-14 11:17 | PDOC.CMIN ---
- If Service Date Differs Date of service: 05/14/20 Time of Service: 11:17 Care Management Initial Assess REASON FOR HOSPITALIZATION:: Gallbladder abscess PAST MEDICAL HISTORY/PAST SURGICAL HISTORY:: Medical History . Abdominal pain. Actinic keratosis. Anxiety and depression. Atrial flutter. Pt. states it comes and goes, I've had it worked up, and the chest discomfort I was told was indigestion. Chronic insomnia. Chronic right hip pain (07/04/13). Colitis. mild-scope 2003. Constipation. Dysphagia, pharyngoesophageal (09/03/16). Fatty liver. Gastritis (01/29/04). GERD (gastroesophageal reflux disease). History of tobacco use. 1969. 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 Hyperlipidemia. Hypertension. Kidney stones. 1986, 2002. Low back pain. Malignant melanoma of skin of face. Paroxysmal atrial fibrillation (07/16/15). Prostatitis. Right hydrocele. Rosacea. Tubular adenoma. 01/20/13 DR. WANG. 06/21/17 DR. SULTANA. Surgical History . Angioplasty. cardiac ablation. unsuccessful 2011. Colonoscopy - IV Sedation. 01/20/13. Colonoscopy - MAC (06/21/17). EGD - IV Sedation. 1999, 2004. History of cholecystectomy. Repair, Tendon or Muscle. left elbow. Status post cataract extraction and insertion of intraocular lens of left eye (05/23/18). Status post cataract extraction and insertion of intraocular lens of right eye (06/06/18) PREVIOUS FUNCTIONAL STATUS/SOCIAL/FAMILY SUPPORTS:: Jermaine lives alone in a senior housing apartment in [place]. 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 He names his two sisters, Melita and Denice, and his brother, Quintno, as supports. Jermaine drives and is independent with his ADLs at baseline. CURRENT FUNCTIONAL STATUS:: Kendrick was sitting up in a chair when CM met with him. He was pleasant and engaged readily with CM. Kendrick expressed frustration that he has not seen the surgeon today and is not aware of what the plan is. Last night he was told he would be going to [facility] for an abscess drainage in , but then today was told by nursing that he will not be going today. Nursing has left a message with the surgeon that he would like to speak with her. ADVANCE DIRECTIVES:: on file but no [facility] named Has patient been provided with info about the portal/API?: Yes Did the patient sign up for the portal?: No CODE STATUS:: Full Code INSURANCE COVERAGE / FINANCIAL ISSUES:: Medicare CURRENT HOME/COMMUNITY SERVICES/EQUIPMENT:: none PRIMARY CARE PHYSICIAN:: Adam Felix MD POTENTIAL DISCHARGE NEEDS:: Follow up with PCP and discharge plan of care PATIENT/FAMILY EDUCATION NEEDS:: Review of discharge plan, limitations, follow up plan, Ask Me Three TRANSPORTATION:: via privare vehicle with family PLAN:: Kendrick will likely be discharged home with no new services. He will follow up with his community providers and discharge plan of care. He will transport home with a friend. CM will continue to support patient and family and assess for discharge planning concerns.
--- NOTE | 2020-05-14 13:27 | NUR.NOTE ---
Nursing Note: sitting with pt to keep him calm and to just keep a eye on him, no 15 documentation
--- NOTE | 2020-05-14 16:59 | CHAPLAIN ---
Jermaine was very pleasant. He was up in his chair, and said he feels comfortable. He was frustrated that he hadn't seen a doctor yet, but other than that, things are going well, he said.
--- NOTE | 2020-05-14 18:12 | W.PM.PROGNOT ---
Date of Service Date of service: 05/14/20 Time of Service: 18:12 Assessment and Plan Assessment and plan (1) Gallbladder abscess: Status: Acute (2) S/P laparoscopic cholecystectomy: Status: Acute Assessment and plan: I did review the patient's CT scans with body imaging at [facility] this a.m. They do not feel that it is an abscess and I do not feel that is large enough to warrant attempts at drain placement we will continue with IV antibiotics and supportive care. We will reimage the fluid collection another 24 hours to see if there is been any significant change. Most likely patient can be discharged in 24 hours continue supportive care. Clinically he has no pain, no fever and no white count today. He has not not had a bowel movement since Wednesday. He does not want any cathartics at this time. Probiotic added. Continue I-S. Continue walking. 5 minutes is spent with the patient today in consultation with [facility], and reviewing his CT scans, reviewing his labs including his CBC and his CRP, and physical exam and discussing his care plan, discussing the care with nursing, and in necessary documentation. This document was created using [employer]. Subjective Subjective Interval history since last seen: i did review the pt CT w/ [facility] body imagining this am. They do not feel this is amenable to drainage and is worth the M/M. We will cotninue to treat conservatively w/ abx. Pt has no fevers. no abdominal pain. He ate a regular tray and has some mild nausea. no headaches. No CP or SOB. no productive cough. no dysuria. no leg pain or swelling. Exam Const Other: No fevers within the last 24 hours. HENMT Other: No jaundice and no thrush Resp Effort & Inspection: normal respiratory effort and able to speak in complete sentences Auscultation: clear to auscultation bilaterally Cardio Rate: regular rate Rhythm: regular rhythm GI Inspection: incision (Clean dry and intact and healing nicely) Palpation: soft and tender (minimal at best.) Auscultation: normal bowel sounds Extrem General: no pedal edema and no calf tenderness Objective Last Vital Signs Temp 36.5 C 05/14/20 15:40 Pulse 66 05/14/20 15:40 Resp 17 05/14/20 15:40 BP 127/68 05/14/20 15:40 Pulse Ox 98 05/14/20 15:40 Laboratory Results - last 24 hr 05/13/20 05/13/20 05/14/20 13:25 17:45 06:55 C-Reactive Protein 2.70 H 1.38 H SARS-CoV-2 (PCR) Negative
[2020-05-14] MEDS: traZODone 50 MG TAB 25 MG PO (21:27)
[2020-05-14] MEDS: clonazePAM 1 MG TAB 0.5 MG PO (21:27)
[2020-05-15] VITALS (7 sets, daily range): BP systolic 124–133; BP diastolic 63–72; PULSE 45–61; RESP 15–19; TEMP 36–37.1; O2SAT 95–98
[2020-05-15] MEDS: Normal Saline Flush 10 ML SYR IVP ×5 (01:26→20:28)
[2020-05-15] MEDS: PIPERACILLIN/TAZO 4.5 GM in Normal Saline 100 ML IVPB ×3 (01:26→17:51)
[2020-05-15] MEDS: Pantoprazole 40 MG VIAL IVP (08:16)
--- NOTE | 2020-05-15 10:29 | PHA.REVIEW ---
Pharmacy Admission Review - Admission Clinical Review (Last Reviewed 05/13/20 @ 19:10 by Tracie Love DO) Gallbladder abscess (Acute) S/P laparoscopic cholecystectomy (Acute) atenolol Adverse Reaction (Unknown, Verified 05/09/20 15:15) hypotension Height 6 ft 2 in Weight 88.9 kg POST-OP ABSCESS (laproscopic Choly on 04/30/20), Cholangitis - Comments Comments/Follow Ups: zero pain, Afebrile,Sinus Rodger on telemetry, no labs since admission (WNL). Repeat Abdominal/Pelvis CT 05/15/20 shows small amount ascities not needing drain placement. Regular diet, anticipate discharge possibly later today - Renal Dosing Renal Dosing: BUN 10 mg/dL (7-18) 05/13/20 13:25 Creatinine 1.1 mg/dL (0.70-1.30) 05/13/20 13:25 Medications needing adjustments: Reviewed (CrCl~72ml/min) - Anticoagulation Anticoagulation: Hgb 14.7 g/dL (13.5-17.5) 05/13/20 13:25 Hct 45.6 % (40.0-50.0) 05/13/20 13:25 Plt Count 190 10^3/uL (130-400) 05/13/20 13:25 Creatinine 1.1 mg/dL (0.70-1.30) 05/13/20 13:25 DVT Prohphylaxis: N/A Therapeutic Anticoagulation: N/A - Opiate Usage Evaluate Pain Scale/Pains Meds: N/A - Relevant Labs Sodium 142 mmol/L (136-145) 05/13/20 13:25 Potassium 3.5 mmol/L (3.5-5.1) 05/13/20 13:25 Chloride 107 mmol/L (98-107) 05/13/20 13:25 Magnesium 1.9 mg/dL (1.8-2.4) 05/13/20 13:25 C-Reactive Protein 1.38 mg/dL (0.0-0.3) H 05/14/20 06:55 Electrolytes, C-Reactive P, ESR: Reviewed (C-reactive protein is down from previous level) - DM Control DM Control: Glucose 79 mg/dL (74-106) 05/13/20 13:25 - Heart Failure/MO Heart Failure/MO: Troponin I < 0.05 ng/mL (<0.06) 05/13/20 16:36 - BP Control BP Control: Blood Pressure 127/68 Blood Pressure 130/72 Blood Pressure 120/68 - IV to PO Switch IV Medications: Reviewed (IV Antibiotics, IV Protonix, IV Ondansetron) - Home Meds Home Med List reviewed: Reviewed Relevent Home Meds Not ordered & why?: Pravastatin, OTC's not ordered at this time
--- NOTE | 2020-05-15 10:46 | W.PM.PROGNOT ---
Date of Service Date of service: 05/15/20 Time of Service: 10:46 Assessment and Plan Assessment and plan (1) Gallbladder abscess: Status: Acute (2) S/P laparoscopic cholecystectomy: Status: Acute Assessment and plan: Patient denies any abdominal pain. Tolerating regular diet. Activity as tolerated No BM since wednesday. Will start Colace and Miralax. CT scan today showed no change in fluid collection noted in the gallbladder fossa. Small amount of perihepatic ascities noted along with significant amount of fluid in the dependent aspect of the pelvis. P// Continue to monitor Subjective Subjective Interval history since last seen: Patient reports he is feeling okay today. He denies not having a BM since wednesday. He states he does not feel like he needs to have a BM. Denies any abdominal pain at this time. Denies Chest pain, SOB, fevers or chills. Exam Const General: cooperative, healthy appearing and comfortable Orientation: alert and oriented x3 Resp Effort & Inspection: normal respiratory effort, no audible wheezes and no cough GI Inspection: normal to inspection, distended and incision (healing well. Skin a fix in place) Palpation: soft, no guarding and nontender Objective Last Vital Signs Temp 36 C L 05/15/20 08:06 Pulse 53 L 05/15/20 08:06 Resp 18 05/15/20 08:06 BP 127/68 05/15/20 08:06 Pulse Ox 97 05/15/20 08:06
--- NOTE | 2020-05-15 10:52 | PDOC.CMPRO ---
- If Service Date Differs Date of service: 05/15/20 Time of Service: 10:52 Care Management Progress Note S/O:Brielle was siting up in bed when CM met with him. As usual he was pleasant and engaged readily with CM. He was very talkative and shared stories about his camp and the hunting and fishing that he enjoys. Kendrick stated that he is feeling better and is not experiencing any pain. He remains afebrile and his vital signs are stable. Kendrick had a CT scan today which did show that he has more fluid in his abdomen but again, is not having pain. Kendrick has been ambulating independently in the hallway. A: Kendrick is a 69 year old man admitted on 05/13/20 [facility] a post-operative abscess P: Kendrick will likely be discharged home with no new services. He will follow up with his community providers and discharge plan of care. He will transport home with a friend. CM will continue to support patient and family and assess for discharge planning concerns.
[2020-05-15] MEDS: Polyethylene Glycol 3350 17 GM PACKET PO (11:32)
--- NOTE | 2020-05-15 14:00 | DI.CT_ITS ---
EXAM: CT ABDOMEN PELVIS W CLINICAL HISTORY: f/u GB fossa abscess. TECHNIQUE: Imaging Protocol: Axial computed tomography images with coronal and sagittal reformatted images were created and reviewed CONTRAST MATERIAL: Intravenous: Omnipaque 100cc Oral: None COMPARISON: CT CT ABDOMEN PELVIS W from 05/13/2020 FINDINGS: VISUALIZED LUNG BASES: Mild benign-appearing increased markings. No pleural effusions.. ABDOMEN: LIVER: The appearance of the gallbladder fossa is unchanged from 2 days ago. In addition, there is a small amount of perihepatic ascites now evident, not previously present. In addition, there is ther e is now a moderate amount of fluid in the dependent aspect of the pelvis the previously described hurtado btle hypodense area in the right hepatic lobe is less evident on the present study. Previously descr ibed pneumobilia is also decreased. CBD is not dilated. There is no area-gas evident within the int rahepatic portal veins. GALLBLADDER/BILIARY: Surgically absent. As above. PANCREAS: No evidence of pancreatic mass nor dilatation of the pancreatic duct. SPLEEN: Spleen is not enlarged. No obvious intrasplenic lesions. Splenic and portal veins are paten t. ADRENALS: There are no significant adrenal masses. KIDNEYS:Bilateral nephrolithiasis again noted as well as again noted are the previously described cat ateral renal cysts, the largest being in the left kidney. There are no solid renal masses.. ABDOMINAL AORTA: Abdominal aorta is not enlarged. LYMPH NODES:There is no retroperitineal nor paraaortic adenopathy. ABDOMINAL WALL/GI: No evidence of significant anterior abdominal wall hernia. No bowel obstruction. PELVIS: GI: No evidence of appendicitis.No evidence of sigmoid diverticulitis. LYMPH NODES: There is no intrapelvic nor inguinal adenopathy. REPRODUCTIVE: Grossly enlarged prostate gland again noted. URINARY BLADDER: The urinary bladder is not distended. No obvious calculi. Small left-sided diverti culum measuring 1 centimeter. OSSEOUS: No significant osseous lesions. IMPRESSION: 1. Compared to the prior CT scan of 05/13/2020 the size of the fluid collection in the gallbladder fo ssa is unchanged but there is now a small amount of perihepatic ascites and there is significant amou nt of fluid now evident in the dependent aspect of the pelvis. Main considerations, given the recent surgical history here, are bile leak versus infectious, or a combination thereof. 2. Bilateral nephrolithiasis again noted as well as bilateral renal cysts. No hydronephrosis. 3. Grossly enlarged prostate gland. The urinary bladder is not distended. There appears to be a sma ll 1 centimeter diverticulum on the left side of the urinary bladder. 4. RADIATION DOSE DELIVERED: 1,065.88mGy.cm Total DLP DATA REPOSITORY: All CT scans at this facility are submitted to the National Radiology Data Registry (NRDR) Dose Index Registry (DIR) with the [employer] (ACR). RADIATION OPTIMIZATION: All CT scans at this facility use at least one of these dose optimization te chniques: automated exposure control; mA and/or kV adjustment per patient size (includes targeted exa ms where dose is matched to clinical indication); or iterative reconstruction.
[2020-05-15] MEDS: Acetaminophen 325 MG TAB 650 MG PO (20:28)
[2020-05-15] MEDS: traZODone 50 MG TAB 25 MG PO (21:29)
[2020-05-15] MEDS: clonazePAM 1 MG TAB 0.5 MG PO (21:56)
[2020-05-16] MEDS: Normal Saline 1,000 ML 80 ML IV (00:06)
[2020-05-16] MEDS: PIPERACILLIN/TAZO 4.5 GM in Normal Saline 100 ML IVPB ×2 (02:21→10:00)
[2020-05-16 06:55] LABS: Eosinophils % 5.8; HCT 41.8 % (40.0-50.0); HGB 14.1 g/dL (13.5-17.5); Lymphocytes % 19.6; MCH 30.5 pg (27.0-33.0); MCHC 33.7 % (32.0-36.0); MCV 90.3 fL (80-95); MPV 9.9 fL (8.0-11.0); Monocytes % 9.1; Neutrophils % 64.2; Platelet Count 177 10^3/uL (130-400); RBC 4.63 10^6/uL (4.36-5.78); RDW 13.9 % (11.8-14.1); RDW-SD 45.8 fL; WBC 5.71 10^3/uL (4.4-10.8)
[2020-05-16 06:56] LABS: Abs Immature Grans 0.02 10^3/uL (0.0-0.06); Absolute Basophil Count 0.05 10^3/uL (0.0-0.2); Absolute Eosinophil Count 0.33 10^3/uL (0.0-0.7); Absolute Lymphocyte Count 1.12 10^3/uL (1.2-3.4); Absolute Monocyte Count 0.52 10^3/uL (0.1-0.8); Absolute Neutrophil Count 3.67 10^3/uL (1.2-6.7); Basophils % 0.9; Immature Grans % 0.4; Nucleated RBC 0 %
[2020-05-16 07:00] VITALS: PULSE 50
[2020-05-16 07:15] LABS: ALT 20 U/L (16-63); AST 14 U/L (15-37); Albumin 2.6 g/dL (3.4-5.0); Alkaline Phosphatase 92 U/L (46-116); BUN 11 mg/dL (7-18); CREATININE 1.3 mg/dL (0.70-1.30); Calcium 9.5 mg/dL (8.5-10.1); Chloride 107 mmol/L (98-107); Estimated GFR 54.57 (mL/min/1.73m2); Glucose 89 mg/dL (74-106); Potassium 3.6 mmol/L (3.5-5.1); Sodium 142 mmol/L (136-145); Total Protein 6.2 g/dL (6.4-8.2)
[2020-05-16 07:35] VITALS: BP 133/64; PULSE 55; RESP 18; TEMP 36.8; O2SAT 95
[2020-05-16] MEDS: Pantoprazole 40 MG VIAL IVP (07:48)
[2020-05-16] MEDS: Normal Saline Flush 10 ML SYR IVP (07:49)
[2020-05-16 11:19] VITALS: BP 136/67; PULSE 55; RESP 18; TEMP 37; O2SAT 97
--- NOTE | 2020-05-16 13:30 | DI.NM_ITS ---
EXAM: NM HEPATOBILIARY SCAN GRP CLINICAL HISTORY: ? Bile leak. TECHNIQUE: Injected dose: 4.2 mCi Tc-99 mebrofenin COMPARISON: CT CT ABDOMEN PELVIS W from 05/15/2020 FINDINGS: There is normal uptake and excretion of radiopharmaceutical by the liver and activity is seen within the nondilated CBD at 8 minutes post injection. There is radiopharmaceutical in the duodenal C-loop also at 8 minutes and shortly thereafter in left upper quadrant jejunal loops.. There is no evidence of radiopharmaceutical extravasation to suggest a bile leak. IMPRESSION: 1. No evidence of bile leak. 2. No obstruction of the CBD. Findings discussed with the ordering physician following completion of the study 05/16/2020
[2020-05-16 15:43] VITALS: BP 155/71; PULSE 60; RESP 17; TEMP 36.8; O2SAT 95
[2020-05-16 15:58] VITALS: PULSE 56
--- NOTE | 2020-05-16 16:34 | CMPROGNOTE_ITS ---
Care Management Progress Note S/O: Brielle remains at [facility] post surgically being monitored closely due to post surgical complications. He was sitting up in bed, appeared calm, comfortable and relaxed. CM continues to follow. A: Kendrick is a 69 year old man admitted on 05/[facility] a post-operative abscess P: Kendrick will likely be discharged home with no new services. He will follow up with his community providers and discharge plan of care. He will transport home with a friend. CM will continue to support patient and family and assess for discharge planning concerns.
--- NOTE | 2020-05-16 17:32 | W.PM.DS.N ---
Date of service: 05/16/20 Time of Service: 17:32 DS: Diagnosis Discharge Diagnosis (1) Gallbladder abscess: Status: Acute (2) S/P laparoscopic cholecystectomy: Status: Acute Discharge Plan Disposition Patient Disposition: HOME Condition: Good Discharge Details Reason For Visit: POSTOP ABSCESS/SP LAP TRISTAN/CHOLANGITIS Admit Date/Time: 05/13/20 17:35 Admit Provider: Tracie Love Attending Provider: Tracie Love Primary Care Provider: Adam Felix Home Meds and New Rx's Prescriptions: New amoxicillin-pot clavulanate [Augmentin] 875-125 mg tablet 1 tab PO Q12H 5 Days Qty: 10 RF: 0 Continued trazodone 50 mg tablet 25 mg PO DAILY Qty: 30 RF: 2 magnesium hydroxide [Milk of Magnesia] 400 mg/5 mL suspension 5 ml PO DAILY PRNRF: 0 multivitamin [One Daily] 1 EACH tablet 1 ea PO DAILY RF: 0 clotrimazole [Lotrimin AF (clotrimazole)] 24 GM cream 24 gm Topical PRN Qty: 1 RF: 3 pravastatin 40 mg tablet 40 mg PO DAILY Qty: 90 RF: 3 clonazepam [Klonopin] 1 mg tablet 0.5 mg PO HS Qty: 30 RF: 0 pantoprazole [Protonix] 40 mg tablet,delayed release (DR/EC) 40 mg PO BID Qty: 60 RF: 12 aspirin 81 mg tablet,delayed release (DR/EC) 81 mg PO DAILY RF: 0 ibuprofen 600 mg tablet 600 mg PO Q6H PRNQty: 90 RF: 3 Discharge Instructions Additional Instructions: -no lifting over 20#'s -ok to shower -avoid pork. Otherwise diet as tolerated. -yogurt daily while on antibiotics -start antibiotics Wednesday am. Finish all. -F/u in surgery clinic on Wednesday. My office will call w/ an appt time on Wednesday am. Activity:: Activity as Tolerated Equipment/Supplies:: No Equipment Needed Diet:: Normal Diet DS: Summary Time Spent with Patient providing and/or coordinating discharge services: Less than 30 minutes Status at Discharge Functional status at discharge: independent ambulation Overall status at discharge: patient is back to baseline Mental Status: mental status grossly normal Speech and Movement: speech and movement normal Mood: congruent mood Affect: normal affect Exam Psych Mental Status: mental status grossly normal Speech and Movement: speech and movement normal Mood: congruent mood Affect: normal affect DS: Data Vitals/I&O Vitals and I&O: Vital Signs Temperature 36.8 C 05/16/20 15:43 Temperature Source Temporal Artery Scan 05/16/20 15:43 Pulse 56 L 05/16/20 15:58 Pulse Rhythm Regular 05/16/20 07:50 Pulse 55 L 05/13/20 17:50 Respiratory Rate 17 05/16/20 15:43 Respiratory Effort Non-Labored 05/16/20 07:50 Respiratory Depth Normal 05/16/20 07:50 Respiratory Pattern Normal 05/16/20 07:50 Blood Pressure 155/71 H 05/16/20 15:43 Blood Pressure Mean 93 05/13/20 17:46 Blood Pressure Position Supine 05/13/20 13:17 Pulse Oximetry 95 05/16/20 15:43 Oxygen Delivery Method Room Air 05/16/20 15:43 Oxygen Flow Rate 0 05/16/20 15:43 Pain Level 0 05/16/20 15:43 Intake & Output 05/15/20 05/16/20 05/16/20 23:59 11:59 23:59 Intake Total 320 / 680 130 / 1230 1100 / 1230 Output Total 300 / 1270 600 / 950 350 / 950 Balance 20 / -590 -470 / 280 750 / 280 Intake: IV 220 / 340 130 / 1230 1100 / 1230 Oral 100 / 340 Output: Urine 300 / 1270 600 / 950 350 / 950 Other: Urine Color Yellow Yellow Yellow Urine Appearance Cloudy Clear Clear Urine Odor Normal None Stool Size Large Voiding Methods Urinal Urinal Urinal Data Completed and Pending Labs on day of discharge: Labs from last 24 hours 05/16/20 05/16/20 06:45 06:45 WBC 5.71 RBC 4.63 Hgb 14.1 Hct 41.8 MCV 90.3 MCH 30.5 MCHC 33.7 RDW 13.9 Plt Count 177 MPV 9.9 Immature Gran % 0.4 Neutrophils % 64.2 Lymphocytes % 19.6 Monocytes % 9.1 Eosinophils % 5.8 Basophils % 0.9 Nucleated RBC % 0 Absolute Neutrophils 3.67 Absolute Lymphocytes 1.12 L Absolute Monocytes 0.52 Absolute Eosinophils 0.33 Absolute Basophils 0.05 Sodium 142 Potassium 3.6 Chloride 107 Carbon Dioxide 29.0 Anion Gap 6.0 BUN 11 Creatinine 1.3 Estimated GFR/1.73 m2 54.57 Glucose 89 Calcium 9.5 Total Bilirubin 1.0 AST 14 L ALT 20 Alkaline Phosphatase 92 Total Protein 6.2 L Albumin 2.6 L Preliminary micro results at discharge 05/13/20 17:35 Blood Culture - Preliminary Blood NO GROWTH 48 HOURS 05/13/20 17:35 Blood Culture - Preliminary Blood NO GROWTH 48 HOURS [facility] Medical History Abdominal pain Actinic keratosis Anxiety and depression Atrial flutter Pt. 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 WANG 06/21/17 DR. SULTANA Surgical History Angioplasty cardiac ablation unsuccessful 2011 Colonoscopy - IV Sedation 01/20/13 Colonoscopy - MAC (06/21/17) EGD - IV Sedation 1999, 2004 History of cholecystectomy Repair, Tendon or Muscle left elbow Status post cataract extraction and insertion of intraocular lens of left eye (05/23/18) Status post cataract extraction and insertion of intraocular lens of right eye (06/06/18) Family History Mother , 95 Dementia Father , 65 Stomach cancer Sister Diabetes Brother Rheumatoid arthritis Sister No problems noted. Sister No problems noted. Maternal Aunt Dementia Brother No problems noted. Social History Smoking/Tobacco Use Status: Former Tobacco Use Quit Date: 03/01/77 Tobacco: How many years used: 6 Second Hand Exposure: Yes Smoking risk assessment performed?: Yes Alcohol Intake: former Drug use: Never Substance use type: does not use Caregiver/Support person: No Household members: family Housing: house Pets and animals: No Sexually active: No Do you think of yourself as: straight/heterosexual Current gender identity: male What is your relationship status?: never How often do you talk on the phone with friends or family?: three or more times per week How often do you get together with friends or relatives?: three or more times per week How often do you attend orthodox or mandaeism services?: decline to answer Do you belong to any clubs or organized social groups?: no Panel score (0-1 are the most socially isolated patients): 1 What type of physical activity do you participate in: walking Duration: 30-45 minutes/day Frequency: 1-2 times per week Any/Quaker: None Do you feel safe at home: Yes Do you feel safe in your relationship?: Yes
--- NOTE | 2020-05-16 17:40 | PGE_ITS ---
Date of Service Date of service: 05/16/20 Time of Service: 17:40 Assessment and Plan Assessment and plan (1) S/P laparoscopic cholecystectomy: Status: Acute (2) Postoperative pain: Status: Acute Assessment and plan: Undetermined etiology of the pain and fevers. However at this point there is no signs of bile leak. There is no signs of infection. Patient will be discharged home on antibiotics and probiotics and continue with local wound care and will follow up myself in the office on Wednesday. Patient understood all discharge instructions and agrees with the plan. If he has any fevers or pain return to the emergency room Subjective Subjective Interval history since last seen: Patient is feeling good. He tolerated a regular diet this evening. Pt is doing well. no headaches. No CP or SOB. no productive cough. no dysuria. no leg pain or swelling. His bowel movements have been formed and with no blood. He is having no pain. No fevers or chills. I did review his with Dr. Young. There is no signs of extravasation or leakage. [facility] think the fluid collection was an abscess and was normal postoperative fluid. He has not had an elevated white count or CRP since he has been here. I do not know why he is having such severe pain and fever chills. I do not am unclear the etiology of the fluid collection on his follow-up CT. His albumin is 2.9 he has felt good since he has been in the hospital he has had no pain or fevers he really wants to go home. I am going to discharge him home at this point on p.o. Augmentin and follow-up in clinic on Wednesday. If he has any pain or fevers he should return to the emergency department Patient is in agreement with this plan Exam HENMT Other: No JVD. No eye pain or discharge. No mouth pain. No thrush. Resp Effort & Inspection: normal respiratory effort and able to speak in complete sentences Auscultation: clear to auscultation bilaterally Cardio Rate: regular rate Rhythm: regular rhythm GI Other: Incisions are clean dry and intact. He has no pain. No bruising. Good bowel sounds. Extrem General: no clubbing, cyanosis or edema Objective Last Vital Signs Temp 36.8 C 05/16/20 15:43 Pulse 56 L 05/16/20 15:58 Resp 17 05/16/20 15:43 BP 155/71 H 03/18/21 15:43 Pulse Ox 95 05/16/20 15:43 Laboratory Results - last 24 hr 05/16/20 05/16/20 06:45 06:45 WBC 5.71 RBC 4.63 Hgb 14.1 Hct 41.8 MCV 90.3 MCH 30.5 MCHC 33.7 RDW 13.9 Plt Count 177 MPV 9.9 Immature Gran % 0.4 Neutrophils % 64.2 Lymphocytes % 19.6 Monocytes % 9.1 Eosinophils % 5.8 Basophils % 0.9 Nucleated RBC % 0 Absolute Neutrophils 3.67 Absolute Lymphocytes 1.12 L Absolute Monocytes 0.52 Absolute Eosinophils 0.33 Absolute Basophils 0.05 Sodium 142 Potassium 3.6 Chloride 107 Carbon Dioxide 29.0 Anion Gap 6.0 BUN 11 Creatinine 1.3 Estimated GFR/1.73 m2 54.57 Glucose 89 Calcium 9.5 Total Bilirubin 1.0 AST 14 L ALT 20 Alkaline Phosphatase 92 Total Protein 6.2 L Albumin 2.6 L
== END 2020-05-16 18:33 | disposition home or self-care (01) | DRG 445 ==
LOC: ER 17:40 → MS 18:15
PROVIDERS: Surgery; Admitting Provider Surgery; Emergency Provider Physician Assistant; PCP Emergency Medicine; Visit Provider Surgery
DX: K81.0 Acute cholecystitis (principal); T81.43XA Infection following a procedure, organ and space surgical site, initial encounter; I48.92 Unspecified atrial flutter; G89.18 Other acute postprocedural pain; R10.11 Right upper quadrant pain; R50.9 Fever, unspecified; F41.8 Other specified anxiety disorders; F51.04 Psychophysiologic insomnia; K59.00 Constipation, unspecified; K76.0 Fatty (change of) liver, not elsewhere classified; K21.9 Gastro-esophageal reflux disease without esophagitis; E78.5 Hyperlipidemia, unspecified; I10 Essential (primary) hypertension; M54.5 Low back pain; I48.0 Paroxysmal atrial fibrillation
CPT/HCPCS: 36410; 36415; 78227; 80053; 83690; 87040; 87635; 93005; 96374; 99222; 99231; 99232; 99238; 99285; 74177; 83605; 83735; 84484; 85025; 86140; 93010; J2543; J3490

== ENCOUNTER → 2020-05-20 15:27 | Outpatient (BNVA) | payer MEDICARE, SELFPAY | PROVIDERS: PCP Emergency Medicine; Referring Provider Emergency Medicine; Visit Provider Surgery | DX: Z48.815 Encounter for surgical aftercare following surgery on the digestive system (principal); Z90.49 Acquired absence of other specified parts of digestive tract ==

== ENCOUNTER 2020-05-22 03:30 | Outpatient (CLI) | payer MEDICARE, SELFPAY ==
[2020-05-22 12:03] LABS: Source Nasal/Nares
[2020-05-22 15:20] LABS: COVID-19 PCR Negative (Negative)
== END 2020-05-22 03:31 | disposition home or self-care (01) ==
PROVIDERS: PCP Emergency Medicine; Visit Provider Family Medicine
DX: Z20.822 Contact with and (suspected) exposure to COVID-19 (principal)
CPT/HCPCS: 87635

== ENCOUNTER 2020-05-27 13:23 | Emergency (ER) | payer MEDICARE, SELFPAY ==
[2020-05-27] VITALS (15 sets, daily range): BP systolic 138–162; BP diastolic 56–72; PULSE 49–77; RESP 14–21; TEMP 36.4–36.7; O2SAT 95–99
[2020-05-27] MEDS: fentaNYL 100 MCG/2 ML VIAL 50 MCG IVP (14:11)
[2020-05-27 14:25] LABS: Abs Immature Grans 0.02 10^3/uL (0.0-0.06); Absolute Basophil Count 0.07 10^3/uL (0.0-0.2); Absolute Lymphocyte Count 1.09 10^3/uL (1.2-3.4); Absolute Monocyte Count 0.66 10^3/uL (0.1-0.8); Absolute Neutrophil Count 5.99 10^3/uL (1.2-6.7); Basophils % 0.9; Eosinophils % 1.3; HCT 50.7 % (40.0-50.0); HGB 16.7 g/dL (13.5-17.5); Immature Grans % 0.3; Lymphocytes % 13.7; MCHC 32.9 % (32.0-36.0); MCV 91.2 fL (80-95); MPV 11.2 fL (8.0-11.0); Monocytes % 8.3; Neutrophils % 75.5; Nucleated RBC 0 %; Platelet Count 253 10^3/uL (130-400); RBC 5.56 10^6/uL (4.36-5.78); RDW 14.1 % (11.8-14.1); RDW-SD 47.7 fL; WBC 7.93 10^3/uL (4.4-10.8)
--- NOTE | 2020-05-27 14:35 | ED.GENADUL_ITS ---
Discharge Plan Disposition Patient Disposition: HOME Condition: Good Discharge Details Clinical Impression: Abdominal pain Primary Care Provider: Adam Felix ED Provider: Pamela Molina Home Meds and New Rx's Prescriptions: New ondansetron HCl [Zofran] 4 mg tablet 4 mg PO Q8H PRNQty: 10 RF: 0 docusate sodium [Colace] 100 mg capsule 100 mg PO DAILY Qty: 14 RF: 0 glycerin (adult) [Fleet Glycerin (Adult)] Suppository 1 supp WI DAILY PRNQty: 12 RF: 0 Continued trazodone 50 mg tablet 25 mg PO DAILY Qty: 30 RF: 2 magnesium hydroxide [Milk of Magnesia] 400 mg/5 mL suspension 5 ml PO DAILY PRNRF: 0 Bio-K plus 50 billion cell capsule,delayed release(DR/EC) 1 cap PO DAILY Qty: 30 RF: 0 multivitamin [One Daily] 1 EACH tablet 1 ea PO DAILY RF: 0 clotrimazole [Lotrimin AF (clotrimazole)] 24 GM cream 24 gm Topical PRN Qty: 1 RF: 3 pravastatin 40 mg tablet 40 mg PO DAILY Qty: 90 RF: 3 clonazepam [Klonopin] 1 mg tablet 0.5 mg PO HS Qty: 30 RF: 0 pantoprazole [Protonix] 40 mg tablet,delayed release (DR/EC) 40 mg PO BID Qty: 60 RF: 12 aspirin 81 mg tablet,delayed release (DR/EC) 81 mg PO DAILY RF: 0 ibuprofen 600 mg tablet 600 mg PO Q6H PRNQty: 90 RF: 3 Discharge Instructions Instructions: Abdominal Pain (ED) Additional Instructions: Please follow-up with your primary care physician Take the Dulcolax as prescribed Take the suppositories as prescribed daily Take a probiotic or acidophilus daily Please return with worsening pain, fever, chills, or with any new or progressing symptoms Zofran as needed for nausea and vomiting Discharge Data Discharge Date/Time-TO BE ENTERED AT DEPARTURE: 05/27/20 16:16 Medical Decision Making Case discussed with Dr. Palacios, radiology and no evidence of acute pathology on patient CT 1. Compared to the prior CT scan of 1720 the small amount of previously present perihepatic ascites is no longer seen. However, the gallbladder fossa remains unchanged with small collection in this area and in the subcapsular right hepatic lobe. This has not increased nor decreased in size. It does not contain gas. There is, however, some air-gas within intrahepatic ducts of the left lobe. 2. Bilateral nephrolithiasis and renal cysts again noted. No hydronephrosis. No solid renal masses. Patient made aware regarding the CT findings Case discussed and CT findings reviewedwith Dr. Sultana and she feels comfortable with patient being discharged home Diagnostic labs do not show significant acute pathology Patient has been having trouble with bowel movements, he was placed on a bowel regimen and will follow up with the surgeon and primary physician in the outpatient setting He stable for discharge home at time of reevaluation feels comfortable discharge home Is given a threshold to return should he have new or worsening complaints Differential Diagnosis Differential Diagnosis: Appendicitis, constipation, bowel obstruction, postoperative abscess Medical Records Medical records reviewed: Yes I reviewed the patient's medical records. Lab Data Lab results reviewed: Yes I reviewed the patient's lab results. HPI This 69-year-old male presents with right lower quadrant abdominal pain. Patient states he is status post lap ashley cystectomy on 30 April. He was currently evaluated for possible abscess in the pericholecystic region and had IV antibiotics and subsequent p.o. antibiotics which she finished presently 5 days ago. He was feeling quite well until today after bowel movement when he developed some pain in his right lower quadrant. Is been constant since onset. He was mildly nauseous without vomiting. He denies any fever or chills. He is been urinating without difficulty. He has had no difficulty moving his bowels, this is been going on since his surgery. He denies any blood in stool. He has been urinating without difficulty reportedly. General Date/Time Provider Initiated Documentation: 05/27/20 13:52 . Related Data Home Medications Medication Instructions Recorded Confirmed multivitamin [One Daily] 1 ea PO DAILY 06/07/12 05/27/20 clotrimazole [Lotrimin AF 24 gm TOPICAL PRN #1 script 05/05/17 05/27/20 (clotrimazole)] pravastatin 40 mg tablet 40 mg PO DAILY #90 tab-cap 02/26/20 05/27/20 trazodone 50 mg tablet 25 mg PO DAILY #30 tab 02/28/20 05/27/20 pantoprazole [Protonix] 40 mg PO BID #60 tab 03/15/20 05/27/20 magnesium hydroxide 400 mg/5 mL 5 ml PO DAILY PRN 04/11/20 05/27/20 oral suspension aspirin 81 mg PO DAILY 04/29/20 05/13/20 ibuprofen 600 mg PO Q6H PRN #90 tab 04/30/20 05/27/20 clonazepam 1 mg tablet 0.5 mg PO HS #30 tab 05/01/20 05/27/20 L. acidophilus,casei,rhamnosus 50 1 cap PO DAILY #30 cap 05/16/20 05/27/20 billion cell capsule,delayed release docusate sodium [Colace] 100 mg PO DAILY #14 cap 05/27/20 glycerin (adult) [Fleet Glycerin 1 supp WI DAILY PRN #12 ea 05/27/20 (Adult)] ondansetron HCl [Zofran] 4 mg PO Q8H PRN #10 tab 05/27/20 Previous Rx's Medication Instructions Recorded clotrimazole [Lotrimin AF 24 gm TOPICAL PRN #1 script 05/05/17 (clotrimazole)] pravastatin 40 mg tablet 40 mg PO DAILY #90 tab-cap 02/26/20 trazodone 50 mg tablet 25 mg PO DAILY #30 tab 02/28/20 pantoprazole [Protonix] 40 mg PO BID #60 tab 03/15/20 ibuprofen 600 mg PO Q6H PRN #90 tab 04/30/20 clonazepam 1 mg tablet 0.5 mg PO HS #30 tab 05/01/20 L. acidophilus,casei,rhamnosus 50 1 cap PO DAILY #30 cap 05/16/20 billion cell capsule,delayed release docusate sodium [Colace] 100 mg PO DAILY #14 cap 05/27/20 glycerin (adult) [Fleet Glycerin 1 supp WI DAILY PRN #12 ea 05/27/20 (Adult)] ondansetron HCl [Zofran] 4 mg PO Q8H PRN #10 tab 05/27/20 Allergies Allergy/AdvReac Type Severity Reaction Status Date / Time atenolol AdvReac Unknown hypotension Verified 05/28/20 11:50 General Stated Complaint: Abd Prob RYAN: 3 Review of Systems Narrative: Review of systems obtained x7 aside from where indicated in HPI PFSH Medical History (Updated 05/28/20 @ 12:13 by Adam Felix DO) Abdominal pain Actinic keratosis Anxiety and depression Atrial flutter Pt. 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 WANG 06/21/17 DR. SULTANA Surgical History Angioplasty cardiac ablation unsuccessful 2011 Colonoscopy - IV Sedation 01/20/13 Colonoscopy - MAC (06/21/17) EGD - IV Sedation 1999, 2004 History of cholecystectomy Repair, Tendon or Muscle left elbow Status post cataract extraction and insertion of intraocular lens of left eye (05/23/18) Status post cataract extraction and insertion of intraocular lens of right eye (06/06/18) Family History Mother , 95 Dementia Father , 65 Stomach cancer Sister Diabetes Brother Rheumatoid arthritis Sister No problems noted. Sister No problems noted. Maternal Aunt Dementia Brother No problems noted. Social History Smoking/Tobacco Use Status: Former Tobacco Use Quit Date: 03/01/77 Tobacco: How many years used: 6 Second Hand Exposure: Yes Smoking risk assessment performed?: Yes Alcohol Intake: former Drug use: Never Substance use type: does not use Caregiver/Support person: No Household members: family Housing: house Pets and animals: No Sexually active: No Do you think of yourself as: straight/heterosexual Current gender identity: male What is your relationship status?: never How often do you talk on the phone with friends or family?: three or more times per week How often do you get together with friends or relatives?: three or more times per week How often do you attend oriental orthodox or gnosticist services?: decline to answer Do you belong to any clubs or organized social groups?: no Panel score (0-1 are the most socially isolated patients): 1 What type of physical activity do you participate in: walking Duration: 30-45 minutes/day Frequency: 1-2 times per week Any/Jainism: None Do you feel safe at home: Yes Do you feel safe in your relationship?: Yes Exam Const General: cooperative, healthy appearing, comfortable and no acute distress HENMT Other: Moist mucous membranes Chest Chest: normal inspection of the chest Resp Effort & Inspection: normal respiratory effort Cardio Rate: regular rate Rhythm: regular rhythm GI Other: Mild right lower quadrant tenderness, no rebound or guarding, no wound dehiscence, no visible sign of trauma, no CVA tenderness, no abdominal bruit or pulsatile mass Skin General skin exam: no rashes or lesions noted Neuro General: patient alert and patient oriented x3 Course Vital Signs Vital signs: Vital Signs Temperature 36.4 C L 05/27/20 13:28 Pulse 53 L 05/27/20 13:28 Respiratory Rate 16 05/27/20 13:28 Blood Pressure 148/68 H 05/27/20 13:28 Pulse Oximetry 99 05/27/20 13:28 Temperature 36.4 C L 05/27/20 13:28 Temperature Source Skin 05/27/20 13:28 Pulse 53 L 05/27/20 13:28 Respiratory Rate 16 05/27/20 13:28 Respiratory Effort 05/27/20 13:30 Blood Pressure 148/68 H 05/27/20 13:28 Blood Pressure Position Sitting 05/27/20 13:28 Pulse Oximetry 99 05/27/20 13:28 Oxygen Delivery Method Room Air 05/27/20 13:28 Oxygen Flow Rate 0 05/27/20 13:28 Pain Level 4 05/27/20 14:11 Lab/Test Results Lab/Test Results: Laboratory Tests Range/Units 05/27/20 13:35 WBC (4.4-10.8) 10^3/uL 7.93 RBC (4.36-5.78) 10^6/uL 5.56 Hgb (13.5-17.5) g/dL 16.7 Hct (40.0-50.0) % 50.7 H MCV (80-95) fL 91.2 MCH (27.0-33.0) pg 30.0 MCHC (32.0-36.0) % 32.9 RDW (11.8-14.1) % 14.1 Plt Count (130-400) 10^3/uL 253 MPV (8.0-11.0) fL 11.2 H Immature Gran % 0.3 Neutrophils % 75.5 Lymphocytes % 13.7 Monocytes % 8.3 Eosinophils % 1.3 Basophils % 0.9 Nucleated RBC % % 0 Absolute Neutrophils (1.2-6.7) 10^3/uL 5.99 Absolute Lymphocytes (1.2-3.4) 10^3/uL 1.09 L Absolute Monocytes (0.1-0.8) 10^3/uL 0.66 Absolute Eosinophils (0.0-0.7) 10^3/uL 0.10 Absolute Basophils (0.0-0.2) 10^3/uL 0.07
[2020-05-27 14:43] LABS: ALT 39 U/L (16-63); AST 21 U/L (15-37); Albumin 3.7 g/dL (3.4-5.0); Alkaline Phosphatase 108 U/L (46-116); Anion Gap 8.4 mmol/L (3-11); BUN 14 mg/dL (7-18); Bilirubin, Total 0.7 mg/dL (0.2-1.0); CO2 29.6 mmol/L (21.0-32.0); CREATININE 1.2 mg/dL (0.70-1.30); Calcium 10.6 mg/dL (8.5-10.1); Chloride 103 mmol/L (98-107); Estimated GFR 59.86 (mL/min/1.73m2); Glucose 103 mg/dL (74-106); Potassium 3.9 mmol/L (3.5-5.1); Sodium 141 mmol/L (136-145); Total Protein 7.7 g/dL (6.4-8.2)
[2020-05-27] MEDS: Omnipaque 350 MG/ML 100 ML BTL IJ (14:46)
[2020-05-27] MEDS: Normal Saline - Diluent 50 ML VIAL IV (14:46)
--- NOTE | 2020-05-27 14:48 | DI.CT_ITS ---
EXAM: CT ABDOMEN PELVIS W CLINICAL HISTORY: pain rlq, started today, post cholecystectomy on 3. TECHNIQUE: Imaging Protocol: Axial computed tomography images with coronal and sagittal reformatted images were created and reviewed CONTRAST MATERIAL: Intravenous: Omnipaque 100cc Oral: None COMPARISON: CT CT ABDOMEN PELVIS W from 05/15/2020 FINDINGS: VISUALIZED LUNG BASES: No nodules nor pleural effusions evident. ABDOMEN: LIVER/BILIARY: The previously present small amount of perihepatic ascites has resolved.. The gallbladder is again n oted be surgically absent. The appearance of the gallbladder fossa is unchanged. The size of the co llection at this level is unchanged. It does not contain gas . There is, however, some air within b iliary tree. In reviewing the multiplanar reconstructions it appears that significant amount of this fluid is probably subcapsular. There is no regional adenopathy. PANCREAS: No evidence of pancreatitis, pancreatic mass, nor dilatation of the pancreatic duct. SPLEEN: Spleen is not enlarged. No obvious intrasplenic lesions. Splenic and portal veins are paten t. ADRENALS: There are no significant adrenal masses. KIDNEYS:No cysts evident. Bilateral nephrolithiasis again noted. Also multiple cysts in both kidneys the largest again noted to be in the inferior pole of the left kidney.. ABDOMINAL AORTA: Abdominal aorta is not enlarged. LYMPH NODES:There is no retroperitineal nor paraaortic adenopathy. ABDOMINAL WALL/GI: No evidence of significant anterior abdominal wall hernia. No bowel obstruction. PELVIS: GI: No evidence of appendicitis.No evidence of sigmoid diverticulitis. LYMPH NODES: There is no intrapelvic nor inguinal adenopathy. REPRODUCTIVE: Prostate is again noted be significantly enlarged. URINARY BLADDER: Not distended. No calculi nor obvious masses therein. OSSEOUS: No significant osseous lesions. IMPRESSION: 1. Compared to the prior CT scan of 3 1720 the small amount of previously present perihepatic ascites is no longer seen. However, the gallbladder fossa remains unchanged with small collection in this a tariq and in the subcapsular right hepatic lobe. This has not increased nor decreased in size. It sheehan s not contain gas. There is, however, some air-gas within intrahepatic ducts of the left lobe. 2. Bilateral nephrolithiasis and renal cysts again noted. No hydronephrosis. No solid renal masses. RADIATION DOSE DELIVERED: 1,145.13mGy.cm Total DLP DATA REPOSITORY: All CT scans at this facility are submitted to the National Radiology Data Registry (NRDR) Dose Index Registry (DIR) with the [employer] (ACR). RADIATION OPTIMIZATION: All CT scans at this facility use at least one of these dose optimization te chniques: automated exposure control; mA and/or kV adjustment per patient size (includes targeted exa ms where dose is matched to clinical indication); or iterative reconstruction.
[2020-05-27 14:51] LABS: Bilirubin Negative (Negative); Blood Moderate (Negative); Clarity Clear (Clear); Glucose Negative (Negative); Ketones Negative (Negative); Leukocyte Esterase Negative (Negative); Nitrite Negative (Negative); Urobilinogen 0.2 EU/dL (Up TO 0.2)
[2020-05-27 14:53] LABS: Lipase 101 U/L (73-393)
[2020-05-27 15:04] LABS: Bacteria Negative HPF (Negative); C & S Indicated? No; Casts Negative LPF (Negative); Crystals Negative HPF (Negative); Epithelial Cells Few HPF (Negative); Mucus Negative (Negative); WBC 0-2 HPF (0-5)
[2020-05-27] MEDS: Normal Saline 500 ML IV (15:12)
[2020-05-27] MEDS: Ketorolac 15 MG/ML VIAL IVP (16:08)
== END 2020-05-27 16:16 | disposition home or self-care (01) ==
PROVIDERS: Emergency Provider Physician Assistant; PCP Emergency Medicine
DX: R10.31 Right lower quadrant pain (principal)
CPT/HCPCS: 80053; 83690; 96361; 96374; 96375; 99285; 74177; 81003; 81015; 85025; 99283; J1885; J3010; J3490

== ENCOUNTER 2020-05-31 09:01 | Outpatient (RCR) | payer MEDICARE, SELFPAY ==
--- NOTE | 2020-05-31 10:00 | HOLTER_ITS ---
APPROVED REPORT Exam Type: HOLTER MONITOR APPLICATION Reason for Test: Bradycardia Patient Location: O Conclusion This is a 2-day monitor ordered for indication of bradycardia. The patient was in normal sinus rhythm for the majority of the recording with an average heart rate o f 53 bpm (41-93 bpm). There were no episodes of ventricular tachycardia and 4 total PVCs. There were no episodes of supraventricular tachycardia and rare PACs. There were no episodes of atrial fibrillation, no pauses greater than 3 seconds and no evidence of hi gh degree heart block. There was 1 patient recorded event which was associated with sinus bradycardia.
== END 2020-06-28 23:59 | disposition home or self-care (01) ==
LOC: RT 09:01
PROVIDERS: PCP Emergency Medicine; Visit Provider Emergency Medicine
DX: R00.1 Bradycardia, unspecified (principal); I49.3 Ventricular premature depolarization
CPT/HCPCS: 93227; 93225; 93226

== ENCOUNTER 2020-06-11 11:20 | Outpatient (REF) | payer MEDICARE, SELFPAY ==
[2020-06-11 13:22] LABS: HCT 47.1 % (40.0-50.0); HGB 15.7 g/dL (13.5-17.5); MCH 30.7 pg (27.0-33.0); MCHC 33.3 % (32.0-36.0); MCV 92.2 fL (80-95); MPV 11.6 fL (8.0-11.0); Platelet Count 161 10^3/uL (130-400); RBC 5.11 10^6/uL (4.36-5.78); RDW 14.1 % (11.8-14.1); RDW-SD 48.6 fL; WBC 5.51 10^3/uL (4.4-10.8)
[2020-06-11 13:40] LABS: ALT 30 U/L (16-63); AST 22 U/L (15-37); Albumin 3.7 g/dL (3.4-5.0); Alkaline Phosphatase 87 U/L (46-116); Anion Gap 6.7 mmol/L (3-11); BUN 17 mg/dL (7-18); Bilirubin, Total 0.6 mg/dL (0.2-1.0); CO2 30.3 mmol/L (21.0-32.0); CREATININE 1.2 mg/dL (0.70-1.30); Calcium 10.3 mg/dL (8.5-10.1); Chloride 107 mmol/L (98-107); Estimated GFR 59.86 (mL/min/1.73m2); Glucose 95 mg/dL (74-106); Potassium 4.3 mmol/L (3.5-5.1); Sodium 144 mmol/L (136-145); Total Protein 6.8 g/dL (6.4-8.2)
== END 2020-06-11 11:21 | disposition home or self-care (01) ==
LOC: LBN 11:20
PROVIDERS: PCP Emergency Medicine; Visit Provider Emergency Medicine
DX: M25.551 Pain in right hip (principal); G89.29 Other chronic pain; R10.9 Unspecified abdominal pain
CPT/HCPCS: 80053; 85027; 86140

== ENCOUNTER 2020-07-02 21:39 | Outpatient (REF) | payer MEDICARE, SELFPAY ==
[2020-07-02 21:14] LABS: Bacteria Negative HPF (Negative); C & S Indicated? No; Casts Negative LPF (Negative); Crystals Negative HPF (Negative); Epithelial Cells Negative HPF (Negative); Mucus Negative (Negative); WBC Negative HPF (0-5)
== END 2020-07-02 21:40 | disposition home or self-care (01) ==
LOC: LBN 21:39
PROVIDERS: PCP Emergency Medicine; Visit Provider Family Medicine
DX: R35.0 Frequency of micturition (principal)
CPT/HCPCS: 81015

== ENCOUNTER 2020-07-24 02:36 | Outpatient (CLI) | payer MEDICARE, SELFPAY ==
--- NOTE | 2020-07-24 06:15 | DI.US_ITS ---
Exam(s) US ABDOMEN EXAM: US ABDOMEN CLINICAL HISTORY: upper quad pain x 2 months s/p lap ashley,wt loss,r63.4 TECHNIQUE: Ultrasound of complete upper abdomen performed using standard protocol. COMPARISON: US US ABDOMEN from 04/05/[address] ABDOMEN PELVIS W from 05/27/2020 FINDINGS: There is no ascites evident. LIVER: There are no hepatic lesions evident nor obvious dilatation of intrahepatic ducts. Liver is s omewhat hyperechoic indicating steatosis. GALLBLADDER/BILIARY: Gallbladder is again noted be surgically absent. Images do not reveal collectio n in the gallbladder fossa on ultrasound at this time. The common hepatic duct isnot dilated, measuring 5mm at the level of kirill hepatis. PANCREAS: There is no evidence of pancreatic mass nor dilatation of the pancreatic duct. SPLEEN: The spleen is not enlarged and there are no intrasplenic lesions evident. KIDNEYS:Bilateral renal calculi again noted. Largest calculus in the right kidney measures 6 millime ters enlarged in the left also measures 6 millimeters. No obvious hydronephrosis. No perinephric fl uid also bilateral renal cysts. The largest cyst is in the left kidney and measures approximately 5 x 7 x 5 cm in the inferior pole, and largest cyst on the right side measures approximately 1.3 x 1.3 cm. These cysts were evident on the recent CT scan. There are no solid renal masses on either side ABDOMINAL AORTA: There is no evidence of abdominal aortic aneurysm. IVC: Normal diameter where visualized. IMPRESSION: 1. Gallbladder surgically absent. The biliary tree is not dilated. 2. Bilateral nonobstructive intrarenal calculi again noted. There is no hydronephrosis. 3. Bilateral renal cysts, as seen on recent CT scan. No solid renal masses. Hepatic steatosis. There is no ascites. DATA REPOSITORY:
== END 2020-07-24 02:56 ==
PROVIDERS: PCP Emergency Medicine; Visit Provider Family Medicine
DX: R10.11 Right upper quadrant pain (principal); R63.4 Abnormal weight loss; N20.0 Calculus of kidney; N28.1 Cyst of kidney, acquired; K76.0 Fatty (change of) liver, not elsewhere classified
CPT/HCPCS: 76700

== ENCOUNTER → 2020-08-05 10:39 | Outpatient (BNVA) | payer MEDICARE, SELFPAY | PROVIDERS: PCP Emergency Medicine; Referring Provider Emergency Medicine; Visit Provider Surgery | DX: R10.10 Upper abdominal pain, unspecified (principal); G89.18 Other acute postprocedural pain; M54.42 Lumbago with sciatica, left side; M47.816 Spondylosis without myelopathy or radiculopathy, lumbar region | CPT/HCPCS: 99212; 99213 ==

== ENCOUNTER 2020-08-15 01:05 | Outpatient (CLI) | payer MEDICARE, SELFPAY ==
--- NOTE | 2020-08-15 08:30 | DI.MRI_ITS ---
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 TECHNIQUE: Multiplanar multisequence MRI of the Lumbar spine was performed. COMPARISON: No exams were available for comparison FINDINGS: Five lumbar vertebrae are presumed. Incidentally noted is an exophytic cyst off the inferior pole th e left kidney which measures 5 x 5 cm. Other smaller cysts are noted in both kidneys. The entire ki dneys are not included in the field of view here. Conus medullaris is at normal level. There is no evidence of conus mass nor subjacent clumping of in trathecal nerve roots to suggest arachnoiditis. The distal thecal sac appears unremarkable.There is no evidence of Tarlov intrasacral cysts nor other significant findings within the sacral canal Bones:There are no fractures nor ominous osseous lesions in the lumbar vertebral bodies and visualize d sacrum. There are adjacent Schmorl's node invagination is in the inferior endplate of L3 and super ior endplate of L4. With respect to the individual levels... T12-L1: Unremarkable L1-2: Normal disc height and signal. No disc herniation nor central canal stenosis.No foraminal steno sis L2-3: Normal disc height. No disc herniation nor central canal stenosis.No foraminal stenosis.No face t arthropathy. L3-4: Normal disc height. No disc herniation or central canal stenosis.There is relatively symmetric al annular bulging which flattens the thecal sac resulting in mild central spinal canal stenosis. Th e annular bulging extends into the floor of the exiting neural foramina bilaterally but there is no s ignificant foraminal stenosis, given that there is no significant disc height loss.There is no facet arthropathy L4-5: Normal disc height. This level exhibits relatively symmetrical annular bulging which slightly flattens the anterior thecal sac resulting in mild central spinal canal stenosis. The bulging annulu s extends into the exiting neural foramina floor bilaterally but there is no significant foraminal st enosis on either side. No significant facet arthropathy. L5-S1: Normal disc height and hydration signal. Mild central subligamentous annular bulging but no t rue disc herniation. No central canal stenosis. No foraminal stenosis. Mild-moderate degenerative changes in the right facet joint. Left facet joint unremarkable. Soft tissues: paraspinal soft tissues appear unremarkable. IMPRESSION: 1. Mild findings at L3-4 and L4-5 levels as described above. There is mild central canal stenosis at these levels due to relatively symmetrical annular bulging. Although the annular bulging extends in to the neural foramina, there is no significant foraminal stenosis on either side at these levels due to the maintained disc height bilateral at these levels and absence of prominent facet arthropathy. 2. Incidentally noted are bilateral renal cysts. 3. DATA REPOSITORY:
== END 2020-08-15 01:25 ==
PROVIDERS: PCP Nurse Practitioner Family; Visit Provider Surgery
DX: M51.36 Other intervertebral disc degeneration, lumbar region (principal); M48.061 Spinal stenosis, lumbar region without neurogenic claudication; N28.1 Cyst of kidney, acquired; M51.26 Other intervertebral disc displacement, lumbar region
CPT/HCPCS: 72148

== ENCOUNTER → 2020-09-06 09:49 | Outpatient (BNVA) | payer MEDICARE, SELFPAY | PROVIDERS: PCP Nurse Practitioner Family; Referring Provider Emergency Medicine; Visit Provider Internal Medicine Cardiovascular Disease | DX: I48.0 Paroxysmal atrial fibrillation (principal); R00.1 Bradycardia, unspecified | CPT/HCPCS: 99213 ==

== ENCOUNTER 2020-09-23 00:18 | Emergency (ER) | payer MEDICARE, SELFPAY ==
[2020-09-23] VITALS (79 sets, daily range): BP systolic 113–196; BP diastolic 50–72; PULSE 38–75; RESP 11–27; TEMP 36.4; O2SAT 94–99
--- NOTE | 2020-09-23 00:15 | RT.EKG_ITS ---
APPROVED REPORT Exam: Resting ECG Reason for Exam: chest pain Patient Location: E HR:53 bpm ECG Measurements Heart Rate 53 AXIS TN 160 P 55 QRSd 120 QRS 28 QT 477 T 31 QTc 450 Conclusion Sinus bradycardia...rate< 60 Probable left atrial enlargement...P >50mS, <-0.10mV V1 Nonspecific intraventricular conduction delay...QRSd >115mS, not LBBB/RBBB I have reviewed and interpreted ECG and agree with software generated interpretation. There are no significant changes compared to prior EKG performed on 05/13/2020 at 13:19.
--- NOTE | 2020-09-23 00:15 | DI.CT_ITS ---
Exam(s) CT THORAX ABDOMEN CTA EXAM: CT THORAX ABDOMEN CTA CLINICAL HISTORY: sudden chest back pain. TECHNIQUE: Imaging Protocol: Axial computed tomography images with coronal and sagittal reformatted images were created and reviewed CONTRAST MATERIAL: Intravenous: Omnipaque 350 Contrast volume:100 ml Oral: None COMPARISON: CT CT ABDOMEN PELVIS W from 05/27/2020 FINDINGS: CHEST: LUNGS: There are mild increased markings in the lung bases but no confluent infiltrates nor pleural e ffusions. No pneumothorax. MEDIASTINUM: There is no hilar nor mediastinal adenopathy. Visualized thyroid unremarkable. CARDIAC: Heart size is normal. There is no pericardial effusion. AORTA: Caliber of the thoracic aorta is within normal limits.There is no evidence of aortic dissectio n. ABDOMEN: There is no evidence of abdominal aortic aneurysm nor dissection.There is no aneurysmal dilatation of the common iliac arteries.The celiac and superior mesenteric arteries are patent. There is no ascites. LIVER: There are no focal hepatic lesions. There is air within intrahepatic ducts-pneumobilia. GALLBLADDER/BILIARY: The gallbladder surgically absent. CBD diameters slightly prominent. Diameters =8 millimeters. There is also some air seen within the lower CBD as well as within intrahepatic davie ts. Correlation with any prior ERCP procedure recommended. Previously described small collection ga llbladder fossa has resolved. PANCREAS: No evidence of pancreatic mass nor dilatation of the pancreatic duct. SPLEEN: Spleen is not enlarged. There are no intrasplenic lesions. Splenic and portal veins are aviles nt. ADRENALS: There are no significant adrenal masses. KIDNEYS: There are 2 cysts in the left kidney. The largest measures 5.8 by 4.7 cm, similar to previo us. There are calculi in the kidneys noted, similar to previous. The largest at the midpole level l eft kidney and measures approximately 6 millimeters. Visualized upper ureters are not dilated. Pelv is was not scanned. ABDOMINAL AORTA: The abdominal aorta is not enlarged. LYMPH NODES: There is no retroperitoneal nor para-aortic adenopathy. No obvious mesenteric masses. ABDOMINAL WALL: No evidence of significant anterior abdominal wall hernia. GI: There is no evidence of bowel obstruction, free air, nor abscess.The appendix is visualized due t o mobile cecum and the is no evidence of acute appendicitis. OSSEOUS: The pelvis was not scanned. IMPRESSION: 1. The gallbladder is again noted be surgically absent. Air is again noted within biliary tree both intra and extrahepatic. Previously described small fluid collection in the region the gallbladder fo ssa has resolved. Presently no abnormal fluid collection. Pneumobilia persists. 2. Benign renal cysts again noted, the largest being in the left kidney measuring 5 cm. 3. There also nonobstructive calculi evident both kidneys. 4. No evidence of aortic dissection nor aneurysm, as per request. RADIATION DOSE DELIVERED: 1,005.39mGy.cm Total DLP DATA REPOSITORY: All CT scans at this facility are submitted to the National Radiology Data Registry (NRDR) Dose Index Registry (DIR) with the [employer] (ACR). RADIATION OPTIMIZATION: All CT scans at this facility use at least one of these dose optimization te chniques: automated exposure control; mA and/or kV adjustment per patient size (includes targeted exa ms where dose is matched to clinical indication); or iterative reconstruction.
--- NOTE | 2020-09-23 00:20 | ED.GENADUL_ITS ---
Discharge Plan Disposition Patient Disposition: HOSPITAL, NON-SPECIFIC Condition: Stable Discharge Details Clinical Impression: ACS (acute coronary syndrome) Primary Care Provider: Jed Dolan ED Provider: Raimundo Akers [place] Meds and New Rx's Prescriptions: No Action Bio-K plus 50 billion cell capsule,delayed release(DR/EC) 1 cap PO DAILY Qty: 30 RF: 0 multivitamin [One Daily] 1 EACH tablet 1 ea PO DAILY RF: 0 clotrimazole [Lotrimin AF (clotrimazole)] 24 GM cream 24 gm Topical PRN Qty: 1 RF: 3 pravastatin 40 mg tablet 40 mg PO DAILY Qty: 90 RF: 3 clonazepam [Klonopin] 1 mg tablet 0.5 mg PO HS Qty: 45 RF: 3 trazodone 50 mg tablet 25 mg PO DAILY Qty: 30 RF: 2 pantoprazole [Protonix] 40 mg tablet,delayed release (DR/EC) 40 mg PO BID Qty: 60 RF: 12 aspirin 81 mg tablet,delayed release (DR/EC) 81 mg PO DAILY RF: 0 ibuprofen 600 mg tablet 600 mg PO Q6H PRNQty: 90 RF: 3 Medical Decision Making Patient presenting to ED after waking up from a sound sleep with chest pain that radiated to the back. Appears uncomfortable, diaphoretic and became lightheaded in triage. He is bradycardic but has history of same. Blood pressure is elevated not low. There is no STEMI on EKG. Consider dissection, NSTEMI/ACS, less likely PE. IV established and fluids started. Aspirin and nitroglycerin ordered. Laboratory studies and CTA chest abdomen to be obtained. 01:00 - Patient's labs are fine. Patient reports significant improvement in pain with NTG so drip started. Repeat EKG ordered and unchanged. CTA read pending. 01:30 - CTA is negative for PE or dissection. Patient with some residual chest discomfort but minimal. Has intermitted abdominal pain but this has been ongoing problem. Will start heparin now, get repeat EKG and troponin at 03:30 and discuss with cardiology then. 03:30 - Patient starting to get CP back and feeling unwell again. Repeat EKG unchanged. NTG increased. Morphine and Zofran ordered. 2nd toponin sent. Will discuss with [facility] cardiology once back. 05:45 - Patient's second troponin remains negative. Patient responded to increase nitroglycerin, morphine and Zofran. Discussed with [facility] cardiology who feels patient requires catheterization sooner rather than later. They do not have capacity to accept transfer. Recommend loading with Plavix, which was ordered. Calls placed to [facility] and [facility] both of whom are at capacity. [facility] able to accept and spoke with Dr. Milton. Patient aware of need for catheterization and agrees to transfer to [facility]. We will continue to increase nitroglycerin as needed for chest pain as long as blood pressure tolerates it. Patient remains on heparin. Will be transferred by ambulance with assistant women's rowing coach once bed confirmation obtained. Medical Records Medical records reviewed: Yes I reviewed the patient's medical records. Lab Data Lab results reviewed: Yes I reviewed the patient's lab results. ECG Data Attestation: I personally reviewed and interpreted this ECG (s) as follows: Prior ECG tracings: available for review Interpretation: see EKG HPI General Mode of arrival: wheelchair . Date/Time Provider Initiated Documentation: 09/23/20 00:20 . Limitations to Documentation: no limitations . Information obtained by: patient, RN notes reviewed and old records reviewed . HPI Narrative: Patient presenting with chest pain. Patient woke up from a sound sleep with chest pain that he first described as pressure. Began radiating to the back and now is just describes his pain. He has been well when he went to bed. There have been no illnesses. He does not feel short of breath but has difficulty with breathing because of pain. He is a little lightheaded and needed to be brought back in a wheelchair. He has some diaphoresis. No nausea or vomiting. Does have previous history of catheterization with endarterectomy but no stent. Also reports history of atrial fib/atrial flutter but is only on aspirin and beta-jose. Denies any leg pain or leg swelling. Related Data Home Medications Medication Instructions Recorded Confirmed multivitamin [One Daily] 1 ea PO DAILY 06/07/12 09/23/20 clotrimazole [Lotrimin AF 24 gm TOPICAL PRN #1 script 05/05/17 09/23/20 (clotrimazole)] pravastatin 40 mg tablet 40 mg PO DAILY #90 tab-cap 02/26/20 09/23/20 pantoprazole [Protonix] 40 mg PO BID #60 tab 03/15/20 09/23/20 aspirin 81 mg PO DAILY 04/29/20 09/23/20 ibuprofen 600 mg PO Q6H PRN #90 tab 04/30/20 09/23/20 L. acidophilus,casei,rhamnosus 50 1 cap PO DAILY #30 cap 05/16/20 09/23/20 billion cell capsule,delayed release clonazepam 1 mg tablet 0.5 mg PO HS #45 tab 07/02/20 09/23/20 trazodone 50 mg tablet 25 mg PO DAILY #30 tab 08/01/20 09/23/20 Previous Rx's Medication Instructions Recorded clotrimazole [Lotrimin AF 24 gm TOPICAL PRN #1 script 05/05/17 (clotrimazole)] pravastatin 40 mg tablet 40 mg PO DAILY #90 tab-cap 02/26/20 pantoprazole [Protonix] 40 mg PO BID #60 tab 03/15/20 ibuprofen 600 mg PO Q6H PRN #90 tab 04/30/20 L. acidophilus,casei,rhamnosus 50 1 cap PO DAILY #30 cap 05/16/20 billion cell capsule,delayed release clonazepam 1 mg tablet 0.5 mg PO HS #45 tab 07/02/20 trazodone 50 mg tablet 25 mg PO DAILY #30 tab 08/01/20 Allergies Allergy/AdvReac Type Severity Reaction Status Date / Time atenolol AdvReac Unknown hypotension Verified 09/23/20 00:28 General RYAN: 3 Review of Systems Narrative: 12/12 Review of Systems completed and is negative except as stated above in HPI (Systems reviewed: Const, Eyes, ENT, Resp, CV, GI, , MSK, Skin, Neuro) [facility] Medical History Actinic keratosis Anxiety and depression Atrial flutter Pt. 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 WANG 06/21/17 DR. SULTANA Surgical History Angioplasty cardiac ablation unsuccessful 2011 Colonoscopy - IV Sedation 01/20/13 Colonoscopy - MAC (06/21/17) EGD - IV Sedation 1999, 2004 History of cholecystectomy Repair, Tendon or Muscle left elbow Status post cataract extraction and insertion of intraocular lens of left eye (05/23/18) Status post cataract extraction and insertion of intraocular lens of right eye (06/06/18) Family History Mother , 95 Dementia Father , 65 Stomach cancer Sister Diabetes Brother Rheumatoid arthritis Sister No problems noted. Sister No problems noted. Maternal Aunt Dementia Brother No problems noted. Social History Smoking/Tobacco Use Status: Former Tobacco Use Quit Date: 03/01/77 Tobacco: How many years used: 6 Second Hand Exposure: Yes Smoking risk assessment performed?: Yes Alcohol Intake: former Drug use: Never Substance use type: does not use Caregiver/Support person: No Household members: family Housing: house Pets and animals: No Sexually active: No Do you think of yourself as: straight/heterosexual Current gender identity: male What is your relationship status?: never How often do you talk on the phone with friends or family?: three or more times per week How often do you get together with friends or relatives?: three or more times per week How often do you attend jehovah's witness or sabianism services?: decline to answer Do you belong to any clubs or organized social groups?: no Panel score (0-1 are the most socially isolated patients): 1 What type of physical activity do you participate in: walking Duration: 30-45 minutes/day Frequency: 1-2 times per week Any/Yarsanism: None Do you feel safe at home: Yes Do you feel safe in your relationship?: Yes Exam Narrative Exam Narrative: Const: WDWN elderly male appears uncomfortable. HEENT: NC/AT. Normal facial exam. Eyes: Normal conjunctiva and sclera. Neck: Supple. Trachea midline. Lungs: Normal respiratory effort. Lungs are clear. Cor: RRR without murmur/gallop. Good radial pulses. GI: Soft. NT/ND. No guarding or rebound. Neuro: A+O x 3. Normal speech, mentation, gait. Cranial nerves II - XII grossly intact. No gross motor or sensory deficit. Ext: No C/C/E. No calf tenderness. Skin: Warm and moist without rash. Critical Care Time Critical Care Time Critical Care Time: Yes Total Critical Care Time: 90 Attestation: Upon my evaluation, this patient had a high probability of imminent or life- threatening deterioration, which required my direct attention, intervention, and personal management. I have personally provided 90 minutes of critical care time exclusive of time spent on separately billable procedures. Time includes review of laboratory data, radiology results, discussion with consultants, and monitoring for potential decompensation. Interventions were performed as documented above.
[2020-09-23 00:36] LABS: Abs Immature Grans 0.02 10^3/uL (0.0-0.06); Absolute Basophil Count 0.06 10^3/uL (0.0-0.2); Absolute Eosinophil Count 0.23 10^3/uL (0.0-0.7); Absolute Lymphocyte Count 1.82 10^3/uL (1.2-3.4); Absolute Monocyte Count 0.69 10^3/uL (0.1-0.8); Absolute Neutrophil Count 3.17 10^3/uL (1.2-6.7); Eosinophils % 3.8; HGB 17.2 g/dL (13.5-17.5); Immature Grans % 0.3; Lymphocytes % 30.4; MCH 30.7 pg (27.0-33.0); MCHC 33.1 % (32.0-36.0); MCV 92.7 fL (80-95); MPV 10.4 fL (8.0-11.0); Monocytes % 11.5; Nucleated RBC 0 %; Platelet Count 174 10^3/uL (130-400); RBC 5.61 10^6/uL (4.36-5.78); RDW 13.4 % (11.8-14.1); WBC 5.99 10^3/uL (4.4-10.8)
[2020-09-23] MEDS: nitroGLYcerin 0.4 MG TAB SL ×2 (00:36→00:57)
[2020-09-23] MEDS: Normal Saline 1,000 ML 125 ML IV (00:36)
[2020-09-23] MEDS: Aspirin 81 MG CHEW 324 MG CH (00:36)
--- NOTE | 2020-09-23 00:45 | RT.EKG_ITS ---
APPROVED REPORT Exam: Resting ECG Reason for Exam: CP Patient Location: E HR:52 bpm ECG Measurements Heart Rate 52 AXIS NE 164 P 63 QRSd 117 QRS 14 QT 475 T 34 QTc 442 Conclusion Sinus bradycardia...rate< 60 Probable left atrial enlargement...P >50mS, <-0.10mV V1 Nonspecific intraventricular conduction delay...QRSd >115mS, not LBBB/RBBB I have reviewed and interpreted ECG and agree with software generated interpretation. There are no significant changes compared to prior EKG performed on 09/23/2020 at 00:24.
[2020-09-23 00:52] LABS: ALT 47 U/L (16-63); AST 56 U/L (15-37); Albumin 3.9 g/dL (3.4-5.0); Alkaline Phosphatase 81 U/L (46-116); Anion Gap 7.9 mmol/L (3-11); BUN 15 mg/dL (7-18); Bilirubin, Total 0.6 mg/dL (0.2-1.0); CO2 29.1 mmol/L (21.0-32.0); CREATININE 1.2 mg/dL (0.70-1.30); Calcium 9.5 mg/dL (8.5-10.1); Chloride 106 mmol/L (98-107); Estimated GFR 59.86 (mL/min/1.73m2); Glucose 111 mg/dL (74-106); Magnesium 2.2 mg/dL (1.8-2.4); Potassium 3.6 mmol/L (3.5-5.1); Sodium 143 mmol/L (136-145); Total Protein 7.5 g/dL (6.4-8.2)
[2020-09-23 00:53] LABS: Troponin I < 0.05 ng/mL (<0.06)
[2020-09-23] MEDS: Omnipaque 350 MG/ML 100 ML BTL IJ (00:59)
[2020-09-23] MEDS: Normal Saline - Diluent 50 ML VIAL IV (00:59)
[2020-09-23] MEDS: nitroGLYcerin in D5W 50 MG/250 ML BTL IV (01:03)
--- NOTE | 2020-09-23 01:25 | DI.VRAD_ITS ---
PROCEDURE INFORMATION: Exam: CTA Chest With Contrast Exam date and time: 09/23/2020 12:30 AM Age: 69 years old Clinical indication: Other: Sudden chest back pain TECHNIQUE: Imaging protocol: Computed tomographic angiography of the chest with contrast. 3D rendering (Not supervised by radiologist): MIP and/or 3D reconstructed images were created by the technologist. Contrast material: OMNI 350; Contrast volume: 100 ml; Contrast route: INTRAVENOUS (IV); COMPARISON: CT CHEST PE ABD PELVIS W 03/11/2020 6:26 PM FINDINGS: Pulmonary arteries: Normal. No pulmonary emboli. Aorta: Unremarkable. No aortic aneurysm. No aortic dissection. Lungs: Unremarkable. No consolidation. No masses. Pleural spaces: Unremarkable. No pneumothorax. No pleural effusion. Heart: Unremarkable. No cardiomegaly. No pericardial effusion. Lymph nodes: Unremarkable. No enlarged lymph nodes. Bones/joints: Unremarkable. No acute fracture. Soft tissues: Unremarkable. IMPRESSION: No acute findings. PROCEDURE INFORMATION: Exam: CT Angiography Abdomen With Contrast Exam date and time: 09/23/2020 12:30 AM Age: 69 years old Clinical indication: Other: Sudden chest back pain TECHNIQUE: Imaging protocol: Computed tomographic angiography images of the abdomen with intravenous contrast material. 3D rendering (Not supervised by radiologist): MIP and/or 3D reconstructed images were created by the technologist. Radiation optimization: All CT scans at this facility use at least one of these dose optimization techniques: automated exposure control; mA and/or kV adjustment per patient size (includes targeted exams where dose is matched to clinical indication); or iterative reconstruction. Contrast material: OMNI 350; Contrast volume: 100 ml; Contrast route: INTRAVENOUS (IV); COMPARISON: CT CHEST PE ABD PELVIS W 03/11/2020 6:26 PM FINDINGS: Aorta: No aortic aneurysm. No aortic dissection. Celiac trunk and mesenteric arteries: No occlusion or significant stenosis. Renal arteries: No occlusion or significant stenosis. Liver: Normal. No mass. Gallbladder and bile ducts: There has been a cholecystectomy. There is a mild, expected degree of intrahepatic and common bile duct dilation and pneumobilia. Pancreas: Normal. No ductal dilation. Spleen: Normal. No splenomegaly. Adrenals: Normal. No mass. Kidneys and ureters: Bilateral renal cysts, largest within the inferior pole of the left kidney measuring 5.5 cm. Stomach and bowel: Unremarkable. No obstruction. No mucosal thickening. Lymph nodes: Unremarkable. No enlarged lymph nodes. Intraperitoneal space: Unremarkable. No free air. No significant fluid collection. Bones/joints: Unremarkable. No acute fracture. No dislocation. Soft tissues: Unremarkable. IMPRESSION: 1. No evidence of acute abdominal process. The abdominal aorta and visceral branches are widely patent. 2. Bilateral renal cysts, largest within the inferior pole of the left kidney measuring 5.5 cm. Dictated and Authenticated by: Nick Kevin MD. Ordering:MARNIE Eubanks MD
[2020-09-23 02:00] LABS: PTT Activated 20.9 sec (21.0-27.5); Prothrombin Time 9.8 sec (9.3-11.0)
--- NOTE | 2020-09-23 03:15 | RT.EKG_ITS ---
APPROVED REPORT Exam: Resting ECG Reason for Exam: cp Patient Location: E HR:40 bpm ECG Measurements Heart Rate 40 AXIS AK 183 P 46 QRSd 115 QRS 7 QT 487 T 37 QTc 398 Conclusion Slow sinus arrhythmia...V-rate 35- 48, mean< 60 Probable left atrial enlargement...P >50mS, <-0.10mV V1 Nonspecific intraventricular conduction delay...QRSd >115mS, not LBBB/RBBB I have reviewed and interpreted ECG and agree with software generated interpretation. There are no significant changes compared to prior EKG performed on 09/23/2020 at 00:24.
[2020-09-23] MEDS: Ondansetron 4 MG/2 ML VIAL IVP ×2 (03:47→06:58)
[2020-09-23] MEDS: MORPHine 4 MG/ML SYR IVP (03:47)
[2020-09-23 04:05] LABS: Troponin I < 0.05 ng/mL (<0.06)
[2020-09-23] MEDS: Clopidogrel 300 MG TAB PO (05:16)
[2020-09-23 05:39] LABS: Source Nasal/Nares
[2020-09-23 06:28] LABS: COVID-19 PCR Negative (Negative)
--- NOTE | 2020-09-23 06:45 | RT.EKG_ITS ---
APPROVED REPORT Exam: Resting ECG Reason for Exam: chest pain Patient Location: E HR:55 bpm ECG Measurements Heart Rate 55 AXIS [place] 191 P 46 QRSd 111 QRS 13 QT 422 T 22 QTc 405 Conclusion Sinus bradycardia...rate< 60 There are no significant changes compared to prior EKG performed on 09/23/2020 at 03:35.
[2020-09-23] MEDS: Prochlorperazine 10 MG/2 ML VIAL IVP (07:44)
[2020-09-23] MEDS: Normal Saline 50 ML (07:45)
== END 2020-09-23 07:56 | disposition short-term general hospital (02) ==
PROVIDERS: Emergency Provider Emergency Medicine; PCP Nurse Practitioner Family
DX: I24.9 Acute ischemic heart disease, unspecified (principal); I10 Essential (primary) hypertension; Z87.891 Personal history of nicotine dependence
CPT/HCPCS: 71275; 74175; 80053; 87635; 93005; 96361; 96365; 96366; 96368; 96374; 96375; 96376; 99291; 99292; 83735; 84484; 85025; 85610; 85730; 93010; J0780; J2270; J2405; J3490

== ENCOUNTER 2020-11-14 02:49 | Outpatient (CLI) | payer MEDICARE, SELFPAY ==
[2020-11-14 13:01] LABS: Calculated LDL 63 mg/dL (<100); Cholesterol 131 mg/dL (<200); HDL Cholesterol 53 mg/dL (40-60); Triglyceride 77 mg/dL (<150)
== END 2020-11-14 02:50 | disposition home or self-care (01) ==
LOC: LOS 02:49
PROVIDERS: PCP Nurse Practitioner Family; Visit Provider Nurse Practitioner Family
DX: E78.5 Hyperlipidemia, unspecified (principal)
CPT/HCPCS: 36415; 80061

== ENCOUNTER 2021-04-04 01:39 | Outpatient (CLI) | payer MEDICARE, SELFPAY ==
[2021-04-04 11:40] LABS: Bilirubin Negative (Negative); Blood Trace-intact (Negative); Clarity Clear (Clear); Glucose Negative (Negative); Ketones Negative (Negative); Leukocyte Esterase Negative (Negative); Nitrite Negative (Negative); pH 6.5 (5-8)
[2021-04-04 11:46] LABS: Bacteria Negative HPF (Negative); C & S Indicated? No; Casts Negative LPF (Negative); Crystals Negative HPF (Negative); Epithelial Cells Rare HPF (Negative); Mucus Negative (Negative); RBC 0-2 HPF (0-2); WBC 0-2 HPF (0-5)
[2021-04-04 11:50] LABS: Abs Immature Grans 0.02 10^3/uL (0.0-0.06); Absolute Basophil Count 0.07 10^3/uL (0.0-0.2); Absolute Eosinophil Count 0.38 10^3/uL (0.0-0.7); Absolute Lymphocyte Count 1.41 10^3/uL (1.2-3.4); Absolute Monocyte Count 0.64 10^3/uL (0.1-0.8); Absolute Neutrophil Count 4.81 10^3/uL (1.2-6.7); Eosinophils % 5.2; HCT 50.2 % (40.0-50.0); HGB 16.5 g/dL (13.5-17.5); Immature Grans % 0.3; Lymphocytes % 19.2; MCH 30.4 pg (27.0-33.0); MCHC 32.9 % (32.0-36.0); MCV 92.6 fL (80-95); MPV 10.4 fL (8.0-11.0); Monocytes % 8.7; Neutrophils % 65.6; Nucleated RBC 0 %; Platelet Count 187 10^3/uL (130-400); RBC 5.42 10^6/uL (4.36-5.78); RDW-SD 47.9 fL; WBC 7.33 10^3/uL (4.4-10.8)
[2021-04-04 12:01] LABS: Hemoglobin A1C 5.5 % (<5.7)
[2021-04-04 13:57] LABS: ALT 47 U/L (16-63); AST 24 U/L (15-37); Albumin 3.8 g/dL (3.4-5.0); Alkaline Phosphatase 109 U/L (46-116); Anion Gap 6.4 mmol/L (3-11); BUN 15 mg/dL (7-18); Bilirubin, Total 0.6 mg/dL (0.2-1.0); CO2 30.6 mmol/L (21.0-32.0); CREATININE 1.2 mg/dL (0.70-1.30); Calcium 9.6 mg/dL (8.5-10.1); Calculated LDL 63 mg/dL (<100); Chloride 104 mmol/L (98-107); Cholesterol 141 mg/dL (<200); Estimated GFR 59.68 (mL/min/1.73m2); Glucose 82 mg/dL (74-106); HDL Cholesterol 56 mg/dL (40-60); Potassium 4.4 mmol/L (3.5-5.1); Sodium 141 mmol/L (136-145); TSH (W/Ref FT4) 1.71 uIU/mL (0.36-3.74); Total Protein 7.2 g/dL (6.4-8.2); Triglyceride 110 mg/dL (<150); Vitamin B12 627 pg/mL (193-986)
[2021-04-04 14:08] LABS: Lipase 121 U/L (73-393)
[2021-04-07 13:20] LABS: IgA 332 mg/dL (85-499); Interpretation (See Note); Tissue Transglutaminase IgA <1.2 U/mL (<4.0)
== END 2021-04-04 01:40 | disposition home or self-care (01) ==
LOC: LBO 01:39
PROVIDERS: PCP Family Medicine; Visit Provider Family Medicine
DX: E78.2 Mixed hyperlipidemia (principal); G57.93 Unspecified mononeuropathy of bilateral lower limbs; K21.9 Gastro-esophageal reflux disease without esophagitis; R10.9 Unspecified abdominal pain; R73.9 Hyperglycemia, unspecified; R74.8 Abnormal levels of other serum enzymes; I10 Essential (primary) hypertension
CPT/HCPCS: 36415; 80053; 80061; 82784; 83516; 83690; 81003; 81015; 82607; 83036; 84443; 85025

== ENCOUNTER → 2021-07-14 02:30 | Outpatient (CLI) | payer MEDICARE, SELFPAY ==
--- NOTE | 2021-07-14 09:35 | DI.RAD_ITS ---
Exam(s) XR KNEE RT 3V AP,LAT,BRYAN EXAM: XR KNEE RT 3V AP,LAT,BRYAN CLINICAL HISTORY: rt knee pain,m25.561. TECHNIQUE: 2D digital imaging was performed of the right knee. Three views obtained. AP, lateral an d PA tunnel views were obtained. COMPARISON: CR RIGHT KNEE 3 VIEWS from 01/09/2010 FINDINGS: BONES: No acute fracture is present. No bony destructive lesion is seen. A small enthesophyte is seen at the superior patella. JOINTS: The knee is normally aligned. There is a small joint effusion. SOFT TISSUE: Atherosclerosis is present. IMPRESSION: Small joint effusion. DATA REPOSITORY: RADIATION DOSE DELIVERED:
== END ==
PROVIDERS: PCP Family Medicine; Visit Provider Family Medicine
DX: M25.561 Pain in right knee (principal); M25.461 Effusion, right knee
CPT/HCPCS: 73562

== ENCOUNTER → 2021-07-31 08:53 | Outpatient (BNVA) | payer MEDICARE, SELFPAY | PROVIDERS: PCP Family Medicine; Referring Provider Family Medicine; Visit Provider Student in an Organized Health Care Education/Training Program | DX: M23.91 Unspecified internal derangement of right knee (principal) | CPT/HCPCS: 20610; 99212; J1040 ==

== ENCOUNTER 2021-11-07 15:45 | Emergency (ER) | payer MEDICARE, SELFPAY ==
[2021-11-07 15:48] VITALS: BP 159/69; PULSE 76; RESP 20; TEMP 36.7; O2SAT 94
--- NOTE | 2021-11-07 16:07 | ED.GENADUL_ITS ---
Discharge Plan Disposition Patient Disposition: HOME Condition: Stable Discharge Details Clinical Impression: Laceration of left thumb Primary Care Provider: Marco Hills ED Provider: Margarito James Home Meds and New Rx's Prescriptions: Continued triamcinolone acetonide 0.1 % cream 1 applic topical BID Qty: 15 0RF Biotene Dry Mouth Oral Rinse Mouthwash 15 ml mucous membrane TID-QID PRN (Reason: dry mouth) Qty: 1000 0RF Rx Instructions: swish for 15-30 secs , then spit out; do not swallow tamsulosin 0.4 mg capsule 0.4 mg PO DAILY Qty: 30 2RF atorvastatin 40 mg tablet 40 mg PO DAILY Qty: 90 4RF ascorbic acid (vitamin C) 250 mg tablet 250 mg PO DAILY multivitamin [One Daily] 1 EACH tablet 1 ea PO DAILY sertraline 25 mg tablet 25 mg PO DAILY Qty: 90 3RF trazodone 50 mg tablet 25 mg PO DAILY Qty: 30 2RF Label Comments: Pt reports he takes this medication before bed. dexlansoprazole [Dexilant] 30 mg capsule,biphase delayed releas 30 mg PO DAILY Qty: 30 2RF Discharge Instructions Instructions: Laceration (ED), Skin Adhesive Care (ED) Additional Instructions: return in 7-10 days for evaluation for suture removal. Return sooner if you have redness spreading down the finger, severe worsening pain or yellow/white discharge from the wound Medical Decision Making 70 yo male comes in with complaint of left thumb laceration. He states he was cutting with a hand saw when it slipped and he cut his left thumb. Denies loc or falling. Has a 2cm laceration that runs horizontally just proximal to the thumb nail, intact rom of the finger and normal sensation. Will require sutures, no findings on exam to suggest neurovascular injury or tendon injury Differential Diagnosis Differential Diagnosis: laceration, abrasion HPI General Mode of arrival: ambulatory . Date/Time Provider Initiated Documentation: 11/07/21 15:54 . Limitations to Documentation: no limitations . Information obtained by: patient . History of Present Illness 70 year old M presents to the emergency department with the chief complaint of cut left thumb with hand saw, and is localized to the left and upper extremity. Patient reports no radiation. Patient started experiencing this hour(s) (1) and it has been constant. No relieving factors improve symptom(s), No exacerbating factors reported . Patient notes no other symptoms.. Patient did receive the following treatments prior to arrival, none Related Data Home Medications Medication Instructions Recorded Confirmed multivitamin (One Daily tablet) 1 ea PO DAILY 06/07/12 11/07/21 atorvastatin 40 mg tablet 40 mg PO DAILY #90 tabs 09/25/20 11/07/21 saliva substitute combo no.9 15 ml mucous membrane TID-QID PRN 03/12/21 11/05/21 (Biotene Dry Mouth Oral Rinse dry mouth #1,000 mL mouthwash) triamcinolone acetonide 0.1 % 1 applic topical BID #15 grams 03/12/21 11/05/21 topical cream ascorbic acid (vitamin C) 250 mg 250 mg PO DAILY 03/26/21 11/07/21 tablet sertraline 25 mg tablet 25 mg PO DAILY #90 tabs 05/19/21 11/07/21 trazodone 50 mg tablet 25 mg PO DAILY #30 tabs 07/29/21 11/07/21 tamsulosin 0.4 mg capsule 0.4 mg PO DAILY #30 caps 09/30/21 11/07/21 dexlansoprazole 30 mg 30 mg PO DAILY #30 caps 10/02/21 11/07/21 capsule,biphase delayed release (Dexilant) Previous Rx's Medication Instructions Recorded atorvastatin 40 mg tablet 40 mg PO DAILY #90 tabs 09/25/20 saliva substitute combo no.9 15 ml mucous membrane TID-QID PRN 03/12/21 (Biotene Dry Mouth Oral Rinse dry mouth #1,000 mL mouthwash) triamcinolone acetonide 0.1 % 1 applic topical BID #15 grams 03/12/21 topical cream sertraline 25 mg tablet 25 mg PO DAILY #90 tabs 05/19/21 trazodone 50 mg tablet 25 mg PO DAILY #30 tabs 07/29/21 tamsulosin 0.4 mg capsule 0.4 mg PO DAILY #30 caps 09/30/21 dexlansoprazole 30 mg 30 mg PO DAILY #30 caps 10/02/21 capsule,biphase delayed release (Dexilant) Allergies Allergy/AdvReac Type Severity Reaction Status Date / Time atenolol AdvReac Unknown hypotension Verified 11/07/21 15:53 General Stated Complaint: Laceration RYAN: 4 Review of Systems All systems reviewed & are unremarkable except as noted in HPI and below Constitutional Constitutional: Denies chills, Denies fever(s) and Denies weakness Cardiovascular Cardiovascular: Denies chest pain and Denies dyspnea Respiratory Respiratory: Denies cough and Denies dyspnea Gastrointestinal Gastrointestinal: Denies abdominal pain and Denies vomiting Neurologic Neurologic: Denies weakness [facility] All Active Problems (Updated 11/07/21 @ 16:23 by Margarito James MD) Laceration of left thumb (Acute) Osteoarthritis of both hands (Acute) Abdominal pain in male (Acute) BPH w urinary obs/LUTS (Acute) Internal derangement of right knee (Acute) AK (actinic keratosis) (Acute) Right medial knee pain (Acute) Hoarseness (Acute) Xerostomia (Acute) 05/2021, unclear cause Chest pain (Acute) Summer 2020-admitted for chest pain sent to [facility]-negative cardiac catheterization per patient Atrial fibrillation (Chronic) Remote, cardioverted about 2007 at [facility]-no recurrence Neuropathy of both feet (Acute) 03/2021- mild, likely ideopathic Foot pain, right (Acute) Chronic right foot pain felt to be likely combination overuse, degenerative changes and neuropathy Abdominal pain (Acute) Recurrent episodic moderate to severe abdominal pain right abdomen-since 2019-unclear cause no improvement after cholecystectomy, thorough evaluation since 2019 without any obvious etiology Tubular adenoma of colon (Acute) 2017, due in 2022 Kidney stone (Chronic) Nasal vestibulitis (Acute) White coat syndrome with high blood pressure but without hypertension (Acute) Anxiety (Chronic) Left-sided low back pain with left-sided sciatica (Acute) Bradycardia (Acute) holter 05/19 Chronic right hip pain (Chronic 07/04/13) Pleurodynia (Acute) Fatty liver (Acute) Rosacea (Chronic) Hyperlipidemia (Chronic) Actinic keratosis (Chronic) Medical History Anxiety and depression Atrial flutter Pt. states it comes and goes, I've had it worked up, and the chest discomfort I was told was indigestion Chronic insomnia Colitis mild-scope 2004 Gastritis (01/29/04) History of kidney stones (12/02/15) Kidney stones 1986, 2002 Malignant melanoma of skin of face Paroxysmal atrial fibrillation (07/16/15) Prostatitis Prostatitis Right hydrocele Tubular adenoma 01/20/13 DR. WANG 06/21/17 DR. SULTANA Surgical History Angioplasty cardiac ablation unsuccessful 2011 Colonoscopy - IV Sedation 01/20/13 Colonoscopy - MAC (06/21/17) EGD - IV Sedation 1999, 2004 History of cholecystectomy History of coronary angioplasty Repair, Tendon or Muscle left elbow S/P laparoscopic cholecystectomy Status post cataract extraction and insertion of intraocular lens of left eye (05/23/18) Status post cataract extraction and insertion of intraocular lens of right eye (06/06/18) Status post tendon repair Family History Mother , 95 Dementia Father , 65 Stomach cancer Sister Diabetes Brother Rheumatoid arthritis Sister No problems noted. Sister No problems noted. Maternal Aunt Dementia Brother No problems noted. Social History Smoking/Tobacco Use Status: Former Tobacco Use tobacco type: cigarettes Quit Date: 03/01/77 Tobacco: How many years used: 6 Second Hand Exposure: No Smoking risk assessment performed?: Yes Alcohol Intake: former Drug use: Never Substance use type: does not use Caregiver/Support person: No Household members: none Housing: apartment Communication Needs: None Do you need help understanding health information?: Rarely Pets and animals: No Sexually active: No Do you think of yourself as: straight/heterosexual Current gender identity: male What is your relationship status?: never How often do you talk on the phone with friends or family?: three or more times per week How often do you get together with friends or relatives?: three or more times per week How often do you attend congregation or cheondoism services?: decline to answer Do you belong to any clubs or organized social groups?: no Panel score (0-1 are the most socially isolated patients): 1 What type of physical activity do you participate in: walking Duration: 30-45 minutes/day Frequency: 3-4 times per week Any/Restorationist: No preference Special any needs: No Seatbelt use: always Helmet use: No Drive intox or ride w/intox utility driver: No Do you feel safe at home: Yes Do you feel safe in your relationship?: Yes Exam Const General: no acute distress Orientation: alert HENMT Head: normal to inspection Ears: external ears normal General nose exam: external nose normal Mouth: moist mucous membranes Eyes General: appearance normal, both eyes and all related structures Neck Neck: normal visual inspection Resp Effort & Inspection: normal respiratory effort and able to speak in complete sentences Cardio Rate: regular rate Skin General skin exam: no rashes or lesions noted Neuro General: patient alert and patient oriented x3 Extrem General: full ROM and capillary refill normal Psych Mental Status: mental status grossly normal Course Vital Signs Vital signs: Vital Signs Temperature 36.7 C 11/07/21 15:48 Pulse 76 11/07/21 15:48 Respiratory Rate 20 11/07/21 15:48 Blood Pressure 159/69 H 11/07/21 15:48 Pulse Oximetry 94 11/07/21 15:48 Temperature 36.7 C 11/07/21 15:48 Temperature Source Temporal Artery Scan 11/07/21 15:48 Pulse 76 11/07/21 15:48 Respiratory Rate 20 11/07/21 15:48 Respiratory Effort 11/07/21 15:51 Blood Pressure 159/69 H 11/07/21 15:48 Blood Pressure Position Sitting 11/07/21 15:48 Pulse Oximetry 94 11/07/21 15:48 Oxygen Delivery Method Room Air 11/07/21 15:48 Oxygen Flow Rate 0 11/07/21 15:48 Pain Level 3 11/07/21 15:48 Procedures Laceration Laceration 1: Site: hand Side (If applicable): left Size (cm): 2 Description: linear Depth: simple, single layer Local Anesthetic: Lidocaine 1% Amount of anesthesia used (mL): 6 Pre-repair: wound explored (no foreign bodies) and irrigated extensively Skin layer closed with: nylon Size (cm): 5-0 Number of sutures: 2 Technique: simple, interrupted
[2021-11-07 16:27] VITALS: BP 140/72; PULSE 64; RESP 16; TEMP 37.1; O2SAT 96
[2021-11-07 16:39] VITALS: BP 131/68; PULSE 56; RESP 18; O2SAT 95
== END 2021-11-07 16:48 | disposition home or self-care (01) ==
PROVIDERS: Emergency Provider Emergency Medicine; PCP Family Medicine
DX: S61.012A Laceration without foreign body of left thumb without damage to nail, initial encounter (principal); W27.0XXA Contact with workbench tool, initial encounter; Z87.891 Personal history of nicotine dependence
CPT/HCPCS: 12001; 99281; 99282

== ENCOUNTER 2021-12-25 10:10 | Outpatient (CLI) | payer MEDICARE, SELFPAY ==
--- NOTE | 2021-12-25 10:00 | RT.EKG_ITS ---
APPROVED REPORT Exam: Resting ECG Reason for Exam: Not feeling well Patient Location: O HR:54 bpm ECG Measurements Heart Rate 54 AXIS HI 142 P 58 QRSd 119 QRS 4 QT 464 T 22 QTc 440 Conclusion Sinus rhythm...normal P axis, V-rate 50- 99 Probable left atrial enlargement...P >50mS, <-0.10mV V1
== END 2021-12-25 10:11 | disposition home or self-care (01) ==
LOC: DI.CM 10:12
PROVIDERS: PCP Family Medicine; Visit Provider Family Medicine
DX: R52 Pain, unspecified (principal); R94.31 Abnormal electrocardiogram [ECG] [EKG]
CPT/HCPCS: 93010

== ENCOUNTER 2021-12-26 09:22 | Outpatient (RCR) | payer MEDICARE, SELFPAY ==
--- NOTE | 2021-12-26 09:15 | HOLTER_ITS ---
APPROVED REPORT Conclusion This is a 48-hour Holter monitor reportedly ordered for tachycardia Predominant rhythm is sinus with an average heart rate of 56. Minimum was 39, maximum 108 There were very rare ventricular ectopic beats There were occasional atrial premature beats There was no atrial fibrillation, no high-grade AV block, no pauses greater than 3 seconds No patient symptoms were reported
== END 2021-12-29 23:59 | disposition home or self-care (01) ==
LOC: CARDOPNVT 09:22
PROVIDERS: PCP Family Medicine; Visit Provider Family Medicine
DX: R00.0 Tachycardia, unspecified (principal); I49.5 Sick sinus syndrome
CPT/HCPCS: 93227; 93225; 93226

== ENCOUNTER 2022-03-06 01:12 | Outpatient (CLI) | payer MEDICARE, SELFPAY ==
--- NOTE | 2022-03-06 10:15 | DI.MRI_ITS ---
Exam(s) MR BRAIN WO EXAM: MR BRAIN WO CLINICAL HISTORY: dizziness with rt sided lean,r42 TECHNIQUE: Multiplanar multisequence MRI of the brain was performed. COMPARISON: No exams were available for comparison FINDINGS: VENTRICLES AND EXTRA AXIAL SPACES: Normal in size and morphology for the patient's age. MIDLINE SHIFT : None. CEREBRAL PARENCHYMA: No focus of restricted diffusion to suggest acute infarct. No space-occupying le forrest identified. Mild atrophy and mild white matter changes of small vessel disease. HEMORRHAGE: None. BRAINSTEM/CEREBELLUM: Normal. VISUALIZED PARANASAL SINUSES/MASTOIDS:Clear. [place]: Normal flow void. PITUITARY GLAND: Unremarkable. ORBITS: Unremarkable. IMPRESSION: Age related changes. No acute abnormality. DATA REPOSITORY:
== END 2022-03-06 01:32 ==
LOC: DI 01:13
PROVIDERS: PCP Family Medicine; Visit Provider Family Medicine
DX: R42 Dizziness and giddiness (principal)
CPT/HCPCS: 70551

== ENCOUNTER → 2022-03-17 08:46 | Outpatient (BNVA) | payer MEDICARE, SELFPAY | PROVIDERS: PCP Family Medicine; Referring Provider Family Medicine; Visit Provider Internal Medicine Cardiovascular Disease | DX: R42 Dizziness and giddiness (principal); I25.10 Atherosclerotic heart disease of native coronary artery without angina pectoris; R00.1 Bradycardia, unspecified | CPT/HCPCS: 99214 ==

== ENCOUNTER 2022-05-26 08:30 | Outpatient (CLI) | payer MEDICARE, SELFPAY ==
[2022-05-26 12:18] LABS: HCT 50.8 % (40.0-50.0); HGB 16.6 g/dL (13.5-17.5); MCH 30.5 pg (27.0-33.0); MCHC 32.7 % (32.0-36.0); MCV 93 fL (80-95); MPV 11.3 fL (8.0-11.0); Platelet Count 182 10^3/uL (130-400); RBC 5.45 10^6/uL (4.36-5.78); RDW 14.3 % (11.8-14.1); RDW-SD 48.7 fL; WBC 6.35 10^3/uL (4.4-10.8)
[2022-05-26 12:27] LABS: ALT 44 U/L (16-63); AST 25 U/L (15-37); Albumin 3.6 g/dL (3.4-5.0); Alkaline Phosphatase 106 U/L (46-116); Bilirubin, Direct 0.2 mg/dL (0.0-0.2); Bilirubin, Total 0.6 mg/dL (0.2-1.0); Total Protein 7.1 g/dL (6.4-8.2)
== END 2022-05-26 08:31 | disposition home or self-care (01) ==
LOC: LOS 08:30
PROVIDERS: PCP Family Medicine; Referring Provider Family Medicine; Visit Provider Family Medicine
DX: R53.83 Other fatigue (principal); G72.89 Other specified myopathies
CPT/HCPCS: 36415; 80076; 85027

== ENCOUNTER 2022-07-02 11:33 | Emergency (ER) | payer MEDICARE, SELFPAY ==
[2022-07-02] VITALS (20 sets, daily range): BP systolic 132–161; BP diastolic 61–110; PULSE 45–65; RESP 14–20; TEMP 37.3; O2SAT 96–99
--- NOTE | 2022-07-02 11:30 | RT.EKG_ITS ---
Exam(s) ED EKG EXAM: ED EKG CLINICAL HISTORY: chest pain TECHNIQUE: COMPARISON: No exams were available for comparison FINDINGS: IMPRESSION:
--- NOTE | 2022-07-02 12:02 | ED.GENADUL_ITS ---
Discharge Plan Disposition Patient Disposition: Home Condition: Stable Discharge Details Clinical Impression: Dizziness, Chest pain, Fluttering sensation of heart Primary Care Provider: Marco [facility] ED Provider: Makayla Wade Home Meds and New Rx's Prescriptions: Continued triamcinolone acetonide 0.1 % cream 1 applic topical BID Qty: 15 0RF Biotene Dry Mouth Oral Rinse Mouthwash 15 ml mucous membrane TID-QID PRN (Reason: dry mouth) Qty: 1000 0RF Rx Instructions: swish for 15-30 secs , then spit out; do not swallow sertraline 50 mg tablet 50 mg PO DAILY Qty: 90 3RF ascorbic acid (vitamin C) 250 mg tablet 250 mg PO DAILY multivitamin [One Daily] 1 EACH tablet 1 ea PO DAILY atorvastatin 40 mg tablet 40 mg PO DAILY Qty: 90 3RF trazodone 50 mg tablet 25 mg PO DAILY Qty: 45 3RF Patient Comments: Pt reports he takes this medication before bed. dexlansoprazole [Dexilant] 30 mg capsule,biphase delayed releas 30 mg PO DAILY Qty: 90 3RF Discharge Instructions Instructions: Chest Pain (ED), Heart Palpitations (ED), Dizziness (ED) Additional Instructions: Your blood tests, EKG and imaging today are reassuring and show no evidence of acute concerning or significant findings. Your heart rate and rhythm have been monitored here in the emergency department and have been reassuring and showed no evidence of atrial flutter or fibrillation. Drink plenty of fluids and get plenty of rest. An order for an outpatient back monitor has been placed. You will be contacted by the specialty clinics for scheduling of this test. Call your primary care doctor's office today to schedule a follow-up appointment for reevaluation in the next week. Return immediately to the emergency department if you develop any worsening or new concerning symptoms. Discharge Orders Other Ambulatory Orders: Holter Monitor (Routine) Timeframe: 1 Week Facility: [facility] - Location: Respiratory Therapy Ordered By: Makayla Wade Discharge Data Discharge Physician: Makayla Wade Medical Decision Making 1899 -- 71-year-old male with a history of hyperlipidemia, paroxysmal atrial flutter and fibrillation, prostatitis, anxiety and depression presents for intermittent fluttering in his chest and neck, dizziness, shortness of breath for the past 3 days and a 1 hour episode of left-sided chest pain yesterday. Only complaining of lightheadedness at this time. EKG notes a rate of 56, sinus, normal axis, less than [address] depression in lead II, no STEMI. Blood pressure moderately hypertensive, heart rate ranged between 40s and low 60s. Review of records dating back to 2006 notes that this is patient's baselin e heart rate, often in the 40s and 50s. Patient states he has not taken rate control medication for his a flutter and fib in the past but had been on anticoagulation previously. Review of medication list and he is not taking any cardiac medications other than atorvastatin. Discussed with patient that his heart rate appears at his baseline and his rhythm is sinus on the EKG and monitor. As he has no flutter currently, discussed that he could have been in fib or flutter at that time but will continue to monitor. Will obtain screening labs, chest x-ray and give fluid bolus as he has dizziness that is worse upon standing. Differential diagnosis includes arrhythmia, dehydration, electrolyte abnormality, viral syndrome. 1600 --Labs and imaging reviewed. Normal white blood cell count. Normal electrolytes. D-dimer and troponin within normal limits. Chest x-ray negative for acute disease. Patient reassessed and he was able to ambulate and denies any dizziness, shortness of breath, palpitations or chest pain. Patient feels comfortable going home. We will order an outpatient family services assistant. Advised to follow up with the primary care doctor for re-evaluation. Usual and customary return precautions given prior to discharge. Medical Records Medical records reviewed: Yes I reviewed the patient's medical records. Imaging Data Radiologic Study: Radiologist's impression: XR CHEST 2V PA ? LATERAL CLINICAL HISTORY:? chest pain/sob/dizzy, r/o acute disease TECHNIQUE:? 2D digital imaging was performed of the chest.? Three images were obtained.? PA and lateral views were obtained. COMPARISON:? CR XR CHEST 2V PA ? LATERAL from 04/04/2020 FINDINGS: MEDIASTINUM: Normal.? HEART: Normal. PULMONARY VASCULATURE: Normal. LUNGS: Clear. ? PLEURAL SPACE: No pleural effusion or pneumothorax. BONE:Within normal limits for the patient's age.? OTHER FINDINGS:Normal.? IMPRESSION: No acute pulmonary findings. Lab Data Lab results reviewed: Yes I reviewed the patient's lab results. Labs: Laboratory Tests Range/Units 07/02/22 07/02/22 07/02/22 11:55 11:55 13:20 WBC (4.4-10.8) 10^3/uL 5.55 RBC (4.36-5.78) 10^6/uL 5.53 Hgb (13.5-17.5) g/dL 17.0 Hct (40.0-50.0) % 50.1 H MCV (80-95) fL 91 MCH (27.0-33.0) pg 30.7 MCHC (32.0-36.0) % 33.9 RDW (11.8-14.1) % 14.0 Plt Count (130-400) 10^3/uL 179 MPV (8.0-11.0) fL 10.7 Immature Gran % 0.2 Neutrophils % 66.0 Lymphocytes % 23.4 Monocytes % 8.6 Eosinophils % 1.3 Basophils % 0.5 Nucleated RBC % (0.0-0.3) % 0.0 Absolute Neutrophils (1.2-6.7) 10^3/uL 3.66 Absolute Lymphocytes (1.2-3.4) 10^3/uL 1.30 Absolute Monocytes (0.1-0.8) 10^3/uL 0.48 Absolute Eosinophils (0.0-0.7) 10^3/uL 0.07 Absolute Basophils (0.0-0.2) 10^3/uL 0.03 D-Dimer (<500) ng/mlFEU 497 Sodium (136-145) mmol/L 141 Potassium (3.5-5.1) mmol/L 3.7 Chloride (98-107) mmol/L 106 Carbon Dioxide (21.0-32.0) mmol/L 28.5 Anion Gap (3-11) mmol/L 6.5 BUN (7-18) mg/dL 14 Creatinine (0.70-1.30) mg/dL 1.3 Est GFR (CKD-EPI 2020) (mL/min/1.73m2) 58.37 Glucose (74-106) mg/dL 139 H Calcium (8.5-10.1) mg/dL 9.9 Magnesium (1.8-2.4) mg/dL 2.0 Total Bilirubin (0.2-1.0) mg/dL 0.9 AST (15-37) U/L 29 ALT (16-63) U/L 46 Alkaline Phosphatase (46-116) U/L 109 Troponin I (<or=60) ng/L < 50 Total Protein (6.4-8.2) g/dL 7.2 Albumin (3.4-5.0) g/dL 3.6 Range/Units 07/02/22 15:01 WBC (4.4-10.8) 10^3/uL RBC (4.36-5.78) 10^6/uL Hgb (13.5-17.5) g/dL Hct (40.0-50.0) % MCV (80-95) fL MCH (27.0-33.0) pg MCHC (32.0-36.0) % RDW (11.8-14.1) % Plt Count (130-400) 10^3/uL MPV (8.0-11.0) fL Immature Gran % Neutrophils % Lymphocytes % Monocytes % Eosinophils % Basophils % Nucleated RBC % (0.0-0.3) % Absolute Neutrophils (1.2-6.7) 10^3/uL Absolute Lymphocytes (1.2-3.4) 10^3/uL Absolute Monocytes (0.1-0.8) 10^3/uL Absolute Eosinophils (0.0-0.7) 10^3/uL Absolute Basophils (0.0-0.2) 10^3/uL D-Dimer (<500) ng/mlFEU Sodium (136-145) mmol/L Potassium (3.5-5.1) mmol/L Chloride (98-107) mmol/L Carbon Dioxide (21.0-32.0) mmol/L Anion Gap (3-11) mmol/L BUN (7-18) mg/dL Creatinine (0.70-1.30) mg/dL Est GFR (CKD-EPI 2020) (mL/min/1.73m2) Glucose (74-106) mg/dL Calcium (8.5-10.1) mg/dL Magnesium (1.8-2.4) mg/dL Total Bilirubin (0.2-1.0) mg/dL AST (15-37) U/L ALT (16-63) U/L Alkaline Phosphatase (46-116) U/L Troponin I (<or=60) ng/L Cancelled Total Protein (6.4-8.2) g/dL Albumin (3.4-5.0) g/dL ECG Data Attestation: I personally reviewed and interpreted this ECG (s) as follows: Interpretation: Rate of 56, sinus, normal axis, less than [address] depression in lead II, no STEMI. HPI General Mode of arrival: ambulatory . Date/Time Provider Initiated Documentation: 07/02/22 11:33 . Limitations to Documentation: no limitations . Information obtained by: patient . HPI Narrative: Patient is a 71-year-old male with a history of atrial flutter and paroxysmal atrial fibrillation, prostatitis, anxiety and depression who presents for 3 days of intermittent flutteringin his chest and neck, intermittent lightheadedness and shortness of breath and a 1 hour episode of left-sided chest pain yesterday. Patient states he called his PCP office today and they advised him to come to the ER for further evaluation. Patient states he has had fluttering in his chest before associated with his atrial flutter or fibrillation. He states he had a cardiac ablation several years ago. Patient states he has never taken any medication for rate control for his atrial fibrillation or flutter but had been on anticoagulation previously. Patient states over the last few days he has felt intermittent fluttering in his chest and left side of his neck. He states he had this this morning as well but is now resolved. He states he has felt short of breath at times with exertion. He admits to lightheadedness that occurs mainly when standing up and walking. He states yesterday he was sitting at home when he developed a 1 hour episode of left-sided aching chest pain. He denies any aggravating or alleviating factors. He states he feels lightheadedness now but denies any fluttering, chest pain or shortness of breath. He denies any recent illness, fever, sore throat, cough, abdominal pain, nausea, vomiting, diarrhea or leg swelling. He denies any alcohol or drug use or new medications. Related Data Home Medications Medication Instructions Recorded Confirmed multivitamin (One Daily tablet) 1 ea PO DAILY 06/07/12 05/26/22 saliva substitute combo no.9 15 ml mucous membrane TID-QID PRN 03/12/21 05/26/22 (Biotene Dry Mouth Oral Rinse dry mouth #1,000 mL mouthwash) triamcinolone acetonide 0.1 % 1 applic topical BID #15 grams 03/12/21 05/26/22 topical cream ascorbic acid (vitamin C) 250 mg 250 mg PO DAILY 03/26/21 05/26/22 tablet atorvastatin 40 mg tablet 40 mg PO DAILY #90 tabs 12/22/21 05/26/22 trazodone 50 mg tablet 25 mg PO DAILY #45 tabs 01/27/22 05/26/22 dexlansoprazole 30 mg 30 mg PO DAILY #90 caps 02/24/22 05/26/22 capsule,biphase delayed release (Dexilant) sertraline 50 mg tablet 50 mg PO DAILY #90 tabs 03/18/22 05/26/22 Previous Rx's Medication Instructions Recorded saliva substitute combo no.9 15 ml mucous membrane TID-QID PRN 03/12/21 (Biotene Dry Mouth Oral Rinse dry mouth #1,000 mL mouthwash) triamcinolone acetonide 0.1 % 1 applic topical BID #15 grams 03/12/21 topical cream atorvastatin 40 mg tablet 40 mg PO DAILY #90 tabs 12/22/21 trazodone 50 mg tablet 25 mg PO DAILY #45 tabs 01/27/22 dexlansoprazole 30 mg 30 mg PO DAILY #90 caps 02/24/22 capsule,biphase delayed release (Dexilant) sertraline 50 mg tablet 50 mg PO DAILY #90 tabs 03/18/22 Allergies Allergy/AdvReac Type Severity Reaction Status Date / Time atenolol AdvReac Unknown hypotension Verified 05/26/22 08:09 General Stated Complaint: Chest Pain RYAN: 3 Review of Systems All systems reviewed & are unremarkable except as noted in HPI and below Constitutional Constitutional: Reports as per HPI, Denies chills and Denies fever(s) Eyes Eyes: Denies blurry vision ENT Ears, Nose, Mouth, and Throat: Reports dizziness, Denies sore throat and Denies throat swelling Cardiovascular Cardiovascular: Reports chest pain, Reports irregular heart rhythm and Reports dyspnea Respiratory Respiratory: Denies cough and Reports dyspnea Gastrointestinal Gastrointestinal: Denies abdominal pain, Denies diarrhea and Denies vomiting Genitourinary Genitourinary: Denies hematuria and Denies dysuria Musculoskeletal Musculoskeletal: Denies back pain and Denies numbness Integumentary/Breasts Skin/Breast: Denies lesions and Denies rash Neurologic Neurologic: Reports dizziness, Denies localized weakness and Denies numbness Allergic/Immunologic Allergic/Immunologic: Denies throat swelling [facility] All Active Problems (Updated 07/02/22 @ 16:15 by Makayla Wade DO) Dizziness (Acute) Chest pain (Acute) Fluttering sensation of heart (Acute) FAIR (nonalcoholic steatohepatitis) (Acute) Vertigo (Acute) Trigger finger, left (Acute) Post-viral cough syndrome (Acute) Blepharitis (Acute) Left flank pain (Acute) Coronary artery disease (Chronic) Dizziness (Acute) Bradycardia (Acute) Tachycardia (Acute) Osteoarthritis of both hands (Acute) Abdominal pain in male (Acute) BPH w urinary obs/LUTS (Acute) Internal derangement of right knee (Acute) AK (actinic keratosis) (Acute) Right medial knee pain (Acute) Hoarseness (Acute) Xerostomia (Acute) 05/2021, unclear cause Chest pain (Acute) Summer 2020-admitted for chest pain sent to [facility]-negative cardiac catheterization per patient Atrial fibrillation (Chronic) Remote, cardioverted about [address] [facility]-no recurrence Neuropathy of both feet (Acute) 03/2021- mild, likely ideopathic Foot pain, right (Acute) Chronic right foot pain felt to be likely combination overuse, degenerative changes and neuropathy Abdominal pain (Acute) Recurrent episodic moderate to severe abdominal pain right abdomen-since 2019-unclear cause no improvement after cholecystectomy, thorough evaluation since 2019 without any obvious etiology Tubular adenoma of colon (Acute) 2017, due in 2022 Kidney stone (Chronic) Nasal vestibulitis (Acute) White coat syndrome with high blood pressure but without hypertension (Acute) Anxiety (Chronic) Left-sided low back pain with left-sided sciatica (Acute) Bradycardia (Acute) holter 05/19 Chronic right hip pain (Chronic 07/04/13) Pleurodynia (Acute) Fatty liver (Acute) Rosacea (Chronic) Hyperlipidemia (Chronic) Actinic keratosis (Chronic) Medical History (Updated 07/02/22 @ 16:15 by Makayla Wade DO) Anxiety and depression Atrial flutter Pt. states it comes and goes, I've had it worked up, and the chest discomfort I was told was indigestion Chronic insomnia Colitis mild-scope 2004 Gastritis (01/29/04) History of kidney stones (12/02/15) Kidney stones 1986, 2002 Malignant melanoma of skin of face Paroxysmal atrial fibrillation (07/16/15) Prostatitis Prostatitis Right hydrocele Tubular adenoma 01/20/13 DR. WANG 06/21/17 DR. SULTANA Surgical History (Updated 04/23/22 @ 12:45 by Gato Liu MD) Angioplasty cardiac ablation unsuccessful 2011 Colonoscopy - IV Sedation 01/20/13 Colonoscopy - MAC (06/21/17) EGD - IV Sedation 1999, 2004 History of cataract surgery History of cholecystectomy History of coronary angioplasty Repair, Tendon or Muscle left elbow S/P laparoscopic cholecystectomy Status post cataract extraction and insertion of intraocular lens of left eye (05/23/18) Status post cataract extraction and insertion of intraocular lens of right eye (06/06/18) Status post tendon repair Family History Mother , 96 Dementia Father , 72 Stomach cancer Sister Diabetes Brother Rheumatoid arthritis Sister , 68 No problems noted. Sister No problems noted. Maternal Aunt Dementia Brother No problems noted. Social History Smoking/Tobacco Use Status: Former Tobacco Use tobacco type: cigarettes Quit Date: 03/01/77 Tobacco: How many years used: 6 Smokeless tobacco user: other Quit status: has quit before Second Hand Exposure: No Smoking risk assessment performed?: Yes Alcohol Intake: former Drug use: Never Substance use type: does not use Counseling given: No Counseling provided: none Caregiver/Support person: No Household members: none Housing: apartment Communication Needs: None Do you need help understanding health information?: Rarely Pets and animals: No Sexually active: No Do you think of yourself as: straight/heterosexual Current gender identity: male What is your relationship status?: never How often do you talk on the phone with friends or family?: three or more times per week How often do you get together with friends or relatives?: twice per week How often do you attend anabaptist or spiritism services?: decline to answer Do you belong to any clubs or organized social groups?: no Panel score (0-1 are the most socially isolated patients): 1 What type of physical activity do you participate in: walking Duration: 30-45 minutes/day Frequency: 3-4 times per week Any/Jain: No preference Special any needs: No Seatbelt use: always Helmet use: Yes Helmet use: always Drive intox or ride w/intox cdl b driver: No Do you feel safe at home: Yes Do you feel safe in your relationship?: Yes Exam Const General: cooperative, healthy appearing and no acute distress HENMT Head: normal to inspection Ears: hearing grossly normal bilaterally, external ears normal and TM's normal bilaterally Face and sinus: normal facial exam Throat: posterior oropharynx normal Eyes General: appearance normal, both eyes and all related structures Pupils: PERRL EOM: EOM intact bilaterally Neck Neck: normal visual inspection and No submandibular swelling Lymphatic: no lymphadenopathy noted Chest Chest: normal inspection of the chest and no tenderness Resp Effort & Inspection: normal respiratory effort and able to speak in complete sentences Auscultation: clear to auscultation bilaterally Cardio Rate: bradycardic Rhythm: regular rhythm GI Inspection: normal to inspection Palpation: soft, not firm, not rigid and nontender Auscultation: normal bowel sounds Back/Spine/Pelvis Thoracic/Lumbar Spine: thoracic and lumbar spine normal to inspection Pelvis: no pain with anterior-posterior compression Skin General skin exam: no rashes or lesions noted Neuro General: patient alert, patient awake and patient oriented x3 Cognition: normal cognition Speech: speech normal Motor: muscle tone normal throughout Sensory Exam: no sensory deficits noted Extrem General: normal to inspection, full ROM and no edema Psych Appearance: grossly normal Mental Status: mental status grossly normal Speech and Movement: speech and movement normal Affect: normal affect Course Vital Signs Vital signs: Vital Signs Temperature 99.1 F 07/02/22 11:45 Pulse 56 L 07/02/22 11:45 Respiratory Rate 16 07/02/22 11:45 Blood Pressure 154/63 H 07/02/22 11:45 Pulse Oximetry 98 07/02/22 11:45 Temperature 99.1 F 07/02/22 11:45 Temperature Source Oral 07/02/22 11:45 Pulse 56 L 07/02/22 11:45 Respiratory Rate 16 07/02/22 11:45 Respiratory Effort Normal 07/02/22 11:54 Blood Pressure 154/63 H 07/02/22 11:45 Blood Pressure Position Sitting 07/02/22 11:45 Pulse Oximetry 98 07/02/22 11:45 Oxygen Delivery Method Room Air 07/02/22 11:45 Oxygen Flow Rate 0 07/02/22 11:45 Pain Level 1 07/02/22 11:51
[2022-07-02 12:11] LABS: Abs Immature Grans 0.01 10^3/uL (0.0-0.06); Absolute Basophil Count 0.03 10^3/uL (0.0-0.2); Absolute Eosinophil Count 0.07 10^3/uL (0.0-0.7); Absolute Monocyte Count 0.48 10^3/uL (0.1-0.8); Absolute Neutrophil Count 3.66 10^3/uL (1.2-6.7); Basophils % 0.5; Eosinophils % 1.3; HCT 50.1 % (40.0-50.0); Immature Grans % 0.2; Lymphocytes % 23.4; MCH 30.7 pg (27.0-33.0); MCHC 33.9 % (32.0-36.0); MCV 91 fL (80-95); MPV 10.7 fL (8.0-11.0); Monocytes % 8.6; Platelet Count 179 10^3/uL (130-400); RBC 5.53 10^6/uL (4.36-5.78); RDW-SD 46.7 fL; WBC 5.55 10^3/uL (4.4-10.8)
[2022-07-02 12:31] LABS: ALT 46 U/L (16-63); AST 29 U/L (15-37); Albumin 3.6 g/dL (3.4-5.0); Alkaline Phosphatase 109 U/L (46-116); Anion Gap 6.5 mmol/L (3-11); BUN 14 mg/dL (7-18); Bilirubin, Total 0.9 mg/dL (0.2-1.0); CO2 28.5 mmol/L (21.0-32.0); CREATININE 1.3 mg/dL (0.70-1.30); Calcium 9.9 mg/dL (8.5-10.1); Chloride 106 mmol/L (98-107); Estimated GFR 58.37 (mL/min/1.73m2); Glucose 139 mg/dL (74-106); Potassium 3.7 mmol/L (3.5-5.1); Sodium 141 mmol/L (136-145); Total Protein 7.2 g/dL (6.4-8.2); Troponin I < 50 ng/L (<or=60)
--- NOTE | 2022-07-02 12:45 | DI.RAD_ITS ---
Exam(s) XR CHEST 2V PA LATERAL EXAM: XR CHEST 2V PA LATERAL CLINICAL HISTORY: chest pain/sob/dizzy, r/o acute disease TECHNIQUE: 2D digital imaging was performed of the chest. Three images were obtained. PA and later al views were obtained. COMPARISON: CR XR CHEST 2V PA LATERAL from 04/04/2020 FINDINGS: MEDIASTINUM: Normal. HEART: Normal. PULMONARY VASCULATURE: Normal. LUNGS: Clear. PLEURAL SPACE: No pleural effusion or pneumothorax. BONE:Within normal limits for the patient's age. OTHER FINDINGS:Normal. IMPRESSION: No acute pulmonary findings. DATA REPOSITORY: RADIATION DOSE DELIVERED:
[2022-07-02 14:00] LABS: D-Dimer 497 ng/mlFEU (<500)
== END 2022-07-02 16:34 | disposition home or self-care (01) ==
PROVIDERS: Emergency Provider Physician Assistant; PCP Family Medicine
DX: R07.9 Chest pain, unspecified (principal); R42 Dizziness and giddiness; I48.0 Paroxysmal atrial fibrillation; E78.5 Hyperlipidemia, unspecified; F32.A Depression, unspecified; F41.9 Anxiety disorder, unspecified
CPT/HCPCS: 80053; 93005; 99284; 71046; 83735; 84484; 85025; 85379; 93010; 99283

== ENCOUNTER 2022-07-13 08:51 | Outpatient (RCR) | payer MEDICARE, SELFPAY ==
--- NOTE | 2022-07-13 08:45 | HOLTER_ITS ---
APPROVED REPORT Conclusion This is a 48-hour Holter monitor ordered for palpitations Predominant rhythm is sinus with an average heart rate of 52. Minimum was 40, maximum 98 There were a total of 4 isolated ventricular ectopic beats There were moderately frequent atrial premature beats comprising 7% of total There were several brief self-limited atrial runs. The longest of these was 3 beats in duration There was no atrial fibrillation, no high-grade AV block, no pauses greater than 3 seconds Palpitations were reported which corresponded to atrial premature beats
== END 2022-07-29 23:59 | disposition home or self-care (01) ==
LOC: CARDOPNVT 08:51
PROVIDERS: PCP Family Medicine; Visit Provider Physician Assistant
DX: I48.91 Unspecified atrial fibrillation (principal); I48.4 Atypical atrial flutter
CPT/HCPCS: 93227; 93225; 93226

== ENCOUNTER 2023-02-24 07:53 | Outpatient (CLI) | payer MEDICARE, SELFPAY ==
--- NOTE | 2023-02-24 07:45 | RT.EKG_ITS ---
APPROVED REPORT Exam: Resting ECG Reason for Exam: cardiac evaluation Patient Location: O HR:51 bpm ECG Measurements Heart Rate 51 AXIS FL 159 P 60 QRSd 117 QRS 9 QT 464 T 42 QTc 428 Conclusion Sinus rhythm...normal P axis, V-rate 50- 99 Probable left atrial enlargement...P >50mS, <-0.10mV V1 Nonspecific intraventricular conduction delay...QRSd >115mS, not LBBB/RBBB Minimal ST depression, inferior leads...ST <-0.04mV, II III aVF I have reviewed and interpreted ECG and agree with software generated interpretation.
== END 2023-02-24 07:54 | disposition home or self-care (01) ==
LOC: DI.CM 07:53
PROVIDERS: PCP Family Medicine; Visit Provider Family Medicine
DX: R07.9 Chest pain, unspecified (principal)
CPT/HCPCS: 93010

== ENCOUNTER → 2023-03-16 08:46 | Outpatient (BNVA) | payer MEDICARE, SELFPAY | PROVIDERS: PCP Family Medicine; Visit Provider Internal Medicine Interventional Cardiology | DX: I25.10 Atherosclerotic heart disease of native coronary artery without angina pectoris (principal); R00.1 Bradycardia, unspecified; R07.81 Pleurodynia; Z86.16 Personal history of COVID-19 | CPT/HCPCS: 99213 ==

== ENCOUNTER → 2023-04-16 01:23 | Outpatient (CLI) | payer MEDICARE, SELFPAY ==
--- NOTE | 2023-04-16 08:11 | DI.US_ITS ---
Exam(s) US RENAL EXAM: US RENAL CLINICAL HISTORY: left flank pain,hx of kidney stones,r10.9. TECHNIQUE: Gil scale, color and spectral Doppler were used. COMPARISON: US US ABDOMEN from 07/24/2020 FINDINGS: Renal size in cm: Right: 11.6. Left: 13.7. Echogenicity: Normal. Hydronephrosis: No. Cyst or mass: There are bilateral renal cysts. The largest is on the left and measures 5.5 x 5.7 x 4 .8 cm. Nephrolithiasis: Bilateral echogenic foci are seen. There is a 4 mm echogenic focus in the midpole o f the right kidney. There is a 1 cm echogenic focus in the superior pole of the left kidney. Other findings: None. Bladder:The urinary bladder is incompletely distended limiting evaluation. Ureteral jets: Right: Not visualized on this examination. Left: Not visualized on this examination. Prevoid vol:38 cc Postvoid vol:The patient was unable to void. Prostate: 33 cc Renal color flow: Symmetric and within normal limits. IMPRESSION: 1. Bilateral nephrolithiasis. No evidence of obstructive uropathy. 2. Bilateral renal cysts. 3. The urinary bladder was incompletely distended limiting evaluation. DATA REPOSITORY:
== END ==
PROVIDERS: PCP Family Medicine; Visit Provider Family Medicine
DX: N20.0 Calculus of kidney (principal)
CPT/HCPCS: 76770

== ENCOUNTER → 2023-04-20 03:37 | Outpatient (CLI) | payer MEDICARE, SELFPAY ==
--- NOTE | 2023-04-20 07:15 | DI.NM_ITS ---
APPROVED REPORT Exam: Exercise Treadmill Patient Location: Out-Patient Room/Bed: Stress Nurse: Adali Tobin RN Ordering Provider:ARMEN ALICIA, Contact Number: [phone] BMI: 28.88 Baseline Rhythm: Sinus Bradycardia Indications: Chest pain with exertion, Medical History Medical History: Aflutter, paroxysmal afib, anxiety, depression Cardiac Medications: Atorvastatin, dexilant, sertraline, trazodone Allergies: Atenolol Cardiac Risk Factors: HTN, HLD, former smoker (quit 1973) Previous Cardiac Procedures: Cardiac cath 2007 Pretest Chest Pain Characteristics: None Exercise History: Indeterminate Physical Disabilities: None Lung Sounds: Clear to auscultation Heart Sounds: Bradycardia Stress Test Details Test: Exercise stress testing was performed using a Sonu protocol. Nuclear Acquisition: Rest Tc-99m/Stress Tc-99m 1 day Rest Isotope: Tc-99m Sestamibi. Dose: 10.0 Date: 04/20/2023 Injection Time: 0915 Stress Isotope: Tc-99m Sestamibi. Dose: 31.0 Date: 04/20/2023 Injection Time: 1115 HR Resting HR Supine: 52 bpm Max Heart Rate (APMHR): 147 bpm Resting HR Standin bpm Target HR (85% APMHR): 125 bpm Max HR Achieved: 126 bpm % of APMHR: 86 Recovery HR: 71 bpm HR response to stress: Normal HR response to stress BP Resting BP Supine: 142/72 mmHg Resting BP Standin/92 mmHg Max BP: 212/72 mmHg Recovery BP: 132/72 mmHg BP response to stress: Abnormal hypertensive response to stress. ECG Resting ECG: Sinus Bradycardia Ectopy: Occasional PAC's Stress ECG: Sinus Tachycardia ST Change: Horizontal ST depression, Downsloping ST depression Lead(s): inferior leads,, anterior leads, , lateral leads Stage: 1,[address] Deviation: 3-5 mm Arrhythmia: Occasional PAC's Recovery ECG: Sinus Rhythm Recovery ST Change: Horizontal ST depression, Downsloping ST depression Lead(s): inferior leads,, anterior leads, , lateral leads Recovery ST Deviation: 3-5 mm Recovery Arrhythmia: Occasional PAC's Clinical Reason for Termination: Fatigue, Target HR Achieved, Dyspnea Stress Symptoms: Chest pressure, moderate dyspnea, fatigue Exercise duration: 05 min29 sec Highest Stage Reached: Stage 2: 2.5 mph at 12% grade. Exercise capacity: 7.05 METs Angina Score: Non-Limiting Rivera Treadmill Score: -9.0 Rate Pressure Product: 32939 Stress ECG Conclusion 1. Resting electrocardiogram was within normal limits 2. Patient exercised on Sonu completed a workload of 7 METS 3. Normal heart rate and blood pressure response to exercise. Peak heart rate achieved was 86% of pr edicted age 4. The electrocardiographic portion of the test was consistent with myocardial ischemia 5. There were occasional atrial premature beats 6. See MPI report Rivera Treadmill Score is -9.0 which is Moderate risk. Stress Test Summary STAGE Time (mins) Speed (mph) Grade (%) HR BP SpO2 SYMPTOMS METS Supine 52 142/72 98 Standing 54 138/92 1 3 1.7 10 97 190/80 4.5 2 6 2.5 12 125 2/10 chest pressure, moderate dyspnea 7 1 min recovery 98 170/52 3/10 chest pressure, moderate dyspmea 3 min recovery 68 212/72 6 min recovery 72 148/72 98 9 min recovery 71 132/74 All symptoms resolved EKG viewed by Dr. Michel due to diffuse ST depressions which were delayed to return to baseline as well as patient c/o 3/10 chest pressure. No further recommendations from Dr. Michel, patient to proceed to imaging. ST depressions returning to baseline and all symptoms resolved prior to patient imaging. MPI Conclusion There is no myocardial ischemia There may be a small fixed defect in the proximal septum Ejection fraction is calculated at 43%. Wall motion appears normal Radiologist Interpretation Radiologist agrees with [facility] [employer]'s Interpretation. Radiologist Interpretation by: Manas Palacios MD Interpretation Date/Time: 04/20/2023 17:59:44
== END ==
PROVIDERS: PCP Family Medicine; Visit Provider Family Medicine
DX: R07.9 Chest pain, unspecified (principal)
CPT/HCPCS: 78452; 93016; 93018; 93017

== ENCOUNTER → 2023-04-26 10:32 | Outpatient (BNVA) | payer MEDICARE, SELFPAY | PROVIDERS: PCP Family Medicine; Referring Provider Family Medicine; Visit Provider Internal Medicine Cardiovascular Disease ==

== ENCOUNTER 2023-04-26 12:17 | Outpatient (CLI) | payer MEDICARE, SELFPAY ==
[2023-04-26 11:19] LABS: HCT 51.9 % (40.0-50.0); HGB 17.7 g/dL (13.5-17.5); MCH 30.9 pg (27.0-33.0); MCHC 34.1 % (32.0-36.0); MCV 91 fL (80-95); MPV 10.7 fL (8.0-11.0); Platelet Count 199 10^3/uL (130-400); RBC 5.73 10^6/uL (4.36-5.78); RDW 14.4 % (11.8-14.1); RDW-SD 47.9 fL; WBC 6.82 10^3/uL (4.4-10.8)
[2023-04-26 11:31] LABS: PTT Activated 25.6 sec (23.6-32.8); Prothrombin Time 10.5 sec (9.1-11.1)
[2023-04-26 11:33] LABS: Anion Gap 7.1 mmol/L (3-11); BUN 15 mg/dL (7-18); CO2 29.9 mmol/L (21.0-32.0); CREATININE 1.4 mg/dL (0.70-1.30); Calcium 10.6 mg/dL (8.5-10.1); Chloride 107 mmol/L (98-107); Estimated GFR 53.07 (mL/min/1.73m2); Glucose 133 mg/dL (74-106); Sodium 144 mmol/L (136-145)
== END 2023-04-26 12:18 | disposition home or self-care (01) ==
LOC: LBO 12:18
PROVIDERS: PCP Family Medicine; Visit Provider Internal Medicine Cardiovascular Disease
DX: R07.9 Chest pain, unspecified (principal)
CPT/HCPCS: 36415; 80048; 85027; 85610; 85730; 99213

== ENCOUNTER → 2023-05-26 21:29 | Outpatient (CLI) | payer MEDICARE, SELFPAY ==
--- NOTE | 2023-05-26 14:30 | DI.RAD_ITS ---
Exam(s) XR CHEST 2V PA LATERAL EXAM: XR CHEST 2V PA LATERAL CLINICAL HISTORY: sob and rt sided chest pain with cough R05.9 COUGH R06.02 SOB Z95.1 TECHNIQUE: 2D digital imaging was performed. Two views. COMPARISON: CR XR CHEST 2V PA LATERAL from 07/02/2022 CT,NM,TMT NM MPI REST STRESS GRP from 04/20/2023 FINDINGS: HEART: Mildly enlarged. Status post CABG since the prior exams.. Aorta: Not dilated. PULMONARY VASCULATURE: Normal. LUNGS: Clear. No infiltrates. PLEURAL SPACE: Small left pleural effusion. This may be related to recent CABG. BONE:Sternal wires Soft tissues: Unremarkable. IMPRESSION: Small left pleural effusion. Status post CABG. DATA REPOSITORY: RADIATION DOSE DELIVERED:
== END ==
PROVIDERS: PCP Family Medicine; Visit Provider Family Medicine
DX: R05.8 Other specified cough (principal); R06.02 Shortness of breath; R07.89 Other chest pain; J91.8 Pleural effusion in other conditions classified elsewhere; Z95.1 Presence of aortocoronary bypass graft
CPT/HCPCS: 71046

== ENCOUNTER 2023-06-09 05:46 | Outpatient (CLI) | payer MEDICARE, SELFPAY ==
--- NOTE | 2023-06-09 14:37 | W.NUTRFU ---
Date of service: 06/09/23 Time of Service: 12:30 Nutrition Note NOTE: Met with Jermaine to talk about nutrition for heart health and also had mention of prediabetes on referral which doesn't seem to be a current concern (last A1C was <5/7%). We spent the time talking about reading labels for sodium - avoiding pkg products with 300 or more mg sodium per serving. We discussed trying to eat more plant proteins and especially a daily serving or two of beans lentils or legumes. Steered him towards an anti-inflammatory diet with daily food choices like berries, oats, legumes, greens, spices, whole soy foods, nuts and seeds and also suggested some easy foods to work with like less processed yogurt, low sodium cottage cheese, hard cooked eggs, nut butters, hummus, part veggie platter for snacking. he took my card to contact should he desire follow up visits, more resources or to answer any quick questions over the phone regarding his diet and food choices. Time Spent in Nutritional Counseling and Treatment: 45 minutes
== END 2023-06-09 05:47 | disposition home or self-care (01) ==
PROVIDERS: PCP Family Medicine; Visit Provider Dietitian, Registered
DX: I25.118 Atherosclerotic heart disease of native coronary artery with other forms of angina pectoris (principal); Z95.4 Presence of other heart-valve replacement; R73.03 Prediabetes; Z71.3 Dietary counseling and surveillance
CPT/HCPCS: 00123; 97802

== ENCOUNTER 2023-06-10 19:57 | Inpatient (IN) | payer MEDICARE, SELFPAY ==
[2023-06-10] VITALS (147 sets, daily range): BP systolic 142–217; BP diastolic 59–100; PULSE 45–74; RESP 9–26; TEMP 37.2; O2SAT 92–99
--- NOTE | 2023-06-10 19:45 | RT.EKG_ITS ---
APPROVED REPORT Exam: Resting ECG Reason for Exam: chest pain Patient Location: E HR:59 bpm ECG Measurements Heart Rate 59 AXIS LA 184 P 34 QRSd 117 QRS 21 QT 441 T 24 QTc 438 Conclusion Sinus bradycardia...rate< 60 Probable left atrial enlargement...P >50mS, <-0.10mV V1 Nonspecific intraventricular conduction delay...QRSd >115mS, not LBBB/RBBB no st segment or t wave abnormalities to suggest occlusive PA
[2023-06-10 20:15] LABS: Abs Immature Grans 0.04 10^3/uL (0.0-0.06); Absolute Eosinophil Count 0.73 10^3/uL (0.0-0.7); Absolute Lymphocyte Count 2.29 10^3/uL (1.2-3.4); Absolute Monocyte Count 0.99 10^3/uL (0.1-0.8); Absolute Neutrophil Count 6.95 10^3/uL (1.2-6.7); Basophils % 0.9; Eosinophils % 6.6; HCT 47.9 % (40.0-50.0); HGB 15.9 g/dL (13.5-17.5); Immature Grans % 0.4; Lymphocytes % 20.6; MCH 30.8 pg (27.0-33.0); MCHC 33.2 % (32.0-36.0); MCV 93 fL (80-95); Monocytes % 8.9; Neutrophils % 62.6; Platelet Count 249 10^3/uL (130-400); RBC 5.16 10^6/uL (4.36-5.78); RDW 14.8 % (11.8-14.1); RDW-SD 51.1 fL
--- NOTE | 2023-06-10 20:15 | DI.CT_ITS ---
Exam(s) CT BRAIN NECK CTA EXAM: CT BRAIN NECK CTA CLINICAL HISTORY: Right side neck, headache. TECHNIQUE: Imaging Protocol: Axial CT angiography was performed with multi-slice acquisition and mu lti-planar and/or 3D reconstructions. CONTRAST MATERIAL: Intravenous: Omnipaque 350 Contrast volume:structured data in ml COMPARISON: CT,NM,TMT NM MPI REST STRESS GRP from 04/20/[address] CHEST PE CTA from 06/10/2023 FINDINGS: CTA Neck W: Aortic arch anatomy: The aortic arch anatomy is conventional and there is no significant stenosis at the origin of the great vessels off of the aortic arch. No intimal flap evident. Anterior circulation: Both common carotid arteries ascend with normal luminal diameters. At the level the carotid bulbs and proximal internal carotid arteries there is mild-moderate bilatera l calcified and noncalcified plaque, approximately 20 percent bilaterally. Internal carotid arteries above this level are nicely patent in the upper neck and skull base. Posterior circulation: Both vertebral arteries originate in conventional fashion off of the subclavian arteries and there is no obvious stenosis at the origin of the vertebral arteries. The right vertebral artery is dominant with luminal diameter 0.5 mm. It is main contributor to the f ormation of the basilar artery. The left vertebral artery is a thin vessel with luminal diameter 1.5 mm. It appears occluded at the skull base-upper cervical level. CTA Brain W: Anterior circulation: Both internal carotid arteries are patent in the skull base-carotid canals as well as within the cave rnous sinuses. The supraclinoid aspects of the ICAs are patent. Both A1 segments are patent as are the anterior cer ebral arteries and there is no evidence of aneurysm at the level of the anterior communicating artery . Both middle cerebral arteries are patent with no evidence of significant stenosis nor intraluminal th rombus. There also no aneurysms of these vessels. Posterior circulation: The basilar artery ascends in the midline. Distally it gives off patent bilateral superior cerebella r arteries. Above this level the basilar artery terminates as patent bilateral posterior cerebral arteries. There is a posterior communicating artery on the right side of the [id number]-zq-Daiggi. There is no evidence of aneurysm at the tip of the basilar artery nor elsewhere in the ouhhvi-ce-Nxzy is. CT BRAIN: There is no evidence of intracranial hemorrhage, mass effect, or shift of midline structures. There are no extra-axial fluid collections. Ventricles are not enlarged or shifted. There are no ring enh ancing lesions in the brain and no abnormal meningeal enhancement. IMPRESSION: 1. Mild-moderate plaque at the carotid bifurcations and proximal internal carotid arteries on both si tasha the neck. Estimated approximately 20 percent stenosis bilaterally. Does not appear hemodynamica lly significant. 2. The left vertebral artery is a thin vessel throughout its length and appears occluded in the uppe r cervical level. The right vertebral artery is dominant 3. Patent intracranial arteries. 4. No acute intracranial findings. No ring enhancing lesions in the brain. RADIATION DOSE DELIVERED: Total DLP DATA REPOSITORY: All CT scans at this facility are submitted to the National Radiology Data Registry (NRDR) Dose Index Registry (DIR) with the [employer] ([employer]). RADIATION OPTIMIZATION: All CT scans at this facility use at least one of these dose optimization te chniques: automated exposure control; mA and/or kV adjustment per patient size (includes targeted exa ms where dose is matched to clinical indication); or iterative reconstruction.
--- NOTE | 2023-06-10 20:15 | DI.CT_ITS ---
Exam(s) CT CHEST PE CTA EXAM: CT CHEST PE CTA CLINICAL HISTORY: Chest pain, s/p bypass. TECHNIQUE: Imaging Protocol: CT angiography of the chest was performed using pulmonary embolus marian col. Multi planar reconstructions were performed. CONTRAST MATERIAL: Intravenous: Omnipaque 350 Contrast volume: 100 cc COMPARISON: CT CT BRAIN NECK CTA from 06/10/2023 FINDINGS: CHEST: PULMONARY ARTERIES: There are no intraluminal filling defects to suggest acute pulmonary emboli. LUNGS: There are no infiltrates nor evidence of pulmonary infarction.. There is a small-moderate size d left pleural effusion. This does not appear loculated. Some atelectasis in the extreme left lung base is noted within the posterior basal segment. No pleural effusion on the opposite-right side nor other focal lung findings. MEDIASTINUM: There is no hilar nor mediastinal adenopathy. Visualized thyroid unremarkable. CARDIAC: Sternotomy wires. Post CABG. . Mild cardiomegaly. No pericardial effusion. Diameter of t he ascending thoracic aorta is 3.8 cm. No evidence of dissection. Ventricular ratio is 1:1 PARTIALLY VISUALIZED UPPERMOST ABDOMEN: No obvious findings OSSEOUS: No significant osseous lesions.No acute fractures.. IMPRESSION: 1. No evidence of acute pulmonary emboli. No evidence of pulmonary infarction. 2. No evidence of aortic dissection nor pericardial effusion. 3. Small-moderate sized left pleural effusion which does not appear loculated. Also some atelectasis in the left lower lobe posterior basal segment. 4. Sternotomy. Mild cardiomegaly. CABG. RADIATION DOSE DELIVERED: Total DLP DATA REPOSITORY: All CT scans at this facility are submitted to the National Radiology Data Registry (NRDR) Dose Index Registry (DIR) with the [employer] ([employer]). RADIATION OPTIMIZATION: All CT scans at this facility use at least one of these dose optimization te chniques: automated exposure control; mA and/or kV adjustment per patient size (includes targeted exa ms where dose is matched to clinical indication); or iterative reconstruction.
--- NOTE | 2023-06-10 20:19 | ED.GENADUL_ITS ---
Discharge Plan Disposition Patient Disposition: Admit to [facility] Condition: Good Discharge Details Clinical Impression: Non-ST elevation MA (NSTEMI), Chest discomfort Admit Date/Time: 06/11/23 01:24 Admit Provider: Quinton Abraham Attending Provider: Quinton Abraham Primary Care Provider: Marco [facility] ED Provider: Archana Leal Discharge Data Discharge Date/Time-TO BE ENTERED AT DEPARTURE: 06/11/23 02:13 HPI General Mode of arrival: ambulatory . Date/Time Provider Initiated Documentation: 06/10/23 20:06 . Limitations to Documentation: no limitations . Information obtained by: patient, RN notes reviewed and old records reviewed . HPI Narrative: 72-year-old male presents to the ER with a chief complaint of chest pain which radiates up to the right side of his neck and headache, he is status post quadr[place] [facility] [place] He reports this began around 6:00 after coughing fit. He describes pain 6 out of 10. Did take his normal medications prior to arrival. Past medical history includes prostatitis, atrial flutter insomnia tubular adenoma, A-fib, kidney stones anxiety depression colitis. Related Data Home Medications Medication Instructions Recorded Confirmed multivitamin (One Daily tablet) 1 ea PO DAILY 06/07/12 06/10/23 saliva substitute combo no.9 15 ml mucous membrane TID-QID PRN 03/12/21 06/10/23 (Biotene Dry Mouth Oral Rinse dry mouth #1,000 mL mouthwash) ascorbic acid (vitamin C) 250 mg 250 mg PO DAILY 03/26/21 06/10/23 tablet trazodone 50 mg tablet 25 mg (1/2 x 50 mg) PO DAILY #45 10/08/22 06/10/23 tabs triamcinolone acetonide 0.1 % 1 applic topical BID #15 grams 10/08/22 06/10/23 topical cream dexlansoprazole 30 mg 30 mg PO DAILY #90 caps 12/21/22 06/10/23 capsule,biphase delayed release (Dexilant) sertraline 50 mg tablet 50 mg PO DAILY #90 tabs 03/15/23 06/10/23 aspirin 81 mg tablet,delayed 81 mg PO DAILY 05/26/23 06/10/23 release (Adult Aspirin Regimen) atorvastatin 40 mg tablet 40 mg PO BID #90 tabs 05/26/23 06/10/23 metoprolol tartrate 37.5 mg tablet 37.5 mg PO BID 05/26/23 06/10/23 Previous Rx's Medication Instructions Recorded saliva substitute combo no.9 15 ml mucous membrane TID-QID PRN 03/12/21 (Biotene Dry Mouth Oral Rinse dry mouth #1,000 mL mouthwash) trazodone 50 mg tablet 25 mg (1/2 x 50 mg) PO DAILY #45 10/08/22 tabs triamcinolone acetonide 0.1 % 1 applic topical BID #15 grams 10/08/22 topical cream dexlansoprazole 30 mg 30 mg PO DAILY #90 caps 12/21/22 capsule,biphase delayed release (Dexilant) sertraline 50 mg tablet 50 mg PO DAILY #90 tabs 03/15/23 atorvastatin 40 mg tablet 40 mg PO BID #90 tabs 05/26/23 Allergies Allergy/AdvReac Type Severity Reaction Status Date / Time atenolol AdvReac Unknown hypotension Verified 06/10/23 20:18 General Stated Complaint: Chest Pain RYAN: 2 Review of Systems All systems reviewed & are unremarkable except as noted in HPI and below Constitutional Constitutional: Reports as per HPI and Reports headache(s) ENT Ears, Nose, Mouth, and Throat: Reports headache(s) Cardiovascular Cardiovascular: Reports as per HPI and Reports chest pain Neurologic Neurologic: Reports headache(s) Exam Narrative Exam Narrative: Constitutional: Alert and oriented x3. Appears stated age. Normal body habitus. Head: Normocephalic, no trauma. Eyes: Pupils PERRL, Red reflex noted, EOM's intact. Eyelids symmetrical without lesions, discharge, or swelling. ENT: Bilateral TM's WNL, External ear normal to inspection, no mastoid TTP, swelling, or erythema, Nasal turbinates WNL, no nasal discharge. Normal dentition, Posterior pharynx WNL, no exudate. Chest: RRR, Normal S1, S2, distal pulses intact. Midline healing scar noted. Resp: Lungs clear to auscultation bilaterally, no wheezes, rales, or rhonchi. Abdomen: Soft, non-distended, Normoactive bowel sounds all 4 quads. Musculoskeletal: Normal gait, Skin: No suspicious rashes or lesions. Capillary refill less than 2 sec. Neurologic: Cranial nerves II-XII intact. Alert and oriented x 3. Motor: No deficits noted. Sensory: Intact bilaterally all 4 extremities. Hematologic/Lymphatic: No ecchymosis, no lymphadenopathy. Course Vital Signs Vital signs: Vital Signs Temperature 37.2 C 06/10/23 19:59 Pulse 65 06/10/23 19:59 Respiratory Rate 14 06/10/23 19:59 Blood Pressure 217/100 H 06/10/23 19:59 Pulse Oximetry 98 06/10/23 19:59 Temperature 37.2 C 06/10/23 19:59 Temperature Source Temporal Artery Scan 06/10/23 19:59 Pulse 65 06/10/23 19:59 Respiratory Rate 14 06/10/23 19:59 Respiratory Effort Normal 06/10/23 20:06 Respiratory Depth Normal 06/10/23 20:06 Respiratory Pattern Normal 06/10/23 20:06 Blood Pressure 217/100 H 06/10/23 19:59 Blood Pressure Position Sitting 06/10/23 19:59 Pulse Oximetry 98 06/10/23 19:59 Oxygen Delivery Method Room Air 06/10/23 19:59 Oxygen Flow Rate 0 06/10/23 19:59 Pain Level 6 06/10/23 20:06 Comment Took Tylenol around 1800 06/10/23 19:59 Lab/Test Results Lab/Test Results: Laboratory Tests Range/Units 06/10/23 20:10 WBC (4.4-10.8) 10^3/uL 11.10 H RBC (4.36-5.78) 10^6/uL 5.16 Hgb (13.5-17.5) g/dL 15.9 Hct (40.0-50.0) % 47.9 MCV (80-95) fL 93 MCH (27.0-33.0) pg 30.8 MCHC (32.0-36.0) % 33.2 RDW (11.8-14.1) % 14.8 H Plt Count (130-400) 10^3/uL 249 MPV (8.0-11.0) fL 10.0 Immature Gran % 0.4 Neutrophils % 62.6 Lymphocytes % 20.6 Monocytes % 8.9 Eosinophils % 6.6 Basophils % 0.9 Nucleated RBC % (0.0-0.3) % 0.0 Absolute Neutrophils (1.2-6.7) 10^3/uL 6.95 H Absolute Lymphocytes (1.2-3.4) 10^3/uL 2.29 Absolute Monocytes (0.1-0.8) 10^3/uL 0.99 H Absolute Eosinophils (0.0-0.7) 10^3/uL 0.73 H Absolute Basophils (0.0-0.2) 10^3/uL 0.10 Medical Decision Making 72-year-old male presents to the ER with a chief complaint of chest pain which radiates up to the right side of his neck and headache, he is status post quadr[place] [facility] [place] He reports this began around 6:00 after coughing fit. He describes pain 6 out of 10. Did take his normal medications prior to arrival. Past medical history includes prostatitis, atrial flutter insomnia tubular adenoma, A-fib, kidney stones anxiety depression colitis. Cardiac workup ordered including serial troponins. CTA brain and neck and CT chest ordered. patients pain and BP improved after 0.4mg SL nitro and 2mg morhphine IV. BP is now 120 systolic. [id number]: [facility] [place], images and EKG sent. Care is to be handed off to oncoming provider Rip Hairston MD pending repeat troponin and consult with cardiology at [facility]. This text was generated using [employer] dictation system, please disregard any oddities of phrase or misspellings. Medical Records Medical records reviewed: Yes I reviewed the patient's medical records. Imaging Data Radiologic Study: Imaging: CT Scan Radiologist's impression: CT chest: IMPRESSION: 1. No pulmonary embolism. 2. No aortic dissection. 3. Chronic pleuroparenchymal scar and atelectasis suspected in the left lower lobe, with associated small left pleural effusion. 4. Cardiomegaly and post CABG changes. Thank you for allowing us to participate in the care of your patient. Dictated and Authenticated by: Margarito Boyle MD Lab Data Lab results reviewed: Yes I reviewed the patient's lab results. Labs: Laboratory Tests Range/Units 06/10/23 20:10 WBC (4.4-10.8) 10^3/uL 11.10 H RBC (4.36-5.78) 10^6/uL 5.16 Hgb (13.5-17.5) g/dL 15.9 Hct (40.0-50.0) % 47.9 MCV (80-95) fL 93 MCH (27.0-33.0) pg 30.8 MCHC (32.0-36.0) % 33.2 RDW (11.8-14.1) % 14.8 H Plt Count (130-400) 10^3/uL 249 MPV (8.0-11.0) fL 10.0 Immature Gran % 0.4 Neutrophils % 62.6 Lymphocytes % 20.6 Monocytes % 8.9 Eosinophils % 6.6 Basophils % 0.9 Nucleated RBC % (0.0-0.3) % 0.0 Absolute Neutrophils (1.2-6.7) 10^3/uL 6.95 H Absolute Lymphocytes (1.2-3.4) 10^3/uL 2.29 Absolute Monocytes (0.1-0.8) 10^3/uL 0.99 H Absolute Eosinophils (0.0-0.7) 10^3/uL 0.73 H Absolute Basophils (0.0-0.2) 10^3/uL 0.10 PT (9.1-11.1) sec 10.6 INR (0.9-1.1) 1.1 APTT (23.6-32.8) sec 24.4 Sodium (136-145) mmol/L 141 Potassium (3.5-5.1) mmol/L 3.9 Chloride (98-107) mmol/L 104 Carbon Dioxide (21.0-32.0) mmol/L 28.4 Anion Gap (3-11) mmol/L 8.6 BUN (7-18) mg/dL 18 Creatinine (0.70-1.30) mg/dL 1.2 Est GFR (CKD-EPI 2020) (mL/min/1.73m2) 63.85 Glucose (74-106) mg/dL 121 H Calcium (8.5-10.1) mg/dL 9.7 Magnesium (1.8-2.4) mg/dL 1.9 Total Bilirubin (0.2-1.0) mg/dL 0.6 AST (15-37) U/L 27 ALT (16-63) U/L 42 Alkaline Phosphatase (46-116) U/L 158 H Troponin I (< or =60) ng/L < 50 NT-Pro-B Natriuret Pep (<300) pg/mL 519 H Total Protein (6.4-8.2) g/dL 7.5 Albumin (3.4-5.0) g/dL 3.5 Add-On Test Request DONE Quality:[facility] Health Related Social Needs: No Data to Display [facility] All Active Problems (Updated 06/12/23 @ 00:01 by MICK BUITRAGO) Chest discomfort (Acute) Non-ST elevation MA (NSTEMI) (Acute) Atypical chest pain (Acute) CAD (coronary artery disease), [place] coronary artery (Chronic) SOB (shortness of breath) (Acute) Cough (Chronic) Chest congestion (Acute) Numbness of finger (Acute) Sciatica, right side (Acute) Trigger finger, left index finger (Acute) FAIR (nonalcoholic steatohepatitis) (Acute) Vertigo (Acute) Trigger finger, left (Acute) Post-viral cough syndrome (Acute) Blepharitis (Acute) Left flank pain (Acute) Coronary artery disease (Chronic) Dizziness (Acute) Bradycardia (Acute) Tachycardia (Acute) Osteoarthritis of both hands (Acute) Abdominal pain in male (Acute) BPH w urinary obs/LUTS (Acute) Internal derangement of right knee (Acute) AK (actinic keratosis) (Acute) Right medial knee pain (Acute) Hoarseness (Acute) Xerostomia (Acute) 05/2021, unclear cause Chest pain (Acute) Summer 2020-admitted for chest pain sent to [facility]-negative cardiac catheterization per patient Atrial fibrillation (Chronic) Remote, cardioverted about 2007 at [facility]-no recurrence Neuropathy of both feet (Acute) 03/2021- mild, likely ideopathic Foot pain, right (Acute) Chronic right foot pain felt to be likely combination overuse, degenerative changes and neuropathy Abdominal pain (Acute) Recurrent episodic moderate to severe abdominal pain right abdomen-since 2019-unclear cause no improvement after cholecystectomy, thorough evaluation since 2019 without any obvious etiology Tubular adenoma of colon (Acute) 2017, due in 2022 Kidney stone (Chronic) Nasal vestibulitis (Acute) White coat syndrome with high blood pressure but without hypertension (Acute) Anxiety (Chronic) Left-sided low back pain with left-sided sciatica (Acute) Bradycardia (Acute) holter 3/21 Chronic right hip pain (Chronic 07/04/13) Pleurodynia (Acute) GERD (gastroesophageal reflux disease) (Chronic) Fatty liver (Acute) Rosacea (Chronic) Hyperlipidemia (Chronic) Actinic keratosis (Chronic) Medical History Prostatitis Atrial flutter Pt. states it comes and goes, I've had it worked up, and the chest discomfort I was told was indigestion Chronic insomnia Gastritis (01/29/04) Tubular adenoma 01/20/13 DR. WANG 06/21/17 DR. SULTANA Paroxysmal atrial fibrillation (07/16/15) Malignant melanoma of skin of face History of kidney stones (12/02/15) Right hydrocele Anxiety and depression Prostatitis Kidney stones 1986, 2002 Colitis mild-scope 2003 Surgical History History of cataract surgery S/P laparoscopic cholecystectomy History of cholecystectomy History of coronary angioplasty Status post tendon repair Status post cataract extraction and insertion of intraocular lens of right eye (06/06/18) Status post cataract extraction and insertion of intraocular lens of left eye (05/23/18) cardiac ablation unsuccessful 2012 Repair, Tendon or Muscle left elbow EGD - IV Sedation 1999, 2004 Colonoscopy - MAC (06/21/17) Colonoscopy - IV Sedation 01/20/13 Angioplasty Family History Mother , 96 Dementia Father , 72 Stomach cancer Sister Diabetes Brother Rheumatoid arthritis Sister , 68 No problems noted. Sister No problems noted. Maternal Aunt Dementia Brother No problems noted. Social History Smoking/Tobacco Use Status: Former Tobacco Use tobacco type: cigarettes Quit Date: 03/01/77 Tobacco: How many years used: 6 Smokeless tobacco user: other Quit status: has quit before Second Hand Exposure: No Smoking risk assessment performed?: Yes Alcohol Intake: former Drug use: Never Substance use type: does not use Counseling given: No Counseling provided: none Caregiver/Support person: No Household members: none Housing: apartment Communication Needs: None Do you need help understanding health information?: Rarely Pets and animals: No Sexually active: No Do you think of yourself as: straight/heterosexual Current gender identity: male What is your relationship status?: never How often do you talk on the phone with friends or family?: three or more times per week How often do you get together with friends or relatives?: twice per week How often do you attend faith or gnosticism services?: decline to answer Do you belong to any clubs or organized social groups?: no Panel score (0-1 are the most socially isolated patients): 1 What type of physical activity do you participate in: walking Duration: 30-45 minutes/day Frequency: 3-4 times per week Any/Latter-Day: No preference Special any needs: No Seatbelt use: always Helmet use: Yes Helmet use: always 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
[2023-06-10] MEDS: Aspirin 81 MG CHEW 243 MG CH (20:25)
[2023-06-10 20:41] LABS: ALT 42 U/L (16-63); AST 27 U/L (15-37); Albumin 3.5 g/dL (3.4-5.0); Alkaline Phosphatase 158 U/L (46-116); Anion Gap 8.6 mmol/L (3-11); BUN 18 mg/dL (7-18); Bilirubin, Total 0.6 mg/dL (0.2-1.0); CO2 28.4 mmol/L (21.0-32.0); CREATININE 1.2 mg/dL (0.70-1.30); Calcium 9.7 mg/dL (8.5-10.1); Chloride 104 mmol/L (98-107); Estimated GFR 63.85 (mL/min/1.73m2); Glucose 121 mg/dL (74-106); Magnesium 1.9 mg/dL (1.8-2.4); NT-proBNP 519 pg/mL (<300); Potassium 3.9 mmol/L (3.5-5.1); Sodium 141 mmol/L (136-145); Total Protein 7.5 g/dL (6.4-8.2); Troponin I < 50 ng/L (< or =60)
[2023-06-10] MEDS: Omnipaque 350 MG/ML 100 ML BTL 75 ML IJ (20:45)
[2023-06-10] MEDS: Normal Saline - Diluent 50 ML VIAL IJ (20:47)
[2023-06-10 20:52] LABS: Lab Add On Test DONE
[2023-06-10] MEDS: Omnipaque 350 MG/ML 50 ML BTL 75 ML IJ (20:55)
[2023-06-10] MEDS: Normal Saline Flush 10 ML SYR IVP (20:56)
[2023-06-10] MEDS: nitroGLYcerin 0.4 MG TAB SL (21:13)
[2023-06-10] MEDS: MORPHine 10 MG/ML VIAL 2 MG IVP (21:17)
[2023-06-10 21:24] LABS: INR 1.1 (0.9-1.1); PTT Activated 24.4 sec (23.6-32.8); Prothrombin Time 10.6 sec (9.1-11.1)
--- NOTE | 2023-06-10 21:38 | DI.VRAD_ITS ---
PROCEDURE INFORMATION: Exam: CTA Head With Contrast, Arteriography Exam date and time: 06/10/2023 8:47 PM Age: 72 years old Clinical indication: Other: Right side neck, headache; Prior surgery; Surgery date: 1-6 months; Surgery type: By pass TECHNIQUE: Imaging protocol: Computed tomographic angiography of the head with contrast. Exam focused on the arteries. 3D rendering (Not supervised by radiologist): MIP and/or 3D reconstructed images were created by the technologist. Contrast material: OMNIPAQUE 350; Contrast volume: 75 ml; Contrast route: INTRAVENOUS (IV); COMPARISON: MR BRAIN WO 03/06/2022 9:56 AM FINDINGS: ANTERIOR CIRCULATION: Right internal carotid artery: Intracranial segment is patent with no significant stenosis. No aneurysm. Right middle cerebral artery: No occlusion or significant stenosis. No aneurysm. Right anterior cerebral artery: No occlusion or significant stenosis. No aneurysm. Left internal carotid artery: Intracranial segment is patent with no significant stenosis. No aneurysm. Left middle cerebral artery: No occlusion or significant stenosis. No aneurysm. Left anterior cerebral artery: No occlusion or significant stenosis. No aneurysm. POSTERIOR CIRCULATION: Right vertebral artery: No occlusion or significant stenosis. No aneurysm. Left vertebral artery: Occluded/absent within the posterior fossa. Basilar artery: No occlusion or significant stenosis. No aneurysm. Right posterior cerebral artery: origin of the right posterior cerebral artery is a common developmental variant and there is no occlusion or significant stenosis. No aneurysm. Left posterior cerebral artery: No occlusion or significant stenosis. No aneurysm. Brain: Cerebral atrophy and probable mild underlying microvascular ischemic changes with no acute transcortical infarction or recent intracranial hemorrhage detected. Cerebral ventricles: No midline shift or hydrocephalus. Mastoid air cells: Grossly clear bilaterally. Paranasal sinuses: Grossly clear throughout. Bones/joints: No acute fracture. Soft tissues: Unremarkable. IMPRESSION: 1. Occlusion/absence of the left vertebral artery noted in the posterior fossa. 2. No large vessel stenosis or occlusion detected involving the remaining major branches of the anterior or posterior intracranial circulation. PROCEDURE INFORMATION: Exam: CTA Neck With Contrast Exam date and time: 06/10/2023 8:47 PM Age: 72 years old Clinical indication: Other: Right side neck, headache; Prior surgery; Surgery date: 1-6 months; Surgery type: By pass TECHNIQUE: Imaging protocol: Computed tomographic angiography of the neck with contrast. Exam focused on the cervical segments of the vasculature. 3D rendering (Not supervised by radiologist): MIP and/or 3D reconstructed images were created by the technologist. Contrast material: OMNIPAQUE 350; Contrast volume: 75 ml; Contrast route: INTRAVENOUS (IV); COMPARISON: CT THORAX ABDOMEN CTA 09/23/2020 12:44 AM FINDINGS: Right common carotid artery: No stenosis. No dissection or occlusion. Right internal carotid artery: Atherosclerotic calcifications are seen at the right carotid bifurcation and involving the origin of the right internal carotid artery with no evidence of 50% or greater stenosis of the extracranial segment. No dissection or occlusion. Right external carotid artery: No occlusion or stenosis of the origin. Left common carotid artery: No stenosis. No dissection or occlusion. Left internal carotid artery: Atherosclerotic calcifications are seen at the left carotid bifurcation and involving the origin of the left internal carotid artery with no evidence of 50% or greater stenosis of the extracranial segment. No dissection or occlusion. Left external carotid artery: No occlusion or stenosis of the origin. Right vertebral artery: No stenosis. No dissection or occlusion. Left vertebral artery: There is suspected occlusion of the smaller left vertebral artery at upper cervical levels. Soft tissues: Normal. No significant soft tissue swelling. Bones/joints: No acute fracture. IMPRESSION: 1. No evidence of 50% or greater stenosis involving the cervical segments of the right or left internal carotid arteries by NASCET criteria. 2. There is suspected occlusion of the smaller left vertebral artery at upper cervical levels. REFERENCES: NASCET CRITERIA. The degree of stenosis in the cervical segment of the internal carotid artery is based on NASCET criteria. Normal is no stenosis. Mild is less than 50% stenosis. Moderate is 50-69% stenosis. Severe is 70% to 99% stenosis. Total occlusion is no detectable patent lumen. Dictated and Authenticated by: Trung Herman MD. Ordering:STACEY Magaña MD
--- NOTE | 2023-06-10 21:52 | DI.VRAD_ITS ---
PROCEDURE INFORMATION: Exam: CTA Chest With Contrast Exam date and time: 06/10/2023 9:00 PM Age: 72 years old Clinical indication: Other: Chest pain, S/P bypass; Prior surgery; Surgery date: 1-6 months; Surgery type: By pass TECHNIQUE: Imaging protocol: Computed tomographic angiography of the chest with contrast. Exam focused on the arteries. 3D rendering (Not supervised by radiologist): MIP and/or 3D reconstructed images were created by the technologist. Contrast material: OMIPAQUE 350; Contrast volume: 75 ml; Contrast route: INTRAVENOUS (IV); COMPARISON: CT THORAX ABDOMEN CTA 09/23/2020 12:44 AM FINDINGS: Pulmonary arteries: No pulmonary embolism. Aorta: No aneurysm. No dissection. Mild plaque noted in the thoracic aorta. Lungs: Dependent atelectasis/consolidation noted in the left lower lobe. Mild dependent reticulation and ground-glass opacity noted bilaterally. No significant endobronchial mucus. Pleural spaces: Mild left pleural effusion. No right pleural effusion. No pneumothorax. Heart: Mild cardiomegaly. No pericardial effusion. Mild coronary artery calcification. Post CABG changes noted. Lymph nodes: Unremarkable. No enlarged lymph nodes. Gallbladder and bile ducts: Cholecystectomy clips noted. Bones/joints: Thoracic levoscoliosis noted. Partial developmental fusion noted between T4-T6. There are no compression fractures. Sternotomy wires are noted. Soft tissues: Unremarkable. IMPRESSION: 1. No pulmonary embolism. 2. No aortic dissection. 3. Chronic pleuroparenchymal scar and atelectasis suspected in the left lower lobe, with associated small left pleural effusion. 4. Cardiomegaly and post CABG changes. Dictated and Authenticated by: Margarito Boyle MD. Ordering:STACEY Magaña MD
--- NOTE | 2023-06-10 23:30 | RT.EKG_ITS ---
APPROVED REPORT Exam: Resting ECG Reason for Exam: Repeat Patient Location: E HR:50 bpm ECG Measurements Heart Rate 50 AXIS DC 176 P 49 QRSd 117 QRS 13 QT 483 T 36 QTc 440 Conclusion Sinus bradycardia...rate< 60 Probable left atrial enlargement...P >50mS, <-0.10mV V1 Nonspecific intraventricular conduction delay...QRSd >115mS, not LBBB/RBBB Physician: interval increase in t wave inversion for V1 and V2, with minimal increase in ST depressio n laterally
[2023-06-10 23:34] LABS: Troponin I 69 ng/L (< or =60)
[2023-06-11] VITALS (61 sets, daily range): BP systolic 122–185; BP diastolic 66–82; PULSE 45–58; RESP 11–22; TEMP 35–35.8; O2SAT 92–98
[2023-06-11] MEDS: Pantoprazole 40 MG VIAL IVP (00:50)
--- NOTE | 2023-06-11 01:41 | W.PM.HP.N ---
Date of service: 06/11/23 Time of Service: 01:41 Assessment and Plan Assessment and plan (1) Non-ST elevation NC (NSTEMI): Start date: 06/11/23 Status: Acute Assessment and plan: This is a 72-year-old gentleman who presents to the ED with right chest pain radiating into his neck with headache which was responsive to nitroglycerin and very low elevation in his troponin with a negative troponin initial troponin with presentation. Chest pain came on suddenly when having coughing paroxysms. He had walked earlier in the day without exertional chest pain. He is status post CABG x 4 May 11, 2023. His third troponin was elevated over 1999 and [facility] cardiology was called with patient but excepted to Dr. West's service and initiated on ACS protocol with heparin infusion after loading dose, Plavix loading dose after having an aspirin loading dose upon presentation as well as high-dose atorvastatin with the patient already on metoprolol with sinus bradycardia. His EKG did show some anterior lateral T wave changes with slightly improved since admission and some slight inferior T wave abnormalities which were normalized after admission. Patient is comfortable being transferred back to [facility]. He is a full code. (2) Atypical chest pain: Start date: 06/11/23 Status: Acute Assessment and plan: Patient presentation was atypical with what sounds like almost chest wall pain was not reproducible with palpation of the chest. His atypical presentation still appears to be a non-STEMI and he is being treated as such. Initially he was to be observed with trending troponins which did rise markedly with the third measurement. He may still be having some atypical chest discomfort from his CABG and sternotomy. There does not appear to be any complications from the surgery. (3) CAD (coronary artery disease), [place] coronary artery: Status: Chronic Assessment and plan: Patient has had stuttering symptoms now status post CABG x 4 with recurrent ischemia with coughing paroxysms. Patient will be transferred back to [facility] for evaluation by cardiology. He will remain n.p.o. until transfer. Qualifiers: Associated angina: with other forms of angina [place] vs. transplanted heart: [place] heart Qualified Code(s): I25.118 - Atherosclerotic heart disease of [place] coronary artery with other forms of angina pectoris (4) S/P CABG x 4: Status: Resolved Assessment and plan: Patient had recent CABG x 4 with sternotomy. Follow-up with [facility] cardiology with acute non-STEMI. (5) Cough: Status: Chronic Assessment and plan: He did have COVID-19 infection 2022 and has had persistent respiratory symptoms since his infection. He may be becoming a long-haul or with his lung findings. Qualifiers: Cough type: subacute Qualified Code(s): R05.2 - Subacute cough (6) GERD (gastroesophageal reflux disease): Status: Chronic Assessment and plan: Continue Protonix IV for now patient having esophageal spasm in the past and if he is to remain on Plavix he should not be on Paxil and Protonix to avoid interaction. Qualifiers: Esophagitis presence: without esophagitis Qualified Code(s): K21.9 - Gastro-esophageal reflux disease without esophagitis (7) Hyperlipidemia: Status: Chronic Assessment and plan: Continue high-dose atorvastatin. Qualifiers: Hyperlipidemia type: mixed hyperlipidemia Qualified Code(s): E78.2 - Mixed hyperlipidemia (8) Anxiety and depression: Assessment and plan: Continue outpatient medical therapy. Patient appears to be coping well with little anxiety during this acute episode. History of Present Illness History of Present Illness Chief Complaint: Right chest pain with radiation to right neck after coughing paroxysms Narrative: This is a 72-year-old male patient who has a history of CAD status post cardiac catheterization with [facility] with his first catheterization many years ago and more recent cardiac catheterization in 2018 done in [facility] reported to him as clean. The patient does not walk daily does have exertional chest pain with these catheterization performed. He was having exertional chest pain in April 2023 with walking with associated dyspnea having had COVID in late January 2023 with persistent respiratory symptoms and chronic cough. When he reported to cardiology for cardiac stress test in April 2023 he had a positive stress test and sent to [facility] for cardiac catheterization which resulted in an CABG x 4 May 11, 2023. Since his surgery he has had some sternal discomfort from the sternotomy and has persisted with a chronic cough after his COVID infection around 2022. He had paroxysms of cough the day of presentation with right chest pain being 6 out of 10 with slight shortness of breath and no diaphoresis but radiation of the discomfort into his right neck with a headache. He had a walk earlier the day of admission without exertional symptoms. Imaging of his head for workup of the headache was negative for any acute processes and CT of the chest was negative for PE but did show left pleural effusion and changes of recent surgery with CABG. His EKG did show some ST-T changes anterior laterally which slightly improved after his chest pain was partially relieved with nitroglycerin sublingual. He was given a loading dose of aspirin but after consultation with cardiology, it was advised not to give Plavix loading dose or initiate heparin unless troponins trended. Patient have persistent chest pain 3 out of 10 with Nitropaste and with no further resolution given nitroglycerin with initial chest pain responded to nitroglycerin going from a 6 to a 3 out of 10 chest pain. He had persistent right retrosternal chest pain without radiation at the time I examined him. Repeat troponin did go from 60 to over 2000 and I did call [facility] cardiology and spoke to Dr. Marie who suggested we treat him as a non-STEMI with heparinization, loading Plavix and high-dose atorvastatin. He already had a loading dose of aspirin. He will be arranged for transfer when bed is available later today with Dr. West accepting the patient to his service. Patient is a full code Review of Systems Narrative: 13 point review of systems otherwise unrevealing or stable. Patient is presenting with have persisted since his COVID infection around 2022. He denies any peripheral edema. He denies any focal neurological complaints. His headache has resolved. [facility] All Active Problems (Updated 06/11/23 @ 04:10 by Quinton Abraham) Chest discomfort (Acute) Non-ST elevation NC (NSTEMI) (Acute) Atypical chest pain (Acute) CAD (coronary artery disease), [place] coronary artery (Chronic) SOB (shortness of breath) (Acute) Cough (Chronic) Chest congestion (Acute) Numbness of finger (Acute) Sciatica, right side (Acute) Trigger finger, left index finger (Acute) FAIR (nonalcoholic steatohepatitis) (Acute) Vertigo (Acute) Trigger finger, left (Acute) Post-viral cough syndrome (Acute) Blepharitis (Acute) Left flank pain (Acute) Coronary artery disease (Chronic) Dizziness (Acute) Bradycardia (Acute) Tachycardia (Acute) Osteoarthritis of both hands (Acute) Abdominal pain in male (Acute) BPH w urinary obs/LUTS (Acute) Internal derangement of right knee (Acute) AK (actinic keratosis) (Acute) Right medial knee pain (Acute) Hoarseness (Acute) Xerostomia (Acute) 05/2021, unclear cause Chest pain (Acute) Summer 2020-admitted for chest pain sent to [facility]-negative cardiac catheterization per patient Atrial fibrillation (Chronic) Remote, cardioverted about 2007 at [facility]-no recurrence Neuropathy of both feet (Acute) 03/2021- mild, likely ideopathic Foot pain, right (Acute) Chronic right foot pain felt to be likely combination overuse, degenerative changes and neuropathy Abdominal pain (Acute) Recurrent episodic moderate to severe abdominal pain right abdomen-since 2019-unclear cause no improvement after cholecystectomy, thorough evaluation since 2019 without any obvious etiology Tubular adenoma of colon (Acute) 2017, due in 2022 Kidney stone (Chronic) Nasal vestibulitis (Acute) White coat syndrome with high blood pressure but without hypertension (Acute) Anxiety (Chronic) Left-sided low back pain with left-sided sciatica (Acute) Bradycardia (Acute) holter 05/19 Chronic right hip pain (Chronic 07/04/13) Pleurodynia (Acute) GERD (gastroesophageal reflux disease) (Chronic) Fatty liver (Acute) Rosacea (Chronic) Hyperlipidemia (Chronic) Actinic keratosis (Chronic) Medical History Prostatitis Atrial flutter Pt. states it comes and goes, I've had it worked up, and the chest discomfort I was told was indigestion Chronic insomnia Gastritis (01/29/04) Tubular adenoma 01/20/13 DR. WANG 06/21/17 DR. SULTANA Paroxysmal atrial fibrillation (07/16/15) Malignant melanoma of skin of face History of kidney stones (12/02/15) Right hydrocele Anxiety and depression Prostatitis Kidney stones 1986, 2002 Colitis mild-scope 2003 Surgical History History of cataract surgery S/P laparoscopic cholecystectomy History of cholecystectomy History of coronary angioplasty Status post tendon repair Status post cataract extraction and insertion of intraocular lens of right eye (06/06/18) Status post cataract extraction and insertion of intraocular lens of left eye (05/23/18) cardiac ablation unsuccessful 2012 Repair, Tendon or Muscle left elbow EGD - IV Sedation 1999, 2004 Colonoscopy - MAC (06/21/17) Colonoscopy - IV Sedation 01/20/13 Angioplasty Family History Mother , 96 Dementia Father , 72 Stomach cancer Sister Diabetes Brother Rheumatoid arthritis Sister , 68 No problems noted. Sister No problems noted. Maternal Aunt Dementia Brother No problems noted. Social History Smoking/Tobacco Use Status: Former Tobacco Use tobacco type: cigarettes Quit Date: 03/01/77 Tobacco: How many years used: 6 Smokeless tobacco user: other Quit status: has quit before Second Hand Exposure: No Smoking risk assessment performed?: Yes Alcohol Intake: former Drug use: Never Substance use type: does not use Counseling given: No Counseling provided: none Caregiver/Support person: No Household members: none Housing: apartment Communication Needs: None Do you need help understanding health information?: Rarely Pets and animals: No Sexually active: No Do you think of yourself as: straight/heterosexual Current gender identity: male What is your relationship status?: never How often do you talk on the phone with friends or family?: three or more times per week How often do you get together with friends or relatives?: twice per week How often do you attend scientology or uatsdin services?: decline to answer Do you belong to any clubs or organized social groups?: no Panel score (0-1 are the most socially isolated patients): 1 What type of physical activity do you participate in: walking Duration: 30-45 minutes/day Frequency: 3-4 times per week Any/Caodaism: No preference Special any needs: No Seatbelt use: always Helmet use: Yes Helmet use: always Drive intox 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 Do you feel safe at home: Yes Do you feel safe in your relationship?: Yes Meds Allergies and Home Medications Allergies Allergy/AdvReac Type Severity Reaction Status Date / Time atenolol AdvReac Unknown hypotension Verified 06/10/23 20:18 Home Medications Medication Instructions Recorded Confirmed Type multivitamin (One Daily tablet) 1 ea PO DAILY 06/07/12 06/10/23 History saliva substitute combo no.9 15 ml mucous membrane TID-QID PRN 03/12/21 06/10/23 Rx (Biotene Dry Mouth Oral Rinse dry mouth #1,000 mL mouthwash) ascorbic acid (vitamin C) 250 mg 250 mg PO DAILY 03/26/21 06/10/23 History tablet trazodone 50 mg tablet 25 mg (1/2 x 50 mg) PO DAILY #45 10/08/22 06/10/23 Rx tabs triamcinolone acetonide 0.1 % 1 applic topical BID #15 grams 10/08/22 06/10/23 Rx topical cream dexlansoprazole 30 mg 30 mg PO DAILY #90 caps 12/21/22 06/10/23 Rx capsule,biphase delayed release (Dexilant) sertraline 50 mg tablet 50 mg PO DAILY #90 tabs 03/15/23 06/10/23 Rx aspirin 81 mg tablet,delayed 81 mg PO DAILY 05/26/23 06/10/23 History release (Adult Aspirin Regimen) atorvastatin 40 mg tablet 40 mg PO BID #90 tabs 05/26/23 06/10/23 Rx metoprolol tartrate 37.5 mg tablet 37.5 mg PO BID 05/26/23 06/10/23 History Exam Narrative Exam Narrative: General: Patient appears appropriate for age, alert and oriented x 3 and in no acute distress. He is very talkative and a good historian. HEENT: Normocephalic, eyes with close equal and reactive to light symmetrically, extraocular movement intact and sclera anicteric. Oropharynx with moist mucosa. Fair dentition. Neck: Supple without JVD. Back: Normal posture without CVA tenderness. Lungs: Fair aeration and clear to auscultation and percussion with slight decreased aeration left base without dullness to percussion. No focalizing rales or rhonchi. No expiratory wheeze or increased expiratory phase. Chest: Well-healed sternal scar with no focal tenderness to palpation over the chest wall specifically over the right side of her patient has persistent chest discomfort. No crepitus. Heart: Bradycardic rate with normal rhythm. No murmur or gallop appreciated. Abdomen: Normal contour, soft nontender to palpation with no palpable hepatosplenomegaly. Bowel sounds positive all quadrants. Genitalia/rectal: Exam deferred. Extremities: No clubbing, cyanosis or pitting edema. Good capillary refill. Joints without swelling with fair range of motion. Skin: Normal color, warm and dry. Well-healed sternal scar as mentioned. Neuro: Cranial nerves II through XII gross intact, no focal motor deficits and no tremor. Psych: Normal affect and mood. No abnormal thought processes. Remote and recent memory intact. Results Imaging Imaging Studies: Exam: CTA Chest With Contrast Exam date and time: 06/10/2023 9:00 PM Age: 72 years old Clinical indication: Other: Chest pain, S/P bypass; Prior surgery; Surgery date: 1-6 months; Surgery type: By pass COMPARISON: CT THORAX ABDOMEN CTA 09/23/2020 12:44 AM FINDINGS: Pulmonary arteries: No pulmonary embolism. Aorta: No aneurysm. No dissection. Mild plaque noted in the thoracic aorta. Lungs: Dependent atelectasis/consolidation noted in the left lower lobe. Mild dependent reticulation and ground-glass opacity noted bilaterally. No significant endobronchial mucus. Pleural spaces: Mild left pleural effusion. No right pleural effusion. No pneumothorax. Heart: Mild cardiomegaly. No pericardial effusion. Mild coronary artery calcification. Post CABG changes noted. Lymph nodes: Unremarkable. No enlarged lymph nodes. Gallbladder and bile ducts: Cholecystectomy clips noted. Bones/joints: Thoracic levoscoliosis noted. Partial developmental fusion noted between T4-T6. There are no compression fractures. Sternotomy wires are noted. Soft tissues: Unremarkable. IMPRESSION: 1. No pulmonary embolism. 2. No aortic dissection. 3. Chronic pleuroparenchymal scar and atelectasis suspected in the left lower lobe, with associated small left pleural effusion. 4. Cardiomegaly and post CABG changes. Exam: CTA Head With Contrast, Arteriography Exam date and time: 06/10/2023 8:47 PM Age: 72 years old Clinical indication: Other: Right side neck, headache; Prior surgery; Surgery date: 1-6 months; Surgery type: By pass COMPARISON: MR BRAIN WO 03/06/2022 9:56 AM FINDINGS: ANTERIOR CIRCULATION: Right internal carotid artery: Intracranial segment is patent with no significant stenosis. No aneurysm. Right middle cerebral artery: No occlusion or significant stenosis. No aneurysm. Right anterior cerebral artery: No occlusion or significant stenosis. No aneurysm. Left internal carotid artery: Intracranial segment is patent with no significant stenosis. No aneurysm. Left middle cerebral artery: No occlusion or significant stenosis. No aneurysm. Left anterior cerebral artery: No occlusion or significant stenosis. No aneurysm. POSTERIOR CIRCULATION: Right vertebral artery: No occlusion or significant stenosis. No aneurysm. Left vertebral artery: Occluded/absent within the posterior fossa. Basilar artery: No occlusion or significant stenosis. No aneurysm. Right posterior cerebral artery: origin of the right posterior cerebral artery is a common developmental variant and there is no occlusion or significant stenosis. No aneurysm. Left posterior cerebral artery: No occlusion or significant stenosis. No aneurysm. Brain: Cerebral atrophy and probable mild underlying microvascular ischemic changes with no acute transcortical infarction or recent intracranial hemorrhage detected. Cerebral ventricles: No midline shift or hydrocephalus. Mastoid air cells: Grossly clear bilaterally. Paranasal sinuses: Grossly clear throughout. Bones/joints: No acute fracture. Soft tissues: Unremarkable. IMPRESSION: 1. Occlusion/absence of the left vertebral artery noted in the posterior fossa. 2. No large vessel stenosis or occlusion detected involving the remaining major branches of the anterior or posterior intracranial circulation. PROCEDURE INFORMATION: Exam: CTA Neck With Contrast Exam date and time: 06/10/2023 8:47 PM Age: 72 years old Clinical indication: Other: Right side neck, headache; Prior surgery; Surgery date: 1-6 months; Surgery type: By pass COMPARISON: CT THORAX ABDOMEN CTA 09/23/2020 12:44 AM FINDINGS: Right common carotid artery: No stenosis. No dissection or occlusion. Right internal carotid artery: Atherosclerotic calcifications are seen at the right carotid bifurcation and involving the origin of the right internal carotid artery with no evidence of 50% or greater stenosis of the extracranial segment. No dissection or occlusion. Right external carotid artery: No occlusion or stenosis of the origin. Left common carotid artery: No stenosis. No dissection or occlusion. Left internal carotid artery: Atherosclerotic calcifications are seen at the left carotid bifurcation and involving the origin of the left internal carotid artery with no evidence of 50% or greater stenosis of the extracranial segment. No dissection or occlusion. Left external carotid artery: No occlusion or stenosis of the origin. Right vertebral artery: No stenosis. No dissection or occlusion. Left vertebral artery: There is suspected occlusion of the smaller left vertebral artery at upper cervical levels. Soft tissues: Normal. No significant soft tissue swelling. Bones/joints: No acute fracture. IMPRESSION: 1. No evidence of 50% or greater stenosis involving the cervical segments of the right or left internal carotid arteries by NASCET criteria. 2. There is suspected occlusion of the smaller left vertebral artery at upper cervical levels. Labs 06/10/23 20:10 06/10/23 20:10 Labs: Laboratory Results - last 24 hr 06/10/23 06/10/23 20:10 23:10 WBC 11.10 H RBC 5.16 Hgb 15.9 Hct 47.9 MCV 93 MCH 30.8 MCHC 33.2 RDW 14.8 H Plt Count 249 MPV 10.0 Immature Gran % 0.4 Neutrophils % 62.6 Lymphocytes % 20.6 Monocytes % 8.9 Eosinophils % 6.6 Basophils % 0.9 Nucleated RBC % 0.0 Absolute Neutrophils 6.95 H Absolute Lymphocytes 2.29 Absolute Monocytes 0.99 H Absolute Eosinophils 0.73 H Absolute Basophils 0.10 PT 10.6 INR 1.1 APTT 24.4 Sodium 141 Potassium 3.9 Chloride 104 Carbon Dioxide 28.4 Anion Gap 8.6 BUN 18 Creatinine 1.2 Est GFR (CKD-EPI 2020) 63.85 Glucose 121 H Calcium 9.7 Magnesium 1.9 Total Bilirubin 0.6 AST 27 ALT 42 Alkaline Phosphatase 158 H Troponin I < 50 69 H* NT-Pro-B Natriuret Pep 519 H Total Protein 7.5 Albumin 3.5 Add-On Test Request DONE Last Vital Signs Temp 37.2 C 06/10/23 19:59 Pulse 45 L 06/11/23 01:16 Resp 14 06/11/23 01:17 BP 177/74 H 06/11/23 01:16 Pulse Ox 96 06/11/23 01:17 Time Spent Time spent with Patient: >75 minutes Time was spent: preparing to see the patient(eg.review tests), obtaining and/or reviewing separately otained hiistory, ordering medications,tests, procedures, referring, communicating with other health hearing healthcare practitioner, indepentently interpreting results, counseling the patient and care coordination
[2023-06-11] MEDS: nitroGLYcerin 2% 1 INCH/1 GM PKT (01:43)
--- NOTE | 2023-06-11 02:46 | ED.PROG_ITS ---
Date of service: 06/11/23 Time of Service: 02:46 Medical Decision Making Patient was signed out to me by my colleague Sofiya Mahad. Please refer to HPI, physical exam, assessment and plan. At time of signout we are awaiting callback from [facility] cardiology. Initial troponin was normal however repeat troponin did come back slightly elevated at 69. Patient had notable improvement of his chest pain but still did have mild chest achiness. Protonix IV was administered with no improvement. Nitroglycerin ointment was provided with mild improvement. I discussed the case with [facility] cardiology Dr. Marie. Currently no beds are available at [facility] for transfer. Symptoms certainly appear atypical for normal ACS, especially considering for vessel bypass just a month ago. With no evidence of significant atypical chest pathology on CT scan. No evidence of bleed in the brain, no clinical evidence of stroke or deficits, and a stable EKG, [facility] does not recommend heparinization at this time. Recommends continuation of aspirin. They feel that the patient is appropriate for admission here. They recommend formal echo tomorrow as well as trending of the troponins. I also recommend stress test if possible. They state that if there is abnormality on the echo or stress test, then they recommend reconsultation and transfer. Bedside limited POCUS exam was performed here, and I do not see any evidence of severe large wall motion abnormalities. Apical movement appears intact. Ejection fraction appears to be around 50%. No evidence of tamponade. Start with/Dr. Marie does feel that the troponin bump may be secondary to the hypertensive component that the patient had initially on ar rival. Patient states that normally his blood pressure is quite controlled. Discussed the case with the hospitalist Dr. Abraham, he agrees with the assessment and plan. I have extensively reviewed the treatment plan with the patient. I have addressed all patient concerns at this time. I have also discussed the plan with the admitting physician and they agree with the current assessment and plan and have agreed to assume responsibility for the patient. All parties demonstrate verbal understanding and agreement with our assessment and plan at this time. The documentation in this chart was dictated using [employer] dictation software. Please excuse any dictation errors. FINDINGS: Pulmonary arteries: No pulmonary embolism. Aorta: No aneurysm. No dissection. Mild plaque noted in the thoracic aorta. Lungs: Dependent atelectasis/consolidation noted in the left lower lobe. Mild dependent reticulation and ground-glass opacity noted bilaterally. No significant endobronchial mucus. Pleural spaces: Mild left pleural effusion. No right pleural effusion. No pneumothorax. Heart: Mild cardiomegaly. No pericardial effusion. Mild coronary artery calcification. Post CABG changes noted. Lymph nodes: Unremarkable. No enlarged lymph nodes. Gallbladder and bile ducts: Cholecystectomy clips noted. Bones/joints: Thoracic levoscoliosis noted. Partial developmental fusion noted between T4-T6. There are no compression fractures. Sternotomy wires are noted. Soft tissues: Unremarkable. IMPRESSION: 1. No pulmonary embolism. 2. No aortic dissection. 3. Chronic pleuroparenchymal scar and atelectasis suspected in the left lower lobe, with associated small left pleural effusion. 4. Cardiomegaly and post CABG changes. Thank you for allowing us to participate in the care of your patient. Dictated and Authenticated by: Margarito Boyle MD 06/10/2023 9:52 PM Eastern Time ([place] & [place]) IMPRESSION: 1. Occlusion/absence of the left vertebral artery noted in the posterior fossa. 2. No large vessel stenosis or occlusion detected involving the remaining major branches of the anterior or posterior intracranial circulation. IMPRESSION: 1. No evidence of 50% or greater stenosis involving the cervical segments of the right or left internal carotid arteries by NASCET criteria. 2. There is suspected occlusion of the smaller left vertebral artery at upper cervical levels. Quality:[facility] Health Related Social Needs: No Data to Display Discharge Plan Disposition Patient Disposition: Admit to [facility] Condition: Good Discharge Details Chief Complaint: Chest Pain Clinical Impression: Non-ST elevation DE (NSTEMI), Chest discomfort Admit Date/Time: 06/11/23 01:24 Admit Provider: Quinton Abraham Attending Provider: Quinton Abraham Primary Care Provider: Marco Hills ED Provider: Archana Leal Discharge Data Discharge Date/Time-TO BE ENTERED AT DEPARTURE: 06/11/23 02:13 POCUS Exam (ED) Limited Cardiac Exam DATE OF EXAM: 06/11/23 TIME OF EXAM: 03:03 PROVIDER THAT PERFORMED THE STUDY: Quang Hairston IS THIS A REPEAT EXAM DURING THIS ENCOUNTER: no REASON FOR EXAM: Chest pain VISUALIZED STRUCTURES: Left atrium, Left ventricle, Right ventricle and Interventricular septum VIEW OBTAINED: Parasternal long-axis and Parasternal short-axis PERTINENT FINDINGS/IMPRESSION: No apparent abnormalities Exam complete
[2023-06-11 03:17] LABS: Troponin I 2134 ng/L (< or =60)
[2023-06-11 03:34] LABS: TSH (W/Ref FT4) 1.73 uIU/mL (0.36-3.74)
[2023-06-11] MEDS: Normal Saline Flush 10 ML SYR IVP (05:02)
[2023-06-11] MEDS: Clopidogrel 300 MG TAB 600 MG PO (05:03)
[2023-06-11] MEDS: Atorvastatin 40 MG TAB 80 MG PO (05:03)
[2023-06-11] MEDS: Metoprolol 25 MG TAB PO (05:37)
[2023-06-11] MEDS: Heparin in 0.45% NaCl 25,000 UNIT/250 ML BAG 10 UNIT IV (05:57)
[2023-06-11 06:50] LABS: HCT 41.7 % (40.0-50.0); MCH 30.4 pg (27.0-33.0); MCHC 33.6 % (32.0-36.0); MCV 91 fL (80-95); MPV 10.7 fL (8.0-11.0); Platelet Count 216 10^3/uL (130-400); RDW 14.8 % (11.8-14.1); RDW-SD 48.8 fL; WBC 9.43 10^3/uL (4.4-10.8)
[2023-06-11 07:19] LABS: ALT 38 U/L (16-63); AST 60 U/L (15-37); Albumin 2.9 g/dL (3.4-5.0); Alkaline Phosphatase 126 U/L (46-116); Anion Gap 9.9 mmol/L (3-11); BUN 20 mg/dL (7-18); Bilirubin, Total 0.6 mg/dL (0.2-1.0); CO2 24.1 mmol/L (21.0-32.0); CREATININE 1.1 mg/dL (0.70-1.30); Calcium 9.2 mg/dL (8.5-10.1); Chloride 106 mmol/L (98-107); Estimated GFR 70.88 (mL/min/1.73m2); Glucose 104 mg/dL (74-106); Magnesium 1.8 mg/dL (1.8-2.4); Potassium 3.8 mmol/L (3.5-5.1); Sodium 140 mmol/L (136-145); Total Protein 6.2 g/dL (6.4-8.2)
[2023-06-11 07:24] LABS: Troponin I 11569 ng/L (< or =60)
--- NOTE | 2023-06-11 07:39 | W.PM.DS.N ---
Date of service: 06/11/23 Time of Service: 07:40 DS: Diagnosis Discharge Diagnosis (1) Non-ST elevation PR (NSTEMI): Status: Acute (2) Atypical chest pain: Status: Acute (3) CAD (coronary artery disease), eagle coronary artery: Status: Chronic (4) S/P CABG x 4: Status: Resolved (5) Cough: Status: Chronic (6) GERD (gastroesophageal reflux disease): Status: Chronic (7) Hyperlipidemia: Status: Chronic (8) Anxiety and depression: Discharge Plan Disposition Patient Disposition: Transfer-Acute Inpatient Care Specific Acute Inpt Facility: [facility] [place] Condition: Serious Discharge Details Reason For Visit: Atypical Chest Pain, NSTEMI, CAD Admit Date/Time: 06/11/23 01:24 Admit Provider: Quinton Abraham Attending Provider: Quinton Abraham Primary Care Provider: Marco Hills Hospital Course Hospital Course: Please see admission H&P for details of presenting symptoms and clinical findings also see EGD report. This 72-year-old male with a history of known coronary artery disease status post coronary artery bypass graft at [facility] in April 2023 who has a history of hyperlipidemia, BPH, GERD, atrial fibrillation status post remote cardioversion, essential hypertension, Flores presented to the emergency department on fuse cutter hours of 06/11/2023 with paroxysms of coughing and chest pain initially felt to be atypical chest pain but ruled in for an NSTEMI.His initial troponin was less than 50 but serial troponins dario to a peak of 11,569 the next morning. Chest pain was initially relieved with sublingual nitro nitroglycerin paste. CTA of the chest was performed showed no pulmonary embolism or aortic dissection. He has chronic pleural-parenchymal scarring and atelectasis and cardiomegaly. Because the pain went up into his neck and he had a headache a CTA of his head and neck was performed that showed closure absence of the left vertebral artery of the posterior fossa but no large vessel stenosis or occlusion detected involving the remaining major branches of the anterior posterior intracranial circulation. When his chest pain was initially relieved and his troponin initially climbed from less than 50-69 it was felt that he probably did not have an NSTEMI and was admitted to the medical/surgical floor for further observation serial troponins however during the night his troponins climbed to 2134 and eventually peaked the next morning at 11,569. When he had further chest pain heparin was added and dual antiplatelet therapy was completed with Plavix. Pain subsided and he was pain-free by the next morning at the time of transfer. [facility] cardiology was re-consulted during the night as transfer was moved up. At the time of transfer he was pain-free. His initial EKG in the ED presented with T wave in the anteroseptal leads subsequent ECG done in the ER showed persistent ST-T wave changes in the anterior leads. Home Meds and New Rx's Prescriptions: No Action Biotene Dry Mouth Oral Rinse Mouthwash 15 ml mucous membrane TID-QID PRN (Reason: dry mouth) Qty: 1000 0RF Rx Instructions: swish for 15-30 secs , then spit out; do not swallow ascorbic acid (vitamin C) 250 mg tablet 250 mg PO DAILY trazodone 50 mg tablet 25 mg PO DAILY Qty: 45 3RF Patient Comments: Pt reports he takes this medication before bed. triamcinolone acetonide 0.1 % cream 1 applic topical BID Qty: 15 0RF aspirin [Adult Aspirin Regimen] 81 mg tablet,delayed release (DR/EC) 81 mg PO DAILY metoprolol tartrate 37.5 mg tablet 37.5 mg PO BID atorvastatin 40 mg tablet 40 mg PO BID Qty: 90 3RF Rx Instructions: per Cardio multivitamin [One Daily] 1 EACH tablet 1 ea PO DAILY dexlansoprazole [Dexilant] 30 mg capsule,biphase delayed releas 30 mg PO DAILY Qty: 90 3RF sertraline 50 mg tablet 50 mg PO DAILY Qty: 90 3RF Discharge Instructions Instructions: Heart Attack (DC) Stand Alone Forms: Nursing Discharge Form Referrals: Adeel Samson [ NON-[facility] STAFF PHYSICIAN] - Activity:: bedrest Equipment/Supplies:: No Equipment Needed Diet:: NPO Discharge Orders Discharge Orders: Discharge Order (Routine); Ordered 06/11/23 Ordered By: Marco Calles DS: Summary Time Spent with Patient providing and/or coordinating discharge services: Less than 30 minutes Specific discharge activities: Interview/exam of patient; review of discharge instructions, completion of prescriptions/discharge instructions; discussion w/ nursing and CM; documentation of hospital visit Status at Discharge Functional status at discharge: independent ambulation Overall status at discharge: patient is not back to baseline Mental Status: mental status grossly normal Speech and Movement: speech and movement normal Mood: congruent mood Affect: normal affect Quality:SDOH Health Related Social Needs: No Data to Display Quality: AMI Clinical Trial Participant: No Exam Psych Mental Status: mental status grossly normal Speech and Movement: speech and movement normal Mood: congruent mood Affect: normal affect DS: Data Vitals/I&O Vitals and I&O: Vital Signs Temperature 35.7 C L 06/11/23 07:33 Temperature Source Tympanic 06/11/23 07:33 Pulse 50 L 06/11/23 07:33 Pulse Rhythm Regular 06/11/23 02:05 Pulse 50 L 06/11/23 00:50 Respiratory Rate 17 06/11/23 07:33 Respiratory Effort Normal 06/11/23 02:05 Respiratory Depth Normal 06/11/23 02:05 Respiratory Pattern Normal 06/11/23 02:05 Blood Pressure 137/76 06/11/23 07:33 Blood Pressure Mean 111 06/11/23 00:46 Blood Pressure Position Sitting 06/10/23 19:59 Pulse Oximetry 96 06/11/23 07:33 Oxygen Delivery Method Room Air 06/11/23 07:33 Oxygen Flow Rate 0 06/11/23 07:33 Pain Level 1 06/11/23 07:33 Comment Took Tylenol around 1800 06/10/23 19:59 Intake & Output 06/10/23 06/10/23 06/11/23 11:59 23:59 11:59 Output Total 400 / 400 Balance -400 / -400 Weight 103.3 kg 98.6 kg Output: Urine 400 / 400 Other: Urine Color Yellow Urine Appearance Clear Urine Odor Normal Voiding Methods Urinal Data Completed and Pending Labs on day of discharge: Labs from last 24 hours 06/11/23 06/11/23 06/11/23 12:05 06:35 02:46 WBC 9.43 RBC 4.60 Hgb 14.0 Hct 41.7 MCV 91 MCH 30.4 MCHC 33.6 RDW 14.8 H Plt Count 216 MPV 10.7 Immature Gran % Neutrophils % Lymphocytes % Monocytes % Eosinophils % Basophils % Nucleated RBC % Absolute Neutrophils Absolute Lymphocytes Absolute Monocytes Absolute Eosinophils Absolute Basophils PT INR APTT Pending Sodium 140 Potassium 3.8 Chloride 106 Carbon Dioxide 24.1 Anion Gap 9.9 BUN 20 H Creatinine 1.1 Est GFR (CKD-EPI 2020) 70.88 Glucose 104 Calcium 9.2 Magnesium 1.8 Total Bilirubin 0.6 AST 60 H ALT 38 Alkaline Phosphatase 126 [place] [address] H* 2134 H* NT-Pro-B Natriuret Pep Total Protein 6.2 L Albumin 2.9 L TSH 1.73 Add-On Test Request 06/10/23 06/10/23 23:10 20:10 WBC 11.10 H RBC 5.16 Hgb 15.9 Hct 47.9 MCV 93 MCH 30.8 MCHC 33.2 RDW 14.8 H Plt Count 249 MPV 10.0 Immature Gran % 0.4 Neutrophils % 62.6 Lymphocytes % 20.6 Monocytes % 8.9 Eosinophils % 6.6 Basophils % 0.9 Nucleated RBC % 0.0 Absolute Neutrophils 6.95 H Absolute Lymphocytes 2.29 Absolute Monocytes 0.99 H Absolute Eosinophils 0.73 H Absolute Basophils 0.10 PT 10.6 INR 1.1 APTT 24.4 Sodium 141 Potassium 3.9 Chloride 104 Carbon Dioxide 28.4 Anion Gap 8.6 BUN 18 Creatinine 1.2 Est GFR (CKD-EPI 2020) 63.85 Glucose 121 H Calcium 9.7 Magnesium 1.9 Total Bilirubin 0.6 AST 27 ALT 42 Alkaline Phosphatase 158 H Troponin I 69 H* < 50 NT-Pro-B Natriuret Pep 519 H Total Protein 7.5 Albumin 3.5 TSH Add-On Test Request DONE PFS All Active Problems Chest discomfort (Acute) Non-ST elevation PR (NSTEMI) (Acute) Atypical chest pain (Acute) CAD (coronary artery disease), eagle coronary artery (Chronic) SOB (shortness of breath) (Acute) Cough (Chronic) Chest congestion (Acute) Numbness of finger (Acute) Sciatica, right side (Acute) Trigger finger, left index finger (Acute) FLORES (nonalcoholic steatohepatitis) (Acute) Vertigo (Acute) Trigger finger, left (Acute) Post-viral cough syndrome (Acute) Blepharitis (Acute) Left flank pain (Acute) Coronary artery disease (Chronic) Dizziness (Acute) Bradycardia (Acute) Tachycardia (Acute) Osteoarthritis of both hands (Acute) Abdominal pain in male (Acute) BPH w urinary obs/LUTS (Acute) Internal derangement of right knee (Acute) AK (actinic keratosis) (Acute) Right medial knee pain (Acute) Hoarseness (Acute) Xerostomia (Acute) 05/2021, unclear cause Chest pain (Acute) Summer 2020-admitted for chest pain sent to [facility]-negative cardiac catheterization per patient Atrial fibrillation (Chronic) Remote, cardioverted about 2007 at [facility]-no recurrence Neuropathy of both feet (Acute) 03/2021- mild, likely ideopathic Foot pain, right (Acute) Chronic right foot pain felt to be likely combination overuse, degenerative changes and neuropathy Abdominal pain (Acute) Recurrent episodic moderate to severe abdominal pain right abdomen-since 2019-unclear cause no improvement after cholecystectomy, thorough evaluation since 2019 without any obvious etiology Tubular adenoma of colon (Acute) 2017, due in 2022 Kidney stone (Chronic) Nasal vestibulitis (Acute) White coat syndrome with high blood pressure but without hypertension (Acute) Anxiety (Chronic) Left-sided low back pain with left-sided sciatica (Acute) Bradycardia (Acute) holter 05/19 Chronic right hip pain (Chronic 07/04/13) Pleurodynia (Acute) GERD (gastroesophageal reflux disease) (Chronic) Fatty liver (Acute) Rosacea (Chronic) Hyperlipidemia (Chronic) Actinic keratosis (Chronic) Medical History Prostatitis Atrial flutter Pt. states it comes and goes, I've had it worked up, and the chest discomfort I was told was indigestion Chronic insomnia Gastritis (01/29/04) Tubular adenoma 01/20/13 DR. WANG 06/21/17 DR. SULTANA Paroxysmal atrial fibrillation (07/16/15) Malignant melanoma of skin of face History of kidney stones (12/02/15) Right hydrocele Anxiety and depression Prostatitis Kidney stones 1986, 2002 Colitis mild-scope 2003 Surgical History History of cataract surgery S/P laparoscopic cholecystectomy History of cholecystectomy History of coronary angioplasty Status post tendon repair Status post cataract extraction and insertion of intraocular lens of right eye (06/06/18) Status post cataract extraction and insertion of intraocular lens of left eye (05/23/18) cardiac ablation unsuccessful 2011 Repair, Tendon or Muscle left elbow EGD - IV Sedation 1999, 2004 Colonoscopy - MAC (06/21/17) Colonoscopy - IV Sedation 01/20/13 Angioplasty Family History Mother , 96 Dementia Father , 72 Stomach cancer Sister Diabetes Brother Rheumatoid arthritis Sister , 68 No problems noted. Sister No problems noted. Maternal Aunt Dementia Brother No problems noted. Social History Smoking/Tobacco Use Status: Former Tobacco Use tobacco type: cigarettes Quit Date: 03/01/77 Tobacco: How many years used: 6 Smokeless tobacco user: other Quit status: has quit before Second Hand Exposure: No Smoking risk assessment performed?: Yes Alcohol Intake: former Drug use: Never Substance use type: does not use Counseling given: No Counseling provided: none Caregiver/Support person: No Household members: none Housing: apartment Communication Needs: None Do you need help understanding health information?: Rarely Pets and animals: No Sexually active: No Do you think of yourself as: straight/heterosexual Current gender identity: male What is your relationship status?: never How often do you talk on the phone with friends or family?: three or more times per week How often do you get together with friends or relatives?: twice per week How often do you attend religion or jewish services?: decline to answer Do you belong to any clubs or organized social groups?: no Panel score (0-1 are the most socially isolated patients): 1 What type of physical activity do you participate in: walking Duration: 30-45 minutes/day Frequency: 3-4 times per week Any/Baptist: No preference Special any needs: No Seatbelt use: always Helmet use: Yes Helmet use: always Drive intox or ride w/intox local bulk driver: No Do you feel safe at home: Yes Do you feel safe in your relationship?: Yes Time Spent with Patient Time Spent with Patient: <45 minutes Time was spent: preparing to see the patient(eg.review tests), referring, communicating with other health customer care consultant, indepentently interpreting results and care coordination
== END 2023-06-11 08:20 | disposition short-term general hospital (02) | DRG 281 ==
LOC: ER 06-11 01:47 → MS 06-11 02:05
PROVIDERS: Admitting Provider Family Medicine; Emergency Provider Registered Nurse Emergency; PCP Family Medicine; Visit Provider Family Medicine
DX: I21.4 Non-ST elevation (NSTEMI) myocardial infarction (principal); I48.92 Unspecified atrial flutter; J98.11 Atelectasis; N13.8 Other obstructive and reflux uropathy; I25.118 Atherosclerotic heart disease of native coronary artery with other forms of angina pectoris; Z95.1 Presence of aortocoronary bypass graft; E78.2 Mixed hyperlipidemia; K21.9 Gastro-esophageal reflux disease without esophagitis; R05.2 Subacute cough; F32.A Depression, unspecified; F41.9 Anxiety disorder, unspecified; K75.81 Nonalcoholic steatohepatitis (NASH); I11.9 Hypertensive heart disease without heart failure; N40.1 Benign prostatic hyperplasia with lower urinary tract symptoms; M54.42 Lumbago with sciatica, left side
CPT/HCPCS: 00123; 36415; 70496; 70498; 71275; 80053; 85027; 93005; 93308; 96374; 96375; 99285; 83735; 83880; 84443; 84484; 85025; 85610; 85730; 93010; 99223; J1644; J2270; J2470; J3490; Q9967

== ENCOUNTER 2023-06-21 09:20 | Outpatient (CLI) | payer MEDICARE, SELFPAY ==
--- NOTE | 2023-06-21 09:15 | RT.EKG_ITS ---
APPROVED REPORT Exam: Resting ECG Reason for Exam: afib, CAD Patient Location: O HR:44 bpm ECG Measurements Heart Rate 44 AXIS SC 176 P 52 QRSd 119 QRS 52 QT 482 T 130 QTc 413 Conclusion Sinus bradycardia...rate< 50 Probable left atrial enlargement...P >50mS, <-0.10mV V1 Abnormal T , lateral leads...T <-0.20mV, I aVL V5 V6
== END 2023-06-21 09:21 | disposition home or self-care (01) ==
LOC: DI.CARD 09:21
PROVIDERS: PCP Family Medicine; Visit Provider Internal Medicine Cardiovascular Disease
DX: R00.1 Bradycardia, unspecified (principal)
CPT/HCPCS: 93010

== ENCOUNTER → 2023-06-21 11:05 | Outpatient (BNVA) | payer MEDICARE, SELFPAY | PROVIDERS: PCP Family Medicine; Referring Provider Family Medicine; Visit Provider Internal Medicine Cardiovascular Disease | DX: I25.10 Atherosclerotic heart disease of native coronary artery without angina pectoris (principal); R05.2 Subacute cough; R94.31 Abnormal electrocardiogram [ECG] [EKG]; R00.1 Bradycardia, unspecified; I48.91 Unspecified atrial fibrillation | CPT/HCPCS: 93005; 99214 ==

== ENCOUNTER 2023-06-27 13:03 | Emergency (ER) | payer MEDICARE, SELFPAY ==
[2023-06-27 13:10] VITALS: PULSE 56; RESP 16; TEMP 36.6; O2SAT 96
[2023-06-27 13:13] VITALS: BP 126/67
--- NOTE | 2023-06-27 13:15 | RT.EKG_ITS ---
APPROVED REPORT Exam: Resting ECG Reason for Exam: intermittent chest pain Patient Location: E HR:55 bpm ECG Measurements Heart Rate 55 AXIS ND 151 P 48 QRSd 116 QRS 42 QT 448 T 119 QTc 428 Conclusion Sinus bradycardia 55 TWI not significant change
--- NOTE | 2023-06-27 13:15 | DI.RAD_ITS ---
Exam(s) XR PORTABLE CHEST AP EXAM: XR PORTABLE CHEST AP CLINICAL HISTORY: CHEST PAIN. TECHNIQUE: 2D digital imaging was performed. COMPARISON: Prior chest x-ray 05/26/2023 FINDINGS: Single AP portable view. Sternotomy wires and evidence of previous CABG again noted. Heart size is upper normal. The mediastinum is not widened. No evidence of pulmonary edema. Right lung is clear. Some scarring in the left lung base again note d. IMPRESSION: No acute pulmonary findings on this single AP portable view of the chest. DATA REPOSITORY: RADIATION DOSE DELIVERED:
[2023-06-27 13:47] LABS: Abs Immature Grans 0.03 10^3/uL (0.0-0.06); Absolute Basophil Count 0.05 10^3/uL (0.0-0.2); Absolute Eosinophil Count 0.22 10^3/uL (0.0-0.7); Absolute Lymphocyte Count 0.97 10^3/uL (1.2-3.4); Absolute Monocyte Count 1.14 10^3/uL (0.1-0.8); Absolute Neutrophil Count 8.38 10^3/uL (1.2-6.7); Basophils % 0.5; HCT 47.3 % (40.0-50.0); HGB 15.7 g/dL (13.5-17.5); Immature Grans % 0.3; MCH 30.9 pg (27.0-33.0); MCHC 33.2 % (32.0-36.0); MCV 93 fL (80-95); Monocytes % 10.6; Neutrophils % 77.6; Platelet Count 212 10^3/uL (130-400); RBC 5.08 10^6/uL (4.36-5.78); RDW 14.6 % (11.8-14.1); RDW-SD 50.4 fL; WBC 10.79 10^3/uL (4.4-10.8)
[2023-06-27 13:57] LABS: INR 1.1 (0.9-1.1); PTT Activated 26.3 sec (23.6-32.8)
[2023-06-27 14:06] LABS: ALT 55 U/L (16-63); AST 27 U/L (15-37); Albumin 3.5 g/dL (3.4-5.0); Alkaline Phosphatase 149 U/L (46-116); Anion Gap 7.9 mmol/L (3-11); BUN 16 mg/dL (7-18); Bilirubin, Total 1.1 mg/dL (0.2-1.0); CO2 28.1 mmol/L (21.0-32.0); CREATININE 1.2 mg/dL (0.70-1.30); Calcium 9.9 mg/dL (8.5-10.1); Chloride 105 mmol/L (98-107); Estimated GFR 63.85 (mL/min/1.73m2); Glucose 123 mg/dL (74-106); NT-proBNP 271 pg/mL (<300); Potassium 3.9 mmol/L (3.5-5.1); Sodium 141 mmol/L (136-145); Total Protein 7.4 g/dL (6.4-8.2); Troponin I < 50 ng/L (< or =60)
--- NOTE | 2023-06-27 14:46 | W.ED.GENAD ---
Discharge Plan Disposition Patient Disposition: Home Condition: Stable Discharge Details Clinical Impression: Back pain Primary Care Provider: [facility] ED Provider: Calos Greenberg Home Meds and New Rx's Prescriptions: New methocarbamol 500 mg tablet 500 mg PO TID Qty: 30 0RF No Action Biotene Dry Mouth Oral Rinse Mouthwash 15 ml mucous membrane TID-QID PRN (Reason: dry mouth) Qty: 1000 0RF Rx Instructions: swish for 15-30 secs , then spit out; do not swallow furosemide 20 mg tablet 20 mg PO DAILY PRN metoprolol succinate 25 mg tablet extended release 24 hr 25 mg PO DAILY Qty: 90 3RF clopidogrel 75 mg tablet 75 mg PO DAILY ascorbate calcium (vitamin C) 500 mg tablet 500 mg PO DAILY trazodone 50 mg tablet 25 mg PO DAILY Qty: 45 3RF Patient Comments: Pt reports he takes this medication before bed. triamcinolone acetonide 0.1 % cream 1 applic topical BID Qty: 15 0RF aspirin [Adult Aspirin Regimen] 81 mg tablet,delayed release (DR/EC) 81 mg PO DAILY atorvastatin 40 mg tablet 40 mg PO BID Qty: 90 3RF Rx Instructions: per Cardio multivitamin [One Daily] 1 EACH tablet 1 ea PO DAILY dexlansoprazole [Dexilant] 30 mg capsule,biphase delayed releas 30 mg PO DAILY Qty: 90 3RF sertraline 50 mg tablet 50 mg PO DAILY Qty: 90 3RF Discharge Instructions Additional Instructions: try the robaxin for your pain do gentle stretching after walking please follow up with your PCP this week return to the ED with any concerns HPI General Date/Time Provider Initiated Documentation: 06/27/23 13:17. Limitations to Documentation: no limitations. Information obtained by: patient. HPI Narrative: 72-year-old gentleman with past medical history of CAD, CABG x 4, FAIR, A-fib presents for evaluation of right sided pain around his scapula. Not reproducible. Pain has been improved with taking Tylenol at home. Worse with taking a deep breath. Reports that he might feel a little bit short of breath like he cannot take a full complete deep breath. But is not having to work hard to breathe. Denies any chest pain. Patient reports that he had a CABG about 2 months ago. Has had some difficulty with healing and pain since that time, and has been readmitted to the hospital once. Related Data Home Medications Medication Instructions Recorded Confirmed multivitamin (One Daily tablet) 1 ea PO DAILY 06/07/12 06/24/23 saliva substitute combo no.9 15 ml mucous membrane TID-QID PRN 03/12/21 06/24/23 (Biotene Dry Mouth Oral Rinse dry mouth #1,000 mL mouthwash) trazodone 50 mg tablet 25 mg (1/2 x 50 mg) PO DAILY #45 10/08/22 06/24/23 tabs triamcinolone acetonide 0.1 % 1 applic topical BID #15 grams 10/08/22 06/24/23 topical cream dexlansoprazole 30 mg 30 mg PO DAILY #90 caps 12/21/22 06/24/23 capsule,biphase delayed release (Dexilant) sertraline 50 mg tablet 50 mg PO DAILY #90 tabs 03/15/23 06/24/23 aspirin 81 mg tablet,delayed 81 mg PO DAILY 05/26/23 06/24/23 release (Adult Aspirin Regimen) atorvastatin 40 mg tablet 40 mg PO BID #90 tabs 05/26/23 06/24/23 furosemide 20 mg tablet 20 mg PO DAILY PRN 06/21/23 06/24/23 metoprolol succinate 25 mg 25 mg PO DAILY #90 tabs 06/21/23 06/24/23 tablet,extended release 24 hr ascorbate calcium (vitamin C) 500 500 mg PO DAILY 06/24/23 06/24/23 mg tablet clopidogrel 75 mg tablet 75 mg PO DAILY 06/24/23 06/24/23 methocarbamol 500 mg tablet 500 mg PO TID #30 tabs 06/27/23 Previous Rx's Medication Instructions Recorded saliva substitute combo no.9 15 ml mucous membrane TID-QID PRN 03/12/21 (Biotene Dry Mouth Oral Rinse dry mouth #1,000 mL mouthwash) trazodone 50 mg tablet 25 mg (1/2 x 50 mg) PO DAILY #45 10/08/22 tabs triamcinolone acetonide 0.1 % 1 applic topical BID #15 grams 10/08/22 topical cream dexlansoprazole 30 mg 30 mg PO DAILY #90 caps 12/21/22 capsule,biphase delayed release (Dexilant) sertraline 50 mg tablet 50 mg PO DAILY #90 tabs 03/15/23 atorvastatin 40 mg tablet 40 mg PO BID #90 tabs 05/26/23 metoprolol succinate 25 mg 25 mg PO DAILY #90 tabs 06/21/23 tablet,extended release 24 hr methocarbamol 500 mg tablet 500 mg PO TID #30 tabs 06/27/23 Allergies Allergy/AdvReac Type Severity Reaction Status Date / Time atenolol AdvReac Unknown hypotension Verified 06/27/23 13:13 General Stated Complaint: Nk/Back Pain RYAN: 3 Exam Narrative Exam Narrative: Review of Systems: All systems reviewed & are unremarkable except as noted in HPI and below Well-developed, no acute distress NCAT PERRL, normal conjunctiva RRR, no murmur Midline sternotomy scar healing well Unlabored respiratory effort, clear bilaterally Nondistended abdomen , nontender Extremities w/o deformity, no cyanosis, no edema Back with no muscle spasm or tenderness or reproducible pain No rashes or lesions. no focal neurologic deficits Appropriate mood and affect Course Vital Signs Vital signs: Vital Signs Temperature 36.6 C 06/27/23 13:10 Pulse 56 L 06/27/23 13:10 Respiratory Rate 16 06/27/23 13:10 Pulse Oximetry 96 06/27/23 13:10 Temperature 36.6 C 06/27/23 13:10 Temperature Source Skin 06/27/23 13:10 Pulse 56 L 06/27/23 13:10 Respiratory Rate 16 06/27/23 13:10 Respiratory Effort Normal 06/27/23 13:12 Blood Pressure 126/67 06/27/23 13:13 Blood Pressure Position Sitting 06/27/23 13:10 Pulse Oximetry 96 06/27/23 13:10 Oxygen Delivery Method Room Air 06/27/23 13:10 Oxygen Flow Rate 0 06/27/23 13:10 Lab/Test Results Lab/Test Results: Laboratory Tests Range/Units 06/27/23 13:36 WBC (4.4-10.8) 10^3/uL 10.79 RBC (4.36-5.78) 10^6/uL 5.08 Hgb (13.5-17.5) g/dL 15.7 Hct (40.0-50.0) % 47.3 MCV (80-95) fL 93 MCH (27.0-33.0) pg 30.9 MCHC (32.0-36.0) % 33.2 RDW (11.8-14.1) % 14.6 H Plt Count (130-400) 10^3/uL 212 MPV (8.0-11.0) fL 10.0 Immature Gran % 0.3 Neutrophils % 77.6 Lymphocytes % 9.0 Monocytes % 10.6 Eosinophils % 2.0 Basophils % 0.5 Nucleated RBC % (0.0-0.3) % 0.0 Absolute Neutrophils (1.2-6.7) 10^3/uL 8.38 H Absolute Lymphocytes (1.2-3.4) 10^3/uL 0.97 L Absolute Monocytes (0.1-0.8) 10^3/uL 1.14 H Absolute Eosinophils (0.0-0.7) 10^3/uL 0.22 Absolute Basophils (0.0-0.2) 10^3/uL 0.05 PT (9.1-11.1) sec 11.0 INR (0.9-1.1) 1.1 APTT (23.6-32.8) sec 26.3 Sodium (136-145) mmol/L 141 Potassium (3.5-5.1) mmol/L 3.9 Chloride (98-107) mmol/L 105 Carbon Dioxide (21.0-32.0) mmol/L 28.1 Anion Gap (3-11) mmol/L 7.9 BUN (7-18) mg/dL 16 Creatinine (0.70-1.30) mg/dL 1.2 Est GFR (CKD-EPI 2020) (mL/min/1.73m2) 63.85 Glucose (74-106) mg/dL 123 H Calcium (8.5-10.1) mg/dL 9.9 Magnesium (1.8-2.4) mg/dL 2.0 Total Bilirubin (0.2-1.0) mg/dL 1.1 H AST (15-37) U/L 27 ALT (16-63) U/L 55 Alkaline Phosphatase (46-116) U/L 149 H Troponin I (< or =60) ng/L < 50 NT-Pro-B Natriuret Pep (<300) pg/mL 271 Total Protein (6.4-8.2) g/dL 7.4 Albumin (3.4-5.0) g/dL 3.5 Medical Decision Making Emergent evaluation of back pain. Patient has significant cardiac risk factors and a CABG about 2 months ago. His EKG does not demonstrate acute ischemic changes. This would seem fairly atypical. He is currently on aspirin and Plavix, I would think his risk factor for a PE would be fairly low. He is not having any hypoxia, or tachypnea. Lab work reviewed. He has no leukocytosis or anemia. He does not have an elevated troponin. His chest x-ray does not reveal any acute process. He is feeling better after a dose of Robaxin. At this time he also endorses that he is increased his physical activity over the last 2 days that he has been having the symptoms. This does not seem like exertional chest pain, but may just be his body readjusting and having some soreness. I we will prescribe the Robaxin and recommend close follow-up with PCP. Strict return precautions advised. The patient feels comfortable going home Medical Records Medical records reviewed: Yes I reviewed the patient's medical records. Lab Data Lab results reviewed: Yes I reviewed the patient's lab results. Quality:SDOH Health Related Social Needs: No Data to Display PFSH All Active Problems (Updated 06/27/23 @ 15:17 by Calos Greenberg MD) Back pain (Acute) Chest discomfort (Acute) Non-ST elevation IA (NSTEMI) (Acute) Atypical chest pain (Acute) CAD (coronary artery disease), [place] coronary artery (Chronic) Cough (Chronic) Chest congestion (Acute) Numbness of finger (Acute) Sciatica, right side (Acute) Trigger finger, left index finger (Acute) FAIR (nonalcoholic steatohepatitis) (Acute) Vertigo (Acute) Trigger finger, left (Acute) Post-viral cough syndrome (Acute) Blepharitis (Acute) Left flank pain (Acute) Coronary artery disease (Chronic) Dizziness (Acute) Bradycardia (Acute) Tachycardia (Acute) Osteoarthritis of both hands (Acute) Abdominal pain in male (Acute) BPH w urinary obs/LUTS (Acute) Internal derangement of right knee (Acute) AK (actinic keratosis) (Acute) Right medial knee pain (Acute) Hoarseness (Acute) Xerostomia (Acute) 05/2021, unclear cause Chest pain (Acute) Summer 2020-admitted for chest pain sent to [facility]-negative cardiac catheterization per patient Atrial fibrillation (Chronic) Remote, cardioverted about 2007 at [facility]-no recurrence Neuropathy of both feet (Acute) 03/2021- mild, likely ideopathic Foot pain, right (Acute) Chronic right foot pain felt to be likely combination overuse, degenerative changes and neuropathy Abdominal pain (Acute) Recurrent episodic moderate to severe abdominal pain right abdomen-since 2019-unclear cause no improvement after cholecystectomy, thorough evaluation since 2019 without any obvious etiology Tubular adenoma of colon (Acute) 2017, due in 2022 Kidney stone (Chronic) Nasal vestibulitis (Acute) White coat syndrome with high blood pressure but without hypertension (Acute) Anxiety (Chronic) Left-sided low back pain with left-sided sciatica (Acute) Bradycardia (Acute) holter 05/19 Chronic right hip pain (Chronic 07/04/13) Pleurodynia (Acute) GERD (gastroesophageal reflux disease) (Chronic) Fatty liver (Acute) Rosacea (Chronic) Hyperlipidemia (Chronic) Actinic keratosis (Chronic) Medical History Prostatitis Atrial flutter Pt. states it comes and goes, I've had it worked up, and the chest discomfort I was told was indigestion Chronic insomnia Gastritis (01/29/04) Tubular adenoma 01/20/13 DR. WANG 06/21/17 DR. SULTANA Paroxysmal atrial fibrillation (07/16/15) Malignant melanoma of skin of face History of kidney stones (12/02/15) Right hydrocele Anxiety and depression Prostatitis Kidney stones 1986, 2002 Colitis mild-scope 2003 Surgical History History of cataract surgery S/P laparoscopic cholecystectomy History of cholecystectomy History of coronary angioplasty Status post tendon repair Status post cataract extraction and insertion of intraocular lens of right eye (06/06/18) Status post cataract extraction and insertion of intraocular lens of left eye (05/23/18) cardiac ablation unsuccessful 2011 Repair, Tendon or Muscle left elbow EGD - IV Sedation 1999, 2004 Colonoscopy - MAC (06/21/17) Colonoscopy - IV Sedation 01/20/13 Angioplasty Family History Mother , 96 Dementia Father , 72 Stomach cancer Sister Diabetes Brother Rheumatoid arthritis Sister , 68 No problems noted. Sister No problems noted. Maternal Aunt Dementia Brother No problems noted. Social History Smoking/Tobacco Use Status: Former Tobacco Use tobacco type: cigarettes Quit Date: 03/01/77 Tobacco: How many years used: 6 Smokeless tobacco user: other Quit status: has quit before Second Hand Exposure: No Smoking risk assessment performed?: Yes Alcohol Intake: former Drug use: Never Substance use type: does not use Counseling given: No Counseling provided: none Caregiver/Support person: No Household members: none Housing: apartment Communication Needs: None Do you need help understanding health information?: Rarely Pets and animals: No Sexually active: No Do you think of yourself as: straight/heterosexual Current gender identity: male What is your relationship status?: never How often do you talk on the phone with friends or family?: three or more times per week How often do you get together with friends or relatives?: twice per week How often do you attend nondenominational or cheondoism services?: decline to answer Do you belong to any clubs or organized social groups?: no Panel score (0-1 are the most socially isolated patients): 1 What type of physical activity do you participate in: walking Duration: 30-45 minutes/day Frequency: 3-4 times per week Any/Baptism: No preference Special any needs: No Seatbelt use: always Helmet use: Yes Helmet use: always Drive intox or ride w/intox class a regional drivers: No Do you feel safe at home: Yes Do you feel safe in your relationship?: Yes
[2023-06-27] MEDS: Methocarbamol 500 MG TAB 1000 MG PO (14:50)
--- NOTE | 2023-06-27 15:19 | DI.VRAD_ITS ---
PROCEDURE INFORMATION: Exam: XR Chest Exam date and time: 06/27/2023 2:31 PM Age: 72 years old Clinical indication: Other: Chest pain; Prior surgery; Surgery date: 1-6 months; Surgery type: Open heart TECHNIQUE: Imaging protocol: Radiologic exam of the chest. Views: 1 view. COMPARISON: CT CHEST PE CTA 06/10/2023 9:00 PM FINDINGS: Lungs: Mild opacity in the left lateral lung base. Pleural spaces: No pleural effusion. No pneumothorax. Heart/Mediastinum: Cardiac silhouette at the upper limits of normal in size. Bones/joints: There are median sternotomy wires. IMPRESSION: Mild opacity in the left lateral lung base, atelectasis versus infiltrate. Dictated and Authenticated by: Gilbert Amaral MD. Ordering:HAJA Dupont MD
== END 2023-06-27 15:39 | disposition home or self-care (01) ==
PROVIDERS: Emergency Provider Emergency Medicine; PCP Family Medicine
DX: M54.6 Pain in thoracic spine (principal); I48.0 Paroxysmal atrial fibrillation; I25.10 Atherosclerotic heart disease of native coronary artery without angina pectoris; K75.81 Nonalcoholic steatohepatitis (NASH); Z95.1 Presence of aortocoronary bypass graft; Z79.02 Long term (current) use of antithrombotics/antiplatelets; Z79.82 Long term (current) use of aspirin; Z87.891 Personal history of nicotine dependence
CPT/HCPCS: 80053; 93005; 71045; 83735; 83880; 84484; 85025; 85610; 85730; 93010

== ENCOUNTER → 2023-08-03 09:47 | Outpatient (BNVA) | payer MEDICARE, SELFPAY | PROVIDERS: PCP Family Medicine; Referring Provider Family Medicine; Visit Provider Internal Medicine Cardiovascular Disease | DX: Z95.1 Presence of aortocoronary bypass graft (principal); R00.1 Bradycardia, unspecified; I48.91 Unspecified atrial fibrillation | CPT/HCPCS: 99213 ==

== ENCOUNTER → 2023-11-08 10:49 | Outpatient (BNVA) | payer MEDICARE, SELFPAY | PROVIDERS: PCP Family Medicine; Visit Provider Internal Medicine Cardiovascular Disease | DX: I25.10 Atherosclerotic heart disease of native coronary artery without angina pectoris (principal); I48.0 Paroxysmal atrial fibrillation | CPT/HCPCS: 99213 ==

== ENCOUNTER 2023-12-17 22:44 | Outpatient (REF) | payer MEDICARE, SELFPAY | END 2023-12-17 22:45 | disposition home or self-care (01) | LOC: LBN 22:44 | PROVIDERS: PCP Family Medicine; Visit Provider Physician Assistant | DX: J02.9 Acute pharyngitis, unspecified (principal) | CPT/HCPCS: 87070 ==

== ENCOUNTER 2024-01-05 16:43 | Outpatient (CLI) | payer MEDICARE, SELFPAY ==
--- NOTE | 2024-01-05 17:25 | DI.RAD_ITS ---
Exam(s) XR CHEST 2V PA LATERAL EXAM: XR CHEST 2V PA LATERAL CLINICAL HISTORY: cough r/o pneumonia. R05.9 TECHNIQUE: 2D digital imaging was performed. Two views. COMPARISON: CR,XR XR PORTABLE CHEST AP from 06/27/2023 FINDINGS: HEART: Normal size. Status post CABG. Aorta: Not dilated. PULMONARY VASCULATURE: Normal. MEDIASTINUM: Unremarkable. LUNGS: Clear. PLEURAL SPACE: No pleural effusion or pneumothorax. BONE:Sternal wires. SOFT TISSUES: Unremarkable. IMPRESSION: No acute abnormality. DATA REPOSITORY: RADIATION DOSE DELIVERED:
--- NOTE | 2024-01-05 17:52 | DI.VRAD_ITS ---
PROCEDURE INFORMATION: Exam: XR Chest Exam date and time: 01/05/2024 5:12 PM Age: 73 years old Clinical indication: Cough and other: R/O pneumonia TECHNIQUE: Imaging protocol: Radiologic exam of the chest. Views: 2 views. COMPARISON: CR XR PORTABLE CHEST AP 06/27/2023 2:31 PM FINDINGS: Lungs: The lung isabel are clear. No infiltrates or effusions identified. Pleural spaces: No effusions or pneumothoraces. Heart/Mediastinum: There has been prior cardiac surgery. The heart is not enlarged. The superior mediastinum is unremarkable. Bones/joints: No acute bony changes of the thoracic spine or ribs. There are mild diffuse degenerative changes of the thoracic spine. IMPRESSION: 1. Prior cardiac surgery but no current acute cardiopulmonary disease. Dictated and Authenticated by: Geovani Willett MD. Ordering:AUDREY Bartlett MD
== END 2024-01-05 17:03 ==
LOC: DI 16:45
PROVIDERS: PCP Family Medicine; Visit Provider Physician Assistant
DX: R05.9 Cough, unspecified (principal)
CPT/HCPCS: 71046

== ENCOUNTER 2024-03-11 12:14 | Outpatient (CLI) | payer MEDICARE, SELFPAY ==
--- NOTE | 2024-03-11 12:00 | RT.EKG_ITS ---
APPROVED REPORT Exam: Resting ECG Reason for Exam: SOB Patient Location: O HR:57 bpm ECG Measurements Heart Rate 57 AXIS ID 168 P 64 QRSd 135 QRS 37 QT 451 T 41 QTc 440 Conclusion Sinus rhythm...normal P axis, V-rate 50- 99 Atrial premature complex...SV complex w/ short R-R interval Probable left atrial enlargement...P >50mS, <-0.10mV V1 Nonspecific intraventricular conduction delay...QRSd >115mS, not LBBB/RBBB
== END 2024-03-11 12:15 | disposition home or self-care (01) ==
LOC: DI.CM 12:14
PROVIDERS: PCP Family Medicine; Visit Provider Physician Assistant
DX: R07.9 Chest pain, unspecified (principal)
CPT/HCPCS: 93010

== ENCOUNTER → 2024-03-17 09:03 | Outpatient (BNVA) | payer MEDICARE, SELFPAY | PROVIDERS: PCP Family Medicine; Visit Provider Internal Medicine Cardiovascular Disease | DX: I25.118 Atherosclerotic heart disease of native coronary artery with other forms of angina pectoris (principal) | CPT/HCPCS: 99214 ==

== ENCOUNTER 2024-05-02 09:38 | Outpatient (CLI) | payer MEDICARE, SELFPAY ==
--- NOTE | 2024-05-02 09:30 | RT.EKG_ITS ---
APPROVED REPORT Exam: Resting ECG Reason for Exam: SOB, CAD Patient Location: O HR:69 bpm ECG Measurements Heart Rate 69 AXIS ID 151 P 83 QRSd 114 QRS 70 QT 431 T 26 QTc 462 Conclusion Sinus rhythm...normal P axis, V-rate 50- 99 Probable left atrial enlargement...P >50mS, <-0.10mV V1 Borderline intraventricular conduction delay...QRSd >112mS Minimal ST depression, diffuse leads...ST <-0.03mV, ant/lat/inf
== END 2024-05-02 09:39 | disposition home or self-care (01) ==
LOC: DI.CARD 09:39
PROVIDERS: PCP Family Medicine; Visit Provider Internal Medicine Cardiovascular Disease
DX: R06.02 Shortness of breath (principal); I25.10 Atherosclerotic heart disease of native coronary artery without angina pectoris
CPT/HCPCS: 93010

== ENCOUNTER → 2024-05-02 10:30 | Outpatient (BNVA) | payer MEDICARE, SELFPAY | PROVIDERS: PCP Family Medicine; Referring Provider Family Medicine; Visit Provider Internal Medicine Cardiovascular Disease | DX: R06.02 Shortness of breath (principal); I25.118 Atherosclerotic heart disease of native coronary artery with other forms of angina pectoris | CPT/HCPCS: 93005; 99214 ==

== ENCOUNTER 2024-05-12 12:56 | Emergency (ER) | payer MEDICARE, SELFPAY ==
[2024-05-12 13:00] VITALS: BP 152/89; PULSE 63; RESP 18; TEMP 37.1; O2SAT 96
--- NOTE | 2024-05-12 13:05 | W.ED.GENAD ---
Discharge Plan Disposition Patient Disposition: Home Condition: Stable Discharge Details Clinical Impression: Acute pain of left knee, Effusion of knee joint, left Primary Care Provider: [facility] ED Provider: Gregory Cordero Burton Meds and New Rx's Prescriptions: Continued clopidogrel 75 mg tablet 75 mg PO DAILY ascorbate calcium (vitamin C) 500 mg tablet 500 mg PO DAILY sertraline 50 mg tablet 50 mg PO DAILY Qty: 90 3RF pantoprazole 40 mg tablet,delayed release (DR/EC) 40 mg PO DAILY PRN (Reason: acid reflux) Qty: 90 3RF triamcinolone acetonide 0.1 % cream 1 applic topical BID Qty: 15 0RF aspirin [Adult Aspirin Regimen] 81 mg tablet,delayed release (DR/EC) 81 mg PO DAILY atorvastatin 40 mg tablet 40 mg PO DAILY Qty: 90 3RF Rx Instructions: per Cardio multivitamin [One Daily] 1 EACH tablet 1 ea PO DAILY trazodone 50 mg tablet 25 mg PO DAILY Qty: 45 3RF Patient Comments: Pt reports he takes this medication before bed. Discharge Instructions Additional Instructions: You are seen in the emergency department for your knee pain. Your x-ray showed no sign of any fractures but you did have a small amount of fluid in your joint concerning for the possibility of an injury to one of your ligaments. As we discussed you may bear weight on your left lower extremity using an Suhas wrap. Please ice your knee for 20 minutes on 20 minutes off over the weekend at rest. Please follow-up next week with primary care provider. For your pain please take medications as follows: 1. Take acetaminophen (Tylenol), 1,000 mg (two 500 mg tabs) every 6 hours HPI General Date/Time Provider Initiated Documentation: 05/12/24 13:05. HPI Narrative: MDM This is an overall very well-appearing normothermic and nontachycardic male with left knee pain small effusion concerning for the possibility of ligamentous injury for which patient received instructions to be weightbearing as tolerated in his left lower extremity with an Suhas wrap. Patient is able to straight leg raise so not suspicious for quadriceps tendon injury. No fevers to suggest septic joint. Given pain occurred with repositioning and not concern for gouty arthritis. No overlying erythema to suggest cellulitis. No fluctuance to suggest abscess. Left foot warm well-perfused and not concern for critical limb ischemia. Patient is on dual antiplatelet agents of the certainly could be the cause of his minor effusion in setting of limited trauma. I advised patient that his symptoms may improve with conservative treatment using acetaminophen compression elevation rest along with ice 20 minutes on 20 days off. I also advised that his symptoms may worsen. I advised that he should return to the emergency department if he could not feel his foot if he had worsening swelling or bruising to his knee or if he passed out. I sent his primary care provider message requesting follow-up next week. HPI This is a 73-year-old man arrived emergency department via private vehicle in setting of left lateral knee pain. He felt this pain after repositioning himself in bed this morning. He was reportedly too high up in the bed and he lowered his feet down and attempted to pull himself down on the bed when he had a sudden pain in the lateral side of his left knee. No surgeries in the past his left knee. Was in his usual state of health prior to his injury last night. Did not fall did not strike head. Not anticoagulated. No numbness or tingling in his left foot. No recent fevers. Exam General: Well-appearing in no acute distress speaking in complete sentences. Head: Normocephalic, atraumatic. Eye: Extraocular eye movements intact. No conjunctival injection. No scleral icterus. Ear, nose, mouth, throat: Grossly normal inspection. Normal voice, handling secretions normally. Neck: Trachea midline. Cardiovascular: Well-perfused distal extremities. Respiratory: Nonlabored respiration. Gastrointestinal: Nondistended abdomen. Musculoskeletal: Left knee with no obvious deformities lacerations or ecchymosis. Patient does have left lateral tenderness at the joint line. He is able to straight leg raise. Good negative anterior posterior drawer test. His left foot is warm and well-perfused with 2+ left PT and DP pulses. He has 5 out of 5 dorsi and plantarflexion strength on the left. He is able to flex his left knee to approximately 80 degrees. He has no tenderness in his hip thigh she began nor fibula. Skin: Normal for age and race, grossly normal temperature and turgor. No acute rash. Neurologic: Alert and appropriate, no apparent acute deficits. GCS 15. Psychiatric: Mood and manner are appropriate. Grooming and personal hygiene are appropriate. Related Data Home Medications ?Medication ?Instructions ?Recorded ?Confirmed multivitamin (One Daily tablet) 1 ea PO DAILY 04/09/13 03/14/25 triamcinolone acetonide 0.1 % 1 applic topical BID #15 grams 10/08/22 05/12/24 topical cream aspirin 81 mg tablet,delayed 81 mg PO DAILY 05/26/23 05/12/24 release (Adult Aspirin Regimen) ascorbate calcium (vitamin C) 500 500 mg PO DAILY 06/24/23 05/12/24 mg tablet clopidogrel 75 mg tablet 75 mg PO DAILY 06/24/23 05/12/24 atorvastatin 40 mg tablet 40 mg PO DAILY #90 tabs 08/03/23 05/12/24 trazodone 50 mg tablet 25 mg (1/2 x 50 mg) PO DAILY #45 10/28/23 05/12/24 tabs pantoprazole 40 mg tablet,delayed 40 mg PO DAILY PRN acid reflux #90 02/08/24 05/12/24 release tabs sertraline 50 mg tablet 50 mg PO DAILY #90 tabs 02/08/24 05/12/24 Previous Rx's ?Medication ?Instructions ?Recorded triamcinolone acetonide 0.1 % 1 applic topical BID #15 grams 10/08/22 topical cream atorvastatin 40 mg tablet 40 mg PO DAILY #90 tabs 08/03/23 trazodone 50 mg tablet 25 mg (1/2 x 50 mg) PO DAILY #45 10/28/23 tabs pantoprazole 40 mg tablet,delayed 40 mg PO DAILY PRN acid reflux #90 02/08/24 release tabs sertraline 50 mg tablet 50 mg PO DAILY #90 tabs 02/08/24 Allergies Allergy/AdvReac Type Severity Reaction Status Date / Time atenolol AdvReac Unknown hypotension Verified 05/12/24 13:05 General Stated Complaint: Orthopedic RYAN: 4 Course Vital Signs Vital signs: Vital Signs Temperature 37.1 C 05/12/24 13:00 Pulse 63 05/12/24 13:00 Respiratory Rate 18 05/12/24 13:00 Blood Pressure 152/89 H 05/12/24 13:00 Pulse Oximetry 96 05/12/24 13:00 Temperature 37.1 C 05/12/24 13:00 Temperature Source Oral 05/12/24 13:00 Pulse 63 05/12/24 13:00 Respiratory Rate 18 05/12/24 13:00 Blood Pressure 152/89 H 05/12/24 13:00 Blood Pressure Position Sitting 05/12/24 13:00 Pulse Oximetry 96 05/12/24 13:00 Oxygen Delivery Method Room Air 05/12/24 13:00 Oxygen Flow Rate 0 05/12/24 13:00 Pain Level 5 05/12/24 13:00 Medical Decision Making Quality:SDOH Health Related Social Needs: No Data to Display PFSH All Active Problems (Updated 05/12/24 @ 14:24 by Gregory Cordero MD) Effusion of knee joint, left (Acute) Acute pain of left knee (Acute) Sore throat (Acute) Neck pain (Acute) Cervical muscle pain (Acute) Strain of cervical portion of right trapezius muscle (Acute) Swelling of right foot (Acute) Fatigue (Acute) Chest discomfort (Acute) Non-ST elevation [place] (NSTEMI) (Acute) Atypical chest pain (Acute) CAD (coronary artery disease), [place] coronary artery (Chronic) Cough (Chronic) Chest congestion (Acute) Numbness of finger (Acute) Sciatica, right side (Acute) Trigger finger, left index finger (Acute) FAIR (nonalcoholic steatohepatitis) (Acute) Vertigo (Acute) Trigger finger, left (Acute) Post-viral cough syndrome (Acute) Blepharitis (Acute) Left flank pain (Acute) Coronary artery disease (Chronic) Dizziness (Acute) Bradycardia (Acute) Tachycardia (Acute) Osteoarthritis of both hands (Acute) Abdominal pain in male (Acute) BPH w urinary obs/LUTS (Acute) Internal derangement of right knee (Acute) AK (actinic keratosis) (Acute) Right medial knee pain (Acute) Hoarseness (Acute) Xerostomia (Acute) 05/2021, unclear cause Chest pain (Acute) Summer 2020-admitted for chest pain sent to [facility]-negative cardiac catheterization per patient Atrial fibrillation (Chronic) Remote, cardioverted about 2007 at [facility]-no recurrence Neuropathy of both feet (Acute) 03/2021- mild, likely ideopathic Foot pain, right (Acute) Chronic right foot pain felt to be likely combination overuse, degenerative changes and neuropathy Abdominal pain (Acute) Recurrent episodic moderate to severe abdominal pain right abdomen-since 2019-unclear cause no improvement after cholecystectomy, thorough evaluation since 2019 without any obvious etiology Tubular adenoma of colon (Acute) 2017, due in 2022 Kidney stone (Chronic) Nasal vestibulitis (Acute) White coat syndrome with high blood pressure but without hypertension (Acute) Anxiety (Chronic) Left-sided low back pain with left-sided sciatica (Acute) Bradycardia (Acute) holter 05/19 Chronic right hip pain (Chronic 07/04/13) Pleurodynia (Acute) GERD (gastroesophageal reflux disease) (Chronic) Fatty liver (Acute) Rosacea (Chronic) Hyperlipidemia (Chronic) Actinic keratosis (Chronic) Medical History Prostatitis Atrial flutter Pt. states it comes and goes, I've had it worked up, and the chest discomfort I was told was indigestion Chronic insomnia Gastritis (01/29/04) Tubular adenoma 01/20/13 DR. WANG 06/21/17 DR. SULTANA Paroxysmal atrial fibrillation (07/16/15) Malignant melanoma of skin of face History of kidney stones (12/02/15) Right hydrocele Anxiety and depression Prostatitis Kidney stones 1986, 2002 Colitis mild-scope 2003 Surgical History History of cataract surgery S/P laparoscopic cholecystectomy History of cholecystectomy History of coronary angioplasty Status post tendon repair Status post cataract extraction and insertion of intraocular lens of right eye (06/06/18) Status post cataract extraction and insertion of intraocular lens of left eye (05/23/18) cardiac ablation unsuccessful 2012 Repair, Tendon or Muscle left elbow EGD - IV Sedation 1999, 2004 Colonoscopy - MAC (06/21/17) Colonoscopy - IV Sedation 01/20/13 Angioplasty Family History Mother , 96 Dementia Father , 72 Stomach cancer Sister Diabetes Brother Rheumatoid arthritis Sister , 68 No problems noted. Sister No problems noted. Maternal Aunt Dementia Brother No problems noted. Social History Smoking/Tobacco Use Status: Former Tobacco Use tobacco type: cigarettes Quit Date: 03/01/77 Tobacco: How many years used: 6 Smokeless tobacco user: other Quit status: has quit before Second Hand Exposure: No Smoking risk assessment performed?: Yes Alcohol Intake: former Drug use: Never Substance use type: does not use Counseling given: No Counseling provided: none Caregiver/Support person: No Household members: none Housing: apartment Communication Needs: None Do you need help understanding health information?: Rarely Pets and animals: No Sexually active: No Do you think of yourself as: straight/heterosexual Current gender identity: male What is your relationship status?: never How often do you talk on the phone with friends or family?: three or more times per week How often do you get together with friends or relatives?: twice per week How often do you attend jainism or yazdanism services?: decline to answer Do you belong to any clubs or organized social groups?: no Panel score (0-1 are the most socially isolated patients): 1 What type of physical activity do you participate in: walking Duration: 30-45 minutes/day Frequency: 3-4 times per week Any/Tenriism: No preference Special any needs: No Seatbelt use: always Helmet use: Yes Helmet use: always Drive intox or ride w/intox moving van driver: No Do you feel safe at home: Yes Do you feel safe in your relationship?: Yes
--- NOTE | 2024-05-12 13:15 | DI.RAD_ITS ---
Exam(s) XR KNEE LT 3V AP,LAT,BRYAN EXAM: XR KNEE LT 3V AP,LAT,BRYAN CLINICAL HISTORY: Knee pain. TECHNIQUE: 2D digital imaging was performed. COMPARISON: No exams were available for comparison FINDINGS: 3 views No evidence of fracture but there does appear to be a small joint effusion. There is no significant joint space narrowing, however, on the lateral view there is slight indentation of the cortical surfa ce of the lateral femoral condyle. This may be indirect evidence of internal derangement. There is no evidence of tibial plateau fracture. Bone density is normal. No osseous lesions. Vascular calcifications noted in the femoral and popliteal and runoff arteries of the calf indicating atherosclerotic involvement. IMPRESSION: No fractures but indirect evidence of possible internal derangement as described above. If clinicall y indicated follow-up MRI can be performed for added sensitivity and specificity. DATA REPOSITORY: RADIATION DOSE DELIVERED:
[2024-05-12] MEDS: Acetaminophen 500 MG TAB 1000 MG PO (14:02)
[2024-05-12 14:55] VITALS: PULSE 60; RESP 18; O2SAT 96
== END 2024-05-12 14:55 | disposition home or self-care (01) ==
PROVIDERS: Emergency Provider Emergency Medicine; PCP Family Medicine
DX: M25.562 Pain in left knee (principal); M25.462 Effusion, left knee; I48.0 Paroxysmal atrial fibrillation; I25.10 Atherosclerotic heart disease of native coronary artery without angina pectoris; I25.2 Old myocardial infarction; E78.5 Hyperlipidemia, unspecified; Z79.02 Long term (current) use of antithrombotics/antiplatelets; Z79.82 Long term (current) use of aspirin; Z87.891 Personal history of nicotine dependence
CPT/HCPCS: 73562; 99283

== ENCOUNTER 2024-05-29 01:13 | Outpatient (CLI) | payer MEDICARE, SELFPAY ==
--- NOTE | 2024-05-29 06:30 | DI.US_ITS ---
Exam(s) US SOFT TISS ABD WALL/LOW BACK EXAM: US SOFT TISS ABD WALL/LOW BACK CLINICAL HISTORY: eval pathology,subcutaneous nodule of abd wall,r22.2. TECHNIQUE: Ultrasound was performed using standard protocol. COMPARISON: No exams were available for comparison FINDINGS: Sonographic assessment utilizing grayscale and color Doppler imaging was performed and targeted to th e area of clinical concern. Heterogeneous echogenicity is seen in the subcutaneous fat in the right lower abdominal wall correspo nding to the overlying ecchymosis on the skin surface. Findings raise a question of a hematoma. No findings to suggest an abscess are seen at this time. A follow-up examination in 2-3 weeks should be considered for re-evaluation. IMPRESSION: DATA REPOSITORY:
== END 2024-05-29 01:33 ==
LOC: DI 01:14
PROVIDERS: PCP Family Medicine; Visit Provider Nurse Practitioner Family
DX: R22.2 Localized swelling, mass and lump, trunk (principal)
CPT/HCPCS: 76705

== ENCOUNTER 2024-06-27 08:40 | Outpatient (CLI) | payer MEDICARE, SELFPAY ==
[2024-06-27 12:53] LABS: HCT 51.5 % (40.0-50.0); MCH 30.9 pg (27.0-33.0); MCV 94 fL (80-95); Platelet Count 182 10^3/uL (130-400); RDW-SD 48.2 fL; WBC 6.21 10^3/uL (4.4-10.8)
[2024-06-27 13:22] LABS: ALT 41 U/L (16-63); AST 26 U/L (15-37); Albumin 3.6 g/dL (3.4-5.0); Alkaline Phosphatase 106 U/L (46-116); BUN 15 mg/dL (7-18); CREATININE 1.3 mg/dL (0.70-1.30); Calcium 9.8 mg/dL (8.5-10.1); Chloride 108 mmol/L (98-107); Estimated GFR 57.65 (mL/min/1.73m2); Glucose 130 mg/dL (74-106); Potassium 3.9 mmol/L (3.5-5.1); Sodium 143 mmol/L (136-145); Total Protein 6.9 g/dL (6.4-8.2)
== END 2024-06-27 08:41 | disposition home or self-care (01) ==
LOC: LOS 08:40
PROVIDERS: PCP Family Medicine; Referring Provider Family Medicine; Visit Provider Family Medicine
DX: Z00.00 Encounter for general adult medical examination without abnormal findings (principal)
CPT/HCPCS: 36415; 80053; 85027

== ENCOUNTER 2024-07-29 11:46 | Outpatient (CLI) | payer MEDICARE, SELFPAY ==
--- NOTE | 2024-07-29 11:45 | RT.EKG_ITS ---
APPROVED REPORT Exam: Resting ECG Reason for Exam: chest discomfort Patient Location: O HR:52 bpm ECG Measurements Heart Rate 52 AXIS AR 176 P 67 QRSd 117 QRS 40 QT 453 T 58 QTc 422 Conclusion Sinus rhythm...normal P axis, V-rate 50- 99 Probable left atrial enlargement...P >50mS, <-0.10mV V1 Nonspecific intraventricular conduction delay...QRSd >115mS, not LBBB/RBBB
== END 2024-07-29 11:47 | disposition home or self-care (01) ==
LOC: DI.CM 11:47
PROVIDERS: PCP Family Medicine; Visit Provider Physician Assistant Medical
DX: R07.89 Other chest pain (principal); R00.1 Bradycardia, unspecified; I51.7 Cardiomegaly
CPT/HCPCS: 93010

== ENCOUNTER 2024-07-29 12:15 | Emergency (ER) | payer MEDICARE, SELFPAY ==
[2024-07-29] VITALS (8 sets, daily range): BP systolic 125–155; BP diastolic 57–72; PULSE 47–55; RESP 12–18; TEMP 36.5; O2SAT 95–98
--- NOTE | 2024-07-29 12:15 | RT.EKG_ITS ---
APPROVED REPORT Exam: Resting ECG Reason for Exam: Chest Pain Patient Location: E HR:52 bpm ECG Measurements Heart Rate 52 AXIS VT 170 P 68 QRSd 115 QRS 56 QT 453 T 73 QTc 423 Conclusion Sinus bradycardia, rate 52 No interval abnormalities No STEMI Concave ST segments III, aVF, <1mm ST depression precordial leads No significant changes from priors
--- NOTE | 2024-07-29 12:30 | DI.RAD_ITS ---
Exam(s) XR CHEST 2V PA LATERAL EXAM: XR CHEST 2V PA LATERAL CLINICAL HISTORY: Chest pain. TECHNIQUE: 2D digital imaging was performed. COMPARISON: CR,XR XR CHEST 2V PA LATERAL from 01/05/2024 FINDINGS: 2 views: Again noted are sternotomy wires and evidence of previous CABG. Heart size is normal. The mediastinum is not widened. Lungs are clear. No infiltrates nor pleural effusions. IMPRESSION: No acute pulmonary findings.Previous CABG. No CHF. DATA REPOSITORY: RADIATION DOSE DELIVERED:
--- NOTE | 2024-07-29 12:35 | ED.GENADUL_ITS ---
Discharge Plan Disposition Patient Disposition: Home Condition: Stable Discharge Details Clinical Impression: Chest pain, Acute pain of left shoulder Primary Care Provider: [facility] ED Provider: Yennifer Norman Home Meds and New Rx's Prescriptions: No Action ascorbate calcium (vitamin C) 500 mg tablet 500 mg PO DAILY atorvastatin 40 mg tablet 40 mg PO DAILY Qty: 90 3RF Rx Instructions: per Cardio sertraline 50 mg tablet 50 mg PO DAILY Qty: 90 3RF pantoprazole 40 mg tablet,delayed release (DR/EC) 40 mg PO DAILY PRN (Reason: acid reflux) Qty: 90 3RF multivitamin [One Daily Multivitamin] Tablet 1 tab PO DAILY triamcinolone acetonide 0.1 % cream 1 applic topical BID Qty: 15 0RF aspirin [Adult Aspirin Regimen] 81 mg tablet,delayed release (DR/EC) 81 mg PO DAILY trazodone 50 mg tablet 25 mg PO DAILY Qty: 45 3RF Patient Comments: Pt reports he takes this medication before bed. clopidogrel 75 mg tablet 75 mg PO DAILY Qty: 90 3RF Discharge Instructions Instructions: Biceps tendinopathy Additional Instructions: You were seen in the emergency department today for evaluation of shoulder pain and chest pain. In our department you had a full physical examination performed, had laboratory studies that were reassuring including negative cardiac enzymes, and had x-rays of your chest and shoulder that did not show any significant abnormalities which might explain your symptoms. Regarding your shoulder, I am most concerned for biceps tendinitis, which can be managed conservatively with Tylenol, gentle stretching, and heat or ice. You should avoid ibuprofen given your cardiac meds, and should follow-up with your primary care provider to discuss this visit and ensure you are healing properly. Your chest pain may have been due to this shoulder injury, though it is certainly possible that you had another event that we are unable to identify today. If you have chest pain that returns, you need to return to the emergency department for reevaluation. Please follow-up with your primary care provider in the next few days to discuss this visit and any symptoms that change, worsen, or persist. Thank you for allowing us to be part of your care. HPI General Mode of arrival: ambulatory . Date/Time Provider Initiated Documentation: 07/29/24 12:34 . Limitations to Documentation: no limitations . Information obtained by: patient, RN/MD and old records reviewed . HPI Narrative: This is a 73-year-old male patient with a past medical history significant for CAD and WI, status post CABG x 4 in 2023, history of Flores, and a remote history of atrial fibrillation, presenting for evaluation of chest and shoulder pain. The patient reports that over the last weekend he did quite a bit of yard work. He states that he rested on Wednesday, but noted some soreness of the left shoulder in the anterior aspect. He states that while resting he had a 1 minute episode of sharp left-sided chest pain, located between his ribs. This subsided on its own, and has not recurred. However, given his cardiac history he was quite concerned. His shoulder discomfort has continued, it is improved by Tylenol which he has been taking twice per day. He states that he has not sustained any falls or trauma. Notes worsening with palpation of the front of the shoulder as well as flexion. The patient was seen at [facility], had an EKG performed there and was recommended to present to our emergency department for full cardiac workup. Related Data Home Medications ?Medication ?Instructions ?Recorded ?Confirmed triamcinolone acetonide 0.1 % 1 applic topical BID #15 grams 10/08/22 07/29/24 topical cream aspirin 81 mg tablet,delayed 81 mg PO DAILY 05/26/23 07/29/24 release (Adult Aspirin Regimen) ascorbate calcium (vitamin C) 500 500 mg PO DAILY 06/24/23 07/29/24 mg tablet trazodone 50 mg tablet 25 mg (1/2 x 50 mg) PO DAILY #45 10/28/23 07/29/24 tabs pantoprazole 40 mg tablet,delayed 40 mg PO DAILY PRN acid reflux #90 02/08/24 07/29/24 release tabs sertraline 50 mg tablet 50 mg PO DAILY #90 tabs 02/08/24 07/29/24 multivitamin (One Daily 1 tab PO DAILY 05/26/24 07/29/24 Multivitamin tablet) clopidogrel 75 mg tablet 75 mg PO DAILY #90 tabs 06/05/24 07/29/24 atorvastatin 40 mg tablet 40 mg PO DAILY #90 tabs 06/27/24 07/29/24 Previous Rx's ?Medication ?Instructions ?Recorded triamcinolone acetonide 0.1 % 1 applic topical BID #15 grams 10/08/22 topical cream trazodone 50 mg tablet 25 mg (1/2 x 50 mg) PO DAILY #45 10/28/23 tabs pantoprazole 40 mg tablet,delayed 40 mg PO DAILY PRN acid reflux #90 02/08/24 release tabs sertraline 50 mg tablet 50 mg PO DAILY #90 tabs 02/08/24 clopidogrel 75 mg tablet 75 mg PO DAILY #90 tabs 06/05/24 atorvastatin 40 mg tablet 40 mg PO DAILY #90 tabs 06/27/24 Allergies Allergy/AdvReac Type Severity Reaction Status Date / Time atenolol AdvReac Unknown hypotension Verified 07/29/24 12:26 General Stated Complaint: Chest Pain RYAN: 3 Exam Narrative Exam Narrative: Gen: awake and alert, in no apparent distress. Appears well nourished. HEENT: PERRL. External ears and nose normal, mucous membranes moist. Neck: Supple, full range of motion, no observable masses Lungs: No increased work of breathing, lung sounds clear and equal bilaterally without wheezes, rhonchi, or rales. CV: Heart with largely regular rate and rhythm though I do note occasional ectopy on telemetry, no murmurs auscultated. Strong and symmetrical radial pulses. Well-healed midline sternotomy Abdomen: Soft, nondistended, non-tender to palpation. No rigidity, rebound tenderness, or guarding. MSK: No joint swelling, no redness. Full ROM without limitation, no external traumatic findings. The patient's left shoulder is tender to palpation over the area of the biceps tendon, full range of motion though extremes of flexion do re produce his soreness. He has no reproduction of symptoms with testing of the rotator cuff. No overlying skin changes Skin: No rashes or lesions to visualized skin. Normal color, warm, and dry. Neuro: Cranial nerves II-XII intact and symmetrical bilaterally. 5/5 strength in all muscle groups x4 extremities. No sensory deficits. Ambulates with steady gait. Psych: Appropriate for situation. Course Vital Signs Vital signs: Vital Signs Temperature 36.5 C 07/29/24 12:20 Pulse 55 L 07/29/24 12:20 Respiratory Rate 16 07/29/24 12:20 Blood Pressure 155/72 H 07/29/24 12:20 Pulse Oximetry 98 07/29/24 12:20 Temperature 36.5 C 07/29/24 12:20 Temperature Source Oral 07/29/24 12:20 Pulse 55 L 07/29/24 12:20 Respiratory Rate 12 07/29/24 12:27 Respiratory Effort Normal 07/29/24 12:27 Respiratory Depth Normal 07/29/24 12:27 Respiratory Pattern Normal 07/29/24 12:27 Blood Pressure 155/72 H 07/29/24 12:20 Blood Pressure Position Sitting 07/29/24 12:20 Pulse Oximetry 98 07/29/24 12:20 Oxygen Delivery Method Room Air 07/29/24 12:20 Oxygen Flow Rate 0 07/29/24 12:20 Pain Level 2 07/29/24 12:27 Medical Decision Making This is a 73-year-old male patient presenting for evaluation of 3 to 4 days of left shoulder pain and an episode of chest pain that has since resolved. My differential includes but is not limited to ACS including STEMI, NSTEMI, unstable angina, certainly considered arrhythmia, pericarditis/myocarditis, aortic pathology. Considered pulmonary abnormalities including pneumonia, bronchitis, pleural effusion, pulmonary edema, reactive airway disease, pneumothorax. The patient is without tachycardia, hypoxia, or a pleuritic component to his pain to significantly increase my concern for pulmonary embo lism. No GI symptoms or vomiting to suggest Boerhaave's, esophagitis, peptic ulcer disease, pancreatitis. Considered musculoskeletal pathologies including costochondritis, chest wall pain. Regarding his shoulder pain, I certainly considered radiating pain from a cardiac event, though given his recent exertion and the reproducibility with extremes of range of motion, I also considered sprain/strain, less likely fracture or dislocation, osteoarthritis/[id number]. I obtained and reviewed an EKG, which shows a sinus bradycardia, with no STEMI criteria met. I do note that he has some trace ST segment depression and concavity of his ST segment in leads III and aVF, though on review of prior EKGs these appear to be largely stable. We will obtain laboratory studies to include CBC, CMP, magnesium, troponin, lipase, and will obtain an x-ray of the chest and affected left shoulder. - I independently interpreted the laboratory studies, which show no significant leukocytosis, anemia, or thrombocytopenia. The chemistry panel is without evidence of electrolyte abnormality, kidney dysfunction, or liver injury. Lipase negative, initial troponin 7 and 1 hour recheck also 7, reassuring agai nst active ischemia. I reviewed the patient's x-ray imaging, no abnormalities identified in the chest or shoulder to explain the patient's symptoms. I am most concerned for a tendinopathy as the source of the patient's pain, given the reproducibility with palpation over the biceps tendon, and recommended conservative management for this pain. However, I did caution the patient against ignoring further episodes of chest pain, and recommended that he return for reevaluation at this emergency department if he does develop chest pain, shortness of breath, or changes in his shoulder pain. Given that he has been pain-free for several days, I do not see an indication to proceed with 3-hour troponin. At this time, the patient has had a full medical evaluation and is safe for discharge to home. They are hemodynamically stable, ambulatory, and tolerating PO. They are understanding of the follow-up plan and return precautions. They left our facility without incident. Yennifer Norman MD Quality:SDOH Health Related Social Needs: No Data to Display PFSH All Active Problems (Updated 07/29/24 @ 14:13 by Yennifer Norman MD) Acute pain of left shoulder (Acute) Memory deficit (Acute) Postnasal drip (Acute) Globus sensation (Acute) Change in voice (Acute) Effusion of knee joint, left (Acute) Acute pain of left knee (Acute) Sore throat (Acute) Neck pain (Acute) Cervical muscle pain (Acute) Strain of cervical portion of right trapezius muscle (Acute) Swelling of right foot (Acute) Fatigue (Acute) Chest discomfort (Acute) Non-ST elevation WI (NSTEMI) (Acute) Atypical chest pain (Acute) CAD (coronary artery disease), [place] coronary artery (Chronic) Cough (Chronic) Chest congestion (Acute) Numbness of finger (Acute) Sciatica, right side (Acute) Trigger finger, left index finger (Acute) FLORES (nonalcoholic steatohepatitis) (Acute) Vertigo (Acute) Trigger finger, left (Acute) Post-viral cough syndrome (Acute) Blepharitis (Acute) Left flank pain (Acute) Coronary artery disease (Chronic) Dizziness (Acute) Bradycardia (Acute) Tachycardia (Acute) Osteoarthritis of both hands (Acute) Abdominal pain in male (Acute) BPH w urinary obs/LUTS (Acute) Internal derangement of right knee (Acute) AK (actinic keratosis) (Acute) Right medial knee pain (Acute) Hoarseness (Acute) Xerostomia (Acute) 05/2021, unclear cause Chest pain (Acute) Summer 2020-admitted for chest pain sent to [facility]-negative cardiac catheterization per patient Atrial fibrillation (Chronic) Remote, cardioverted about [address] [facility]-no recurrence Neuropathy of both feet (Acute) 03/2021- mild, likely ideopathic Foot pain, right (Acute) Chronic right foot pain felt to be likely combination overuse, degenerative changes and neuropathy Abdominal pain (Acute) Recurrent episodic moderate to severe abdominal pain right abdomen-since 2019-unclear cause no improvement after cholecystectomy, thorough evaluation since 2019 without any obvious etiology Tubular adenoma of colon (Acute) 2017, due in 2022 Kidney stone (Chronic) Nasal vestibulitis (Acute) White coat syndrome with high blood pressure but without hypertension (Acute) Anxiety (Chronic) Left-sided low back pain with left-sided sciatica (Acute) Bradycardia (Acute) holter 05/19 Chronic right hip pain (Chronic 07/04/13) Pleurodynia (Acute) GERD (gastroesophageal reflux disease) (Chronic) Fatty liver (Acute) Rosacea (Chronic) Hyperlipidemia (Chronic) Actinic keratosis (Chronic) Medical History Prostatitis Atrial flutter Pt. states it comes and goes, I've had it worked up, and the chest discomfort I was told was indigestion Chronic insomnia Gastritis (01/29/04) Tubular adenoma 01/20/13 DR. WANG 06/21/17 DR. SULTANA Paroxysmal atrial fibrillation (07/16/15) Malignant melanoma of skin of face History of kidney stones (12/02/15) Right hydrocele Anxiety and depression Prostatitis Kidney stones 1986, 2002 Colitis mild-scope 2003 Surgical History History of cataract surgery S/P laparoscopic cholecystectomy History of cholecystectomy History of coronary angioplasty Status post tendon repair Status post cataract extraction and insertion of intraocular lens of right eye (06/06/18) Status post cataract extraction and insertion of intraocular lens of left eye (05/23/18) cardiac ablation unsuccessful 2012 Repair, Tendon or Muscle left elbow EGD - IV Sedation 1999, 2004 Colonoscopy - MAC (06/21/17) Colonoscopy - IV Sedation 01/20/13 Angioplasty Family History Mother , age 96 Dementia Father , age 65 Stomach cancer Sister , age 82 Diabetes Dementia Brother Rheumatoid arthritis Sister , age 73 Dementia Parkinson disease Maternal Aunt Dementia Brother No problems noted. Maternal Grandmother No problems noted. Maternal Grandfather No problems noted. Paternal Grandmother No problems noted. Paternal Grandfather No problems noted. Social History Smoking/Tobacco Use Status: Former Tobacco Use tobacco type: cigarettes Quit Date: 03/01/77 Tobacco: How many years used: 6 Smokeless tobacco user: other Quit status: has quit before Second Hand Exposure: No Smoking risk assessment performed?: Yes Alcohol Intake: former Year quit: 1989 Drug use: Never Substance use type: does not use Counseling given: No Counseling provided: none Adopted: No Caregiver/Support person: No Household members: none Housing: other Details: Senior housing Communication Needs: None Education Level: high school Do you need help understanding health information?: Rarely current occupation: Retired Pets and animals: No Sexually active: No Do you think of yourself as: straight/heterosexual Current gender identity: male What is your relationship status?: never How often do you talk on the phone with friends or family?: three or more times per week How often do you get together with friends or relatives?: three or more times per week How often do you attend yazdanism or faith services?: decline to answer Do you belong to any clubs or organized social groups?: no Panel score (0-1 are the most socially isolated patients): 1 What type of physical activity do you participate in: walking Duration: 30-45 minutes/day Frequency: 3-4 times per week Any/Restoration: No preference Special any needs: No Agree to transfusion: Yes Seatbelt use: always Helmet use: Yes Helmet use: always Drive intox or ride w/intox coach tour driver: No Working smoke detector in home: Yes Carbon monox detector in home: Yes Firearms in home: Yes Firearms unloaded and locked: Yes Do you feel safe at home: Yes Do you feel safe in your relationship?: Yes
[2024-07-29 12:57] LABS: Abs Immature Grans 0.01 10^3/uL (0.0-0.06); Absolute Basophil Count 0.05 10^3/uL (0.0-0.2); Absolute Eosinophil Count 0.08 10^3/uL (0.0-0.7); Absolute Neutrophil Count 3.77 10^3/uL (1.2-6.7); Basophils % 0.9 %; Eosinophils % 1.5 %; HCT 49.8 % (40.0-50.0); HGB 16.3 g/dL (13.5-17.5); Immature Grans % 0.2 %; Lymphocytes % 18.5 %; MCH 30.5 pg (27.0-33.0); MCHC 32.7 % (32.0-36.0); MCV 93 fL (80-95); MPV 10.1 fL (8.0-11.0); Monocytes % 9.2 %; Neutrophils % 69.7 %; Platelet Count 182 10^3/uL (130-400); RBC 5.35 10^6/uL (4.36-5.78); RDW 14.2 % (11.8-14.1); RDW-SD 48.4 fL; WBC 5.41 10^3/uL (4.4-10.8)
--- NOTE | 2024-07-29 13:06 | DI.RAD_ITS ---
Exam(s) XR SHOULDER LT COMPLETE 2+V EXAM: XR SHOULDER LT COMPLETE 2+V CLINICAL HISTORY: Pain after yard work. TECHNIQUE: 2D digital imaging was performed. COMPARISON: No exams were available for comparison FINDINGS: Five views. No evidence of fracture or dislocation or abnormal soft tissue calcifications. Subacromial space jan ears unremarkable. There are no obvious degenerative changes in the glenohumeral and AC joints. Bon e density normal. No osseous lesions. Sternotomy wires and evidence of previous CABG noted. IMPRESSION: No acute osseous findings in the left shoulder. DATA REPOSITORY: RADIATION DOSE DELIVERED:
[2024-07-29 13:16] LABS: ALT 39 U/L (16-63); AST 29 U/L (15-37); Albumin 3.6 g/dL (3.4-5.0); Alkaline Phosphatase 91 U/L (46-116); Anion Gap 5.9 mmol/L (3-11); BUN 15 mg/dL (7-18); Bilirubin, Total 0.7 mg/dL (0.2-1.0); CO2 29.1 mmol/L (21.0-32.0); CREATININE 1.3 mg/dL (0.70-1.30); Calcium 9.5 mg/dL (8.5-10.1); Chloride 107 mmol/L (98-107); Estimated GFR 57.65 (mL/min/1.73m2); Glucose 113 mg/dL (74-106); Lipase 27 U/L (<78); Magnesium 1.9 mg/dL (1.8-2.4); Potassium 4.2 mmol/L (3.5-5.1); Sodium 142 mmol/L (136-145); Total Protein 6.7 g/dL (6.4-8.2); Troponin I 7 ng/L (<or=76)
[2024-07-29 13:48] LABS: Troponin I 7 ng/L (<or=76)
--- NOTE | 2024-07-29 13:50 | DI.VRAD_ITS ---
PROCEDURE INFORMATION: Exam: XR Left Shoulder Exam date and time: 07/29/2024 1:00 PM Age: 73 years old Clinical indication: Shoulder; Left; PT fell in the winter - has had frequent pain since TECHNIQUE: Imaging protocol: Radiologic exam of the left shoulder. Views: 2 or more views. COMPARISON: CR XR CHEST 2V PA LATERAL 07/29/2024 12:57 PM FINDINGS: Bones/joints: Normal. Soft tissues: Normal. IMPRESSION: No acute findings. Consider MRI. Dictated and Authenticated by: Jermaine Espino MD. Orderin [facility]. Kevin De Oliveira MD
--- NOTE | 2024-07-29 13:51 | DI.VRAD_ITS ---
PROCEDURE INFORMATION: Exam: XR Chest Exam date and time: 07/29/2024 12:57 PM Age: 73 years old Clinical indication: Other: Chest pain; Prior surgery; Surgery date: 6+ months; Surgery type: Sternal wires TECHNIQUE: Imaging protocol: Radiologic exam of the chest. Views: 2 views. COMPARISON: CR XR CHEST 2V PA LATERAL 01/05/2024 5:12 PM FINDINGS: Lungs: Unremarkable. No consolidation. Pleural spaces: Unremarkable. No pleural effusion. No pneumothorax. Heart/Mediastinum: CABG. No cardiomegaly. Bones/joints: Median sternotomy wires. IMPRESSION: No acute findings. Dictated and Authenticated by: Jermaine Espino MD. Orderin [facility] Kevin De Oliveira MD
== END 2024-07-29 14:32 | disposition home or self-care (01) ==
PROVIDERS: Emergency Provider Emergency Medicine; PCP Family Medicine
DX: R07.9 Chest pain, unspecified; M25.512 Pain in left shoulder; Z86.79 Personal history of other diseases of the circulatory system; I10 Essential (primary) hypertension
CPT/HCPCS: 99284 ×2; 36415; 80053; 83690; 93005; 71046; 73030; 83735; 84484; 85025; 93010

== ENCOUNTER 2024-08-01 10:43 | Outpatient (CLI) | payer MEDICARE, SELFPAY ==
--- NOTE | 2024-08-01 10:30 | RT.EKG_ITS ---
APPROVED REPORT Exam: Resting ECG Reason for Exam: ED FU Patient Location: O HR:52 bpm ECG Measurements Heart Rate 52 AXIS AL 177 P 60 QRSd 114 QRS 25 QT 456 T 53 QTc 424 Conclusion Sinus rhythm...normal P axis, V-rate 50- 99 Probable left atrial enlargement...P >50mS, <-0.10mV V1
== END 2024-08-01 10:44 | disposition home or self-care (01) ==
LOC: DI.CM 10:43
PROVIDERS: PCP Family Medicine; Visit Provider Family Medicine
DX: R07.9 Chest pain, unspecified (principal); I51.7 Cardiomegaly
CPT/HCPCS: 93010

== ENCOUNTER → 2024-09-08 09:02 | Outpatient (BNVA) | payer MEDICARE, SELFPAY | PROVIDERS: PCP Family Medicine; Referring Provider Family Medicine; Visit Provider Internal Medicine Cardiovascular Disease | DX: I25.118 Atherosclerotic heart disease of native coronary artery with other forms of angina pectoris (principal) | CPT/HCPCS: 99213; 93005 ==

== ENCOUNTER → 2024-10-10 11:05 | Outpatient (BNVA) | payer MEDICARE, SELFPAY | PROVIDERS: PCP Family Medicine; Referring Provider Family Medicine; Visit Provider Internal Medicine Cardiovascular Disease | DX: I25.118 Atherosclerotic heart disease of native coronary artery with other forms of angina pectoris (principal); Z95.1 Presence of aortocoronary bypass graft | CPT/HCPCS: 99213 ==

== ENCOUNTER 2025-02-19 13:15 | Emergency (ER) | payer MEDICARE, SELFPAY ==
[2025-02-19] VITALS (29 sets, daily range): BP systolic 111–152; BP diastolic 52–93; PULSE 52–75; RESP 12–23; TEMP 36.8; O2SAT 96–100
--- NOTE | 2025-02-19 13:15 | RT.EKG_ITS ---
APPROVED REPORT Exam: Resting ECG Reason for Exam: SOB Patient Location: E HR:57 bpm ECG Measurements Heart Rate 57 AXIS IA 161 P 46 QRSd 113 QRS 29 QT 444 T 51 QTc 434 Conclusion Sinus bradycardia...rate< 60 Supraventricular bigeminy...bigeminy string>4 w/ SV complexes Probable left atrial enlargement...P >50mS, <-0.10mV V1
--- NOTE | 2025-02-19 14:00 | DI.RAD_ITS ---
Exam(s) XR CHEST 2V PA LATERAL EXAM: XR CHEST 2V PA LATERAL CLINICAL HISTORY: shortness of breath. TECHNIQUE: 2D digital imaging was performed. COMPARISON: CR,XR XR CHEST 2V PA LATERAL from 07/29/2024 FINDINGS: 2 views: Again noted are sternotomy wires and evidence of previous CABG. Heart size is normal. The mediastinum is not widened. Lungs are clear. No infiltrates nor pleural effusions. No evidence of pulmonary edema. IMPRESSION: No acute pulmonary findings. DATA REPOSITORY: RADIATION DOSE DELIVERED:
--- NOTE | 2025-02-19 14:05 | W.ED.GENAD ---
Discharge Plan Disposition Patient Disposition: Home Condition: Stable Discharge Details Clinical Impression: Shortness of breath Primary Care Provider: Marco [facility] ED Provider: Howard Rodriguez Home Meds and New Rx's Prescriptions: Continued ascorbate calcium (vitamin C) 500 mg tablet 500 mg PO DAILY multivitamin [One Daily Multivitamin] Tablet 1 tab PO DAILY triamcinolone acetonide 0.1 % cream 1 applic topical BID Qty: 15 0RF aspirin [Adult Aspirin Regimen] 81 mg tablet,delayed release (DR/EC) 81 mg PO DAILY atorvastatin 40 mg tablet See Rx Instructions .ROUTE .COMPLEX Qty: 90 3RF Dose Instruction: TAKE ONE TABLET BY MOUTH EVERY DAY PER CARDIO Rx Instructions: TAKE ONE TABLET BY MOUTH EVERY DAY PER CARDIO trazodone 50 mg tablet 25 mg PO DAILY Qty: 45 3RF Patient Comments: Pt reports he takes this medication before bed. Discontinued fluorouracil 5 % cream 1 applic topical ONCE Patient Comments: APPLY THIN LAYER TOPICALLY TO FACE/EARS/NOSE ON A TWICE DAILY BASIS FOR 1 WEEK ON, THEN 3 WEEKS OFF. REPEAT FOR A TOTAL OF 3 CYCLES. amoxicillin-pot clavulanate 875-125 mg tablet 1 tab PO Q12H Qty: 14 0RF sulfamethoxazole-trimethoprim [Bactrim DS] 800-160 mg tablet 1 tab PO BID Qty: 28 0RF No Action pantoprazole 40 mg tablet,delayed release (DR/EC) 40 mg PO DAILY PRN (Reason: acid reflux) Qty: 90 3RF sertraline 50 mg tablet 50 mg PO DAILY Qty: 90 3RF clopidogrel 75 mg tablet 75 mg PO DAILY Qty: 90 3RF Discharge Instructions Instructions: Shortness of Breath, Adult ED Additional Instructions: Please follow-up with your primary care physician. Call today to schedule timely follow-up for reassessment. Return to the emergency department immediately for any worsening or new concerning symptoms. Stand Alone Forms: Portal Information Referrals: Marco Hlils MD [Primary Care Provider, Medicine] Discharge Data Discharge Date/Time-TO BE ENTERED AT DEPARTURE: 02/19/25 15:46 HPI General Mode of arrival: ambulatory. Date/Time Provider Initiated Documentation: 02/19/25 13:37. Limitations to Documentation: no limitations. Information obtained by: patient. HPI Narrative: HISTORY OF PRESENT ILLNESS 74-year-old male with CAD status post CABG x4 and FAIR presenting with SOB. SOB began this morning at 0800 hours upon waking. Chronic dry cough for years, no associated chest pain. Active lifestyle, walks every other day. Last night, went to bed without issues, woke at 0330 hours to use the bathroom, then had difficulty breathing upon returning to bed. Fell back asleep, woke at 0730 hours feeling lightheaded. Anxious due to bypass history. No chest pain or leg swelling. SOB when climbing stairs, new symptom. No associated leg swelling or calf pain. New symptom of bloating for the past month. Weight fluctuates between 215-220 lbs, difficulty fastening pants. No changes in diet or fluid intake. Staying hydrated due to past dehydration issues. Following doctor's advice, lost weight since bypass surgery, exercises regularly, consulted dietitian. Occasionally indulges in sugary foods but generally maintains healthy diet. Dry cough since COVID-19 infection 1.5 years ago, causes discomfort. Taking clopidogrel and baby aspirin. Diagnosed with fatty liver disease, occasional flare-ups. PAST SURGICAL HISTORY: CABG x4 Related Data Home Medications ?Medication ?Instructions ?Recorded ?Confirmed triamcinolone acetonide 0.1 % 1 applic topical BID #15 grams 10/08/22 03/06/25 topical cream aspirin 81 mg tablet,delayed 81 mg PO DAILY 05/26/23 03/06/25 release (Adult Aspirin Regimen) ascorbate calcium (vitamin C) 500 500 mg PO DAILY 06/24/23 03/06/25 mg tablet multivitamin (One Daily 1 tab PO DAILY 05/26/24 03/06/25 Multivitamin tablet) atorvastatin 40 mg tablet See Rx Instructions .Route 09/19/24 03/06/25 .COMPLEX #90 tabs trazodone 50 mg tablet 25 mg (1/2 x 50 mg) PO DAILY #45 10/26/24 03/06/25 tabs clopidogrel 75 mg tablet 75 mg PO DAILY #90 tabs 03/06/25 03/06/25 pantoprazole 40 mg tablet,delayed 40 mg PO DAILY PRN acid reflux #90 03/06/25 03/06/25 release tabs sertraline 50 mg tablet 50 mg PO DAILY #90 tabs 03/06/25 03/06/25 Previous Rx's ?Medication ?Instructions ?Recorded triamcinolone acetonide 0.1 % 1 applic topical BID #15 grams 10/08/22 topical cream atorvastatin 40 mg tablet See Rx Instructions .Route 09/19/24 .COMPLEX #90 tabs trazodone 50 mg tablet 25 mg (1/2 x 50 mg) PO DAILY #45 10/26/24 tabs clopidogrel 75 mg tablet 75 mg PO DAILY #90 tabs 03/06/25 pantoprazole 40 mg tablet,delayed 40 mg PO DAILY PRN acid reflux #90 03/06/25 release tabs sertraline 50 mg tablet 50 mg PO DAILY #90 tabs 03/06/25 Allergies Allergy/AdvReac Type Severity Reaction Status Date / Time atenolol AdvReac Unknown hypotension Verified 03/02/25 10:00 General Stated Complaint: SOB RYAN: 3 Review of Systems All systems reviewed & are unremarkable except as noted in HPI and below Exam Const General: cooperative and no acute distress HENMT Mouth: moist mucous membranes Eyes Conjunctivae: normal conjunctivae Sclera: normal sclerae Neck Neck: trachea midline and supple Resp Auscultation: rales bilaterally at the base (fine), no rhonchi and no wheezes Cardio Rate: regular rate and not tachycardic Rhythm: regular rhythm GI Palpation: soft, not firm, no guarding, no masses, not rigid and nontender Skin General skin exam: no rashes or lesions noted Neuro General: patient alert, patient awake, patient oriented x3 and tone normal Extrem General: no calf tenderness and no edema Psych Appearance: grossly normal Mental Status: mental status grossly normal Speech and Movement: speech and movement normal Course Vital Signs Vital signs: Vital Signs Pulse 75 02/19/25 13:18 Respiratory Rate 15 02/19/25 13:18 Blood Pressure 152/93 H 02/19/25 13:18 Pulse Oximetry 98 02/19/25 13:18 Temperature Source Oral 02/19/25 13:48 Pulse 75 02/19/25 13:48 Pulse 60 02/19/25 13:46 Respiratory Rate 20 02/19/25 13:48 Respiratory Effort Short of Breath 02/19/25 13:48 Respiratory Depth Normal 02/19/25 13:48 Respiratory Pattern Normal 02/19/25 13:48 Blood Pressure 152/93 H 02/19/25 13:48 Blood Pressure Mean 86 02/19/25 13:46 Blood Pressure Position Sitting 02/19/25 13:48 Pulse Oximetry 98 02/19/25 13:48 Oxygen Delivery Method Room Air 02/19/25 13:48 Oxygen Flow Rate 0 02/19/25 13:48 Pain Level 0 02/19/25 13:48 Medical Decision Making ASSESSMENT AND PLAN Initial Assessment: 74-year-old male with CAD status post CABG x4 and FAIR, presenting with SOB starting this morning, dyspnea on exertion, chronic dry cough. No chest pain. No lower extremity edema. Patient is noted abdomen feels bloated over the past month. Differential Diagnosis: - CHF - PE, low risk - Infectious etiology including COVID - Acute liver failure ED Course: - Vital signs within normal limits. - EKG was reviewed and interpreted by me: Please report, sinus bradycardia 57 bpm, probable left atrial enlargement. No STEMI. - Will check labs including D-dimer. - Labs reviewed and nondiagnostic. D-dimer negative. Mild elevation of AST and ALT. Normal BNP. Normal creatinine. COVID test negative. Initial troponin and delta troponin negative, unchanged. - Chest x-ray reviewed and interpreted by radiology: No acute pulmonary findings. - Patient reassessed and remained stable. He continues to saturate well in no respiratory distress. Plan for discharge with close outpatient follow-up for reassessment with PCP. Clinical Impression: Shortness of breath This document was written with the assistance of SEYMOUR Can. The patient consented to its use. Lab Data Lab results reviewed: Yes I reviewed the patient's lab results. Labs: Laboratory Tests Range/Units 02/19/25 02/19/25 02/19/25 13:43 14:05 14:46 WBC (4.4-10.8) 10^3/uL 6.66 RBC (4.36-5.78) 10^6/uL 5.36 Hgb (13.5-17.5) g/dL 16.8 Hct (40.0-50.0) % 49.4 MCV (80-95) fL 92 MCH (27.0-33.0) pg 31.3 MCHC (32.0-36.0) % 34.0 RDW (11.8-14.1) % 13.8 Plt Count (130-400) 10^3/uL 185 MPV (8.0-11.0) fL 10.3 Immature Gran % % 0.2 Neutrophils % % 68.2 Lymphocytes % % 19.1 Monocytes % % 10.5 Eosinophils % % 1.2 Basophils % % 0.8 Nucleated RBC % (0.0-0.3) % 0.0 Absolute Neutrophils (1.2-6.7) 10^3/uL 4.55 Absolute Lymphocytes (1.2-3.4) 10^3/uL 1.27 Absolute Monocytes (0.1-0.8) 10^3/uL 0.70 Absolute Eosinophils (0.0-0.7) 10^3/uL 0.08 Absolute Basophils (0.0-0.2) 10^3/uL 0.05 D-Dimer (<500) ng/mlFEU 372 Sodium (136-145) mmol/L 141 Potassium (3.5-5.1) mmol/L 4.0 Chloride (98-107) mmol/L 105 Carbon Dioxide (20.0-31.0) mmol/L 27.1 Anion Gap (3-11) mmol/L 8.9 BUN (9-23) mg/dL 18 Creatinine (0.73-1.18) mg/dL 1.18 Est GFR (CKD-EPI 2020) (mL/min/1.73m2) 60.15 Glucose (74-106) mg/dL 88 Calcium (8.3-10.6) mg/dL 10.1 Magnesium (1.6-2.6) mg/dL 2.0 Total Bilirubin (0.2-1.2) mg/dL 1.0 AST (<34) U/L 40 H ALT (10-49) U/L 56 H Alkaline Phosphatase (46-116) U/L 97 Troponin I (<54) ng/L 3 4 NT-Pro-B Natriuret Pep (<300) pg/mL 84 Total Protein (5.7-8.2) g/dL 6.9 Albumin (3.2-5.0) g/dL 4.1 COVID-19 Source Nasopharynx SARS-CoV-2 (PCR) (Negative) Negative Influenza Type A (PCR) (Negative) Negative Influenza Type B (PCR) (Negative) Negative RSV (PCR) (Negative) Negative PFSH All Active Problems (Updated 03/02/25 @ 10:19 by Che Michel MD) Shortness of breath (Acute) Pain, heel (Acute) Prostatism (Acute) Neck pain on right side (Acute) Shoulder pain, left (Acute) Memory deficit (Acute) Postnasal drip (Acute) Globus sensation (Acute) Change in voice (Acute) Effusion of knee joint, left (Acute) Acute pain of left knee (Acute) Sore throat (Acute) Neck pain (Acute) Cervical muscle pain (Acute) Strain of cervical portion of right trapezius muscle (Acute) Swelling of right foot (Acute) Fatigue (Acute) Chest discomfort (Acute) Non-ST elevation [place] (NSTEMI) (Acute) Atypical chest pain (Acute) CAD (coronary artery disease), [place] coronary artery (Chronic) Cough (Chronic) Chest congestion (Acute) Numbness of finger (Acute) Sciatica, right side (Acute) Trigger finger, left index finger (Acute) FAIR (nonalcoholic steatohepatitis) (Acute) Vertigo (Acute) Trigger finger, left (Acute) Post-viral cough syndrome (Acute) Blepharitis (Acute) Left flank pain (Acute) Coronary artery disease (Chronic) Dizziness (Acute) Bradycardia (Acute) Tachycardia (Acute) Osteoarthritis of both hands (Acute) Abdominal pain in male (Acute) BPH w urinary obs/LUTS (Acute) Internal derangement of right knee (Acute) AK (actinic keratosis) (Acute) Right medial knee pain (Acute) Hoarseness (Acute) Xerostomia (Acute) 05/2021, unclear cause Chest pain (Acute) Summer 2020-admitted for chest pain sent to [facility]-negative cardiac catheterization per patient Atrial fibrillation (Chronic) Remote, cardioverted about 2007 at [facility]-no recurrence Neuropathy of both feet (Acute) 03/2021- mild, likely ideopathic Foot pain, right (Acute) Chronic right foot pain felt to be likely combination overuse, degenerative changes and neuropathy Abdominal pain (Acute) Recurrent episodic moderate to severe abdominal pain right abdomen-since 2019-unclear cause no improvement after cholecystectomy, thorough evaluation since 2019 without any obvious etiology Tubular adenoma of colon (Acute) 2017, due in 2022 Kidney stone (Chronic) Nasal vestibulitis (Acute) White coat syndrome with high blood pressure but without hypertension (Acute) Anxiety (Chronic) Left-sided low back pain with left-sided sciatica (Acute) Bradycardia (Acute) holter 05/19 Chronic right hip pain (Chronic 07/04/13) Pleurodynia (Acute) GERD (gastroesophageal reflux disease) (Chronic) Fatty liver (Acute) Rosacea (Chronic) Hyperlipidemia (Chronic) Actinic keratosis (Chronic) Medical History (Updated 03/02/25 @ 10:19 by Che Michel MD) Prostatitis Chronic insomnia Gastritis (01/29/04) Tubular adenoma 01/20/13 DR. WANG 06/21/17 DR. SULTANA Malignant melanoma of skin of face History of kidney stones (12/02/15) Right hydrocele Anxiety and depression Prostatitis Kidney stones 1986, 2002 Colitis mild-scope 2004 Surgical History History of cataract surgery S/P laparoscopic cholecystectomy History of cholecystectomy History of coronary angioplasty Status post tendon repair Status post cataract extraction and insertion of intraocular lens of right eye (06/06/18) Status post cataract extraction and insertion of intraocular lens of left eye (05/23/18) cardiac ablation unsuccessful 2012 Repair, Tendon or Muscle left elbow EGD - IV Sedation 1999, 2004 Colonoscopy - MAC (06/21/17) Colonoscopy - IV Sedation 01/20/13 Angioplasty Family History Mother , age 96 Dementia Father , age 65 Stomach cancer Sister , age 82 Diabetes Dementia Brother Rheumatoid arthritis Sister , age 73 Dementia Parkinson disease Maternal Aunt Dementia Brother No problems noted. Maternal Grandmother No problems noted. Maternal Grandfather No problems noted. Paternal Grandmother No problems noted. Paternal Grandfather No problems noted. Social History Smoking/Tobacco Use Status: Former Tobacco Use tobacco type: cigarettes Quit Date: 03/01/77 Tobacco: How many years used: 6 Smokeless tobacco user: other Quit status: has quit before Second Hand Exposure: No Smoking risk assessment performed?: Yes Alcohol Intake: former Year quit: 1989 Drug use: Never Substance use type: does not use Counseling given: No Counseling provided: none Adopted: No Caregiver/Support person: No Household members: none Housing: other Details: Senior housing Communication Needs: None Education Level: high school Do you need help understanding health information?: Rarely current occupation: Retired Pets and animals: No Sexually active: No Do you think of yourself as: straight/heterosexual Current gender identity: male What is your relationship status?: never How often do you talk on the phone with friends or family?: three or more times per week How often do you get together with friends or relatives?: three or more times per week How often do you attend pentecostal or mormonism services?: decline to answer Do you belong to any clubs or organized social groups?: no Panel score (0-1 are the most socially isolated patients): 1 What type of physical activity do you participate in: walking Duration: 30-45 minutes/day Frequency: 3-4 times per week Any/Scientology: No preference Special any needs: No Agree to transfusion: Yes Seatbelt use: always Helmet use: Yes Helmet use: always Drive intox or ride w/intox day haul or farm charter bus driver: No Working smoke detector in home: Yes Carbon monox detector in home: Yes Firearms in home: Yes Firearms unloaded and locked: Yes Do you feel safe at home: Yes Do you feel safe in your relationship?: Yes
[2025-02-19 14:16] LABS: Abs Immature Grans 0.01 10^3/uL (0.0-0.06); HCT 49.4 % (40.0-50.0); HGB 16.8 g/dL (13.5-17.5); Immature Grans % 0.2 %; MCH 31.3 pg (27.0-33.0); MCHC 34.0 % (32.0-36.0); MCV 92 fL (80-95); MPV 10.3 fL (8.0-11.0); Platelet Count 185 10^3/uL (130-400); RBC 5.36 10^6/uL (4.36-5.78); RDW 13.8 % (11.8-14.1); RDW-SD 47.2 fL; WBC 6.66 10^3/uL (4.4-10.8)
[2025-02-19 14:33] LABS: Magnesium 2.0 mg/dL (1.6-2.6)
[2025-02-19 14:34] LABS: Troponin I 3 ng/L (<54)
[2025-02-19 14:36] LABS: ALT 56 U/L (10-49); AST 40 U/L (<34); Albumin 4.1 g/dL (3.2-5.0); Alkaline Phosphatase 97 U/L (46-116); Anion Gap 8.9 mmol/L (3-11); BUN 18 mg/dL (9-23); Bilirubin, Total 1.0 mg/dL (0.2-1.2); CO2 27.1 mmol/L (20.0-31.0); Calcium 10.1 mg/dL (8.3-10.6); Chloride 105 mmol/L (98-107); Glucose 88 mg/dL (74-106); Potassium 4.0 mmol/L (3.5-5.1); Sodium 141 mmol/L (136-145); Total Protein 6.9 g/dL (5.7-8.2)
[2025-02-19 14:44] LABS: D-Dimer 372 ng/mlFEU (<500)
[2025-02-19 14:54] LABS: COVID-19 PCR Negative (Negative); RSV PCR Negative (Negative)
[2025-02-19 15:16] LABS: Troponin I 4 ng/L (<54)
== END 2025-02-19 15:46 | disposition home or self-care (01) ==
PROVIDERS: Emergency Provider Student in an Organized Health Care Education/Training Program; PCP Family Medicine
DX: R06.02 Shortness of breath (principal); Z86.79 Personal history of other diseases of the circulatory system
CPT/HCPCS: 99283; 99284; 36415; 80053; 87637; 93005; 71046; 83735; 83880; 84484; 85025; 85379; 93010